=== PATIENT | female | born 1945 | race Caucasian/White ===

== ENCOUNTER 2018-07-10 20:40 | Inpatient (IN) | payer MEDICARE, BC ==
[~2018-07-10] VITALS: Ht 167.6 cm; Wt 90.9 kg
[2018-07-10 20:45] VITALS: BP 156/70
[2018-07-10] MEDS ORDERED: HYDROcodone/APAP 5/325MG 1 TAB TABLET PO PRN (22:00)
[2018-07-10] MEDS ORDERED: NON FORMULARY ITEM (Dextran 70/Hypromellose (Artificial Tears Eye Drops) 1 DROP) EACHEYE PRN (22:00)
[2018-07-10] MEDS ORDERED: FERR325T14 PO (22:27)
[2018-07-10] MEDS ORDERED: ERGO500027 PO (22:27)
[2018-07-10] MEDS ORDERED: MECL25TA3 PO (22:27)
[2018-07-10] MEDS ORDERED: POLY255P11 PO (22:27)
[2018-07-10] MEDS ORDERED: INSU100I13 SQ (22:27)
[2018-07-10] MEDS ORDERED: ACET500T68 PO (22:27)
[2018-07-10] MEDS ORDERED: DEXT15DR5 EACHEYE (22:27)
[2018-07-10] MEDS ORDERED: ATOR40TA59 PO (22:27)
[2018-07-10] MEDS ORDERED: SERT25TA PO (22:27)
[2018-07-10] MEDS ORDERED: SENN-142 PO (22:27)
[2018-07-10] MEDS ORDERED: MAGN400T22 PO (22:27)
[2018-07-10] MEDS ORDERED: ASPI-630 PO (22:27)
[2018-07-10] MEDS ORDERED: GABA-586 PO (22:27)
[2018-07-10] MEDS ORDERED: DORZ10DR21 LEFTEYE (22:27)
[2018-07-10] MEDS ORDERED: CARB15DR3 EACHEYE (22:27)
[2018-07-10] MEDS ORDERED: DORZ10DR27 LEFTEYE (22:27)
[2018-07-10] MEDS ORDERED: LOSA25TA11 PO ×2 (22:27)
[2018-07-10] MEDS ORDERED: HYDR-2155 PO ×2 (22:27)
[2018-07-10] MEDS ORDERED: LIDO700A39 TP (22:27)
[2018-07-10] MEDS ORDERED: CLOP75TA PO (22:27)
[2018-07-10] MEDS ORDERED: DEXTROSE 50% 25 GM / 50ML DISP.SYRIN. IV PRN (22:45)
--- NOTE | 2018-07-10 22:46 | PDOC ---
Exam Note: Abhilash Note: Please also refer to the separate dictated note~for this date of service dictated separately. Discussed the patient with Nursing staff reviewed the chart.~Reviewed interim history and current functioning. Reviewed vital signs,~ Labs/ Radiology~and current medications noted below. Continue current treatment with the changes noted in the dictated addendum note Current Medications: Meds: Current Medications Clopidogrel Bisulfate (Plavix) 75 mg DAILY PO ; Start 07/11/18 at 09:00 Ferrous Sulfate (Feosol) 325 mg DAILY PO ; Start 07/11/18 at 09:00 Gabapentin (Neurontin) 300 mg HS PO ; Start 07/11/18 at 21:00 Acetaminophen/ Hydrocodone Bitart (Lortab 5/325) 1 tab PRN QHS PRN PO PAIN; Start 07/10/18 at 22:00 Acetaminophen/ Hydrocodone Bitart (Lortab 5/325) 1 tab PRN Q6HRS PRN PO PAIN; Start 07/10/18 at 22:00 Insulin Glargine (Lantus) 30 units QHS SQ ; Start 07/11/18 at 21:00 Losartan Potassium (Cozaar) 12.5 mg HS PO ; Start 07/11/18 at 21:00 Losartan Potassium (Cozaar) 25 mg DAILY PO ; Start 07/11/18 at 09:00 Senna/Docusate Sodium (Senna Plus) 1 tab BID94 PO ; Start 07/11/18 at 09:00 Acetaminophen (Tylenol) 1,000 mg PRN Q6HRS PRN PO PAIN / TEMP; Start 07/10/18 at 22:45 Aspirin (Children'S Aspirin) 81 mg DAILYWBKFT PO ; Start 07/11/18 at 08:00 Atorvastatin Calcium (Lipitor) 40 mg QHS PO ; Start 07/11/18 at 21:00 Artificial Tears (Artificial Tears) 1 drop PRN Q15MIN PRN OU DRY EYE; Start at 22:45 Non-Formulary Medication (Dextran 70/ Hypromellose (Artificial Tears Eye Drops) ) 1 drop PRN Q4HRS PRN EACHEYE DRY EYE; Start 07/10/18 at 22:00; Status UNV Dorzolamide/ Timolol (Cosopt) 1 drop QHS OS ; Start 07/11/18 at 21:00 Non-Formulary Medication (Dorzolamide Hcl/ Timolol Maleat (Dorzolamide-Timolol Eye Drops)) 1 drop HS LEFTEYE ; Start 07/11/18 at 21:00; Status UNV Vitamin D (Vitamin D3) 50,000 unit WEEKLY PO ; Start 07/17/18 at 09:00 Lidocaine (Lidoderm) 1 patch DAILY TD ; Start 07/11/18 at 09:00 Magnesium Oxide (Magnesium Oxide) 400 mg BID94 PO ; Start 07/11/18 at 09:00 Meclizine HCl (Antivert) 25 mg DAILY PO ; Start 07/11/18 at 09:00 Polyethylene Glycol (miraLAX) 17 gm PRN DAILY PRN PO CONSTIPATION; Start at 09:00 Sertraline HCl (Zoloft) 25 mg DAILY PO ; Start 07/11/18 at 09:00 Insulin Human Lispro (HumaLOG) 0-16 UNITS TIDWMEALS SQ ; Start 07/11/18 at 08:00 ; Status UNV Dextrose 12.5 gm PRN Q15MIN PRN IV SEE COMMENTS; Start 07/10/18 at 22:45; Status UNV Miscellaneous (Lidoderm Patch Removal) 1 ea QHS MC ; Start 07/11/18 at 21:00 Active Scripts Active Reported Vitamin D2 (Ergocalciferol (Vitamin D2)) 50,000 Unit Capsule 50,000 Unit PO WEEKLY Zoloft (Sertraline Hcl) 25 Mg Tablet 25 Mg PO DAILY Senna-S Laxative Tablet (Sennosides/Docusate Sodium) 1 Each Tablet 1 Each PO BID94 Refresh Optive Eye Drops (Carboxymethylcellulos/Glycerin) 15 Ml Drops 1 Drop EACHEYE PRN Q4HRS PRN Polyethylene Glycol 3350 255 Gm Powder 17 Gm PO PRN DAILY PRN Meclizine Hcl 25 Mg Tablet 25 Mg PO DAILY Mag-Oxide (Magnesium Oxide) 400 Mg Tablet 400 Mg PO BID94 Losartan Potassium (Losartan Potassium) 25 Mg Tablet 12.5 Mg PO HS Losartan Potassium (Losartan Potassium) 25 Mg Tablet 25 Mg PO DAILY Lidocaine 1 Each Adh..patch 1 Each TP DAILY Lantus Solostar (Insulin Glargine,Hum.rec.anlog) 100 Unit/1 Ml Insuln.pen 30 Unit SQ QHS Hydrocodone-Apap 5-325 (Hydrocodone Bit/Acetaminophen) 1 Each Tablet 1 Tab PO PRN Q6HRS PRN Hydrocodone-Apap 5-325 (Hydrocodone Bit/Acetaminophen) 1 Each Tablet 1 Tab PO HS PRN Gabapentin (Gabapentin) 300 Mg Capsule 300 Mg PO HS Ferrous Sulfate 325 Mg Tablet 325 Mg PO DAILY Dorzolamide-Timolol Eye Drops (Dorzolamide Hcl/Timolol Maleat) 10 Ml Drops 1 Drop LEFTEYE HS Cosopt Eye Drops (Dorzolamide Hcl/Timolol Maleat) 10 Ml Drops 1 Drop LEFTEYE HS Clopidogrel (Clopidogrel Bisulfate) 75 Mg Tablet 75 Mg PO DAILY Atorvastatin Calcium 40 Mg Tablet 40 Mg PO QHS Aspirin 81 Mg Tab.chew 81 Mg PO DAILY Artificial Tears Eye Drops (Dextran 70/Hypromellose) 15 Ml Drops 1 Drop EACHEYE PRN Q4HRS PRN Acetaminophen 500 Mg Tablet 1,000 Mg PO PRN Q6HRS PRN I have reviewed the current psychotropics carefully including drug interactions. Risk benefit ratio favors no change other than as noted in my dictated progress note. JENNIFER CHEUNG MD Jul 10, 2018 22:46
[2018-07-10] MEDS: INSULIN GLARGINE 300 UNITS/3 ML INSULN.PEN. SQ SCH (23:00)
[2018-07-10] MEDS: HYDROcodone/APAP 5/325MG 1 TAB TABLET PO SCH (23:00)
[2018-07-10] MEDS ORDERED: MAGNESIUM HYDROXIDE 2,400 MG/30 ML ORAL.SUSP. PO PRN (23:15)
[2018-07-10] MEDS ORDERED: MAG HYDROX/AL HYDROX/SIMETH 30 ML ORAL.SUSP PO PRN (23:15)
[2018-07-10] MEDS ORDERED: METHYL SALICYLATE/MENTHOL TOPICAL OINTMENT 29GM TUBE. TP PRN (23:15)
[2018-07-11] MEDS: LOSARTAN 25 MG TABLET. PO SCH ×3 (02:25→20:55)
[2018-07-11] MEDS: ATORVASTATIN CALCIUM 20 MG TABLET PO SCH ×2 (02:26→20:55)
[2018-07-11] MEDS: SENNOSIDES/DOCUSATE 8.6/50MG TABLET. PO SCH ×3 (02:29→16:25)
[2018-07-11] MEDS: GABAPENTIN 300 MG CAPSULE. PO SCH ×2 (02:30→20:55)
--- NOTE | 2018-07-11 05:11 | NUR ---
Admission Note with Justification for Admission to [facility] Patient admitted to [facility] for protective oversight for emergency stabilization of acute psychiatric crisis. Pt admitted from: [place] Mode of arrival: EMS Accompanied By: EMS Precipitating behaviors that initiated intake and admission:Was threatening SI, hoarding narcotics and plan was to OD. Description of failure of out patient attempts at stabilization in previous setting list behavior and medication trials: Pt was caught hoarding narcotics and was making SI statements Behaviors and assessment findings upon admission: Pt arrives in denial, tearful, angry but compliant with meds, attempted to kamran meds in front of staff. Plan: Admit for protective oversight for adjustment and stabilization of medications, behaviors and mood. Intense treatment regimen including groups, medication adjustments, therapy, consistent regimen for ADL's, self care, and sleep hygiene. Daily monitoring by Inpatient staff, Psychiatry, and Medical Physician.
[2018-07-11 06:06] VITALS: BP 114/64
[2018-07-11 08:31] LABS: BASO # 0.1 x10^3/uL (0.0-0.2); BASO % 2 % (0-3); EOS # 0.2 x10^3/uL (0.0-0.7); EOS % 4 % (0-3); HEMOGLOBIN 12.8 g/dL (12.0-15.5); LYMPH # 1.7 x10^3/uL (1.0-4.8); LYMPH % 28 % (24-48); MEAN CORPUSCULAR HEMOGLOBIN 28 pg (25-35); MEAN CORPUSCULAR HGB CONC 33 g/dL (31-37); MEAN CORPUSCULAR VOLUME 85 fL (79-100); MONO # 0.4 x10^3/uL (0.0-1.1); MONO % 6 % (0-9); NEUT # 3.7 x10^3uL (1.8-7.7); NEUT % 61 % (31-73); PLATELET COUNT 275 x10^3/uL (140-400); RED BLOOD COUNT 4.61 x10^6/uL (3.50-5.40); RED CELL DISTRIBUTION WIDTH 15.5 % (11.5-14.5); WHITE BLOOD COUNT 6.2 x10^3/uL (4.0-11.0)
[2018-07-11 08:41] LABS: ALBUMIN 2.8 g/dL (3.4-5.0); ALBUMIN/GLOBULIN RATIO 0.7 (1.0-1.7); CALCIUM 9.1 mg/dL (8.5-10.1); CREATININE 1.2 mg/dL (0.6-1.0); GFR 44.3; MAGNESIUM 1.9 mg/dL (1.8-2.4); POTASSIUM 4.4 mmol/L (3.5-5.1); TOTAL BILIRUBIN 0.3 mg/dL (0.2-1.0); TOTAL PROTEIN 6.9 g/dL (6.4-8.2)
[2018-07-11] MEDS ORDERED: POLYETHYLENE GLYCOL 3350 17 GM PACKET. PO PRN (09:00)
[2018-07-11] MEDS ORDERED: SENNOSIDES/DOCUSATE 8.6/50MG TABLET. PO SCH (09:00)
[2018-07-11] MEDS: LIDOCAINE (700MG/PATCH) PATCH. TD SCH ×2 (09:00→09:22)
[2018-07-11] MEDS: INSULIN LISPRO 300 UNITS/3 ML INSULN.PEN. SQ SCH ×3 (09:15→17:00)
[2018-07-11] MEDS: POLYVINYL ALCOHOL 1.4% OPHTH SOLUTION 15ML BOTTLE. OU PRN (09:22)
[2018-07-11] MEDS: SERTRALINE 25 MG TABLET. PO SCH (09:23)
[2018-07-11] MEDS: FERROUS SULFATE 325 MG TABLET. PO SCH (09:23)
[2018-07-11] MEDS: MAGNESIUM OXIDE 400 MG TABLET PO SCH ×2 (09:23→16:25)
[2018-07-11] MEDS: MECLIZINE 12.5 MG TABLET. PO SCH (09:23)
[2018-07-11] MEDS: ASPIRIN 81 MG TAB.CHEW PO SCH (09:23)
[2018-07-11] MEDS: CLOPIDOGREL BISULFATE 75 MG TABLET PO SCH (09:23)
[2018-07-11 12:07] LABS: THYROXINE 5.3 ug/dL (4.5-12.0)
--- NOTE | 2018-07-11 13:52 | NUR ---
Pt has been med-compliant; however very suspicious. Pt asked to go to the bathroom and pt refused to get off of toilet. CNAs went in to check on her again when it was time to go to lunch and informed the patient that she had been on the toilet for 25 minutes, and pt stated "I should've chased you out the moment we sat down." Pt was agitated and was left alone. Pt calmed down and went to the dining room for lunch.
--- NOTE | 2018-07-11 13:59 | NUR ---
Per shift report, pt will separate lortab from the rest of her pills and try to hide it in her hand. Pt will fall in floor, expecting help, and then will be mean to help. On arrival, patient had a large razor in her possession, and pt claimed that she was told she would only be here for two hours and wanted to go home.
[2018-07-11 14:14] LABS: THYROID STIM HORMONE (TSH) 6.846 uIU/mL (0.358-3.740)
[2018-07-11 17:25] VITALS: BP 122/75
[2018-07-11] MEDS: HYDROcodone/APAP 5/325MG 1 TAB TABLET PO SCH (20:55)
[2018-07-11] MEDS: PATCH REMOVAL. MC SCH (20:56)
[2018-07-11] MEDS: DORZOLAMIDE/TIMOLOL 2%/0.5% OPHTH SOLUTION 10ML BOTTLE. OS SCH (20:57)
[2018-07-11] MEDS: INSULIN GLARGINE 300 UNITS/3 ML INSULN.PEN. SQ SCH (20:57)
[2018-07-11] MEDS ORDERED: NON FORMULARY ITEM (Dorzolamide Hcl/Timolol Maleat (Dorzolamide-Timolol Eye Drops) 1 DROP) LEFTEYE SCH (21:00)
[2018-07-11] MEDS ORDERED: ATORVASTATIN CALCIUM 20 MG TABLET PO SCH (21:00)
[2018-07-11] MEDS ORDERED: GABAPENTIN 300 MG CAPSULE. PO SCH (21:00)
[2018-07-11] MEDS ORDERED: INSULIN GLARGINE 300 UNITS/3 ML INSULN.PEN. SQ SCH (21:00)
[2018-07-11] MEDS ORDERED: LOSARTAN 25 MG TABLET. PO SCH (21:00)
--- NOTE | 2018-07-11 21:51 | HP ---
ADMIT DATE: 07/11/2018 PSYCHIATRIC ADMISSION HISTORY AND EVALUATION This note covers elements not covered in my initial note of 07/11/2018. IDENTIFYING DATA: The patient is a 73-year-old female referred to us from [facility] by Dr. Nahomy Estrada, her primary care physician on account of worsening symptoms of depression with suicidal ideation with a plan to keep her [place] and overdose on it. Reportedly, she had been pocketing her [place] in her mouth and saving it. She was resistive to cares and showers, agitated, refusing medications frequently at other times. She has been depressed, had a recent CVA. Behaviors were deemed dangerous due to suicidal ideation. Had failed outpatient psychiatric interventions resulting in this referral for inpatient psychiatric stabilization. I met with the patient evening of 07/11/2018 for this evaluation. CHIEF COMPLAINT: "Yes, I have been depressed. I was not suicidal. That is ____." The patient later corrected it and said that is just "wrong." HISTORY OF PRESENT ILLNESS: The patient admits to being depressed consequent to a general medical condition and the recent CVA. She admits to feeling helpless, hopeless, worthless at times. Denies active suicidal ideation. She remains reasonably oriented, but does have some short-term memory deficits. No symptoms of bipolar disorder. No clear psychotic symptoms. PAST PSYCHIATRIC HISTORY: As above. MEDICAL HISTORY: Positive for hypertension, status post CVA, diabetes mellitus, hyperlipidemia, osteoarthritis. She reportedly has a pulmonary nodule, history of spinal stenosis, coronary artery disease, degenerative joint disease, glaucoma in the left eye, status post CVA with right-sided hemiparesis. Accu-Cheks a.c. and at bedtime. DRUG ALLERGIES: Negative. CODE STATUS: DNR. DIET: ADA. MEDICATIONS: Takes her meds whole. Ambulates in wheelchair. CURRENT PSYCHOTROPICS: Zoloft 25 mg a day and Zyprexa was added p.r.n. earlier today when the nursing staff called me as an emergency on account of the patient's anxiety, agitation, will be added 2.5 mg q. 2 hours p.r.n. psychosis and agitation, max 10 mg in 24 hours. FAMILY HISTORY: Noncontributory. SOCIAL HISTORY: No alcohol; drug abuse; physical, sexual, or elder abuse history is noted. She is not known to be a perpetrator. 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 REACTION TO HOSPITALIZATION: The patient accepting of it. ASSETS: Reasonably cognitively intact, stable living at the above facility. MENTAL STATUS EXAMINATION: The patient was seen individually on the evening of 07/11/2018. She is oriented to herself, situation, knew she came here last night, knew it was 07/11/2018, knew the president was president Digna. She is in a wheelchair. Speech has some latency, coherent. Abstraction fair, computation somewhat impaired, language function intact, attention span short. Mood and affect withdrawn. She is depressed, anxious. Denies active suicidal ideation. LABORATORY DATA: Reviewed. IMPRESSION: Major depressive disorder, recurrent, severe; anxiety disorder, unspecified; mild cognitive impairment. Rest diagnoses as above. PLAN: Admit to geropsychiatry unit at [facility]. I will see the patient daily individually from a psychiatric standpoint, medical followup with Dr. Herrmann. Continue the patient on her current psychotropics including Zoloft and may adjust this gradually. Estimated length of stay 10-12 days. DISPOSITION: Plans back to [facility] in [place]. JENNIFER CHEUNG MD DR: SHERIF/kelly JOB#: [id number] / [id number]
--- NOTE | 2018-07-11 22:33 | PDOC ---
Exam Note: Abhilash Note: Please also refer to the separate dictated note~for this date of service dictated separately.~Patient seen individually. Discussed the patient with Nursing staff reviewed the chart.~Reviewed interim history and current functioning. Reviewed vital signs,~Labs/ Radiology~and current medications noted below. Continue current treatment with the changes noted in the dictated addendum note Assessment: Vital Signs: Vital Signs Date Time Temp Pulse Resp B/P (MAP) Pulse Ox O2 Delivery O2 Flow Rate FiO2 07/11/18 20:55 82 122/75 07/11/18 20:55 98 07/11/18 17:25 98.6 16 07/10/18 23:00 Room Air I&O Intake and Output 07/11/18 07:00 Intake Total 240 ml Balance 240 ml Intake Oral 240 ml # Voids 1 Labs: Laboratory Tests Test 07/10/18 22:51 07/11/18 07:33 07/11/18 08:10 07/11/18 11:41 Glucose (Fingerstick) 233 mg/dL (70-99) H 158 mg/dL (70-99) H 196 mg/dL (70-99) H White Blood Count 6.2 x10^3/uL (4.0-11.0) Red Blood Count 4.61 x10^6/uL (3.50-5.40) Hemoglobin 12.8 g/dL (12.0-15.5) Hematocrit 39.0 % (36.0-47.0) Mean Corpuscular Volume 85 fL (79-100) Mean Corpuscular Hemoglobin 28 pg (25-35) Mean Corpuscular Hemoglobin Concent 33 g/dL (31-37) Red Cell Distribution Width 15.5 % (11.5-14.5) H Platelet Count 275 x10^3/uL (140-400) Neutrophils (%) (Auto) 61 % (31-73) Lymphocytes (%) (Auto) 28 % (24-48) Monocytes (%) (Auto) 6 % (0-9) Eosinophils (%) (Auto) 4 % (0-3) H Basophils (%) (Auto) 2 % (0-3) Neutrophils # (Auto) 3.7 x10^3uL (1.8-7.7) Lymphocytes # (Auto) 1.7 x10^3/uL (1.0-4.8) Monocytes # (Auto) 0.4 x10^3/uL (0.0-1.1) Eosinophils # (Auto) 0.2 x10^3/uL (0.0-0.7) Basophils # (Auto) 0.1 x10^3/uL (0.0-0.2) Sodium Level 139 mmol/L (136-145) Potassium Level 4.4 mmol/L (3.5-5.1) Chloride Level 105 mmol/L (98-107) Carbon Dioxide Level 27 mmol/L (21-32) Anion Gap 7 (6-14) Blood Urea Nitrogen 34 mg/dL (7-20) H Creatinine 1.2 mg/dL (0.6-1.0) H Estimated GFR (Cockcroft-Gault) 44.3 BUN/Creatinine Ratio 28 (6-20) H Glucose Level 149 mg/dL (70-99) H Calcium Level 9.1 mg/dL (8.5-10.1) Magnesium Level 1.9 mg/dL (1.8-2.4) Iron Level 57 ug/dL (50-170) Total Iron Binding Capacity 255 ug/dL (250-450) Iron Saturation 22 % (15-34) Total Bilirubin 0.3 mg/dL (0.2-1.0) Aspartate Amino Transferase (AST) 12 U/L (15-37) L Alanine Aminotransferase (ALT) 14 U/L (14-59) Alkaline Phosphatase 82 U/L (46-116) Total Protein 6.9 g/dL (6.4-8.2) Albumin 2.8 g/dL (3.4-5.0) L Albumin/Globulin Ratio 0.7 (1.0-1.7) L Triglycerides Level 85 mg/dL (0-150) Cholesterol Level 153 mg/dL (0-200) LDL Cholesterol, Calculated 85 mg/dL (0-100) VLDL Cholesterol, Calculated 17 mg/dL (0-40) Non-HDL Cholesterol Calculated 102 mg/dL (0-129) HDL Cholesterol 51 mg/dL (40-60) Cholesterol/HDL Ratio 3.0 Thyroid Stimulating Hormone (TSH) 6.846 uIU/mL (0.358-3.740) Thyroxine (T4) 5.3 ug/dL (4.5-12.0) Total Triiodothyronine (TT3) 101 ng/dL (71-180) Test 07/11/18 16:51 Glucose (Fingerstick) 132 mg/dL (70-99) H Current Medications: Meds: Current Medications Clopidogrel Bisulfate (Plavix) 75 mg DAILY PO Last administered on 07/11/18at 09 :23; Start 07/11/18 at 09:00 Ferrous Sulfate (Feosol) 325 mg DAILY PO Last administered on 07/11/18at 09:23; Start 07/11/18 at 09:00 Gabapentin (Neurontin) 300 mg HS PO ; Start 07/11/18 at 21:00; Stop 07/11/18 at 21:00; Status DC Acetaminophen/ Hydrocodone Bitart (Lortab 5/325) 1 tab PRN QHS PRN PO PAIN; Start 07/10/18 at 22:00; Stop 07/10/18 at 22:51; Status DC Acetaminophen/ Hydrocodone Bitart (Lortab 5/325) 1 tab PRN Q6HRS PRN PO PAIN; Start 07/10/18 at 22:00 Insulin Glargine (Lantus) 30 units QHS SQ ; Start 07/11/18 at 21:00; Stop at 21:00; Status DC Losartan Potassium (Cozaar) 12.5 mg HS PO ; Start 07/11/18 at 21:00; Stop at 21:00; Status DC Losartan Potassium (Cozaar) 25 mg DAILY PO Last administered on 07/11/18at 09:24 ; Start 07/11/18 at 09:00 Senna/Docusate Sodium (Senna Plus) 1 tab BID94 PO ; Start 07/11/18 at 09:00; Stop 07/11/18 at 09:00; Status DC Acetaminophen (Tylenol) 1,000 mg PRN Q6HRS PRN PO PAIN / TEMP; Start 07/10/18 at 22:45 Aspirin (Children'S Aspirin) 81 mg DAILYWBKFT PO Last administered on at 09:23; Start 07/11/18 at 08:00 Atorvastatin Calcium (Lipitor) 40 mg QHS PO ; Start 07/11/18 at 21:00; Stop at 21:00; Status DC Artificial Tears (Artificial Tears) 1 drop PRN Q15MIN PRN OU DRY EYE; Start at 22:45 Non-Formulary Medication (Dextran 70/ Hypromellose (Artificial Tears Eye Drops) ) 1 drop PRN Q4HRS PRN EACHEYE DRY EYE; Start 07/10/18 at 22:00; Status UNV Dorzolamide/ Timolol (Cosopt) 1 drop QHS OS Last administered on 07/11/18 20: 57; Start 07/11/18 at 21:00 Non-Formulary Medication (Dorzolamide Hcl/ Timolol Maleat (Dorzolamide-Timolol Eye Drops)) 1 drop HS LEFTEYE ; Start 07/11/18 at 21:00; Status UNV Vitamin D (Vitamin D3) 50,000 unit WEEKLY PO ; Start 07/17/18 at 09:00 Lidocaine (Lidoderm) 1 patch DAILY TD ; Start 07/11/18 at 09:00 Magnesium Oxide (Magnesium Oxide) 400 mg BID94 PO Last administered on 16:25; Start 07/11/18 at 09:00 Meclizine HCl (Antivert) 25 mg DAILY PO Last administered on 07/11/18 09:23; Start 07/11/18 at 09:00 Polyethylene Glycol (miraLAX) 17 gm PRN DAILY PRN PO CONSTIPATION; Start at 09:00 Sertraline HCl (Zoloft) 25 mg DAILY PO Last administered on 07/11/18 09:23; Start 07/11/18 at 09:00 Insulin Human Lispro (HumaLOG) 0-16 UNITS TIDWMEALS SQ Last administered on 12:59; Start 07/11/18 at 08:00 Dextrose 12.5 gm PRN Q15MIN PRN IV SEE COMMENTS; Start 07/10/18 at 22:45 Miscellaneous (Lidoderm Patch Removal) 1 ea QHS MC Last administered on 20:56; Start 07/11/18 at 21:00 Atorvastatin Calcium (Lipitor) 40 mg QHS PO Last administered on 07/11/18 20: 55; Start 07/10/18 at 23:00 Gabapentin (Neurontin) 300 mg HS PO Last administered on 07/11/18 20:55; Start 07/10/18 at 23:00 Acetaminophen/ Hydrocodone Bitart (Lortab 5/325) 1 tab HS PO Last administered on 07/11/18 20:55; Start 07/10/18 at 23:00 Insulin Glargine (Lantus) 30 units QHS SQ Last administered on 07/11/18 20:57 ; Start 07/10/18 at 23:00 Losartan Potassium (Cozaar) 12.5 mg HS PO Last administered on 07/11/18 20:55 ; Start 07/10/18 at 23:00 Senna/Docusate Sodium (Senna Plus) 1 tab BID94 PO Last administered on 16:25; Start 07/10/18 at 23:00 Multi-Ingredient Ointment (Analgesic [place]) 1 ivan PRN QID PRN TP MUSCLE PAIN; Start 07/10/18 at 23:15 Al Hydroxide/Mg Hydroxide (Mylanta Plus Xs) 15 ml PRN AFTMEALHC PRN PO DYSPEPSIA; Start 07/10/18 at 23:15 Magnesium Hydroxide (Milk Of Magnesia) 2,400 mg PRN QHS PRN PO CONSTIPATION; Start 07/10/18 at 23:15 Active Scripts Active Reported Vitamin D2 (Ergocalciferol (Vitamin D2)) 50,000 Unit Capsule 50,000 Unit PO WEEKLY Zoloft (Sertraline Hcl) 25 Mg Tablet 25 Mg PO DAILY Senna-S Laxative Tablet (Sennosides/Docusate Sodium) 1 Each Tablet 1 Each PO BID94 Refresh Optive Eye Drops (Carboxymethylcellulos/Glycerin) 15 Ml Drops 1 Drop EACHEYE PRN Q4HRS PRN Polyethylene Glycol 3350 255 Gm Powder 17 Gm PO PRN DAILY PRN Meclizine Hcl 25 Mg Tablet 25 Mg PO DAILY Mag-Oxide (Magnesium Oxide) 400 Mg Tablet 400 Mg PO BID94 Losartan Potassium (Losartan Potassium) 25 Mg Tablet 12.5 Mg PO HS Losartan Potassium (Losartan Potassium) 25 Mg Tablet 25 Mg PO DAILY Lidocaine 1 Each Adh..patch 1 Each TP DAILY Lantus Solostar (Insulin Glargine,Hum.rec.anlog) 100 Unit/1 Ml Insuln.pen 30 Unit SQ QHS Hydrocodone-Apap 5-325 (Hydrocodone Bit/Acetaminophen) 1 Each Tablet 1 Tab PO PRN Q6HRS PRN Hydrocodone-Apap 5-325 (Hydrocodone Bit/Acetaminophen) 1 Each Tablet 1 Tab PO HS PRN Gabapentin (Gabapentin) 300 Mg Capsule 300 Mg PO HS Ferrous Sulfate 325 Mg Tablet 325 Mg PO DAILY Dorzolamide-Timolol Eye Drops (Dorzolamide Hcl/Timolol Maleat) 10 Ml Drops 1 Drop LEFTEYE HS Cosopt Eye Drops (Dorzolamide Hcl/Timolol Maleat) 10 Ml Drops 1 Drop LEFTEYE HS Clopidogrel (Clopidogrel Bisulfate) 75 Mg Tablet 75 Mg PO DAILY Atorvastatin Calcium 40 Mg Tablet 40 Mg PO QHS Aspirin 81 Mg Tab.chew 81 Mg PO DAILY Artificial Tears Eye Drops (Dextran 70/Hypromellose) 15 Ml Drops 1 Drop EACHEYE PRN Q4HRS PRN Acetaminophen 500 Mg Tablet 1,000 Mg PO PRN Q6HRS PRN I have reviewed the current psychotropics carefully including drug interactions. Risk benefit ratio favors no change other than as noted in my dictated progress note. Diagnosis: Problems: (1) Anxiety disorder (2) Major depressive disorder, recurrent episode (3) Impulse control disorder (4) Mild cognitive disorder JENNIFER CHEUNG MD Jul 11, 2018 22:33
[2018-07-11 23:14] LABS: BACTERIA,URINE FEW /HPF (0-FEW); BILIRUBIN,URINE NEG (NEG); CLARITY,URINE HAZY; COLOR,URINE YELLOW; GLUCOSE,URINE NEG (NEG); NITRITE,URINE NEG (NEG); SQUAMOUS EPITHELIAL CELL,UR MOD /LPF; UROBILINOGEN,URINE 0.2 mg/dL (0.2 mg/dL)
--- NOTE | 2018-07-12 00:05 | CONS ---
DATE OF CONSULTATION: 07/11/2018 REASON FOR CONSULTATION: Medical management. HISTORY OF PRESENT ILLNESS: The patient is a 73-year-old female patient, a resident at [facility] [place], who apparently was admitted on account of suicidal ideation, pocketing Lortab and saving them for later to kill herself, yelling at the staff, all this in the background of depression. Medically, the patient has numerous medical problems including hypertension, hyperlipidemia, type 2 diabetes mellitus, osteoarthritis, spinal stenosis, coronary artery disease, glaucoma, cerebrovascular accident with right-sided hemiparesis. PAST SURGICAL HISTORY: Unremarkable. ALLERGIES: She has no known drug allergies. MEDICATIONS: She is currently on following medications: She is on ferrous sulfate 325 mg once a day, Plavix 75 mg once a day, atorvastatin calcium 40 mg at bedtime, losartan potassium 25 mg once a day and losartan potassium 12.5 mg at bedtime, aspirin 81 mg once a day, hydrocodone/APAP 5/325 one tablet at bedtime and one tablet every 6 hours as needed, Tylenol 1000 mg every 6 hours, gabapentin 300 mg at bedtime, sertraline 25 mg daily, Cosopt eyedrops 1 drop to left eye at bedtime and dorzolamide/timolol eye drops one drop to the left eye at bedtime, carboxymethylcellulose, Refresh Optive eyedrops 1 drop to both eyes every 4 hours as needed, artificial tears 1 drop to each eye every 4 hours. She is on magnesium oxide 400 mg twice a day, polyethylene glycol 17 grams daily, senna-S 1 tablet twice a day. She is on meclizine 25 mg daily, Lantus SoloSTAR insulin 30 units at bedtime, Lidoderm patch topically daily, vitamin D 50,000 units once a week. On questioning here, the patient said that she wants to go home that all idea of her being suicidal was not through and she was misunderstood. She denied any other complaint. PHYSICAL EXAMINATION: GENERAL: When I examined her, she looks somewhat pale, but no jaundice, cyanosis, or thyromegaly. No jugular venous distension. No lower limb edema. VITAL SIGNS: Her heart rate was 82, blood pressure was 122/75, temperature was 98.6, respiratory rate was 16, and oxygen saturation was 98%. HEAD, EYES, EARS, NOSE AND THROAT: Showed normocephalic, atraumatic. NECK: Supple. HEART: Showed normal first and second heart sounds. No gallop, rub or murmur. CHEST: Clear to auscultation. No crepitation or rhonchi. ABDOMEN: Distended, soft, nontender. NEUROLOGIC: She is awake, alert, responding appropriately. All her cranial nerves are intact. EXTREMITIES: She moves extremities without difficulty. LABORATORY DATA: Her lab work showed a white cell count of 6200, hemoglobin 12.8, hematocrit 39, MCV 85 and platelet count 275,000. Her chemistry showed a serum sodium 139, potassium 4.4, chloride 105, bicarbonate 27, anion gap of 7, BUN of 34, creatinine 1.2, estimated GFR was 44 mL per minute. Her glucose 149, calcium was 9.1, magnesium was 1.9. Her total bilirubin, AST, ALT, alkaline phosphatase were normal. Total protein was 6.9, albumin 2.8. Her serum triglycerides were 85, total cholesterol 153, LDL cholesterol was 85, VLDL was 17, HDL 51, ratio was 3. Her TSH was slightly elevated at 6.846; however, total T4 and total T3 were normal. IMPRESSION: In summary, this is a 73-year-old female patient, a resident at [facility] [place], who was admitted on account of suicidal ideation, pocketing Lortab and saving it for later to kill herself, yelling at staff, all this in a background of depression. Medically, she has a multitude of medical problems including hypertension, type 2 diabetes, hyperlipidemia, osteoarthritis, spinal stenosis, coronary artery disease, glaucoma, right-sided hemiplegia. All in all, the patient seems to be stable medically. I will follow all the lab work that are still pending and make any necessary recommendations. Thank you, Dr. Miles for allowing me to participate in the care of this patient. KHAI SPENCE MD DR: LITTLE/kelly JOB#: [id number] / [id number]
--- NOTE | 2018-07-12 00:06 | NUR ---
Pt located in the dayroom, sitting calmly. A/O to name, , and hospital. When approached with HS medications, pt asked which each pill was and questioned this nurse multiple times if they were the correct medications. Pt eventually compliant with whole medications. Once placed in bed, pt became extremely angry that staff took pt's hat to wash. Pt yelling that staff was tricking her and that her hat didn't need to be washed. Pt eventually stopped arguing and went to sleep.
[2018-07-12 02:06] LABS: HEMOGLOBIN A1C 7.1 % (4.8-5.6)
[2018-07-12 06:34] VITALS: BP 111/72
[2018-07-12] MEDS: MECLIZINE 12.5 MG TABLET. PO SCH (07:34)
[2018-07-12] MEDS: MAGNESIUM OXIDE 400 MG TABLET PO SCH ×2 (07:34→17:32)
[2018-07-12] MEDS: FERROUS SULFATE 325 MG TABLET. PO SCH (07:34)
[2018-07-12] MEDS: LIDOCAINE (700MG/PATCH) PATCH. TD SCH (07:34)
[2018-07-12] MEDS: SENNOSIDES/DOCUSATE 8.6/50MG TABLET. PO SCH ×2 (07:34→17:32)
[2018-07-12] MEDS: ASPIRIN 81 MG TAB.CHEW PO SCH (07:34)
[2018-07-12] MEDS: CLOPIDOGREL BISULFATE 75 MG TABLET PO SCH (07:34)
[2018-07-12] MEDS: SERTRALINE 25 MG TABLET. PO SCH (07:34)
[2018-07-12] MEDS: LOSARTAN 25 MG TABLET. PO SCH ×2 (07:35→20:08)
[2018-07-12] MEDS: HYDROcodone/APAP 5/325MG 1 TAB TABLET PO PRN (07:37)
[2018-07-12] MEDS: INSULIN LISPRO 300 UNITS/3 ML INSULN.PEN. SQ SCH ×3 (08:00→17:46)
--- NOTE | 2018-07-12 10:49 | NUR ---
Behavior Intervention Response and Plan: BIRP Note: Behavior: Assumed Care of patient, patient located in Dining Room at shift change. Patient exhibited the following behavior Withdrawn, Calm, Irritable. Brief assessment on rounds of vital signs, medication needs, lab studies, and pain. Treatment plan problems . Intervention: Patient assessed and the following interventions initiated safety checks 15 Minute Checks Head to toe Assessment , Cognitive Assessment , Medications. Response: After interactions and interventions patient responded in the following manner, Able to Focus on Task , Resistive ,Compliant. Continue to assess behaviors and condition will continue to monitor throughout the shift as needed. Patient educated on ADL's, and hand hygiene. 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 Continue to assess patient for changes in above assessment. Monitor for medication needs, pain, and safety concerns. Hourly rounding performed to ensure safe environment.
[2018-07-12 15:48] VITALS: BP 110/73
[2018-07-12 20:06] VITALS: BP 128/96
[2018-07-12] MEDS: HYDROcodone/APAP 5/325MG 1 TAB TABLET PO SCH (20:07)
[2018-07-12] MEDS: ATORVASTATIN CALCIUM 20 MG TABLET PO SCH (20:07)
[2018-07-12] MEDS: GABAPENTIN 300 MG CAPSULE. PO SCH (20:08)
[2018-07-12] MEDS: PATCH REMOVAL. MC SCH (20:08)
[2018-07-12] MEDS: DORZOLAMIDE/TIMOLOL 2%/0.5% OPHTH SOLUTION 10ML BOTTLE. OS SCH (20:08)
[2018-07-12] MEDS: INSULIN GLARGINE 300 UNITS/3 ML INSULN.PEN. SQ SCH (20:09)
--- NOTE | 2018-07-12 22:42 | PDOC ---
Exam Note: Abhilash Note: Please also refer to the separate dictated note~for this date of service dictated separately.~Patient seen individually. Discussed the patient with Nursing staff reviewed the chart.~Reviewed interim history and current functioning. Reviewed vital signs,~Labs/ Radiology~and current medications noted below. Continue current treatment with the changes noted in the dictated addendum note Assessment: Vital Signs: Vital Signs Date Time Temp Pulse Resp B/P (MAP) Pulse Ox O2 Delivery O2 Flow Rate FiO2 07/12/18 22:11 96 07/12/18 20:08 84 128/96 07/12/18 15:48 97.5 15 07/10/18 23:00 Room Air I&O Intake and Output 07/12/18 07:00 Intake Total 720 ml Balance 720 ml Intake Oral 720 ml Labs: Laboratory Tests Test 07/11/18 22:50 07/12/18 07:45 07/12/18 12:06 07/12/18 17:37 Urine Collection Type Unknown Urine Color Yellow Urine Clarity Hazy Urine pH 5.0 Urine Specific Lucinda 1.025 Urine Protein 100 mg/dl (NEG-TRACE) Urine Glucose (UA) Neg mg/dL (NEG) Urine Ketones (Stick) Neg mg/dL (NEG) Urine Blood Trace (NEG) Urine Nitrite Neg (NEG) Urine Bilirubin Neg (NEG) Urine Urobilinogen Dipstick 0.2 mg/dL (0.2 mg/dL) Urine Leukocyte Esterase Small (NEG) Urine RBC 1-2 /HPF (0-2) Urine WBC 11-20 /HPF (0-4) Urine Squamous Epithelial Cells Mod /LPF Urine Bacteria Few /HPF (0-FEW) Urine Mucus Mod /LPF Glucose (Fingerstick) 92 mg/dL (70-99) 172 mg/dL (70-99) H 168 mg/dL (70-99) H Test 07/12/18 19:47 Glucose (Fingerstick) 164 mg/dL (70-99) H Current Medications: Meds: Current Medications Clopidogrel Bisulfate (Plavix) 75 mg DAILY PO Last administered on 07/12/18at 07 :34; Start 07/11/18 at 09:00 Ferrous Sulfate (Feosol) 325 mg DAILY PO Last administered on 07/12/18at 07:34; Start 07/11/18 at 09:00 Gabapentin (Neurontin) 300 mg HS PO ; Start 07/11/18 at 21:00; Stop 07/11/18 at 21:00; Status DC Acetaminophen/ Hydrocodone Bitart (Lortab 5/325) 1 tab PRN QHS PRN PO PAIN; Start 07/10/18 at 22:00; Stop 07/10/18 at 22:51; Status DC Acetaminophen/ Hydrocodone Bitart (Lortab 5/325) 1 tab PRN Q6HRS PRN PO PAIN Last administered on 07/12/18at 07:37; Start 07/10/18 at 22:00 Insulin Glargine (Lantus) 30 units QHS SQ ; Start 07/11/18 at 21:00; Stop at 21:00; Status DC Losartan Potassium (Cozaar) 12.5 mg HS PO ; Start 07/11/18 at 21:00; Stop at 21:00; Status DC Losartan Potassium (Cozaar) 25 mg DAILY PO Last administered on 07/12/18at 07:35 ; Start 07/11/18 at 09:00 Senna/Docusate Sodium (Senna Plus) 1 tab BID94 PO ; Start 07/11/18 at 09:00; Stop 07/11/18 at 09:00; Status DC Acetaminophen (Tylenol) 1,000 mg PRN Q6HRS PRN PO PAIN / TEMP; Start 07/10/18 at 22:45 Aspirin (Children'S Aspirin) 81 mg DAILYWBKFT PO Last administered on at 07:34; Start 07/11/18 at 08:00 Atorvastatin Calcium (Lipitor) 40 mg QHS PO ; Start 07/11/18 at 21:00; Stop at 21:00; Status DC Artificial Tears (Artificial Tears) 1 drop PRN Q15MIN PRN OU DRY EYE; Start at 22:45 Non-Formulary Medication (Dextran 70/ Hypromellose (Artificial Tears Eye Drops) ) 1 drop PRN Q4HRS PRN EACHEYE DRY EYE; Start 07/10/18 at 22:00; Status UNV Dorzolamide/ Timolol (Cosopt) 1 drop QHS OS Last administered on 07/12/18at 20: 08; Start 07/11/18 at 21:00 Non-Formulary Medication (Dorzolamide Hcl/ Timolol Maleat (Dorzolamide-Timolol Eye Drops)) 1 drop HS LEFTEYE ; Start 07/11/18 at 21:00; Status UNV Vitamin D (Vitamin D3) 50,000 unit WEEKLY PO ; Start 07/17/18 at 09:00 Lidocaine (Lidoderm) 1 patch DAILY TD Last administered on 07/12/18 07:34; Start 07/11/18 at 09:00 Magnesium Oxide (Magnesium Oxide) 400 mg BID94 PO Last administered on 17:32; Start 07/11/18 at 09:00 Meclizine HCl (Antivert) 25 mg DAILY PO Last administered on 07/12/18 07:34; Start 07/11/18 at 09:00 Polyethylene Glycol (miraLAX) 17 gm PRN DAILY PRN PO CONSTIPATION Last administered on 07/12/18 07:37; Start 07/11/18 at 09:00 Sertraline HCl (Zoloft) 25 mg DAILY PO Last administered on 07/12/18 07:34; Start 07/11/18 at 09:00 Insulin Human Lispro (HumaLOG) 0-16 UNITS TIDWMEALS SQ Last administered on 17:46; Start 07/11/18 at 08:00 Dextrose 12.5 gm PRN Q15MIN PRN IV SEE COMMENTS; Start 07/10/18 at 22:45 Miscellaneous (Lidoderm Patch Removal) 1 ea QHS MC Last administered on 20:08; Start 07/11/18 at 21:00 Atorvastatin Calcium (Lipitor) 40 mg QHS PO Last administered on 07/12/18 20: 07; Start 07/10/18 at 23:00 Gabapentin (Neurontin) 300 mg HS PO Last administered on 07/12/18 20:08; Start 07/10/18 at 23:00 Acetaminophen/ Hydrocodone Bitart (Lortab 5/325) 1 tab HS PO Last administered on 07/12/18 20:07; Start 07/10/18 at 23:00 Insulin Glargine (Lantus) 30 units QHS SQ Last administered on 07/12/18 20:09 ; Start 07/10/18 at 23:00 Losartan Potassium (Cozaar) 12.5 mg HS PO Last administered on 07/12/18at 20:08 ; Start 07/10/18 at 23:00 Senna/Docusate Sodium (Senna Plus) 1 tab BID94 PO Last administered on at 17:32; Start 07/10/18 at 23:00 Multi-Ingredient Ointment (Analgesic [place]) 1 ivan PRN QID PRN TP MUSCLE PAIN; Start 07/10/18 at 23:15 Al Hydroxide/Mg Hydroxide (Mylanta Plus Xs) 15 ml PRN AFTMEALHC PRN PO DYSPEPSIA; Start 07/10/18 at 23:15 Magnesium Hydroxide (Milk Of Magnesia) 2,400 mg PRN QHS PRN PO CONSTIPATION; Start 07/10/18 at 23:15 Active Scripts Active Reported Vitamin D2 (Ergocalciferol (Vitamin D2)) 50,000 Unit Capsule 50,000 Unit PO WEEKLY Zoloft (Sertraline Hcl) 25 Mg Tablet 25 Mg PO DAILY Senna-S Laxative Tablet (Sennosides/Docusate Sodium) 1 Each Tablet 1 Each PO BID94 Refresh Optive Eye Drops (Carboxymethylcellulos/Glycerin) 15 Ml Drops 1 Drop EACHEYE PRN Q4HRS PRN Polyethylene Glycol 3350 255 Gm Powder 17 Gm PO PRN DAILY PRN Meclizine Hcl 25 Mg Tablet 25 Mg PO DAILY Mag-Oxide (Magnesium Oxide) 400 Mg Tablet 400 Mg PO BID94 Losartan Potassium (Losartan Potassium) 25 Mg Tablet 12.5 Mg PO HS Losartan Potassium (Losartan Potassium) 25 Mg Tablet 25 Mg PO DAILY Lidocaine 1 Each Adh..patch 1 Each TP DAILY Lantus Solostar (Insulin Glargine,Hum.rec.anlog) 100 Unit/1 Ml Insuln.pen 30 Unit SQ QHS Hydrocodone-Apap 5-325 (Hydrocodone Bit/Acetaminophen) 1 Each Tablet 1 Tab PO PRN Q6HRS PRN Hydrocodone-Apap 5-325 (Hydrocodone Bit/Acetaminophen) 1 Each Tablet 1 Tab PO HS PRN Gabapentin (Gabapentin) 300 Mg Capsule 300 Mg PO HS Ferrous Sulfate 325 Mg Tablet 325 Mg PO DAILY Dorzolamide-Timolol Eye Drops (Dorzolamide Hcl/Timolol Maleat) 10 Ml Drops 1 Drop LEFTEYE HS Cosopt Eye Drops (Dorzolamide Hcl/Timolol Maleat) 10 Ml Drops 1 Drop LEFTEYE HS Clopidogrel (Clopidogrel Bisulfate) 75 Mg Tablet 75 Mg PO DAILY Atorvastatin Calcium 40 Mg Tablet 40 Mg PO QHS Aspirin 81 Mg Tab.chew 81 Mg PO DAILY Artificial Tears Eye Drops (Dextran 70/Hypromellose) 15 Ml Drops 1 Drop EACHEYE PRN Q4HRS PRN Acetaminophen 500 Mg Tablet 1,000 Mg PO PRN Q6HRS PRN I have reviewed the current psychotropics carefully including drug interactions. Risk benefit ratio favors no change other than as noted in my dictated progress note. Diagnosis: Problems: (1) Anxiety disorder (2) Major depressive disorder, recurrent episode (3) Impulse control disorder (4) Mild cognitive disorder JENNIFER CHEUNG MD Jul 12, 2018 22:42
--- NOTE | 2018-07-13 01:17 | NUR ---
Pt in bed at shift change, very resistive to getting up and taking a shower. Once in the shower, pt was compliant. Pt became tearful in the shower, stating that her and son had . Pt compliant with whole medications, but irritable.
[2018-07-13 06:43] VITALS: BP 105/61
[2018-07-13] MEDS: ASPIRIN 81 MG TAB.CHEW PO SCH (07:53)
[2018-07-13] MEDS: LIDOCAINE (700MG/PATCH) PATCH. TD SCH ×2 (07:53→09:00)
[2018-07-13] MEDS: CLOPIDOGREL BISULFATE 75 MG TABLET PO SCH (07:53)
[2018-07-13] MEDS: MECLIZINE 12.5 MG TABLET. PO SCH (07:53)
[2018-07-13] MEDS: FERROUS SULFATE 325 MG TABLET. PO SCH (07:53)
[2018-07-13] MEDS: LOSARTAN 25 MG TABLET. PO SCH ×2 (07:54→19:44)
[2018-07-13] MEDS: INSULIN LISPRO 300 UNITS/3 ML INSULN.PEN. SQ SCH ×3 (07:54→17:00)
[2018-07-13] MEDS: MAGNESIUM OXIDE 400 MG TABLET PO SCH ×2 (07:57→16:35)
[2018-07-13] MEDS: SENNOSIDES/DOCUSATE 8.6/50MG TABLET. PO SCH ×2 (07:57→16:35)
[2018-07-13] MEDS: SERTRALINE 25 MG TABLET. PO SCH (07:57)
--- NOTE | 2018-07-13 12:38 | NUR ---
Pt became agitated at breakfast when asked to open her mouth to check that pt swallowed meds. Pt stared at nurse and stated, "really?" Pt eventually obliged begrudgingly. After breakfast, pt was calm and cooperative in the day room for assessment.
--- NOTE | 2018-07-13 14:00 | NUR ---
PSYCHOSOCIAL ASSESSMENT ADMISSION DATE: 07/10/18 CONTACT INFORMATION: DPOA/Guardian Contact Name: Andrea Meza Contact Address: [place], [place] Contact Phone #: [phone] ETHNIC ORIGIN: REASONS FOR ADMISSION: Anxiety/Panic Depressed Suicidal ideation Suspicious/paranoid ADDITIONAL ADMISSION COMMENTS: thoughts of wanting to pocket [place] and overdose REASON FOR ADMISSION IN PATIENT/FAMILY'S OWN WORDS: Increase in depression since having a stroke PATIENT/FAMILY EXPECTATIONS FOR ADMISSION: Medication management and mood stabilization LIVING SITUATION: Patient lives with: Assisted Living Other living arrangements: Contact Name: Campos Contact [address]: [address] [place], [place] [address] [address] Contact Phone #: Contact Fax #: FAMILY RELATIONS: Marital Status: # of Marriages: 1 # of Children: 0 [facility] Family Support: Uninvolved Additional Comments r/t Family: Pt reports that she was to her ex- Jaron for some time. However, Jaron had a gambling problem and stole a lot of stuff from the house to sell and settle a debt. So pt him. SIGNIFICANT PSYCHIATRIC/MEDICAL HISTORY: Psychiatric/Treatment History: Pt has never been inpatient psych. Pt does admit to having Depression from complications with her CVA. Pertinent Family History: Pt believes that Anxiety runs in her family, but unsure as to if anyone was officially dx. HISTORICAL DATA: Childhood Environment: [facility] Supportive Comment: Pt is one of 5 children, who are all still living: Maxwell, Tatyana, Joseph and Rohini. Pt parents over 10 years ago and pt reports that they provided a fantastic childhood for them. 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 Art degree Past/Present Interests/Hobbies: anything with painting, drawing, working with jewels and making things Financial support/resources: SS Disability Monthly income: Person handling finances: Pt brother Joseph Do you have a history of legal problems: N Cultural considerations: None SOCIAL RELATIONSHIPS-CURRENT/PAST: Psychiat[place]: [place] Counselor/Therapist: [facility]: Support Group: [employer] Collection Clerk/Budget Report Clerk: Other relationships: STRENGTHS & WEAKNESSES: Patient's strengths: Good verbal skills Education level Other patient strengths: Patient's weaknesses: Lack of housing Lack of resources Health problems Other patient weaknesses: poor judgement PRELIMINARY PLAN OF TREATMENT: Preliminary plan: Dec. Anxiety/Panic Dec. Symp. Depression Decrease Isolation Promote Coping Skill Medication Stabilization Other preliminary treatment comments: DISCHARGE PLANNING: Discharge planning/disposition: Other Additional discharge needs identified: Pt gave her facility a 30 day notice and her last paid day there is August 11. ADDITIONAL INFORMATION: Other Pertinent Data: Pt has a very flat affect and was tearful during the assessment. Pt is irritable with staff and can be rude at times. Pt has been noted multiple times to refuse her antidepressant. Pt will be teamed on to discuss medications and discharge goals.
[2018-07-13 16:17] VITALS: BP 136/81
--- NOTE | 2018-07-13 19:04 | NUR ---
At approximately 1835, patient put herself on the floor in her room. Pt initially said she did not want him when offered. After about 20 minutes, pt started yelling saying "I want help now." Pt was encouraged to get herself back in to her wheelchair on her own.
[2018-07-13] MEDS: ATORVASTATIN CALCIUM 20 MG TABLET PO SCH (19:43)
[2018-07-13] MEDS: HYDROcodone/APAP 5/325MG 1 TAB TABLET PO SCH (19:44)
[2018-07-13] MEDS: GABAPENTIN 300 MG CAPSULE. PO SCH (19:44)
[2018-07-13] MEDS: PATCH REMOVAL. MC SCH (19:44)
[2018-07-13] MEDS: DORZOLAMIDE/TIMOLOL 2%/0.5% OPHTH SOLUTION 10ML BOTTLE. OS SCH (19:46)
[2018-07-13] MEDS: INSULIN GLARGINE 300 UNITS/3 ML INSULN.PEN. SQ SCH (20:15)
--- NOTE | 2018-07-13 21:41 | PN ---
DATE: 07/12/2018 PSYCHIATRIC PROGRESS NOTE This late entry 07/12/2018 covers elements not covered in my initial note. SUBJECTIVE: I met with the patient in the evening. The patient slept 5-3/4 hours previous night. Per nursing report, the patient remains somewhat withdrawn, obsessive about her medications. She was lying in bed around suppertime when I met with her in her room. She denies active suicidal ideation. REVIEW OF SYSTEMS: Positive for impaired ambulation, in wheelchair. No CV, , pulmonary, eye system symptoms on review. MENTAL STATUS EXAM: The patient is reasonably oriented. Speech is coherent, has some latency. Abstraction fair, computation impaired, language function intact. Mood and affect somewhat withdrawn. LABORATORY DATA: Reviewed. IMPRESSION: Unchanged from initial note. PLAN: No change from initial note, but we will gradually increase the Zoloft as an antidepressant. Rest unchanged. MAN Jimmy CHEUNG MD DR: SHERIF/kelly JOB#: [id number] / [id number]
--- NOTE | 2018-07-13 22:52 | PDOC ---
Exam Note: Abhilash Note: Please also refer to the separate dictated note~for this date of service dictated separately.~Patient seen individually. Discussed the patient with Nursing staff reviewed the chart.~Reviewed interim history and current functioning. Reviewed vital signs,~Labs/ Radiology~and current medications noted below. Continue current treatment with the changes noted in the dictated addendum note Assessment: Vital Signs: Vital Signs Date Time Temp Pulse Resp B/P (MAP) Pulse Ox O2 Delivery O2 Flow Rate FiO2 07/13/18 21:04 97 07/13/18 19:44 89 136/81 07/13/18 16:17 98.0 19 07/10/18 23:00 Room Air I&O Intake and Output 07/13/18 06:59 Intake Total 480 ml Balance 480 ml Intake Oral 480 ml Labs: Laboratory Tests Test 07/13/18 07:31 07/13/18 12:11 07/13/18 16:48 07/13/18 19:44 Glucose (Fingerstick) 87 mg/dL (70-99) 107 mg/dL (70-99) H 151 mg/dL (70-99) H 176 mg/dL (70-99) H Current Medications: Meds: Current Medications Clopidogrel Bisulfate (Plavix) 75 mg DAILY PO Last administered on 07/13/18at 07: 53; Start 07/11/18 at 09:00 Ferrous Sulfate (Feosol) 325 mg DAILY PO Last administered on 07/13/18at 07:53; Start 07/11/18 at 09:00 Gabapentin (Neurontin) 300 mg HS PO ; Start 07/11/18 at 21:00; Stop 07/11/18 at 21:00; Status DC Acetaminophen/ Hydrocodone Bitart (Lortab 5/325) 1 tab PRN QHS PRN PO PAIN; Start 07/10/18 at 22:00; Stop 07/10/18 at 22:51; Status DC Acetaminophen/ Hydrocodone Bitart (Lortab 5/325) 1 tab PRN Q6HRS PRN PO PAIN Last administered on 07/12/18at 07:37; Start 07/10/18 at 22:00 Insulin Glargine (Lantus) 30 units QHS SQ ; Start 07/11/18 at 21:00; Stop at 21:00; Status DC Losartan Potassium (Cozaar) 12.5 mg HS PO ; Start 07/11/18 at 21:00; Stop at 21:00; Status DC Losartan Potassium (Cozaar) 25 mg DAILY PO Last administered on 07/13/18at 07:54 ; Start 07/11/18 at 09:00 Senna/Docusate Sodium (Senna Plus) 1 tab BID94 PO ; Start 07/11/18 at 09:00; Stop 07/11/18 at 09:00; Status DC Acetaminophen (Tylenol) 1,000 mg PRN Q6HRS PRN PO PAIN / TEMP; Start 07/10/18 at 22:45 Aspirin (Children'S Aspirin) 81 mg DAILYWBKFT PO Last administered on 07/13/18at 07:53; Start 07/11/18 at 08:00 Atorvastatin Calcium (Lipitor) 40 mg QHS PO ; Start 07/11/18 at 21:00; Stop at 21:00; Status DC Artificial Tears (Artificial Tears) 1 drop PRN Q15MIN PRN OU DRY EYE; Start at 22:45 Non-Formulary Medication (Dextran 70/ Hypromellose (Artificial Tears Eye Drops) ) 1 drop PRN Q4HRS PRN EACHEYE DRY EYE; Start 07/10/18 at 22:00; Status UNV Dorzolamide/ Timolol (Cosopt) 1 drop QHS OS Last administered on 07/13/18at 19:46 ; Start 07/11/18 at 21:00 Non-Formulary Medication (Dorzolamide Hcl/ Timolol Maleat (Dorzolamide-Timolol Eye Drops)) 1 drop HS LEFTEYE ; Start 07/11/18 at 21:00; Status UNV Vitamin D (Vitamin D3) 50,000 unit WEEKLY PO ; Start 07/17/18 at 09:00 Lidocaine (Lidoderm) 1 patch DAILY TD Last administered on 07/12/18at 07:34; Start 07/11/18 at 09:00 Magnesium Oxide (Magnesium Oxide) 400 mg BID94 PO Last administered on at 16:35; Start 07/11/18 at 09:00 Meclizine HCl (Antivert) 25 mg DAILY PO Last administered on 07/13/18 07:53; Start 07/11/18 at 09:00 Polyethylene Glycol (miraLAX) 17 gm PRN DAILY PRN PO CONSTIPATION Last administered on 07/12/18 07:37; Start 07/11/18 at 09:00 Sertraline HCl (Zoloft) 25 mg DAILY PO Last administered on 07/13/18 07:57; Start 07/11/18 at 09:00; Stop 07/13/18 at 17:38; Status DC Insulin Human Lispro (HumaLOG) 0-16 UNITS TIDWMEALS SQ Last administered on 17:46; Start 07/11/18 at 08:00 Dextrose 12.5 gm PRN Q15MIN PRN IV SEE COMMENTS; Start 07/10/18 at 22:45 Miscellaneous (Lidoderm Patch Removal) 1 ea QHS MC Last administered on 19:44; Start 07/11/18 at 21:00 Atorvastatin Calcium (Lipitor) 40 mg QHS PO Last administered on 07/13/18 19:43 ; Start 07/10/18 at 23:00 Gabapentin (Neurontin) 300 mg HS PO Last administered on 07/13/18 19:44; Start 07/10/18 at 23:00 Acetaminophen/ Hydrocodone Bitart (Lortab 5/325) 1 tab HS PO Last administered on 07/13/18 19:44; Start 07/10/18 at 23:00 Insulin Glargine (Lantus) 30 units QHS SQ Last administered on 07/13/18 20:15; Start 07/10/18 at 23:00 Losartan Potassium (Cozaar) 12.5 mg HS PO Last administered on 07/13/18 19:44; Start 07/10/18 at 23:00 Senna/Docusate Sodium (Senna Plus) 1 tab BID94 PO Last administered on 16:35; Start 07/10/18 at 23:00 Multi-Ingredient Ointment (Analgesic [place]) 1 ivan PRN QID PRN TP MUSCLE PAIN; Start 07/10/18 at 23:15 Al Hydroxide/Mg Hydroxide (Mylanta Plus Xs) 15 ml PRN AFTMEALHC PRN PO DYSPEPSIA; Start 07/10/18 at 23:15 Magnesium Hydroxide (Milk Of Magnesia) 2,400 mg PRN QHS PRN PO CONSTIPATION; Start 07/10/18 at 23:15 Sertraline HCl (Zoloft) 50 mg DAILY PO ; Start 07/14/18 at 09:00 Active Scripts Active Reported Vitamin D2 (Ergocalciferol (Vitamin D2)) 50,000 Unit Capsule 50,000 Unit PO WEEKLY Zoloft (Sertraline Hcl) 25 Mg Tablet 25 Mg PO DAILY Senna-S Laxative Tablet (Sennosides/Docusate Sodium) 1 Each Tablet 1 Each PO BID94 Refresh Optive Eye Drops (Carboxymethylcellulos/Glycerin) 15 Ml Drops 1 Drop EACHEYE PRN Q4HRS PRN Polyethylene Glycol 3350 255 Gm Powder 17 Gm PO PRN DAILY PRN Meclizine Hcl 25 Mg Tablet 25 Mg PO DAILY Mag-Oxide (Magnesium Oxide) 400 Mg Tablet 400 Mg PO BID94 Losartan Potassium (Losartan Potassium) 25 Mg Tablet 12.5 Mg PO HS Losartan Potassium (Losartan Potassium) 25 Mg Tablet 25 Mg PO DAILY Lidocaine 1 Each Adh..patch 1 Each TP DAILY Lantus Solostar (Insulin Glargine,Hum.rec.anlog) 100 Unit/1 Ml Insuln.pen 30 Unit SQ QHS Hydrocodone-Apap 5-325 (Hydrocodone Bit/Acetaminophen) 1 Each Tablet 1 Tab PO PRN Q6HRS PRN Hydrocodone-Apap 5-325 (Hydrocodone Bit/Acetaminophen) 1 Each Tablet 1 Tab PO HS PRN Gabapentin (Gabapentin) 300 Mg Capsule 300 Mg PO HS Ferrous Sulfate 325 Mg Tablet 325 Mg PO DAILY Dorzolamide-Timolol Eye Drops (Dorzolamide Hcl/Timolol Maleat) 10 Ml Drops 1 Drop LEFTEYE HS Cosopt Eye Drops (Dorzolamide Hcl/Timolol Maleat) 10 Ml Drops 1 Drop LEFTEYE HS Clopidogrel (Clopidogrel Bisulfate) 75 Mg Tablet 75 Mg PO DAILY Atorvastatin Calcium 40 Mg Tablet 40 Mg PO QHS Aspirin 81 Mg Tab.chew 81 Mg PO DAILY Artificial Tears Eye Drops (Dextran 70/Hypromellose) 15 Ml Drops 1 Drop EACHEYE PRN Q4HRS PRN Acetaminophen 500 Mg Tablet 1,000 Mg PO PRN Q6HRS PRN I have reviewed the current psychotropics carefully including drug interactions. Risk benefit ratio favors no change other than as noted in my dictated progress note. Diagnosis: Problems: (1) Anxiety disorder (2) Major depressive disorder, recurrent episode (3) Impulse control disorder (4) Mild cognitive disorder JENNIFER CHEUNG MD Jul 13, 2018 22:52
--- NOTE | 2018-07-13 23:47 | NUR ---
Pt located in her bed at shift change. Pt angry and upset, stating that she did not want to be in bed so early. Pt stated that she was on the floor earlier in the evening because she was trying to put herself on the commode and slipped off. Pt reminded that she needed assistance to use the commode. Pt compliant with medications with coaxing.
[2018-07-14 06:04] VITALS: BP 111/54
[2018-07-14] MEDS: INSULIN LISPRO 300 UNITS/3 ML INSULN.PEN. SQ SCH ×3 (08:00→17:00)
[2018-07-14] MEDS: MECLIZINE 12.5 MG TABLET. PO SCH (08:05)
[2018-07-14] MEDS: CLOPIDOGREL BISULFATE 75 MG TABLET PO SCH (08:05)
[2018-07-14] MEDS: SENNOSIDES/DOCUSATE 8.6/50MG TABLET. PO SCH ×2 (08:05→17:26)
[2018-07-14] MEDS: MAGNESIUM OXIDE 400 MG TABLET PO SCH ×2 (08:06→17:26)
[2018-07-14] MEDS: LOSARTAN 25 MG TABLET. PO SCH ×2 (08:06→20:31)
[2018-07-14] MEDS: ASPIRIN 81 MG TAB.CHEW PO SCH (08:06)
[2018-07-14] MEDS: FERROUS SULFATE 325 MG TABLET. PO SCH (08:06)
[2018-07-14] MEDS: LIDOCAINE (700MG/PATCH) PATCH. TD SCH (08:08)
[2018-07-14] MEDS: SERTRALINE 50 MG TABLET. PO SCH ×2 (08:09→09:00)
--- NOTE | 2018-07-14 09:30 | NUR ---
Behavior Intervention Response and Plan: BIRP Note: Behavior: Assumed Care of patient, patient located in Patient Room at shift change. Patient exhibited the following behavior Calm, Disorganized, Non Compliant with Meds. Brief assessment on rounds of vital signs, medication needs, lab studies, and pain. Treatment plan problems 1 & 2. Intervention: Patient assessed and the following interventions initiated safety checks 15 Minute Checks Cognitive Assessment , Head to toe Assessment , Medications. Response: After interactions and interventions patient responded in the following manner, Disorganized , Compulsive ,Resistive. Continue to assess behaviors and condition will continue to monitor throughout the shift as needed. Patient educated on ADL's, and hand hygiene. 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 Continue to assess patient for changes in above assessment. Monitor for medication needs, pain, and safety concerns. Hourly rounding performed to ensure safe environment.
--- NOTE | 2018-07-14 09:30 | NUR ---
Patient is refusing her zoloft and part of her meclizine, stating that she never met the MD that prescribed the Zoloft and that the meclizine was too much. Will report to MD during report and continue to monitor.
--- NOTE | 2018-07-14 11:50 | NUR ---
ACTIVITY THERAPY ASSESSMENT Completed based on observation and interview. Pt. is often frustrated and irritated. At first, she was resistive and showed no interest in talking with [employer] PUMP OPERATOR. Pt. did not remember meeting [employer] PUMP OPERATOR the day before. When asked her about hobbies/interests, she said she doesn't have any hobbies because she is blind. 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 Ever since she had her stroke, resulting in paralysis on her right side, she can't do much, only listen to movies, mostly comedies (Robi Montana). When asked what brought her here, she was very upset stating it was a big miscommunication and it was all "bullshit." She said she was lied to, people told her she'd only be here for two hours. She explained two ladies approached her at her facility, talked about her having to sell her house and car in order to stay. Pt. told [employer] PUMP OPERATOR she didn't like that idea and made the comment "if that's the case, I might as well commit suicide". Pt. repeatedly denied ever wanting to actually kill herself. Pt. is really irritated being here, hating to take showers with complete strangers, hating that her hat had to be washed and showed how it was all stretched out now, hating being given medication she didn't know why she needed it, naming Zoloft as the main concern. Pt. explained she grew up in a very strict Bengali household. Once [employer] PUMP OPERATOR shared she was also part Bengali, Pt. smiled and shared she wasn't allowed to wear make up, had to wear skirts. She said it was so strict she wanted to get out and shared she once took a "bunch of Aspirin" and tried to leave, eventually leaving and her grandmother who was her nanny, Susan, took her in, helped her get a job which made her happier. She shared how when she was working, she met her , Jaron. Pt. agreed being here brings back memories, saying "this place brings me back to a bad time of my life." Pt. wanted [employer] PUMP OPERATOR to clear up something. She went on to explain the other night, when she was in her room, she asked her roommate to help hold her wheelchair while she stood and pivoted into her bed. Her roommate said no, which ended up allowing her wheelchair to roll away and her fall to the floor. She believes people here are saying she put herself on the floor intentionally; however, wanted [employer] PUMP OPERATOR to clarify and explain she fell trying to get into bed after asking for help from her roommate. Pt. is often around the day room, will engage in activities at times. Initial goal aimed to increase engagement: Pt. will participate in at least five Activity Therapy groups before discharge. Addendum: 07/31/18 at 0959 by MONO OLIVERA ACT Changed goal 07/30/2018:Pt. will participate in at least three Activity Therapy groups per week
[2018-07-14 15:44] VITALS: BP 111/74
[2018-07-14 15:48] LABS: BILIRUBIN,URINE NEG (NEG); CLARITY,URINE HAZY; COLOR,URINE AMBER; GLUCOSE,URINE NEG (NEG); NITRITE,URINE NEG (NEG); UROBILINOGEN,URINE 0.2 mg/dL (0.2 mg/dL)
[2018-07-14 15:49] LABS: BACTERIA,URINE FEW /HPF (0-FEW); SQUAMOUS EPITHELIAL CELL,UR FEW /LPF
--- NOTE | 2018-07-14 20:00 | NUR ---
Behavior Intervention Response and Plan: BIRP Note: Behavior: Assumed Care of patient, patient located in Day Room at shift change. Patient exhibited the following behavior Disorganized, Anxious, Somatic. Brief assessment on rounds of vital signs, medication needs, lab studies, and pain. Treatment plan problems . Intervention: Patient assessed and the following interventions initiated safety checks 15 Minute Checks Cognitive Assessment , Head to toe Assessment , Medications. Response: After interactions and interventions patient responded in the following manner, Drowsy , Sleeping ,Calm. Continue to assess behaviors and condition will continue to monitor throughout the shift as needed. Patient educated on ADL's, and hand hygiene. Plan: Continue to monitor Master Treatment Plan for patient's progress toward short term goals of Medication Compliance, Decreased Anxiety, senior living goals to return to previous living setting vs placement. Continue to assess patient for changes in above assessment. Monitor for medication needs, pain, and safety concerns. Hourly rounding performed to ensure safe environment.
[2018-07-14] MEDS: GABAPENTIN 300 MG CAPSULE. PO SCH (20:29)
[2018-07-14] MEDS: HYDROcodone/APAP 5/325MG 1 TAB TABLET PO SCH ×2 (20:29→21:54)
[2018-07-14] MEDS: DORZOLAMIDE/TIMOLOL 2%/0.5% OPHTH SOLUTION 10ML BOTTLE. OS SCH (20:29)
[2018-07-14] MEDS: ATORVASTATIN CALCIUM 20 MG TABLET PO SCH (20:31)
[2018-07-14] MEDS: INSULIN GLARGINE 300 UNITS/3 ML INSULN.PEN. SQ SCH (20:36)
[2018-07-14] MEDS: PATCH REMOVAL. MC SCH (21:00)
--- NOTE | 2018-07-14 22:36 | PDOC ---
Exam Note: Abhilash Note: Please also refer to the separate dictated note~for this date of service dictated separately.~Patient seen individually. Discussed the patient with Nursing staff reviewed the chart.~Reviewed interim history and current functioning. Reviewed vital signs,~Labs/ Radiology~and current medications noted below. Continue current treatment with the changes noted in the dictated addendum note Assessment: Vital Signs: Vital Signs Date Time Temp Pulse Resp B/P (MAP) Pulse Ox O2 Delivery O2 Flow Rate FiO2 07/14/18 21:54 Room Air 07/14/18 20:31 85 111/74 07/14/18 15:44 97.7 18 94 I&O Intake and Output 07/14/18 07:00 Intake Total 840 ml Balance 840 ml Intake Oral 840 ml # Bowel Movements 1 Labs: Laboratory Tests Test 07/14/18 07:35 07/14/18 09:19 07/14/18 11:48 07/14/18 15:25 Glucose (Fingerstick) 61 mg/dL (70-99) L 109 mg/dL (70-99) H 135 mg/dL (70-99) H Urine Collection Type Unknown Urine Color [place] Urine Clarity Hazy Urine pH 5.5 Urine Specific [place] 1.020 Urine Protein 30 mg/dl (NEG-TRACE) Urine Glucose (UA) Neg mg/dL (NEG) Urine Ketones (Stick) Neg mg/dL (NEG) Urine Blood Neg (NEG) Urine Nitrite Neg (NEG) Urine Bilirubin Neg (NEG) Urine Urobilinogen Dipstick 0.2 mg/dL (0.2 mg/dL) Urine Leukocyte Esterase Trace (NEG) Urine RBC 1-2 /HPF (0-2) Urine WBC 1-4 /HPF (0-4) Urine Squamous Epithelial Cells Few /LPF Urine Bacteria Few /HPF (0-FEW) Urine Mucus Slight /LPF Test 07/14/18 16:53 07/14/18 19:26 Glucose (Fingerstick) 124 mg/dL (70-99) H 204 mg/dL (70-99) H Current Medications: Meds: Current Medications Clopidogrel Bisulfate (Plavix) 75 mg DAILY PO Last administered on 07/14/18at 08: 05; Start 07/11/18 at 09:00 Ferrous Sulfate (Feosol) 325 mg DAILY PO Last administered on 07/14/18at 08:06; Start 07/11/18 at 09:00 Gabapentin (Neurontin) 300 mg HS PO ; Start 07/11/18 at 21:00; Stop 07/11/18 at 21:00; Status DC Acetaminophen/ Hydrocodone Bitart (Lortab 5/325) 1 tab PRN QHS PRN PO PAIN; Start 07/10/18 at 22:00; Stop 07/10/18 at 22:51; Status DC Acetaminophen/ Hydrocodone Bitart (Lortab 5/325) 1 tab PRN Q6HRS PRN PO PAIN Last administered on 07/12/18at 07:37; Start 07/10/18 at 22:00 Insulin Glargine (Lantus) 30 units QHS SQ ; Start 07/11/18 at 21:00; Stop at 21:00; Status DC Losartan Potassium (Cozaar) 12.5 mg HS PO ; Start 07/11/18 at 21:00; Stop at 21:00; Status DC Losartan Potassium (Cozaar) 25 mg DAILY PO Last administered on 07/14/18at 08:06 ; Start 07/11/18 at 09:00 Senna/Docusate Sodium (Senna Plus) 1 tab BID94 PO ; Start 07/11/18 at 09:00; Stop 07/11/18 at 09:00; Status DC Acetaminophen (Tylenol) 1,000 mg PRN Q6HRS PRN PO PAIN / TEMP; Start 07/10/18 at 22:45 Aspirin (Children'S Aspirin) 81 mg DAILYWBKFT PO Last administered on 07/14/18at 08:06; Start 07/11/18 at 08:00 Atorvastatin Calcium (Lipitor) 40 mg QHS PO ; Start 07/11/18 at 21:00; Stop at 21:00; Status DC Artificial Tears (Artificial Tears) 1 drop PRN Q15MIN PRN OU DRY EYE; Start at 22:45 Non-Formulary Medication (Dextran 70/ Hypromellose (Artificial Tears Eye Drops) ) 1 drop PRN Q4HRS PRN EACHEYE DRY EYE; Start 07/10/18 at 22:00; Status UNV Dorzolamide/ Timolol (Cosopt) 1 drop QHS OS Last administered on 07/14/18 20:29 ; Start 07/11/18 at 21:00 Non-Formulary Medication (Dorzolamide Hcl/ Timolol Maleat (Dorzolamide-Timolol Eye Drops)) 1 drop HS LEFTEYE ; Start 07/11/18 at 21:00; Status UNV Vitamin D (Vitamin D3) 50,000 unit WEEKLY PO ; Start 07/17/18 at 09:00 Lidocaine (Lidoderm) 1 patch DAILY TD Last administered on 07/14/18 08:08; Start 07/11/18 at 09:00 Magnesium Oxide (Magnesium Oxide) 400 mg BID94 PO Last administered on 17:26; Start 07/11/18 at 09:00 Meclizine HCl (Antivert) 25 mg DAILY PO Last administered on 07/14/18 08:05; Start 07/11/18 at 09:00 Polyethylene Glycol (miraLAX) 17 gm PRN DAILY PRN PO CONSTIPATION Last administered on 07/12/18 07:37; Start 07/11/18 at 09:00 Sertraline HCl (Zoloft) 25 mg DAILY PO Last administered on 07/13/18 07:57; Start 07/11/18 at 09:00; Stop 07/13/18 at 17:38; Status DC Insulin Human Lispro (HumaLOG) 0-16 UNITS TIDWMEALS SQ Last administered on 17:46; Start 07/11/18 at 08:00 Dextrose 12.5 gm PRN Q15MIN PRN IV SEE COMMENTS; Start 07/10/18 at 22:45 Miscellaneous (Lidoderm Patch Removal) 1 ea QHS MC Last administered on 21:00; Start 07/11/18 at 21:00 Atorvastatin Calcium (Lipitor) 40 mg QHS PO Last administered on 07/14/18 20:31 ; Start 07/10/18 at 23:00 Gabapentin (Neurontin) 300 mg HS PO Last administered on 07/14/18 20:29; Start 07/10/18 at 23:00 Acetaminophen/ Hydrocodone Bitart (Lortab 5/325) 1 tab HS PO Last administered on 07/14/18 21:54; Start 07/10/18 at 23:00 Insulin Glargine (Lantus) 30 units QHS SQ Last administered on 07/14/18at 20:36; Start 07/10/18 at 23:00 Losartan Potassium (Cozaar) 12.5 mg HS PO Last administered on 07/14/18at 20:31; Start 07/10/18 at 23:00 Senna/Docusate Sodium (Senna Plus) 1 tab BID94 PO Last administered on at 17:26; Start 07/10/18 at 23:00 Multi-Ingredient Ointment (Analgesic [place]) 1 ivan PRN QID PRN TP MUSCLE PAIN; Start 07/10/18 at 23:15 Al Hydroxide/Mg Hydroxide (Mylanta Plus Xs) 15 ml PRN AFTMEALHC PRN PO DYSPEPSIA; Start 07/10/18 at 23:15 Magnesium Hydroxide (Milk Of Magnesia) 2,400 mg PRN QHS PRN PO CONSTIPATION; Start 07/10/18 at 23:15 Sertraline HCl (Zoloft) 50 mg DAILY PO ; Start 07/14/18 at 09:00 Active Scripts Active Reported Vitamin D2 (Ergocalciferol (Vitamin D2)) 50,000 Unit Capsule 50,000 Unit PO WEEKLY Zoloft (Sertraline Hcl) 25 Mg Tablet 25 Mg PO DAILY Senna-S Laxative Tablet (Sennosides/Docusate Sodium) 1 Each Tablet 1 Each PO BID94 Refresh Optive Eye Drops (Carboxymethylcellulos/Glycerin) 15 Ml Drops 1 Drop EACHEYE PRN Q4HRS PRN Polyethylene Glycol 3350 255 Gm Powder 17 Gm PO PRN DAILY PRN Meclizine Hcl 25 Mg Tablet 25 Mg PO DAILY Mag-Oxide (Magnesium Oxide) 400 Mg Tablet 400 Mg PO BID94 Losartan Potassium (Losartan Potassium) 25 Mg Tablet 12.5 Mg PO HS Losartan Potassium (Losartan Potassium) 25 Mg Tablet 25 Mg PO DAILY Lidocaine 1 Each Adh..patch 1 Each TP DAILY Lantus Solostar (Insulin Glargine,Hum.rec.anlog) 100 Unit/1 Ml Insuln.pen 30 Unit SQ QHS Hydrocodone-Apap 5-325 (Hydrocodone Bit/Acetaminophen) 1 Each Tablet 1 Tab PO PRN Q6HRS PRN Hydrocodone-Apap 5-325 (Hydrocodone Bit/Acetaminophen) 1 Each Tablet 1 Tab PO HS PRN Gabapentin (Gabapentin) 300 Mg Capsule 300 Mg PO HS Ferrous Sulfate 325 Mg Tablet 325 Mg PO DAILY Dorzolamide-Timolol Eye Drops (Dorzolamide Hcl/Timolol Maleat) 10 Ml Drops 1 Drop LEFTEYE HS Cosopt Eye Drops (Dorzolamide Hcl/Timolol Maleat) 10 Ml Drops 1 Drop LEFTEYE HS Clopidogrel (Clopidogrel Bisulfate) 75 Mg Tablet 75 Mg PO DAILY Atorvastatin Calcium 40 Mg Tablet 40 Mg PO QHS Aspirin 81 Mg Tab.chew 81 Mg PO DAILY Artificial Tears Eye Drops (Dextran 70/Hypromellose) 15 Ml Drops 1 Drop EACHEYE PRN Q4HRS PRN Acetaminophen 500 Mg Tablet 1,000 Mg PO PRN Q6HRS PRN I have reviewed the current psychotropics carefully including drug interactions. Risk benefit ratio favors no change other than as noted in my dictated progress note. Diagnosis: Problems: (1) Anxiety disorder (2) Major depressive disorder, recurrent episode (3) Impulse control disorder (4) Mild cognitive disorder JENNIFER CHEUNG MD Jul 14, 2018 22:36
--- NOTE | 2018-07-15 00:03 | PN ---
DATE: 07/13/2018 PSYCHIATRIC PROGRESS NOTE This is a late entry of 07/13/2018, covers elements not covered in my initial note. SUBJECTIVE: I met with the patient in the evening. The patient slept 8 hours previous night. Previous night, during shift change, she was taken to the shower, was extremely tearful, upset, talking about that her and son . She seemed labile. Half an hour later, she was quite back to normal per nursing report. The evening of 07/13/2018, she put herself on the floor per nursing report, though the patient denies doing this. She remains anxious. REVIEW OF SYSTEMS: Ambulation impaired, in wheelchair. No CV, , pulmonary, eye system symptoms on review. MENTAL STATUS EXAM: Oriented reasonably. Speech is coherent, rapid at times. She was yelling at nursing staff to assist her getting up from the floor. Abstraction fair, computation impaired, language function intact, attention span short. Mood and affect, somewhat depressed, anxious. LABORATORY DATA: Reviewed. IMPRESSION: Unchanged from initial note. PLAN: We will increase the Zoloft to 50 mg a day after she has been on 25 for 3 days. Rest unchanged per initial note. JENNIFER CHEUNG MD DR: SHERIF/kelly JOB#: [id number] / [id number]
[2018-07-15 05:44] VITALS: BP 112/75
[2018-07-15] MEDS: INSULIN LISPRO 300 UNITS/3 ML INSULN.PEN. SQ SCH ×3 (08:00→17:27)
[2018-07-15] MEDS: MAGNESIUM OXIDE 400 MG TABLET PO SCH ×2 (08:09→17:18)
[2018-07-15] MEDS: CLOPIDOGREL BISULFATE 75 MG TABLET PO SCH (08:09)
[2018-07-15] MEDS: ASPIRIN 81 MG TAB.CHEW PO SCH (08:09)
[2018-07-15] MEDS: FERROUS SULFATE 325 MG TABLET. PO SCH (08:10)
[2018-07-15] MEDS: SERTRALINE 50 MG TABLET. PO SCH (08:10)
[2018-07-15] MEDS: SENNOSIDES/DOCUSATE 8.6/50MG TABLET. PO SCH ×2 (08:10→17:18)
[2018-07-15] MEDS: MECLIZINE 12.5 MG TABLET. PO SCH (08:10)
[2018-07-15] MEDS: LOSARTAN 25 MG TABLET. PO SCH ×2 (08:10→19:55)
[2018-07-15] MEDS: LIDOCAINE (700MG/PATCH) PATCH. TD SCH (08:11)
[2018-07-15] MEDS: busPIRone 5 MG TABLET. PO SCH ×3 (08:13→21:55)
--- NOTE | 2018-07-15 09:20 | NUR ---
Behavior Intervention Response and Plan: BIRP Note: Behavior: Assumed Care of patient, patient located in Patient Room at shift change. Patient exhibited the following behavior Calm, Disorganized, Non Compliant with Meds. Brief assessment on rounds of vital signs, medication needs, lab studies, and pain. Treatment plan problems 1 & 2. Intervention: Patient assessed and the following interventions initiated safety checks 15 Minute Checks Cognitive Assessment , Head to toe Assessment , Medications. Response: After interactions and interventions patient responded in the following manner, Disorganized , Calm ,Resistive. Continue to assess behaviors and condition will continue to monitor throughout the shift as needed. Patient educated on ADL's, and hand hygiene. 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 Continue to assess patient for changes in above assessment. Monitor for medication needs, pain, and safety concerns. Hourly rounding performed to ensure safe environment.
--- NOTE | 2018-07-15 09:30 | NUR ---
Patient refused her Zoloft and meclizine this morning, stating that she's never taken the meclizine and that the doctor told her she didn't have to take the zoloft. Medications held, will report to MD during rounds.
--- NOTE | 2018-07-15 15:30 | NUR ---
Patient has spent the last ~30 minutes stating that the staff abuse and lie to her, that she has problems having a BM, and that staff do not allow her to talk to her brother. She stated that she slipped out of her wheelchair while trying to transfer herself to the commode and landed on the floor, and that her roommate went to get help but she didn't see anyone for over an hour, and that when staff did come, they left her on the floor for another three hours for putting herself there. She also states that she is being dragged into the shower and forced to sit on the shower chair in front of several people instead of being helped to the commode. Patient states that the aides do not leave her alone when she is on the commode and that she cannot void if there are people in the room. She states that she has had a large BM and that she has hemorrhoids that are preventing her from having a proper BM. Throughout this time, patient has been very labile, switching back and forth between being tearful, flat, and demanding. I have witnessed aides toileting patient, and she has been toileted as per her requests and left alone in her room until she is completed. Patient has not received any phone calls in the last two days from anyone, and per she is estranged from all family and does not have contact with them. Will discuss issues with MD and ask for a scheduled laxative and astringent to help with BMs and hemorrhoids. Will continue to monitor patient's condition.
[2018-07-15 16:41] VITALS: BP 134/73
[2018-07-15] MEDS: ATORVASTATIN CALCIUM 20 MG TABLET PO SCH (19:54)
[2018-07-15] MEDS: HYDROcodone/APAP 5/325MG 1 TAB TABLET PO SCH ×2 (19:58→21:17)
[2018-07-15] MEDS: DORZOLAMIDE/TIMOLOL 2%/0.5% OPHTH SOLUTION 10ML BOTTLE. OS SCH (19:58)
[2018-07-15] MEDS: GABAPENTIN 300 MG CAPSULE. PO SCH (19:59)
[2018-07-15] MEDS: INSULIN GLARGINE 300 UNITS/3 ML INSULN.PEN. SQ SCH (20:00)
[2018-07-15] MEDS: PATCH REMOVAL. MC SCH (20:02)
[2018-07-15] MEDS: HYDROCORTISONE 2.5% RECTAL CREAM 30GM TUBE. RC SCH (21:00)
--- NOTE | 2018-07-15 21:04 | PN ---
DATE: 07/14/2018 PSYCHIATRIC PROGRESS NOTE This late entry 07/14/2018 covers elements not covered in my initial note. SUBJECTIVE: I met with the patient in the evening. The patient slept 6-1/4 hours previous night. She has been holding things, but minimizes this as I addressed it with her. Denies suicidal ideation, appears depressed, calm, resistive with a.m. meds, refused Zoloft. She has failed treatment on this in the past according to her, but is open to changing it to Prozac and then was ambivalent about this as well. REVIEW OF SYSTEMS: Ambulation impaired, in wheelchair. No CV, , pulmonary, eye system symptoms on review. MENTAL STATUS EXAM: Oriented to herself and situation. Speech is coherent, abstraction fair, computation impaired, language function intact, attention span short. Mood and affect somewhat withdrawn. LABORATORY DATA: Reviewed. IMPRESSION: Major depressive disorder, recurrent, cognitive disorder, unspecified; anxiety disorder, unspecified. PLAN: Start BuSpar 5 mg twice a day. Change Zoloft to Prozac 5 mg a day. Rest unchanged. MAN Jimmy CHEUNG MD DR: SHERIF/kelly JOB#: [id number] / [id number]
--- NOTE | 2018-07-15 22:30 | PDOC ---
Exam Note: Abhilash Note: Please also refer to the separate dictated note~for this date of service dictated separately.~Patient seen individually. Discussed the patient with Nursing staff reviewed the chart.~Reviewed interim history and current functioning. Reviewed vital signs,~Labs/ Radiology~and current medications noted below. Continue current treatment with the changes noted in the dictated addendum note Assessment: Vital Signs: Vital Signs Date Time Temp Pulse Resp B/P (MAP) Pulse Ox O2 Delivery O2 Flow Rate FiO2 07/15/18 19:58 Room Air 07/15/18 19:55 94 134/73 07/15/18 16:41 97.9 16 97 I&O Intake and Output 07/15/18 07:00 Intake Total 960 ml Balance 960 ml Intake Oral 960 ml Labs: Laboratory Tests Test 07/15/18 07:23 07/15/18 11:57 07/15/18 16:50 07/15/18 19:13 Glucose (Fingerstick) 108 mg/dL (70-99) H 121 mg/dL (70-99) H 169 mg/dL (70-99) H 167 mg/dL (70-99) H Current Medications: Meds: Current Medications Clopidogrel Bisulfate (Plavix) 75 mg DAILY PO Last administered on 07/15/18at 08: 09; Start 07/11/18 at 09:00 Ferrous Sulfate (Feosol) 325 mg DAILY PO Last administered on 07/15/18at 08:10; Start 07/11/18 at 09:00 Gabapentin (Neurontin) 300 mg HS PO ; Start 07/11/18 at 21:00; Stop 07/11/18 at 21:00; Status DC Acetaminophen/ Hydrocodone Bitart (Lortab 5/325) 1 tab PRN QHS PRN PO PAIN; Start 07/10/18 at 22:00; Stop 07/10/18 at 22:51; Status DC Acetaminophen/ Hydrocodone Bitart (Lortab 5/325) 1 tab PRN Q6HRS PRN PO PAIN Last administered on 07/12/18at 07:37; Start 07/10/18 at 22:00 Insulin Glargine (Lantus) 30 units QHS SQ ; Start 07/11/18 at 21:00; Stop at 21:00; Status DC Losartan Potassium (Cozaar) 12.5 mg HS PO ; Start 07/11/18 at 21:00; Stop at 21:00; Status DC Losartan Potassium (Cozaar) 25 mg DAILY PO Last administered on 07/15/18 08:10 ; Start 07/11/18 at 09:00 Senna/Docusate Sodium (Senna Plus) 1 tab BID94 PO ; Start 07/11/18 at 09:00; Stop 07/11/18 at 09:00; Status DC Acetaminophen (Tylenol) 1,000 mg PRN Q6HRS PRN PO PAIN / TEMP; Start 07/10/18 at 22:45 Aspirin (Children'S Aspirin) 81 mg DAILYWBKFT PO Last administered on 07/15/18 08:09; Start 07/11/18 at 08:00 Atorvastatin Calcium (Lipitor) 40 mg QHS PO ; Start 07/11/18 at 21:00; Stop at 21:00; Status DC Artificial Tears (Artificial Tears) 1 drop PRN Q15MIN PRN OU DRY EYE; Start at 22:45 Non-Formulary Medication (Dextran 70/ Hypromellose (Artificial Tears Eye Drops) ) 1 drop PRN Q4HRS PRN EACHEYE DRY EYE; Start 07/10/18 at 22:00; Status UNV Dorzolamide/ Timolol (Cosopt) 1 drop QHS OS Last administered on 07/15/18 19:58 ; Start 07/11/18 at 21:00 Non-Formulary Medication (Dorzolamide Hcl/ Timolol Maleat (Dorzolamide-Timolol Eye Drops)) 1 drop HS LEFTEYE ; Start 07/11/18 at 21:00; Status UNV Vitamin D (Vitamin D3) 50,000 unit WEEKLY PO ; Start 07/17/18 at 09:00 Lidocaine (Lidoderm) 1 patch DAILY TD Last administered on 07/15/18 08:11; Start 07/11/18 at 09:00 Magnesium Oxide (Magnesium Oxide) 400 mg BID94 PO Last administered on 17:18; Start 07/11/18 at 09:00 Meclizine HCl (Antivert) 25 mg DAILY PO Last administered on 07/15/18 08:10; Start 07/11/18 at 09:00 Polyethylene Glycol (miraLAX) 17 gm PRN DAILY PRN PO CONSTIPATION Last administered on 07/12/18 07:37; Start 07/11/18 at 09:00; Stop 07/15/18 at 18:54 ; Status DC Sertraline HCl (Zoloft) 25 mg DAILY PO Last administered on 07/13/18 07:57; Start 07/11/18 at 09:00; Stop 07/13/18 at 17:38; Status DC Insulin Human Lispro (HumaLOG) 0-16 UNITS TIDWMEALS SQ Last administered on 07/15 17:27; Start 07/11/18 at 08:00 Dextrose 12.5 gm PRN Q15MIN PRN IV SEE COMMENTS; Start 07/10/18 at 22:45 Miscellaneous (Lidoderm Patch Removal) 1 ea QHS MC Last administered on 20:02; Start 07/11/18 at 21:00 Atorvastatin Calcium (Lipitor) 40 mg QHS PO Last administered on 07/15/18 19:54 ; Start 07/10/18 at 23:00 Gabapentin (Neurontin) 300 mg HS PO Last administered on 07/15/18 19:59; Start 07/10/18 at 23:00 Acetaminophen/ Hydrocodone Bitart (Lortab 5/325) 1 tab HS PO Last administered on 07/15/18 19:58; Start 07/10/18 at 23:00 Insulin Glargine (Lantus) 30 units QHS SQ Last administered on 07/15/18 20:00; Start 07/10/18 at 23:00 Losartan Potassium (Cozaar) 12.5 mg HS PO Last administered on 07/15/18 19:55; Start 07/10/18 at 23:00 Senna/Docusate Sodium (Senna Plus) 1 tab BID94 PO Last administered on 17:18; Start 07/10/18 at 23:00 Multi-Ingredient Ointment (Analgesic [place]) 1 ivan PRN QID PRN TP MUSCLE PAIN; Start 07/10/18 at 23:15 Al Hydroxide/Mg Hydroxide (Mylanta Plus Xs) 15 ml PRN AFTMEALHC PRN PO DYSPEPSIA; Start 07/10/18 at 23:15 Magnesium Hydroxide (Milk Of Magnesia) 2,400 mg PRN QHS PRN PO CONSTIPATION; Start 07/10/18 at 23:15 Sertraline HCl (Zoloft) 50 mg DAILY PO Last administered on 07/15/18at 08:10; Start 07/14/18 at 09:00; Stop 07/15/18 at 18:43; Status DC Buspirone HCl (Buspar) 5 mg 0900,1700 PO Last administered on 07/15/18at 08:13; Start 07/15/18 at 09:00 Fluoxetine HCl (PROzac ORAL SOLN) 5 mg DAILY PO ; Start 07/16/18 at 09:00 Polyethylene Glycol (miraLAX) 17 gm DAILY PO ; Start 07/16/18 at 09:00 Hydrocortisone (Proctosol-Hc) 1 ivan TID RC ; Start 07/15/18 at 21:00 Active Scripts Active Reported Vitamin D2 (Ergocalciferol (Vitamin D2)) 50,000 Unit Capsule 50,000 Unit PO WEEKLY Zoloft (Sertraline Hcl) 25 Mg Tablet 25 Mg PO DAILY Senna-S Laxative Tablet (Sennosides/Docusate Sodium) 1 Each Tablet 1 Each PO BID94 Refresh Optive Eye Drops (Carboxymethylcellulos/Glycerin) 15 Ml Drops 1 Drop EACHEYE PRN Q4HRS PRN Polyethylene Glycol 3350 255 Gm Powder 17 Gm PO PRN DAILY PRN Meclizine Hcl 25 Mg Tablet 25 Mg PO DAILY Mag-Oxide (Magnesium Oxide) 400 Mg Tablet 400 Mg PO BID94 Losartan Potassium (Losartan Potassium) 25 Mg Tablet 12.5 Mg PO HS Losartan Potassium (Losartan Potassium) 25 Mg Tablet 25 Mg PO DAILY Lidocaine 1 Each Adh..patch 1 Each TP DAILY Lantus Solostar (Insulin Glargine,Hum.rec.anlog) 100 Unit/1 Ml Insuln.pen 30 Unit SQ QHS Hydrocodone-Apap 5-325 (Hydrocodone Bit/Acetaminophen) 1 Each Tablet 1 Tab PO PRN Q6HRS PRN Hydrocodone-Apap 5-325 (Hydrocodone Bit/Acetaminophen) 1 Each Tablet 1 Tab PO HS PRN Gabapentin (Gabapentin) 300 Mg Capsule 300 Mg PO HS Ferrous Sulfate 325 Mg Tablet 325 Mg PO DAILY Dorzolamide-Timolol Eye Drops (Dorzolamide Hcl/Timolol Maleat) 10 Ml Drops 1 Drop LEFTEYE HS Cosopt Eye Drops (Dorzolamide Hcl/Timolol Maleat) 10 Ml Drops 1 Drop LEFTEYE HS Clopidogrel (Clopidogrel Bisulfate) 75 Mg Tablet 75 Mg PO DAILY Atorvastatin Calcium 40 Mg Tablet 40 Mg PO QHS Aspirin 81 Mg Tab.chew 81 Mg PO DAILY Artificial Tears Eye Drops (Dextran 70/Hypromellose) 15 Ml Drops 1 Drop EACHEYE PRN Q4HRS PRN Acetaminophen 500 Mg Tablet 1,000 Mg PO PRN Q6HRS PRN I have reviewed the current psychotropics carefully including drug interactions. Risk benefit ratio favors no change other than as noted in my dictated progress note. Diagnosis: Problems: (1) Anxiety disorder (2) Major depressive disorder, recurrent episode (3) Impulse control disorder (4) Mild cognitive disorder JENNIFER CHEUNG MD Jul 15, 2018 22:30
[2018-07-16 05:58] VITALS: BP 101/67
[2018-07-16] MEDS: INSULIN LISPRO 300 UNITS/3 ML INSULN.PEN. SQ SCH ×3 (08:00→17:00)
[2018-07-16] MEDS: HYDROCORTISONE 2.5% RECTAL CREAM 30GM TUBE. RC SCH ×3 (09:00→21:00)
--- NOTE | 2018-07-16 09:56 | NUR ---
WEEKLY ACTIVITY THERAPY NOTE Date of Admission: 07/11/2018 Date of AT Assessment: 07/14/2018 Goal aimed: to increase engagement Initial goal: Pt. will participate in at least five Activity Therapy groups before discharge. Weekly progress towards goal: on track 06/16 Group participation level: minimal Weekly highlights: Beneficial adaptations: establish trust by finding commonalities, responded well to being heard Behaviors observed: argumentative when TV was turned off on Friday, frustrated with structure, depressed, tearful, declines group due to poor eye sight Plan: no change to goal
[2018-07-16] MEDS: FERROUS SULFATE 325 MG TABLET. PO SCH (09:57)
[2018-07-16] MEDS: CLOPIDOGREL BISULFATE 75 MG TABLET PO SCH (09:57)
[2018-07-16] MEDS: busPIRone 5 MG TABLET. PO SCH ×2 (09:57→17:42)
[2018-07-16] MEDS: ASPIRIN 81 MG TAB.CHEW PO SCH (09:57)
[2018-07-16] MEDS: MAGNESIUM OXIDE 400 MG TABLET PO SCH ×3 (09:58→17:42)
[2018-07-16] MEDS: MECLIZINE 12.5 MG TABLET. PO SCH ×2 (09:58→10:30)
[2018-07-16] MEDS: SENNOSIDES/DOCUSATE 8.6/50MG TABLET. PO SCH ×3 (09:58→17:42)
[2018-07-16] MEDS: LOSARTAN 25 MG TABLET. PO SCH ×2 (09:58→19:22)
[2018-07-16] MEDS: LIDOCAINE (700MG/PATCH) PATCH. TD SCH ×2 (09:59→10:30)
[2018-07-16] MEDS: POLYETHYLENE GLYCOL 3350 17 GM PACKET. PO SCH (10:00)
--- NOTE | 2018-07-16 10:29 | NUR ---
WEEKLY NOTE; Pt is resistive to medications and is staff splitting. Pt is obsessive with her bowels and at times wants up to 30 minutes in the bathroom. Pt at times, randomly places herself on the floor. Pt moods displayed are very labile and agitated. Pt facility reports that pt gave her own 30 day notice and states her last day at [facility] is scheduled for August 11. Pt may need placement options at discharge; however, [facility] is willing to take pt back if not other placement can be found. Pt does have a hx of pocketing medications. ELOS 10-14 days.
--- NOTE | 2018-07-16 10:30 | NUR ---
Patient is refusing to take her medications, will attempt to provide again in a short while.
--- NOTE | 2018-07-16 11:45 | NUR ---
Patient has accepted most of her medications, has only taken about half of the miralax and prozac. Will continue to monitor and attempt to provide at a later time.
--- NOTE | 2018-07-16 12:00 | NUR ---
Behavior Intervention Response and Plan: BIRP Note: Behavior: Assumed Care of patient, patient located in Patient Room at shift change. Patient exhibited the following behavior Defensive, Disorganized, Non Compliant with Meds. Brief assessment on rounds of vital signs, medication needs, lab studies, and pain. Treatment plan problems 1 & 2. Intervention: Patient assessed and the following interventions initiated safety checks 15 Minute Checks Cognitive Assessment , Head to toe Assessment , Medications. Response: After interactions and interventions patient responded in the following manner, Disorganized, Calm, Refusing medications. Continue to assess behaviors and condition will continue to monitor throughout the shift as needed. Patient educated on ADL's, and hand hygiene. Plan: Continue to monitor Master Treatment Plan for patient's progress toward short term goals of Medication Compliance, No harm To self/ others, [facility] goals to return to previous living setting vs placement. Continue to assess patient for changes in above assessment. Monitor for medication needs, pain, and safety concerns. Hourly rounding performed to ensure safe environment.
[2018-07-16 16:09] VITALS: BP 123/82
--- NOTE | 2018-07-16 18:45 | NUR ---
Patient has refused multiple attempts to provide scheduled medications. Buspar provided sublingually, will provide report to oncoming shift.
[2018-07-16] MEDS: PATCH REMOVAL. MC SCH (19:21)
[2018-07-16] MEDS: DORZOLAMIDE/TIMOLOL 2%/0.5% OPHTH SOLUTION 10ML BOTTLE. OS SCH (19:21)
[2018-07-16] MEDS: ATORVASTATIN CALCIUM 20 MG TABLET PO SCH (19:22)
[2018-07-16] MEDS: HYDROcodone/APAP 5/325MG 1 TAB TABLET PO SCH (19:25)
[2018-07-16] MEDS: GABAPENTIN 300 MG CAPSULE. PO SCH (19:25)
[2018-07-16] MEDS: INSULIN GLARGINE 300 UNITS/3 ML INSULN.PEN. SQ SCH (20:39)
--- NOTE | 2018-07-16 21:05 | NUR ---
Nursing note: Assumed care of pt in the day room. Pt was sitting quietly. She questioned her meds but was compliant and cooperative. She asked to call her brother, we attempted and she left a message for him to call her.
--- NOTE | 2018-07-16 22:38 | PDOC ---
Exam Note: Abhilash Note: Please also refer to the separate dictated note~for this date of service dictated separately.~Patient seen individually. Discussed the patient with Nursing staff reviewed the chart.~Reviewed interim history and current functioning. Reviewed vital signs,~Labs/ Radiology~and current medications noted below. Continue current treatment with the changes noted in the dictated addendum note Assessment: Vital Signs: Vital Signs Date Time Temp Pulse Resp B/P (MAP) Pulse Ox O2 Delivery O2 Flow Rate FiO2 07/16/18 20:25 98 Room Air 07/16/18 19:22 89 123/82 07/16/18 16:09 98.4 20 I&O Intake and Output 07/16/18 07:00 Intake Total 920 ml Balance 920 ml Intake Oral 920 ml # Bowel Movements 1 Labs: Laboratory Tests Test 07/16/18 07:39 07/16/18 11:42 07/16/18 17:10 07/16/18 19:27 Glucose (Fingerstick) 69 mg/dL (70-99) L 125 mg/dL (70-99) H 119 mg/dL (70-99) H 180 mg/dL (70-99) H Current Medications: Meds: Current Medications Clopidogrel Bisulfate (Plavix) 75 mg DAILY PO Last administered on 07/16/18at 09: 57; Start 07/11/18 at 09:00 Ferrous Sulfate (Feosol) 325 mg DAILY PO Last administered on 07/16/18at 09:57; Start 07/11/18 at 09:00 Gabapentin (Neurontin) 300 mg HS PO ; Start 07/11/18 at 21:00; Stop 07/11/18 at 21:00; Status DC Acetaminophen/ Hydrocodone Bitart (Lortab 5/325) 1 tab PRN QHS PRN PO PAIN; Start 07/10/18 at 22:00; Stop 07/10/18 at 22:51; Status DC Acetaminophen/ Hydrocodone Bitart (Lortab 5/325) 1 tab PRN Q6HRS PRN PO PAIN Last administered on 07/12/18at 07:37; Start 07/10/18 at 22:00 Insulin Glargine (Lantus) 30 units QHS SQ ; Start 07/11/18 at 21:00; Stop at 21:00; Status DC Losartan Potassium (Cozaar) 12.5 mg HS PO ; Start 07/11/18 at 21:00; Stop at 21:00; Status DC Losartan Potassium (Cozaar) 25 mg DAILY PO Last administered on 07/16/18 09:58 ; Start 07/11/18 at 09:00 Senna/Docusate Sodium (Senna Plus) 1 tab BID94 PO ; Start 07/11/18 at 09:00; Stop 07/11/18 at 09:00; Status DC Acetaminophen (Tylenol) 1,000 mg PRN Q6HRS PRN PO PAIN / TEMP; Start 07/10/18 at 22:45 Aspirin (Children'S Aspirin) 81 mg DAILYWBKFT PO Last administered on 07/16/18 09:57; Start 07/11/18 at 08:00 Atorvastatin Calcium (Lipitor) 40 mg QHS PO ; Start 07/11/18 at 21:00; Stop at 21:00; Status DC Artificial Tears (Artificial Tears) 1 drop PRN Q15MIN PRN OU DRY EYE; Start at 22:45 Non-Formulary Medication (Dextran 70/ Hypromellose (Artificial Tears Eye Drops) ) 1 drop PRN Q4HRS PRN EACHEYE DRY EYE; Start 07/10/18 at 22:00; Status UNV Dorzolamide/ Timolol (Cosopt) 1 drop QHS OS Last administered on 07/16/18 19:21 ; Start 07/11/18 at 21:00 Non-Formulary Medication (Dorzolamide Hcl/ Timolol Maleat (Dorzolamide-Timolol Eye Drops)) 1 drop HS LEFTEYE ; Start 07/11/18 at 21:00; Status UNV Vitamin D (Vitamin D3) 50,000 unit WEEKLY PO ; Start 07/17/18 at 09:00 Lidocaine (Lidoderm) 1 patch DAILY TD Last administered on 07/15/18 08:11; Start 07/11/18 at 09:00 Magnesium Oxide (Magnesium Oxide) 400 mg BID94 PO Last administered on 09:58; Start 07/11/18 at 09:00 Meclizine HCl (Antivert) 25 mg DAILY PO Last administered on 07/15/18 08:10; Start 07/11/18 at 09:00 Polyethylene Glycol (miraLAX) 17 gm PRN DAILY PRN PO CONSTIPATION Last administered on 07/12/18 07:37; Start 07/11/18 at 09:00; Stop 07/15/18 at 18:54 ; Status DC Sertraline HCl (Zoloft) 25 mg DAILY PO Last administered on 07/13/18 07:57; Start 07/11/18 at 09:00; Stop 07/13/18 at 17:38; Status DC Insulin Human Lispro (HumaLOG) 0-16 UNITS TIDWMEALS SQ Last administered on 07/15 17:27; Start 07/11/18 at 08:00 Dextrose 12.5 gm PRN Q15MIN PRN IV SEE COMMENTS; Start 07/10/18 at 22:45 Miscellaneous (Lidoderm Patch Removal) 1 ea QHS MC Last administered on 19:21; Start 07/11/18 at 21:00 Atorvastatin Calcium (Lipitor) 40 mg QHS PO Last administered on 07/16/18 19:22 ; Start 07/10/18 at 23:00 Gabapentin (Neurontin) 300 mg HS PO Last administered on 07/16/18 19:25; Start 07/10/18 at 23:00 Acetaminophen/ Hydrocodone Bitart (Lortab 5/325) 1 tab HS PO Last administered on 07/16/18 19:25; Start 07/10/18 at 23:00 Insulin Glargine (Lantus) 30 units QHS SQ Last administered on 07/16/18 20:39; Start 07/10/18 at 23:00 Losartan Potassium (Cozaar) 12.5 mg HS PO Last administered on 07/16/18 19:22; Start 07/10/18 at 23:00 Senna/Docusate Sodium (Senna Plus) 1 tab BID94 PO Last administered on 09:58; Start 07/10/18 at 23:00 Multi-Ingredient Ointment (Analgesic [place]) 1 ivan PRN QID PRN TP MUSCLE PAIN; Start 07/10/18 at 23:15 Al Hydroxide/Mg Hydroxide (Mylanta Plus Xs) 15 ml PRN AFTMEALHC PRN PO DYSPEPSIA; Start 07/10/18 at 23:15 Magnesium Hydroxide (Milk Of Magnesia) 2,400 mg PRN QHS PRN PO CONSTIPATION; Start 07/10/18 at 23:15 Sertraline HCl (Zoloft) 50 mg DAILY PO Last administered on 07/15/18at 08:10; Start 07/14/18 at 09:00; Stop 07/15/18 at 18:43; Status DC Buspirone HCl (Buspar) 5 mg 0900,1700 PO Last administered on 07/16/18at 17:42; Start 07/15/18 at 09:00 Fluoxetine HCl (PROzac ORAL SOLN) 5 mg DAILY PO Last administered on 07/16/18at 10:05; Start 07/16/18 at 09:00; Stop 07/16/18 at 17:42; Status DC Polyethylene Glycol (miraLAX) 17 gm DAILY PO Last administered on 07/16/18at 10: 00; Start 07/16/18 at 09:00 Hydrocortisone (Proctosol-Hc) 1 ivan TID RC Last administered on 07/16/18at 09:00 ; Start 07/15/18 at 21:00 Levothyroxine Sodium (Synthroid) 25 mcg DAILY06 PO ; Start 07/17/18 at 06:00 Active Scripts Active Reported Vitamin D2 (Ergocalciferol (Vitamin D2)) 50,000 Unit Capsule 50,000 Unit PO WEEKLY Zoloft (Sertraline Hcl) 25 Mg Tablet 25 Mg PO DAILY Senna-S Laxative Tablet (Sennosides/Docusate Sodium) 1 Each Tablet 1 Each PO BID94 Refresh Optive Eye Drops (Carboxymethylcellulos/Glycerin) 15 Ml Drops 1 Drop EACHEYE PRN Q4HRS PRN Polyethylene Glycol 3350 255 Gm Powder 17 Gm PO PRN DAILY PRN Meclizine Hcl 25 Mg Tablet 25 Mg PO DAILY Mag-Oxide (Magnesium Oxide) 400 Mg Tablet 400 Mg PO BID94 Losartan Potassium (Losartan Potassium) 25 Mg Tablet 12.5 Mg PO HS Losartan Potassium (Losartan Potassium) 25 Mg Tablet 25 Mg PO DAILY Lidocaine 1 Each Adh..patch 1 Each TP DAILY Lantus Solostar (Insulin Glargine,Hum.rec.anlog) 100 Unit/1 Ml Insuln.pen 30 Unit SQ QHS Hydrocodone-Apap 5-325 (Hydrocodone Bit/Acetaminophen) 1 Each Tablet 1 Tab PO PRN Q6HRS PRN Hydrocodone-Apap 5-325 (Hydrocodone Bit/Acetaminophen) 1 Each Tablet 1 Tab PO HS PRN Gabapentin (Gabapentin) 300 Mg Capsule 300 Mg PO HS Ferrous Sulfate 325 Mg Tablet 325 Mg PO DAILY Dorzolamide-Timolol Eye Drops (Dorzolamide Hcl/Timolol Maleat) 10 Ml Drops 1 Drop LEFTEYE HS Cosopt Eye Drops (Dorzolamide Hcl/Timolol Maleat) 10 Ml Drops 1 Drop LEFTEYE HS Clopidogrel (Clopidogrel Bisulfate) 75 Mg Tablet 75 Mg PO DAILY Atorvastatin Calcium 40 Mg Tablet 40 Mg PO QHS Aspirin 81 Mg Tab.chew 81 Mg PO DAILY Artificial Tears Eye Drops (Dextran 70/Hypromellose) 15 Ml Drops 1 Drop EACHEYE PRN Q4HRS PRN Acetaminophen 500 Mg Tablet 1,000 Mg PO PRN Q6HRS PRN I have reviewed the current psychotropics carefully including drug interactions. Risk benefit ratio favors no change other than as noted in my dictated progress note. Diagnosis: Problems: (1) Anxiety disorder (2) Major depressive disorder, recurrent episode (3) Impulse control disorder (4) Mild cognitive disorder JENNIFER CHEUNG MD Jul 16, 2018 22:38
[2018-07-17 05:32] VITALS: BP 101/63
[2018-07-17] MEDS: LEVOTHYROXINE 25 MCG TABLET. PO SCH (05:55)
[2018-07-17] MEDS: INSULIN LISPRO 300 UNITS/3 ML INSULN.PEN. SQ SCH ×3 (08:00→17:53)
[2018-07-17] MEDS: LIDOCAINE (700MG/PATCH) PATCH. TD SCH ×2 (08:17→09:00)
[2018-07-17] MEDS: POLYETHYLENE GLYCOL 3350 17 GM PACKET. PO SCH ×2 (08:17→09:00)
[2018-07-17] MEDS: LOSARTAN 25 MG TABLET. PO SCH ×2 (08:18→19:39)
[2018-07-17] MEDS: busPIRone 5 MG TABLET. PO SCH ×2 (08:18→17:51)
[2018-07-17] MEDS: CLOPIDOGREL BISULFATE 75 MG TABLET PO SCH (08:19)
[2018-07-17] MEDS: MAGNESIUM OXIDE 400 MG TABLET PO SCH ×2 (08:19→17:51)
[2018-07-17] MEDS: ASPIRIN 81 MG TAB.CHEW PO SCH (08:19)
[2018-07-17] MEDS: FERROUS SULFATE 325 MG TABLET. PO SCH (08:19)
[2018-07-17] MEDS: MECLIZINE 12.5 MG TABLET. PO SCH ×2 (08:19→09:00)
[2018-07-17] MEDS: SENNOSIDES/DOCUSATE 8.6/50MG TABLET. PO SCH ×2 (08:19→17:51)
[2018-07-17] MEDS: CHOLECALCIFEROL (VITAMIN D3) 50,000 UNIT CAPSULE PO SCH (08:21)
[2018-07-17] MEDS: HYDROCORTISONE 2.5% RECTAL CREAM 30GM TUBE. RC SCH ×4 (08:22→19:40)
--- NOTE | 2018-07-17 09:30 | NUR ---
Patient is still in bed asleep at this time. Will hold am meds and continue to monitor.
--- NOTE | 2018-07-17 11:15 | NUR ---
Patient is up, but refusing to take her meds from me, speak to me, or acknowledge me when I speak to her. PAtient's meds were given to another nurse, patient was resistive but took her medications. Will report to MD and continue to monitor.
--- NOTE | 2018-07-17 14:09 | NUR ---
ROSALIE contacted Waleska at [facility] and gave her the requested information on pt admitting dx, an estimated D/C date and her room number. HH sent over transfer papers as they are not able to keep pt case open with her being in the hospital. If pt returns to [facility], they will potentially be able to have pt return to their services.
[2018-07-17 16:21] VITALS: BP 92/60
--- NOTE | 2018-07-17 17:56 | PN ---
DATE: 07/15/2018 PSYCHIATRIC PROGRESS NOTE This late entry 07/15/2018 covers elements not covered in my initial note. SUBJECTIVE: I met with the patient in the evening. The patient slept 6-1/2 hours previous night. Per nursing report, she has been manipulative, somewhat controlling, refused Zoloft, but took the BuSpar blaming her brother for not calling even though she is somewhat estranged from him. REVIEW OF SYSTEMS: Ambulation impaired, in wheelchair. No CV, , pulmonary, eye system symptoms on review. She is anxious, restless, repetitive in her request to stop the Zoloft. MENTAL STATUS EXAM: Oriented to herself and situation. Speech is coherent, rapid at times, tearful at times. Abstraction fair, computation impaired, language function intact, attention span short. Mood and affect somewhat labile, anxious. I discussed at length with her about compliance with her psychotropics. She is willing for a trial on Prozac instead of the Zoloft and we will do this. IMPRESSION: Unchanged from initial note. PLAN: As noted above, change Zoloft to Prozac 5 mg a day. Maintain BuSsteff, Zyprexa p.r.n. JENNIFER CHEUNG MD DR: SHERIF/kelly JOB#: [id number] / [id number]
--- NOTE | 2018-07-17 19:12 | PN ---
DATE: 07/16/2018 PSYCHIATRIC PROGRESS NOTE This late entry 07/16/2018 covers elements not covered in my initial note. SUBJECTIVE: I met with the patient in the evening, staffed at a treatment team meeting with the entire team in the morning. The patient slept 6-1/2 hours. Appetite 85%, resistive to medications, splitting staff per nursing report, better in activity therapy. She is refusing her Zoloft and now the Prozac and tearful, anxious as I met with her in the evening, but adamant she is not depressed or anxious. She does not want any psychotropics. REVIEW OF SYSTEMS: Ambulation impaired, in wheelchair. No CV, , pulmonary, eye system symptoms on review. MENTAL STATUS EXAM: Oriented reasonably. Speech is coherent, abstraction fair, computation impaired, language function intact, attention span short. Mood and affect, anxious, labile. LABORATORY DATA: Reviewed. IMPRESSION: Unchanged from initial note. PLAN: Continued to improve compliance with her treatment and educator, which I did at length. TSH is slightly elevated. We will defer to Dr. Herrmann. JENNIFER CHEUNG MD DR: SHERIF/kelly JOB#: [id number] / [id number]
[2018-07-17] MEDS: PATCH REMOVAL. MC SCH (19:38)
[2018-07-17] MEDS: DORZOLAMIDE/TIMOLOL 2%/0.5% OPHTH SOLUTION 10ML BOTTLE. OS SCH (19:38)
[2018-07-17] MEDS: HYDROcodone/APAP 5/325MG 1 TAB TABLET PO SCH (19:40)
[2018-07-17] MEDS: GABAPENTIN 300 MG CAPSULE. PO SCH (19:40)
[2018-07-17] MEDS: ATORVASTATIN CALCIUM 20 MG TABLET PO SCH (19:40)
[2018-07-17] MEDS: INSULIN GLARGINE 300 UNITS/3 ML INSULN.PEN. SQ SCH (19:44)
--- NOTE | 2018-07-17 21:03 | NUR ---
Nursing note: Pt pleasant and compliant. She stated that earlier in the day she was assisted to the commode but when she asked for help to clean herself up, the female refused, stating it's ok you don't need to. Pt was close to tears. I apologized and agreed she would get help if she needed it tonight.
--- NOTE | 2018-07-17 22:33 | PDOC ---
Exam Note: Abhilash Note: Please also refer to the separate dictated note~for this date of service dictated separately.~Patient seen individually. Discussed the patient with Nursing staff reviewed the chart.~Reviewed interim history and current functioning. Reviewed vital signs,~Labs/ Radiology~and current medications noted below. Continue current treatment with the changes noted in the dictated addendum note Assessment: Vital Signs: Vital Signs Date Time Temp Pulse Resp B/P (MAP) Pulse Ox O2 Delivery O2 Flow Rate FiO2 07/17/18 20:40 100 Room Air 07/17/18 19:39 76 92/60 07/17/18 16:21 98.0 16 I&O Intake and Output 07/17/18 07:00 Intake Total 600 ml Balance 600 ml Intake Oral 600 ml Labs: Laboratory Tests Test 07/17/18 07:40 07/17/18 11:35 07/17/18 16:55 07/17/18 19:21 Glucose (Fingerstick) 86 mg/dL (70-99) 58 mg/dL (70-99) L 204 mg/dL (70-99) H 184 mg/dL (70-99) H Current Medications: Meds: Current Medications Clopidogrel Bisulfate (Plavix) 75 mg DAILY PO Last administered on 07/17/18at 08: 19; Start 07/11/18 at 09:00 Ferrous Sulfate (Feosol) 325 mg DAILY PO Last administered on 07/17/18at 08:19; Start 07/11/18 at 09:00 Gabapentin (Neurontin) 300 mg HS PO ; Start 07/11/18 at 21:00; Stop 07/11/18 at 21:00; Status DC Acetaminophen/ Hydrocodone Bitart (Lortab 5/325) 1 tab PRN QHS PRN PO PAIN; Start 07/10/18 at 22:00; Stop 07/10/18 at 22:51; Status DC Acetaminophen/ Hydrocodone Bitart (Lortab 5/325) 1 tab PRN Q6HRS PRN PO PAIN Last administered on 07/12/18at 07:37; Start 07/10/18 at 22:00 Insulin Glargine (Lantus) 30 units QHS SQ ; Start 07/11/18 at 21:00; Stop at 21:00; Status DC Losartan Potassium (Cozaar) 12.5 mg HS PO ; Start 07/11/18 at 21:00; Stop at 21:00; Status DC Losartan Potassium (Cozaar) 25 mg DAILY PO Last administered on 07/17/18 08:18 ; Start 07/11/18 at 09:00 Senna/Docusate Sodium (Senna Plus) 1 tab BID94 PO ; Start 07/11/18 at 09:00; Stop 07/11/18 at 09:00; Status DC Acetaminophen (Tylenol) 1,000 mg PRN Q6HRS PRN PO PAIN / TEMP; Start 07/10/18 at 22:45 Aspirin (Children'S Aspirin) 81 mg DAILYWBKFT PO Last administered on 07/17/18 08:19; Start 07/11/18 at 08:00 Atorvastatin Calcium (Lipitor) 40 mg QHS PO ; Start 07/11/18 at 21:00; Stop at 21:00; Status DC Artificial Tears (Artificial Tears) 1 drop PRN Q15MIN PRN OU DRY EYE; Start at 22:45 Non-Formulary Medication (Dextran 70/ Hypromellose (Artificial Tears Eye Drops) ) 1 drop PRN Q4HRS PRN EACHEYE DRY EYE; Start 07/10/18 at 22:00; Status UNV Dorzolamide/ Timolol (Cosopt) 1 drop QHS OS Last administered on 07/17/18 19:38 ; Start 07/11/18 at 21:00 Non-Formulary Medication (Dorzolamide Hcl/ Timolol Maleat (Dorzolamide-Timolol Eye Drops)) 1 drop HS LEFTEYE ; Start 07/11/18 at 21:00; Status UNV Vitamin D (Vitamin D3) 50,000 unit WEEKLY PO Last administered on 07/17/18 08: 21; Start 07/17/18 at 09:00 Lidocaine (Lidoderm) 1 patch DAILY TD Last administered on 07/15/18 08:11; Start 07/11/18 at 09:00 Magnesium Oxide (Magnesium Oxide) 400 mg BID94 PO Last administered on 17:51; Start 07/11/18 at 09:00 Meclizine HCl (Antivert) 25 mg DAILY PO Last administered on 07/15/18 08:10; Start 07/11/18 at 09:00 Polyethylene Glycol (miraLAX) 17 gm PRN DAILY PRN PO CONSTIPATION Last administered on 07/12/18 07:37; Start 07/11/18 at 09:00; Stop 07/15/18 at 18:54 ; Status DC Sertraline HCl (Zoloft) 25 mg DAILY PO Last administered on 07/13/18 07:57; Start 07/11/18 at 09:00; Stop 07/13/18 at 17:38; Status DC Insulin Human Lispro (HumaLOG) 0-16 UNITS TIDWMEALS SQ Last administered on 07/17 17:53; Start 07/11/18 at 08:00 Dextrose 12.5 gm PRN Q15MIN PRN IV SEE COMMENTS; Start 07/10/18 at 22:45 Miscellaneous (Lidoderm Patch Removal) 1 ea QHS MC Last administered on 19:38; Start 07/11/18 at 21:00 Atorvastatin Calcium (Lipitor) 40 mg QHS PO Last administered on 07/17/18 19:40 ; Start 07/10/18 at 23:00 Gabapentin (Neurontin) 300 mg HS PO Last administered on 07/17/18 19:40; Start 07/10/18 at 23:00 Acetaminophen/ Hydrocodone Bitart (Lortab 5/325) 1 tab HS PO Last administered on 07/17/18 19:40; Start 07/10/18 at 23:00 Insulin Glargine (Lantus) 30 units QHS SQ Last administered on 07/17/18 19:44; Start 07/10/18 at 23:00 Losartan Potassium (Cozaar) 12.5 mg HS PO Last administered on 07/16/18 19:22; Start 07/10/18 at 23:00 Senna/Docusate Sodium (Senna Plus) 1 tab BID94 PO Last administered on 17:51; Start 07/10/18 at 23:00 Multi-Ingredient Ointment (Analgesic [place]) 1 ivan PRN QID PRN TP MUSCLE PAIN; Start 07/10/18 at 23:15 Al Hydroxide/Mg Hydroxide (Mylanta Plus Xs) 15 ml PRN AFTMEALHC PRN PO DYSPEPSIA; Start 07/10/18 at 23:15 Magnesium Hydroxide (Milk Of Magnesia) 2,400 mg PRN QHS PRN PO CONSTIPATION; Start 07/10/18 at 23:15 Sertraline HCl (Zoloft) 50 mg DAILY PO Last administered on 07/15/18at 08:10; Start 07/14/18 at 09:00; Stop 07/15/18 at 18:43; Status DC Buspirone HCl (Buspar) 5 mg 0900,1700 PO Last administered on 07/17/18at 17:51; Start 07/15/18 at 09:00 Fluoxetine HCl (PROzac ORAL SOLN) 5 mg DAILY PO Last administered on 07/16/18at 10:05; Start 07/16/18 at 09:00; Stop 07/16/18 at 17:42; Status DC Polyethylene Glycol (miraLAX) 17 gm DAILY PO Last administered on 07/16/18at 10: 00; Start 07/16/18 at 09:00 Hydrocortisone (Proctosol-Hc) 1 ivan TID RC Last administered on 07/17/18at 19:40 ; Start 07/15/18 at 21:00 Levothyroxine Sodium (Synthroid) 25 mcg DAILY06 PO Last administered on at 05:55; Start 07/17/18 at 06:00 Active Scripts Active Reported Vitamin D2 (Ergocalciferol (Vitamin D2)) 50,000 Unit Capsule 50,000 Unit PO WEEKLY Zoloft (Sertraline Hcl) 25 Mg Tablet 25 Mg PO DAILY Senna-S Laxative Tablet (Sennosides/Docusate Sodium) 1 Each Tablet 1 Each PO BID94 Refresh Optive Eye Drops (Carboxymethylcellulos/Glycerin) 15 Ml Drops 1 Drop EACHEYE PRN Q4HRS PRN Polyethylene Glycol 3350 255 Gm Powder 17 Gm PO PRN DAILY PRN Meclizine Hcl 25 Mg Tablet 25 Mg PO DAILY Mag-Oxide (Magnesium Oxide) 400 Mg Tablet 400 Mg PO BID94 Losartan Potassium (Losartan Potassium) 25 Mg Tablet 12.5 Mg PO HS Losartan Potassium (Losartan Potassium) 25 Mg Tablet 25 Mg PO DAILY Lidocaine 1 Each Adh..patch 1 Each TP DAILY Lantus Solostar (Insulin Glargine,Hum.rec.anlog) 100 Unit/1 Ml Insuln.pen 30 Unit SQ QHS Hydrocodone-Apap 5-325 (Hydrocodone Bit/Acetaminophen) 1 Each Tablet 1 Tab PO PRN Q6HRS PRN Hydrocodone-Apap 5-325 (Hydrocodone Bit/Acetaminophen) 1 Each Tablet 1 Tab PO HS PRN Gabapentin (Gabapentin) 300 Mg Capsule 300 Mg PO HS Ferrous Sulfate 325 Mg Tablet 325 Mg PO DAILY Dorzolamide-Timolol Eye Drops (Dorzolamide Hcl/Timolol Maleat) 10 Ml Drops 1 Drop LEFTEYE HS Cosopt Eye Drops (Dorzolamide Hcl/Timolol Maleat) 10 Ml Drops 1 Drop LEFTEYE HS Clopidogrel (Clopidogrel Bisulfate) 75 Mg Tablet 75 Mg PO DAILY Atorvastatin Calcium 40 Mg Tablet 40 Mg PO QHS Aspirin 81 Mg Tab.chew 81 Mg PO DAILY Artificial Tears Eye Drops (Dextran 70/Hypromellose) 15 Ml Drops 1 Drop EACHEYE PRN Q4HRS PRN Acetaminophen 500 Mg Tablet 1,000 Mg PO PRN Q6HRS PRN I have reviewed the current psychotropics carefully including drug interactions. Risk benefit ratio favors no change other than as noted in my dictated progress note. Diagnosis: Problems: (1) Anxiety disorder (2) Major depressive disorder, recurrent episode (3) Impulse control disorder (4) Mild cognitive disorder JENNIFER CHEUNG MD Jul 17, 2018 22:33
[2018-07-18] MEDS: LEVOTHYROXINE 25 MCG TABLET. PO SCH (05:31)
[2018-07-18 06:02] VITALS: BP 125/71
[2018-07-18] MEDS: INSULIN LISPRO 300 UNITS/3 ML INSULN.PEN. SQ SCH ×3 (08:00→18:10)
[2018-07-18] MEDS: MAGNESIUM OXIDE 400 MG TABLET PO SCH ×2 (08:17→16:33)
[2018-07-18] MEDS: CLOPIDOGREL BISULFATE 75 MG TABLET PO SCH (08:17)
[2018-07-18] MEDS: ASPIRIN 81 MG TAB.CHEW PO SCH (08:17)
[2018-07-18] MEDS: LIDOCAINE (700MG/PATCH) PATCH. TD SCH (08:18)
[2018-07-18] MEDS: LOSARTAN 25 MG TABLET. PO SCH ×2 (08:18→19:03)
[2018-07-18] MEDS: SENNOSIDES/DOCUSATE 8.6/50MG TABLET. PO SCH ×2 (08:18→16:32)
[2018-07-18] MEDS: MECLIZINE 12.5 MG TABLET. PO SCH (08:18)
[2018-07-18] MEDS: HYDROCORTISONE 2.5% RECTAL CREAM 30GM TUBE. RC SCH ×3 (08:18→19:04)
[2018-07-18] MEDS: FERROUS SULFATE 325 MG TABLET. PO SCH (08:18)
[2018-07-18] MEDS: POLYETHYLENE GLYCOL 3350 17 GM PACKET. PO SCH (08:19)
--- NOTE | 2018-07-18 08:30 | NUR ---
Behavior Intervention Response and Plan: BIRP Note: Behavior: Assumed Care of patient, patient located in Day Room at shift change. Patient exhibited the following behavior Compliant, Cooperative, Withdrawn. Brief assessment on rounds of vital signs, medication needs, lab studies, and pain. Treatment plan problems . Intervention: Patient assessed and the following interventions initiated safety checks 15 Minute Checks Head to toe Assessment , Cognitive Assessment , Medications. Response: After interactions and interventions patient responded in the following manner, Demanding , Able to Focus on Task ,Calm. Continue to assess behaviors and condition will continue to monitor throughout the shift as needed. Patient educated on ADL's, and hand hygiene. 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 Continue to assess patient for changes in above assessment. Monitor for medication needs, pain, and safety concerns. Hourly rounding performed to ensure safe environment.
[2018-07-18 16:49] VITALS: BP 107/67
[2018-07-18] MEDS: DORZOLAMIDE/TIMOLOL 2%/0.5% OPHTH SOLUTION 10ML BOTTLE. OS SCH (19:02)
[2018-07-18] MEDS: PATCH REMOVAL. MC SCH (19:02)
[2018-07-18] MEDS: GABAPENTIN 300 MG CAPSULE. PO SCH (19:03)
[2018-07-18] MEDS: ATORVASTATIN CALCIUM 20 MG TABLET PO SCH (19:03)
[2018-07-18] MEDS: HYDROcodone/APAP 5/325MG 1 TAB TABLET PO SCH (19:03)
--- NOTE | 2018-07-18 20:18 | NUR ---
Nursing note: Assumed care of pt in the day room. She was visiting w/peers and watching a movie. She was compliant and pleasant. No c/o pain. Alert to self only.
[2018-07-18] MEDS: INSULIN GLARGINE 300 UNITS/3 ML INSULN.PEN. SQ SCH (20:24)
[2018-07-19] MEDS: LEVOTHYROXINE 25 MCG TABLET. PO SCH (05:38)
[2018-07-19 05:40] VITALS: BP 105/66
[2018-07-19] MEDS: LIDOCAINE (700MG/PATCH) PATCH. TD SCH (07:44)
[2018-07-19] MEDS: POLYETHYLENE GLYCOL 3350 17 GM PACKET. PO SCH (07:44)
[2018-07-19] MEDS: MECLIZINE 12.5 MG TABLET. PO SCH (07:44)
[2018-07-19] MEDS: MAGNESIUM OXIDE 400 MG TABLET PO SCH ×2 (07:44→17:58)
[2018-07-19] MEDS: LOSARTAN 25 MG TABLET. PO SCH ×2 (07:45→19:25)
[2018-07-19] MEDS: CLOPIDOGREL BISULFATE 75 MG TABLET PO SCH (07:45)
[2018-07-19] MEDS: FERROUS SULFATE 325 MG TABLET. PO SCH (07:45)
[2018-07-19] MEDS: ASPIRIN 81 MG TAB.CHEW PO SCH (07:45)
[2018-07-19] MEDS: SENNOSIDES/DOCUSATE 8.6/50MG TABLET. PO SCH ×2 (07:45→17:58)
[2018-07-19] MEDS: INSULIN LISPRO 300 UNITS/3 ML INSULN.PEN. SQ SCH ×3 (08:00→17:00)
[2018-07-19] MEDS: HYDROCORTISONE 2.5% RECTAL CREAM 30GM TUBE. RC SCH ×3 (09:00→19:29)
--- NOTE | 2018-07-19 09:43 | PDOC ---
Exam Note: Abhilash Note: Late entry for DOS 07/18/2018. Please also refer to the separate dictated note~ for this date of service dictated separately.~Patient seen individually. Discussed the patient with Nursing staff reviewed the chart.~Reviewed interim history and current functioning. Reviewed vital signs,~Labs/ Radiology~and current medications noted below. Continue current treatment with the changes noted in the dictated addendum note Assessment: Vital Signs: VS - Last 72 Hours, by Label Date Time Temp Pulse Resp B/P (MAP) Pulse Ox O2 Delivery O2 Flow Rate FiO2 07/19/18 07:45 73 105/66 07/19/18 05:40 97.6 73 20 105/66 (79) 97 07/18/18 20:04 97 Room Air 07/18/18 19:03 97 107/67 07/18/18 19:03 97 Room Air 07/18/18 16:49 97.9 97 20 107/67 (80) 97 Room Air 07/18/18 08:18 75 125/71 07/18/18 06:02 98.4 75 16 125/71 (89) 95 07/17/18 19:40 100 Room Air 07/17/18 19:39 76 92/60 07/17/18 16:21 98.0 76 16 92/60 (71) 100 07/17/18 08:18 79 101/63 07/17/18 05:32 97.1 79 16 101/63 (76) 96 Room Air 07/16/18 19:25 99 Room Air 07/16/18 19:22 89 123/82 07/16/18 16:09 98.4 89 20 123/82 (96) 99 Room Air 07/16/18 09:58 82 101/67 Vital Signs Date Time Temp Pulse Resp B/P (MAP) Pulse Ox O2 Delivery O2 Flow Rate FiO2 07/19/18 07:45 73 105/66 07/19/18 05:40 97.6 20 97 07/18/18 20:04 Room Air I&O Intake and Output 07/19/18 06:59 Intake Total 1200 ml Balance 1200 ml Intake Oral 1200 ml # Bowel Movements 1 Labs: Laboratory Tests Test 07/18/18 11:40 07/18/18 16:50 07/18/18 20:04 07/19/18 07:14 Glucose (Fingerstick) 204 mg/dL (70-99) H 220 mg/dL (70-99) H 105 mg/dL (70-99) H 94 mg/dL (70-99) Current Medications: Meds: Current Medications Clopidogrel Bisulfate (Plavix) 75 mg DAILY PO Last administered on 07/19/18at 07: 45; Start 07/11/18 at 09:00 Ferrous Sulfate (Feosol) 325 mg DAILY PO Last administered on 07/19/18at 07:45; Start 07/11/18 at 09:00 Gabapentin (Neurontin) 300 mg HS PO ; Start 07/11/18 at 21:00; Stop 07/11/18 at 21:00; Status DC Acetaminophen/ Hydrocodone Bitart (Lortab 5/325) 1 tab PRN QHS PRN PO PAIN; Start 07/10/18 at 22:00; Stop 07/10/18 at 22:51; Status DC Acetaminophen/ Hydrocodone Bitart (Lortab 5/325) 1 tab PRN Q6HRS PRN PO PAIN Last administered on 07/12/18at 07:37; Start 07/10/18 at 22:00 Insulin Glargine (Lantus) 30 units QHS SQ ; Start 07/11/18 at 21:00; Stop at 21:00; Status DC Losartan Potassium (Cozaar) 12.5 mg HS PO ; Start 07/11/18 at 21:00; Stop at 21:00; Status DC Losartan Potassium (Cozaar) 25 mg DAILY PO Last administered on 07/19/18at 07:45 ; Start 07/11/18 at 09:00 Senna/Docusate Sodium (Senna Plus) 1 tab BID94 PO ; Start 07/11/18 at 09:00; Stop 07/11/18 at 09:00; Status DC Acetaminophen (Tylenol) 1,000 mg PRN Q6HRS PRN PO PAIN / TEMP; Start 07/10/18 at 22:45 Aspirin (Children'S Aspirin) 81 mg DAILYWBKFT PO Last administered on 07/19/18at 07:45; Start 07/11/18 at 08:00 Atorvastatin Calcium (Lipitor) 40 mg QHS PO ; Start 07/11/18 at 21:00; Stop at 21:00; Status DC Artificial Tears (Artificial Tears) 1 drop PRN Q15MIN PRN OU DRY EYE; Start at 22:45 Non-Formulary Medication (Dextran 70/ Hypromellose (Artificial Tears Eye Drops) ) 1 drop PRN Q4HRS PRN EACHEYE DRY EYE; Start 07/10/18 at 22:00; Status UNV Dorzolamide/ Timolol (Cosopt) 1 drop QHS OS Last administered on 07/18/18 19:02 ; Start 07/11/18 at 21:00 Non-Formulary Medication (Dorzolamide Hcl/ Timolol Maleat (Dorzolamide-Timolol Eye Drops)) 1 drop HS LEFTEYE ; Start 07/11/18 at 21:00; Status UNV Vitamin D (Vitamin D3) 50,000 unit WEEKLY PO Last administered on 07/17/18 08: 21; Start 07/17/18 at 09:00 Lidocaine (Lidoderm) 1 patch DAILY TD Last administered on 07/19/18 07:44; Start 07/11/18 at 09:00 Magnesium Oxide (Magnesium Oxide) 400 mg BID94 PO Last administered on 07:44; Start 07/11/18 at 09:00 Meclizine HCl (Antivert) 25 mg DAILY PO Last administered on 07/18/18 08:18; Start 07/11/18 at 09:00 Polyethylene Glycol (miraLAX) 17 gm PRN DAILY PRN PO CONSTIPATION Last administered on 07/12/18 07:37; Start 07/11/18 at 09:00; Stop 07/15/18 at 18:54 ; Status DC Sertraline HCl (Zoloft) 25 mg DAILY PO Last administered on 07/13/18 07:57; Start 07/11/18 at 09:00; Stop 07/13/18 at 17:38; Status DC Insulin Human Lispro (HumaLOG) 0-16 UNITS TIDWMEALS SQ Last administered on 07/18 18:10; Start 07/11/18 at 08:00 Dextrose 12.5 gm PRN Q15MIN PRN IV SEE COMMENTS; Start 07/10/18 at 22:45 Miscellaneous (Lidoderm Patch Removal) 1 ea QHS MC Last administered on 19:02; Start 07/11/18 at 21:00 Atorvastatin Calcium (Lipitor) 40 mg QHS PO Last administered on 07/18/18 19:03 ; Start 07/10/18 at 23:00 Gabapentin (Neurontin) 300 mg HS PO Last administered on 07/18/18 19:03; Start 07/10/18 at 23:00 Acetaminophen/ Hydrocodone Bitart (Lortab 5/325) 1 tab HS PO Last administered on 07/18/18 19:03; Start 07/10/18 at 23:00 Insulin Glargine (Lantus) 30 units QHS SQ Last administered on 07/17/18 19:44; Start 07/10/18 at 23:00 Losartan Potassium (Cozaar) 12.5 mg HS PO Last administered on 07/18/18 19:03; Start 07/10/18 at 23:00 Senna/Docusate Sodium (Senna Plus) 1 tab BID94 PO Last administered on 07:45; Start 07/10/18 at 23:00 Multi-Ingredient Ointment (Analgesic Waldo) 1 ivan PRN QID PRN TP MUSCLE PAIN; Start 07/10/18 at 23:15 Al Hydroxide/Mg Hydroxide (Mylanta Plus Xs) 15 ml PRN AFTMEALHC PRN PO DYSPEPSIA; Start 07/10/18 at 23:15 Magnesium Hydroxide (Milk Of Magnesia) 2,400 mg PRN QHS PRN PO CONSTIPATION; Start 07/10/18 at 23:15 Sertraline HCl (Zoloft) 50 mg DAILY PO Last administered on 07/15/18 08:10; Start 07/14/18 at 09:00; Stop 07/15/18 at 18:43; Status DC Buspirone HCl (Buspar) 5 mg 0900,1700 PO Last administered on 07/17/18 17:51; Start 07/15/18 at 09:00; Stop 07/18/18 at 01:49; Status DC Fluoxetine HCl (PROzac ORAL SOLN) 5 mg DAILY PO Last administered on 07/16/18 10:05; Start 07/16/18 at 09:00; Stop 07/16/18 at 17:42; Status DC Polyethylene Glycol (miraLAX) 17 gm DAILY PO Last administered on 07/19/18at 07: 44; Start 07/16/18 at 09:00 Hydrocortisone (Proctosol-Hc) 1 ivan TID RC Last administered on 07/18/18at 19:04 ; Start 07/15/18 at 21:00 Levothyroxine Sodium (Synthroid) 25 mcg DAILY06 PO Last administered on at 05:38; Start 07/17/18 at 06:00 Active Scripts Active Reported Vitamin D2 (Ergocalciferol (Vitamin D2)) 50,000 Unit Capsule 50,000 Unit PO WEEKLY Zoloft (Sertraline Hcl) 25 Mg Tablet 25 Mg PO DAILY Senna-S Laxative Tablet (Sennosides/Docusate Sodium) 1 Each Tablet 1 Each PO BID94 Refresh Optive Eye Drops (Carboxymethylcellulos/Glycerin) 15 Ml Drops 1 Drop EACHEYE PRN Q4HRS PRN Polyethylene Glycol 3350 255 Gm Powder 17 Gm PO PRN DAILY PRN Meclizine Hcl 25 Mg Tablet 25 Mg PO DAILY Mag-Oxide (Magnesium Oxide) 400 Mg Tablet 400 Mg PO BID94 Losartan Potassium (Losartan Potassium) 25 Mg Tablet 12.5 Mg PO HS Losartan Potassium (Losartan Potassium) 25 Mg Tablet 25 Mg PO DAILY Lidocaine 1 Each Adh..patch 1 Each TP DAILY Lantus Solostar (Insulin Glargine,Hum.rec.anlog) 100 Unit/1 Ml Insuln.pen 30 Unit SQ QHS Hydrocodone-Apap 5-325 (Hydrocodone Bit/Acetaminophen) 1 Each Tablet 1 Tab PO PRN Q6HRS PRN Hydrocodone-Apap 5-325 (Hydrocodone Bit/Acetaminophen) 1 Each Tablet 1 Tab PO HS PRN Gabapentin (Gabapentin) 300 Mg Capsule 300 Mg PO HS Ferrous Sulfate 325 Mg Tablet 325 Mg PO DAILY Dorzolamide-Timolol Eye Drops (Dorzolamide Hcl/Timolol Maleat) 10 Ml Drops 1 Drop LEFTEYE HS Cosopt Eye Drops (Dorzolamide Hcl/Timolol Maleat) 10 Ml Drops 1 Drop LEFTEYE HS Clopidogrel (Clopidogrel Bisulfate) 75 Mg Tablet 75 Mg PO DAILY Atorvastatin Calcium 40 Mg Tablet 40 Mg PO QHS Aspirin 81 Mg Tab.chew 81 Mg PO DAILY Artificial Tears Eye Drops (Dextran 70/Hypromellose) 15 Ml Drops 1 Drop EACHEYE PRN Q4HRS PRN Acetaminophen 500 Mg Tablet 1,000 Mg PO PRN Q6HRS PRN I have reviewed the current psychotropics carefully including drug interactions. Risk benefit ratio favors no change other than as noted in my dictated progress note. Diagnosis: Problems: (1) Anxiety disorder (2) Major depressive disorder, recurrent episode (3) Impulse control disorder (4) Mild cognitive disorder JENNIFER CHEUNG MD Jul 19, 2018 09:43
--- NOTE | 2018-07-19 09:45 | PN ---
DATE: 07/17/2018 PSYCHIATRIC PROGRESS NOTE This late entry 07/17/2018 covers elements not covered in my initial note. SUBJECTIVE: I met with the patient in the evening. The patient slept 7 hours previous night. She refused meclizine, refused bedtime meds, took them later, slept late in the morning, refused to talk to the nursing staff, refused her BuSpar. REVIEW OF SYSTEMS: Ambulation impaired, in wheelchair. No CV, , pulmonary, eye system symptoms on review. MENTAL STATUS EXAM: Oriented to herself and situation. Speech has some latency, coherent. Abstraction fair, computation impaired, language function intact, attention span short. Mood and affect somewhat anxious, labile. We had a lengthy discussion about her request to stop all her psychotropics. We will continue to encourage compliance and then reassess, but after a lengthy discussion with her, she is adamant on not taking the BuSpar and she has refused the Prozac as well. We will go ahead and discontinue it since there was nothing I could do after a lengthy conversation that we changed her mind. We certainly can force her to take them and we will just have to work with encouraging compliance and to the best we can to help her. JENNIFER CHEUNG MD DR: SHERIF/kelly JOB#: [id number] / [id number]
--- NOTE | 2018-07-19 11:12 | NUR ---
Behavior Intervention Response and Plan: BIRP Note: Behavior: Assumed Care of patient, patient located in Day Room at shift change. Patient exhibited the following behavior Compliant, Cooperative, Withdrawn. Brief assessment on rounds of vital signs, medication needs, lab studies, and pain. Treatment plan problems . Intervention: Patient assessed and the following interventions initiated safety checks 15 Minute Checks Head to toe Assessment , Cognitive Assessment , Medications. Response: After interactions and interventions patient responded in the following manner, Demanding , Able to Focus on Task ,Calm. Continue to assess behaviors and condition will continue to monitor throughout the shift as needed. Patient educated on ADL's, and hand hygiene. 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 Continue to assess patient for changes in above assessment. Monitor for medication needs, pain, and safety concerns. Hourly rounding performed to ensure safe environment.
[2018-07-19 16:35] VITALS: BP 124/72
[2018-07-19] MEDS: ATORVASTATIN CALCIUM 20 MG TABLET PO SCH (19:26)
[2018-07-19] MEDS: GABAPENTIN 300 MG CAPSULE. PO SCH (19:26)
[2018-07-19] MEDS: HYDROcodone/APAP 5/325MG 1 TAB TABLET PO SCH (19:26)
[2018-07-19] MEDS: INSULIN GLARGINE 300 UNITS/3 ML INSULN.PEN. SQ SCH (19:29)
[2018-07-19] MEDS: DORZOLAMIDE/TIMOLOL 2%/0.5% OPHTH SOLUTION 10ML BOTTLE. OS SCH (19:29)
[2018-07-19] MEDS: PATCH REMOVAL. MC SCH (21:00)
--- NOTE | 2018-07-19 22:51 | PDOC ---
Exam Note: Abhilash Note: Please also refer to the separate dictated note~for this date of service dictated separately.~Patient seen individually. Discussed the patient with Nursing staff reviewed the chart.~Reviewed interim history and current functioning. Reviewed vital signs,~Labs/ Radiology~and current medications noted below. Continue current treatment with the changes noted in the dictated addendum note Assessment: Vital Signs: Vital Signs Date Time Temp Pulse Resp B/P (MAP) Pulse Ox O2 Delivery O2 Flow Rate FiO2 07/19/18 19:26 97 07/19/18 19:25 87 124/72 07/19/18 16:35 97.0 20 Room Air I&O Intake and Output 07/19/18 07:00 Intake Total 1200 ml Balance 1200 ml Intake Oral 1200 ml # Bowel Movements 1 Labs: Laboratory Tests Test 07/19/18 07:14 07/19/18 11:44 07/19/18 16:59 07/19/18 19:13 Glucose (Fingerstick) 94 mg/dL (70-99) 203 mg/dL (70-99) H 145 mg/dL (70-99) H 268 mg/dL (70-99) H Current Medications: Meds: Current Medications Clopidogrel Bisulfate (Plavix) 75 mg DAILY PO Last administered on 07/19/18at 07: 45; Start 07/11/18 at 09:00 Ferrous Sulfate (Feosol) 325 mg DAILY PO Last administered on 07/19/18at 07:45; Start 07/11/18 at 09:00 Gabapentin (Neurontin) 300 mg HS PO ; Start 07/11/18 at 21:00; Stop 07/11/18 at 21:00; Status DC Acetaminophen/ Hydrocodone Bitart (Lortab 5/325) 1 tab PRN QHS PRN PO PAIN; Start 07/10/18 at 22:00; Stop 07/10/18 at 22:51; Status DC Acetaminophen/ Hydrocodone Bitart (Lortab 5/325) 1 tab PRN Q6HRS PRN PO PAIN Last administered on 07/12/18at 07:37; Start 07/10/18 at 22:00 Insulin Glargine (Lantus) 30 units QHS SQ ; Start 07/11/18 at 21:00; Stop at 21:00; Status DC Losartan Potassium (Cozaar) 12.5 mg HS PO ; Start 07/11/18 at 21:00; Stop at 21:00; Status DC Losartan Potassium (Cozaar) 25 mg DAILY PO Last administered on 07/19/18 07:45 ; Start 07/11/18 at 09:00 Senna/Docusate Sodium (Senna Plus) 1 tab BID94 PO ; Start 07/11/18 at 09:00; Stop 07/11/18 at 09:00; Status DC Acetaminophen (Tylenol) 1,000 mg PRN Q6HRS PRN PO PAIN / TEMP; Start 07/10/18 at 22:45 Aspirin (Children'S Aspirin) 81 mg DAILYWBKFT PO Last administered on 07/19/18 07:45; Start 07/11/18 at 08:00 Atorvastatin Calcium (Lipitor) 40 mg QHS PO ; Start 07/11/18 at 21:00; Stop at 21:00; Status DC Artificial Tears (Artificial Tears) 1 drop PRN Q15MIN PRN OU DRY EYE; Start at 22:45 Non-Formulary Medication (Dextran 70/ Hypromellose (Artificial Tears Eye Drops) ) 1 drop PRN Q4HRS PRN EACHEYE DRY EYE; Start 07/10/18 at 22:00; Status UNV Dorzolamide/ Timolol (Cosopt) 1 drop QHS OS Last administered on 07/19/18 19:29 ; Start 07/11/18 at 21:00 Non-Formulary Medication (Dorzolamide Hcl/ Timolol Maleat (Dorzolamide-Timolol Eye Drops)) 1 drop HS LEFTEYE ; Start 07/11/18 at 21:00; Status UNV Vitamin D (Vitamin D3) 50,000 unit WEEKLY PO Last administered on 07/17/18 08: 21; Start 07/17/18 at 09:00 Lidocaine (Lidoderm) 1 patch DAILY TD Last administered on 07/19/18 07:44; Start 07/11/18 at 09:00 Magnesium Oxide (Magnesium Oxide) 400 mg BID94 PO Last administered on 17:58; Start 07/11/18 at 09:00 Meclizine HCl (Antivert) 25 mg DAILY PO Last administered on 07/18/18 08:18; Start 07/11/18 at 09:00 Polyethylene Glycol (miraLAX) 17 gm PRN DAILY PRN PO CONSTIPATION Last administered on 07/12/18 07:37; Start 07/11/18 at 09:00; Stop 07/15/18 at 18:54 ; Status DC Sertraline HCl (Zoloft) 25 mg DAILY PO Last administered on 07/13/18 07:57; Start 07/11/18 at 09:00; Stop 07/13/18 at 17:38; Status DC Insulin Human Lispro (HumaLOG) 0-16 UNITS TIDWMEALS SQ Last administered on 07/19 13:40; Start 07/11/18 at 08:00 Dextrose 12.5 gm PRN Q15MIN PRN IV SEE COMMENTS; Start 07/10/18 at 22:45 Miscellaneous (Lidoderm Patch Removal) 1 ea QHS MC Last administered on 19:02; Start 07/11/18 at 21:00 Atorvastatin Calcium (Lipitor) 40 mg QHS PO Last administered on 07/19/18 19:26 ; Start 07/10/18 at 23:00 Gabapentin (Neurontin) 300 mg HS PO Last administered on 07/19/18 19:26; Start 07/10/18 at 23:00 Acetaminophen/ Hydrocodone Bitart (Lortab 5/325) 1 tab HS PO Last administered on 07/19/18 19:26; Start 07/10/18 at 23:00 Insulin Glargine (Lantus) 30 units QHS SQ Last administered on 07/19/18 19:29; Start 07/10/18 at 23:00 Losartan Potassium (Cozaar) 12.5 mg HS PO Last administered on 07/19/18 19:25; Start 07/10/18 at 23:00 Senna/Docusate Sodium (Senna Plus) 1 tab BID94 PO Last administered on 17:58; Start 07/10/18 at 23:00 Multi-Ingredient Ointment (Analgesic Freer) 1 ivan PRN QID PRN TP MUSCLE PAIN; Start 07/10/18 at 23:15 Al Hydroxide/Mg Hydroxide (Mylanta Plus Xs) 15 ml PRN AFTMEALHC PRN PO DYSPEPSIA; Start 07/10/18 at 23:15 Magnesium Hydroxide (Milk Of Magnesia) 2,400 mg PRN QHS PRN PO CONSTIPATION; Start 07/10/18 at 23:15 Sertraline HCl (Zoloft) 50 mg DAILY PO Last administered on 07/15/18at 08:10; Start 07/14/18 at 09:00; Stop 07/15/18 at 18:43; Status DC Buspirone HCl (Buspar) 5 mg 0900,1700 PO Last administered on 07/17/18at 17:51; Start 07/15/18 at 09:00; Stop 07/18/18 at 01:49; Status DC Fluoxetine HCl (PROzac ORAL SOLN) 5 mg DAILY PO Last administered on 07/16/18at 10:05; Start 07/16/18 at 09:00; Stop 07/16/18 at 17:42; Status DC Polyethylene Glycol (miraLAX) 17 gm DAILY PO Last administered on 07/19/18at 07: 44; Start 07/16/18 at 09:00 Hydrocortisone (Proctosol-Hc) 1 ivan TID RC Last administered on 07/19/18 19:29 ; Start 07/15/18 at 21:00 Levothyroxine Sodium (Synthroid) 25 mcg DAILY06 PO Last administered on at 05:38; Start 07/17/18 at 06:00 Active Scripts Active Reported Vitamin D2 (Ergocalciferol (Vitamin D2)) 50,000 Unit Capsule 50,000 Unit PO WEEKLY Zoloft (Sertraline Hcl) 25 Mg Tablet 25 Mg PO DAILY Senna-S Laxative Tablet (Sennosides/Docusate Sodium) 1 Each Tablet 1 Each PO BID94 Refresh Optive Eye Drops (Carboxymethylcellulos/Glycerin) 15 Ml Drops 1 Drop EACHEYE PRN Q4HRS PRN Polyethylene Glycol 3350 255 Gm Powder 17 Gm PO PRN DAILY PRN Meclizine Hcl 25 Mg Tablet 25 Mg PO DAILY Mag-Oxide (Magnesium Oxide) 400 Mg Tablet 400 Mg PO BID94 Losartan Potassium (Losartan Potassium) 25 Mg Tablet 12.5 Mg PO HS Losartan Potassium (Losartan Potassium) 25 Mg Tablet 25 Mg PO DAILY Lidocaine 1 Each Adh..patch 1 Each TP DAILY Lantus Solostar (Insulin Glargine,Hum.rec.anlog) 100 Unit/1 Ml Insuln.pen 30 Unit SQ QHS Hydrocodone-Apap 5-325 (Hydrocodone Bit/Acetaminophen) 1 Each Tablet 1 Tab PO PRN Q6HRS PRN Hydrocodone-Apap 5-325 (Hydrocodone Bit/Acetaminophen) 1 Each Tablet 1 Tab PO HS PRN Gabapentin (Gabapentin) 300 Mg Capsule 300 Mg PO HS Ferrous Sulfate 325 Mg Tablet 325 Mg PO DAILY Dorzolamide-Timolol Eye Drops (Dorzolamide Hcl/Timolol Maleat) 10 Ml Drops 1 Drop LEFTEYE HS Cosopt Eye Drops (Dorzolamide Hcl/Timolol Maleat) 10 Ml Drops 1 Drop LEFTEYE HS Clopidogrel (Clopidogrel Bisulfate) 75 Mg Tablet 75 Mg PO DAILY Atorvastatin Calcium 40 Mg Tablet 40 Mg PO QHS Aspirin 81 Mg Tab.chew 81 Mg PO DAILY Artificial Tears Eye Drops (Dextran 70/Hypromellose) 15 Ml Drops 1 Drop EACHEYE PRN Q4HRS PRN Acetaminophen 500 Mg Tablet 1,000 Mg PO PRN Q6HRS PRN I have reviewed the current psychotropics carefully including drug interactions. Risk benefit ratio favors no change other than as noted in my dictated progress note. Diagnosis: Problems: (1) Anxiety disorder (2) Major depressive disorder, recurrent episode (3) Impulse control disorder (4) Mild cognitive disorder JENNIFER CHEUNG MD Jul 19, 2018 22:51
--- NOTE | 2018-07-19 23:58 | NUR ---
Nursing note Pt up in hallway talking to a peer at length about many topics. Both have flight of ideas, and are hyperverbal. Both seem to enjoy commiserating with each other about the events of the day. Gets abnormally over joyed when she sees that I am her nurse today. Seems to have an odd presentation.
[2018-07-20] MEDS: LEVOTHYROXINE 25 MCG TABLET. PO SCH ×3 (05:27→06:00)
[2018-07-20 05:33] VITALS: BP 101/56
[2018-07-20] MEDS: ASPIRIN 81 MG TAB.CHEW PO SCH (07:51)
[2018-07-20] MEDS: MAGNESIUM OXIDE 400 MG TABLET PO SCH ×2 (07:51→15:48)
[2018-07-20] MEDS: SENNOSIDES/DOCUSATE 8.6/50MG TABLET. PO SCH ×2 (07:51→15:48)
[2018-07-20] MEDS: LIDOCAINE (700MG/PATCH) PATCH. TD SCH (07:52)
[2018-07-20] MEDS: CLOPIDOGREL BISULFATE 75 MG TABLET PO SCH (07:52)
[2018-07-20] MEDS: POLYETHYLENE GLYCOL 3350 17 GM PACKET. PO SCH ×2 (07:52→08:09)
[2018-07-20] MEDS: FERROUS SULFATE 325 MG TABLET. PO SCH (07:52)
[2018-07-20] MEDS: MECLIZINE 12.5 MG TABLET. PO SCH (07:52)
[2018-07-20] MEDS: INSULIN LISPRO 300 UNITS/3 ML INSULN.PEN. SQ SCH ×4 (07:56→17:29)
[2018-07-20] MEDS: HYDROCORTISONE 2.5% RECTAL CREAM 30GM TUBE. RC SCH ×4 (08:09→19:58)
[2018-07-20 08:21] LABS: BASO # 0.1 x10^3/uL (0.0-0.2); BASO % 2 % (0-3); EOS # 0.3 x10^3/uL (0.0-0.7); EOS % 5 % (0-3); HEMATOCRIT 36.8 % (36.0-47.0); HEMOGLOBIN 12.2 g/dL (12.0-15.5); LYMPH # 1.3 x10^3/uL (1.0-4.8); LYMPH % 24 % (24-48); MEAN CORPUSCULAR HEMOGLOBIN 28 pg (25-35); MEAN CORPUSCULAR HGB CONC 33 g/dL (31-37); MEAN CORPUSCULAR VOLUME 85 fL (79-100); MONO # 0.5 x10^3/uL (0.0-1.1); MONO % 9 % (0-9); NEUT # 3.3 x10^3uL (1.8-7.7); NEUT % 60 % (31-73); PLATELET COUNT 294 x10^3/uL (140-400); RED BLOOD COUNT 4.35 x10^6/uL (3.50-5.40); RED CELL DISTRIBUTION WIDTH 15.5 % (11.5-14.5); WHITE BLOOD COUNT 5.6 x10^3/uL (4.0-11.0)
[2018-07-20 08:44] LABS: ALBUMIN 2.8 g/dL (3.4-5.0); ALBUMIN/GLOBULIN RATIO 0.7 (1.0-1.7); CREATININE 1.2 mg/dL (0.6-1.0); GFR 44.3; POTASSIUM 4.8 mmol/L (3.5-5.1); TOTAL BILIRUBIN 0.2 mg/dL (0.2-1.0); TOTAL PROTEIN 6.8 g/dL (6.4-8.2)
[2018-07-20] MEDS: LOSARTAN 25 MG TABLET. PO SCH ×2 (09:00→19:55)
[2018-07-20] MEDS: ACETAMINOPHEN 500 MG TABLET PO PRN (09:31)
--- NOTE | 2018-07-20 12:46 | NUR ---
Behavior Intervention Response and Plan: BIRP Note: Behavior: Assumed Care of patient, patient located in day room at shift change. Patient exhibited the following behavior Interactive, Compulsive with her medications but Compliant. Brief assessment on rounds of vital signs, medication needs, lab studies, and pain. Intervention: Patient assessed and the following interventions initiated safety checks 15 Minute Checks Cognitive Assessment , Head to toe Assessment , Medications. Response: After interactions and interventions patient responded in the following manner, Calm , Appropriate ,Compliant. Continue to assess behaviors and condition will continue to monitor throughout the shift as needed. Patient educated on ADL's, and hand hygiene. 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 Continue to assess patient for changes in above assessment. Monitor for medication needs, pain, and safety concerns. Hourly rounding performed to ensure safe environment.
[2018-07-20 16:16] VITALS: BP 139/77
--- NOTE | 2018-07-20 16:30 | NUR ---
SW met with pt to discuss discharge plans. She reports that she will have to return to [facility] until she can find a different place to live as she is running out of money. To her knowledge, she only has roughly 2K left. Pt wants to discharge home; however, she reports that her brother Joseph is "cleaning out my house and I don't want him to touch anything". Pt reports that she knows that she let her house go and lost a lot of important friends, as she has not been herself since her parents passed (last parent in 2009). SW discussed with pt the fact that she may continuing to be grieving as she was tearful in talking about her parents and made the statement "I'm next". Pt has been giving grief about being on "unnecessary medications". SW explained that pt exhibits quite a few signs of depression and if SW had to guess, she has been depressed for some time. SW shared a few person stories and encouraged pt to take the antidepressant that is being prescribed for her. SW explained that it is a tool that will help; meanwhile, pt needs to work through her emotions and continue to look towards speaking with a counselor about all of her unresolved issues that she has been holding onto. Pt reports some of this has to do with her CVA and not regaining any strength back. SW discussed pt WANT to get better and how she has to put forth the effort in all aspects. Pt reports that she does WANT to get better and admits that depression may be hurting her. SW questioned sending pt to a more appropriate rehab facility as pt has only been getting HH therapy, which is not enough to help pt in gaining her strength. Pt will consider the antidepressant and SW will contact pt brother Joseph, who she has appointed as her new DPOA, to help in making placement/discharge plans.
[2018-07-20] MEDS: PATCH REMOVAL. MC SCH (19:55)
[2018-07-20] MEDS: ATORVASTATIN CALCIUM 20 MG TABLET PO SCH (19:55)
[2018-07-20] MEDS: GABAPENTIN 300 MG CAPSULE. PO SCH (19:58)
[2018-07-20] MEDS: HYDROcodone/APAP 5/325MG 1 TAB TABLET PO SCH (19:58)
[2018-07-20] MEDS: DORZOLAMIDE/TIMOLOL 2%/0.5% OPHTH SOLUTION 10ML BOTTLE. OS SCH (19:59)
[2018-07-20] MEDS: INSULIN GLARGINE 300 UNITS/3 ML INSULN.PEN. SQ SCH (20:01)
[2018-07-20 22:34] LABS: COLOR,URINE YELLOW
[2018-07-20 22:35] LABS: BILIRUBIN,URINE NEG (NEG); CLARITY,URINE CLEAR; GLUCOSE,URINE 100 mg/dL (NEG); NITRITE,URINE NEG (NEG); UROBILINOGEN,URINE 0.2 mg/dL (0.2 mg/dL)
--- NOTE | 2018-07-20 22:39 | PDOC ---
Exam Note: Abhilash Note: Please also refer to the separate dictated note~for this date of service dictated separately.~Patient seen individually. Discussed the patient with Nursing staff reviewed the chart.~Reviewed interim history and current functioning. Reviewed vital signs,~Labs/ Radiology~and current medications noted below. Continue current treatment with the changes noted in the dictated addendum note Assessment: Vital Signs: Vital Signs Date Time Temp Pulse Resp B/P (MAP) Pulse Ox O2 Delivery O2 Flow Rate FiO2 07/20/18 20:58 18 100 07/20/18 19:55 88 139/77 07/20/18 16:16 97.8 07/19/18 16:35 Room Air I&O Intake and Output 07/20/18 06:59 Intake Total 1080 ml Balance 1080 ml Intake Oral 1080 ml Labs: Laboratory Tests Test 07/20/18 07:17 07/20/18 07:37 07/20/18 11:17 07/20/18 16:42 Glucose (Fingerstick) 161 mg/dL (70-99) H 177 mg/dL (70-99) H 207 mg/dL (70-99) H White Blood Count 5.6 x10^3/uL (4.0-11.0) Red Blood Count 4.35 x10^6/uL (3.50-5.40) Hemoglobin 12.2 g/dL (12.0-15.5) Hematocrit 36.8 % (36.0-47.0) Mean Corpuscular Volume 85 fL (79-100) Mean Corpuscular Hemoglobin 28 pg (25-35) Mean Corpuscular Hemoglobin Concent 33 g/dL (31-37) Red Cell Distribution Width 15.5 % (11.5-14.5) H Platelet Count 294 x10^3/uL (140-400) Neutrophils (%) (Auto) 60 % (31-73) Lymphocytes (%) (Auto) 24 % (24-48) Monocytes (%) (Auto) 9 % (0-9) Eosinophils (%) (Auto) 5 % (0-3) H Basophils (%) (Auto) 2 % (0-3) Neutrophils # (Auto) 3.3 x10^3uL (1.8-7.7) Lymphocytes # (Auto) 1.3 x10^3/uL (1.0-4.8) Monocytes # (Auto) 0.5 x10^3/uL (0.0-1.1) Eosinophils # (Auto) 0.3 x10^3/uL (0.0-0.7) Basophils # (Auto) 0.1 x10^3/uL (0.0-0.2) Sodium Level 136 mmol/L (136-145) Potassium Level 4.8 mmol/L (3.5-5.1) Chloride Level 103 mmol/L (98-107) Carbon Dioxide Level 25 mmol/L (21-32) Anion Gap 8 (6-14) Blood Urea Nitrogen 35 mg/dL (7-20) H Creatinine 1.2 mg/dL (0.6-1.0) H Estimated GFR (Cockcroft-Gault) 44.3 BUN/Creatinine Ratio 29 (6-20) H Glucose Level 172 mg/dL (70-99) H Calcium Level 9.0 mg/dL (8.5-10.1) Total Bilirubin 0.2 mg/dL (0.2-1.0) Aspartate Amino Transferase (AST) 16 U/L (15-37) Alanine Aminotransferase (ALT) 15 U/L (14-59) Alkaline Phosphatase 92 U/L (46-116) Total Protein 6.8 g/dL (6.4-8.2) Albumin 2.8 g/dL (3.4-5.0) L Albumin/Globulin Ratio 0.7 (1.0-1.7) L Test 07/20/18 19:12 Glucose (Fingerstick) 221 mg/dL (70-99) H Current Medications: Meds: Current Medications Clopidogrel Bisulfate (Plavix) 75 mg DAILY PO Last administered on 07/20/18at 07: 52; Start 07/11/18 at 09:00 Ferrous Sulfate (Feosol) 325 mg DAILY PO Last administered on 07/20/18at 07:52; Start 07/11/18 at 09:00 Gabapentin (Neurontin) 300 mg HS PO ; Start 07/11/18 at 21:00; Stop 07/11/18 at 21:00; Status DC Acetaminophen/ Hydrocodone Bitart (Lortab 5/325) 1 tab PRN QHS PRN PO PAIN; Start 07/10/18 at 22:00; Stop 07/10/18 at 22:51; Status DC Acetaminophen/ Hydrocodone Bitart (Lortab 5/325) 1 tab PRN Q6HRS PRN PO PAIN Last administered on 07/12/18at 07:37; Start 07/10/18 at 22:00 Insulin Glargine (Lantus) 30 units QHS SQ ; Start 07/11/18 at 21:00; Stop at 21:00; Status DC Losartan Potassium (Cozaar) 12.5 mg HS PO ; Start 07/11/18 at 21:00; Stop at 21:00; Status DC Losartan Potassium (Cozaar) 25 mg DAILY PO Last administered on 07/19/18at 07:45 ; Start 07/11/18 at 09:00 Senna/Docusate Sodium (Senna Plus) 1 tab BID94 PO ; Start 07/11/18 at 09:00; Stop 07/11/18 at 09:00; Status DC Acetaminophen (Tylenol) 1,000 mg PRN Q6HRS PRN PO PAIN / TEMP Last administered on 07/20/18at 09:31; Start 07/10/18 at 22:45 Aspirin (Children'S Aspirin) 81 mg DAILYWBKFT PO Last administered on 07/20/18at 07:51; Start 07/11/18 at 08:00 Atorvastatin Calcium (Lipitor) 40 mg QHS PO ; Start 07/11/18 at 21:00; Stop at 21:00; Status DC Artificial Tears (Artificial Tears) 1 drop PRN Q15MIN PRN OU DRY EYE; Start at 22:45 Non-Formulary Medication (Dextran 70/ Hypromellose (Artificial Tears Eye Drops) ) 1 drop PRN Q4HRS PRN EACHEYE DRY EYE; Start 07/10/18 at 22:00; Status UNV Dorzolamide/ Timolol (Cosopt) 1 drop QHS OS Last administered on 07/20/18at 19:59 ; Start 07/11/18 at 21:00 Non-Formulary Medication (Dorzolamide Hcl/ Timolol Maleat (Dorzolamide-Timolol Eye Drops)) 1 drop HS LEFTEYE ; Start 07/11/18 at 21:00; Status UNV Vitamin D (Vitamin D3) 50,000 unit WEEKLY PO Last administered on 07/17/18 08: 21; Start 07/17/18 at 09:00 Lidocaine (Lidoderm) 1 patch DAILY TD Last administered on 07/20/18 07:52; Start 07/11/18 at 09:00 Magnesium Oxide (Magnesium Oxide) 400 mg BID94 PO Last administered on 15:48; Start 07/11/18 at 09:00 Meclizine HCl (Antivert) 25 mg DAILY PO Last administered on 07/20/18 07:52; Start 07/11/18 at 09:00 Polyethylene Glycol (miraLAX) 17 gm PRN DAILY PRN PO CONSTIPATION Last administered on 07/12/18 07:37; Start 07/11/18 at 09:00; Stop 07/15/18 at 18:54 ; Status DC Sertraline HCl (Zoloft) 25 mg DAILY PO Last administered on 07/13/18 07:57; Start 07/11/18 at 09:00; Stop 07/13/18 at 17:38; Status DC Insulin Human Lispro (HumaLOG) 0-16 UNITS TIDWMEALS SQ Last administered on 07/20 17:29; Start 07/11/18 at 08:00 Dextrose 12.5 gm PRN Q15MIN PRN IV SEE COMMENTS; Start 07/10/18 at 22:45 Miscellaneous (Lidoderm Patch Removal) 1 ea QHS MC Last administered on 19:55; Start 07/11/18 at 21:00 Atorvastatin Calcium (Lipitor) 40 mg QHS PO Last administered on 07/20/18 19:55 ; Start 07/10/18 at 23:00 Gabapentin (Neurontin) 300 mg HS PO Last administered on 07/20/18 19:58; Start 07/10/18 at 23:00 Acetaminophen/ Hydrocodone Bitart (Lortab 5/325) 1 tab HS PO Last administered on 07/20/18 19:58; Start 07/10/18 at 23:00 Insulin Glargine (Lantus) 30 units QHS SQ Last administered on 07/20/18 20:01; Start 07/10/18 at 23:00 Losartan Potassium (Cozaar) 12.5 mg HS PO Last administered on 07/20/18 19:55; Start 07/10/18 at 23:00 Senna/Docusate Sodium (Senna Plus) 1 tab BID94 PO Last administered on 15:48; Start 07/10/18 at 23:00 Multi-Ingredient Ointment (Analgesic [place]) 1 ivan PRN QID PRN TP MUSCLE PAIN; Start 07/10/18 at 23:15 Al Hydroxide/Mg Hydroxide (Mylanta Plus Xs) 15 ml PRN AFTMEALHC PRN PO DYSPEPSIA; Start 07/10/18 at 23:15 Magnesium Hydroxide (Milk Of Magnesia) 2,400 mg PRN QHS PRN PO CONSTIPATION; Start 07/10/18 at 23:15 Sertraline HCl (Zoloft) 50 mg DAILY PO Last administered on 07/15/18 08:10; Start 07/14/18 at 09:00; Stop 07/15/18 at 18:43; Status DC Buspirone HCl (Buspar) 5 mg 0900,1700 PO Last administered on 07/17/18 17:51; Start 07/15/18 at 09:00; Stop 07/18/18 at 01:49; Status DC Fluoxetine HCl (PROzac ORAL SOLN) 5 mg DAILY PO Last administered on 07/16/18 10:05; Start 07/16/18 at 09:00; Stop 07/16/18 at 17:42; Status DC Polyethylene Glycol (miraLAX) 17 gm DAILY PO Last administered on 07/19/18 07: 44; Start 07/16/18 at 09:00 Hydrocortisone (Proctosol-Hc) 1 ivan TID RC Last administered on 07/20/18 19:58 ; Start 07/15/18 at 21:00 Levothyroxine Sodium (Synthroid) 25 mcg DAILY06 PO Last administered on 06:00; Start 07/17/18 at 06:00 Active Scripts Active Reported Vitamin D2 (Ergocalciferol (Vitamin D2)) 50,000 Unit Capsule 50,000 Unit PO WEEKLY Zoloft (Sertraline Hcl) 25 Mg Tablet 25 Mg PO DAILY Senna-S Laxative Tablet (Sennosides/Docusate Sodium) 1 Each Tablet 1 Each PO BID94 Refresh Optive Eye Drops (Carboxymethylcellulos/Glycerin) 15 Ml Drops 1 Drop EACHEYE PRN Q4HRS PRN Polyethylene Glycol 3350 255 Gm Powder 17 Gm PO PRN DAILY PRN Meclizine Hcl 25 Mg Tablet 25 Mg PO DAILY Mag-Oxide (Magnesium Oxide) 400 Mg Tablet 400 Mg PO BID94 Losartan Potassium (Losartan Potassium) 25 Mg Tablet 12.5 Mg PO HS Losartan Potassium (Losartan Potassium) 25 Mg Tablet 25 Mg PO DAILY Lidocaine 1 Each Adh..patch 1 Each TP DAILY Lantus Solostar (Insulin Glargine,Hum.rec.anlog) 100 Unit/1 Ml Insuln.pen 30 Unit SQ QHS Hydrocodone-Apap 5-325 (Hydrocodone Bit/Acetaminophen) 1 Each Tablet 1 Tab PO PRN Q6HRS PRN Hydrocodone-Apap 5-325 (Hydrocodone Bit/Acetaminophen) 1 Each Tablet 1 Tab PO HS PRN Gabapentin (Gabapentin) 300 Mg Capsule 300 Mg PO HS Ferrous Sulfate 325 Mg Tablet 325 Mg PO DAILY Dorzolamide-Timolol Eye Drops (Dorzolamide Hcl/Timolol Maleat) 10 Ml Drops 1 Drop LEFTEYE HS Cosopt Eye Drops (Dorzolamide Hcl/Timolol Maleat) 10 Ml Drops 1 Drop LEFTEYE HS Clopidogrel (Clopidogrel Bisulfate) 75 Mg Tablet 75 Mg PO DAILY Atorvastatin Calcium 40 Mg Tablet 40 Mg PO QHS Aspirin 81 Mg Tab.chew 81 Mg PO DAILY Artificial Tears Eye Drops (Dextran 70/Hypromellose) 15 Ml Drops 1 Drop EACHEYE PRN Q4HRS PRN Acetaminophen 500 Mg Tablet 1,000 Mg PO PRN Q6HRS PRN I have reviewed the current psychotropics carefully including drug interactions. Risk benefit ratio favors no change other than as noted in my dictated progress note. Diagnosis: Problems: (1) Anxiety disorder (2) Major depressive disorder, recurrent episode (3) Impulse control disorder (4) Mild cognitive disorder JENNIFER CHEUNG MD Jul 20, 2018 22:39
[2018-07-20 22:41] LABS: BACTERIA,URINE FEW /HPF (0-FEW)
[2018-07-20 22:42] LABS: SQUAMOUS EPITHELIAL CELL,UR FEW /LPF
--- NOTE | 2018-07-21 02:19 | NUR ---
Behavior Intervention Response and Plan: BIRP Note: Behavior: Assumed Care of patient, patient located in Day Room at shift change. Patient exhibited the following behavior Calm, Compliant, Cooperative. Brief assessment on rounds of vital signs, medication needs, lab studies, and pain. Treatment plan problems . Intervention: Patient assessed and the following interventions initiated safety checks 15 Minute Checks Head to toe Assessment , Head to toe Assessment , Medications. Response: After interactions and interventions patient responded in the following manner, Somatic , Able to Focus on Task ,Social. Continue to assess behaviors and condition will continue to monitor throughout the shift as needed. Patient educated on ADL's, and hand hygiene. Plan: Continue to monitor Master Treatment Plan for patient's progress toward short term goals of Improved Mood, Medication Compliance, pharmacologist goals to return to previous living setting vs placement. Continue to assess patient for changes in above assessment. Monitor for medication needs, pain, and safety concerns. Hourly rounding performed to ensure safe environment.
--- NOTE | 2018-07-21 04:02 | PN ---
DATE: 07/18/2018 This is a late entry for 07/18/2018 covers elements not covered in my initial note. SUBJECTIVE: I met with the patient in the evening. Overall, the patient remains somewhat anxious, at times tearful. 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 No CV, , pulmonary, eye system symptoms on review. MENTAL STATUS EXAM: The patient is reasonably oriented to herself and situation. Speech has some latency, coherent. Abstraction fair, computation impaired, language function intact, attention span short. Mood still appears somewhat dysphoric and anxious, though she minimizes this. No suicidal ideation. LABORATORY DATA: Reviewed. IMPRESSION: Unchanged from initial note. PLAN: No change from initial note. MAN Jimmy CHEUNG MD DR: SHERIF/kelly JOB#: [id number] / [id number]
[2018-07-21 06:01] VITALS: BP 102/64
[2018-07-21] MEDS: LEVOTHYROXINE 25 MCG TABLET. PO SCH (06:24)
[2018-07-21] MEDS: INSULIN LISPRO 300 UNITS/3 ML INSULN.PEN. SQ SCH ×3 (08:00→17:00)
--- NOTE | 2018-07-21 08:54 | PN ---
DATE: 07/19/2018 PSYCHIATRIC PROGRESS NOTE This late entry 07/19/2018, covers elements not covered in my initial note. SUBJECTIVE: I met with the patient in the evening. The patient slept 5-3/4 hours previous night. She is somewhat obsessing about her eyeglasses that she feels and the clothes that she is trying to get to them. UA is positive, is being repeated and I will defer to Dr. Herrmann. REVIEW OF SYSTEMS: Positive for right-sided hemiparesis. Ambulation impaired, in wheelchair. No CV, , pulmonary, eye system symptoms on review. MENTAL STATUS EXAM: Oriented to herself and situation. Speech has some latency, coherent. Abstraction fair, computation impaired, language function intact, attention span short. Mood and affect somewhat dysphoric, anxious, but she minimizes this. LABORATORY DATA: Reviewed. IMPRESSION: Unchanged from initial note. PLAN: No change from initial note plus check UA repeat. JENNIFER CHEUNG MD DR: SHERIF/kelly JOB#: [id number] / [id number]
[2018-07-21] MEDS: MECLIZINE 12.5 MG TABLET. PO SCH (09:00)
[2018-07-21] MEDS: LOSARTAN 25 MG TABLET. PO SCH ×2 (09:00→20:50)
[2018-07-21] MEDS: ASPIRIN 81 MG TAB.CHEW PO SCH (09:14)
[2018-07-21] MEDS: POLYETHYLENE GLYCOL 3350 17 GM PACKET. PO SCH (09:14)
[2018-07-21] MEDS: MAGNESIUM OXIDE 400 MG TABLET PO SCH ×2 (09:14→16:12)
[2018-07-21] MEDS: SENNOSIDES/DOCUSATE 8.6/50MG TABLET. PO SCH ×2 (09:14→16:12)
[2018-07-21] MEDS: FERROUS SULFATE 325 MG TABLET. PO SCH (09:14)
[2018-07-21] MEDS: CLOPIDOGREL BISULFATE 75 MG TABLET PO SCH (09:14)
[2018-07-21] MEDS: LIDOCAINE (700MG/PATCH) PATCH. TD SCH (09:14)
[2018-07-21] MEDS: HYDROCORTISONE 2.5% RECTAL CREAM 30GM TUBE. RC SCH ×3 (09:15→20:52)
--- NOTE | 2018-07-21 10:30 | NUR ---
SW received a call from pt DPOA, Andrea, who wanted to discuss discharge plans. SW will have to follow up with pt psychiatrist as pt continues to refuse medications as she feels that they are "unnecessary". SW discussed the conversation had yesterday and how firm SW had to be with pt about needing the medication. 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 Pt DPOA reports that pt always feels persecuted, like people make decisions against her and aren't listening to her. SW will follow up with the psychiatrist on pt discharge plan. The family is looking into putting pt into weaving inspector care and applying for Medicaid. Pt still has a house that needs to be sold, as well as a car. With those as assets, pt may not be able to qualify for Medicaid. ROSALIE urged Andrea, and pt family to speak with an elder law prosecuting attorney as they may be more in tune with those options to aid in qualifying for Medicaid.
--- NOTE | 2018-07-21 11:23 | NUR ---
Pt is tearful at times and flooded with emotion when she talks about her family. No agitation or aggression. She is compliant with some medication. She is compliant with her assessment. No hallucinations or delusions noted.
[2018-07-21 16:10] VITALS: BP 140/81
--- NOTE | 2018-07-21 20:30 | PN ---
DATE: 07/20/2018 PSYCHIATRIC PROGRESS NOTE This late entry 07/20/2018 covers elements not covered in my initial note. SUBJECTIVE: I met with the patient in the evening. The patient slept 6 hours previous night. She remains somewhat anxious, complains of problems with hemorrhoids, will defer to Dr. Herrmann and see if we can consult Dr. Cortés, Surgery for this. REVIEW OF SYSTEMS: Ambulation impaired, in wheelchair, complains of hemorrhoids. No CV, , pulmonary, eye system symptoms on review. MENTAL STATUS EXAM: Oriented to herself and situation. Speech has some latency, coherent. Abstraction fair, computation impaired, language function intact, attention span short. Mood and affect, somewhat anxious, at times labile, but improved. LABORATORY DATA: Reviewed. IMPRESSION: Unchanged from initial note. PLAN: No change from initial note. She denies current suicidal ideation. MAN Jimmy CHEUNG MD DR: SHERIF/kelly JOB#: [id number] / [id number]
[2018-07-21] MEDS: ATORVASTATIN CALCIUM 20 MG TABLET PO SCH (20:50)
[2018-07-21] MEDS: GABAPENTIN 300 MG CAPSULE. PO SCH (20:50)
[2018-07-21] MEDS: PATCH REMOVAL. MC SCH (20:51)
[2018-07-21] MEDS: HYDROcodone/APAP 5/325MG 1 TAB TABLET PO SCH (20:52)
[2018-07-21] MEDS: DORZOLAMIDE/TIMOLOL 2%/0.5% OPHTH SOLUTION 10ML BOTTLE. OS SCH (20:52)
[2018-07-21] MEDS: INSULIN GLARGINE 300 UNITS/3 ML INSULN.PEN. SQ SCH (20:53)
--- NOTE | 2018-07-21 22:28 | PDOC ---
Exam Note: Abhilash Note: Please also refer to the separate dictated note~for this date of service dictated separately.~Patient seen individually. Discussed the patient with Nursing staff reviewed the chart.~Reviewed interim history and current functioning. Reviewed vital signs,~Labs/ Radiology~and current medications noted below. Continue current treatment with the changes noted in the dictated addendum note Assessment: Vital Signs: Vital Signs Date Time Temp Pulse Resp B/P (MAP) Pulse Ox O2 Delivery O2 Flow Rate FiO2 07/21/18 21:52 18 97 07/21/18 20:50 82 140/81 07/21/18 16:10 98.3 07/19/18 16:35 Room Air I&O Intake and Output 07/21/18 06:59 Intake Total 1080 ml Balance 1080 ml Intake Oral 1080 ml # Bowel Movements 1 Labs: Laboratory Tests Test 07/21/18 07:31 07/21/18 11:47 07/21/18 16:54 07/21/18 19:18 Glucose (Fingerstick) 123 mg/dL (70-99) H 200 mg/dL (70-99) H 150 mg/dL (70-99) H 254 mg/dL (70-99) H Current Medications: Meds: Current Medications Clopidogrel Bisulfate (Plavix) 75 mg DAILY PO Last administered on 07/21/18at 09: 14; Start 07/11/18 at 09:00 Ferrous Sulfate (Feosol) 325 mg DAILY PO Last administered on 07/21/18at 09:14; Start 07/11/18 at 09:00 Gabapentin (Neurontin) 300 mg HS PO ; Start 07/11/18 at 21:00; Stop 07/11/18 at 21:00; Status DC Acetaminophen/ Hydrocodone Bitart (Lortab 5/325) 1 tab PRN QHS PRN PO PAIN; Start 07/10/18 at 22:00; Stop 07/10/18 at 22:51; Status DC Acetaminophen/ Hydrocodone Bitart (Lortab 5/325) 1 tab PRN Q6HRS PRN PO PAIN Last administered on 07/12/18at 07:37; Start 07/10/18 at 22:00 Insulin Glargine (Lantus) 30 units QHS SQ ; Start 07/11/18 at 21:00; Stop at 21:00; Status DC Losartan Potassium (Cozaar) 12.5 mg HS PO ; Start 07/11/18 at 21:00; Stop at 21:00; Status DC Losartan Potassium (Cozaar) 25 mg DAILY PO Last administered on 07/19/18at 07:45 ; Start 07/11/18 at 09:00 Senna/Docusate Sodium (Senna Plus) 1 tab BID94 PO ; Start 07/11/18 at 09:00; Stop 07/11/18 at 09:00; Status DC Acetaminophen (Tylenol) 1,000 mg PRN Q6HRS PRN PO PAIN / TEMP Last administered on 07/20/18 09:31; Start 07/10/18 at 22:45 Aspirin (Children'S Aspirin) 81 mg DAILYWBKFT PO Last administered on 07/21/18 09:14; Start 07/11/18 at 08:00 Atorvastatin Calcium (Lipitor) 40 mg QHS PO ; Start 07/11/18 at 21:00; Stop at 21:00; Status DC Artificial Tears (Artificial Tears) 1 drop PRN Q15MIN PRN OU DRY EYE; Start at 22:45 Non-Formulary Medication (Dextran 70/ Hypromellose (Artificial Tears Eye Drops) ) 1 drop PRN Q4HRS PRN EACHEYE DRY EYE; Start 07/10/18 at 22:00; Status UNV Dorzolamide/ Timolol (Cosopt) 1 drop QHS OS Last administered on 07/21/18 20:52 ; Start 07/11/18 at 21:00 Non-Formulary Medication (Dorzolamide Hcl/ Timolol Maleat (Dorzolamide-Timolol Eye Drops)) 1 drop HS LEFTEYE ; Start 07/11/18 at 21:00; Status UNV Vitamin D (Vitamin D3) 50,000 unit WEEKLY PO Last administered on 07/17/18 08: 21; Start 07/17/18 at 09:00 Lidocaine (Lidoderm) 1 patch DAILY TD Last administered on 07/21/18 09:14; Start 07/11/18 at 09:00 Magnesium Oxide (Magnesium Oxide) 400 mg BID94 PO Last administered on 16:12; Start 07/11/18 at 09:00 Meclizine HCl (Antivert) 25 mg DAILY PO Last administered on 07/20/18 07:52; Start 07/11/18 at 09:00 Polyethylene Glycol (miraLAX) 17 gm PRN DAILY PRN PO CONSTIPATION Last administered on 07/12/18 07:37; Start 07/11/18 at 09:00; Stop 07/15/18 at 18:54 ; Status DC Sertraline HCl (Zoloft) 25 mg DAILY PO Last administered on 07/13/18 07:57; Start 07/11/18 at 09:00; Stop 07/13/18 at 17:38; Status DC Insulin Human Lispro (HumaLOG) 0-16 UNITS TIDWMEALS SQ Last administered on 07/21 12:46; Start 07/11/18 at 08:00 Dextrose 12.5 gm PRN Q15MIN PRN IV SEE COMMENTS; Start 07/10/18 at 22:45 Miscellaneous (Lidoderm Patch Removal) 1 ea QHS MC Last administered on 20:51; Start 07/11/18 at 21:00 Atorvastatin Calcium (Lipitor) 40 mg QHS PO Last administered on 07/21/18 20:50 ; Start 07/10/18 at 23:00 Gabapentin (Neurontin) 300 mg HS PO Last administered on 07/21/18 20:50; Start 07/10/18 at 23:00 Acetaminophen/ Hydrocodone Bitart (Lortab 5/325) 1 tab HS PO Last administered on 07/21/18 20:52; Start 07/10/18 at 23:00 Insulin Glargine (Lantus) 30 units QHS SQ Last administered on 07/21/18 20:53; Start 07/10/18 at 23:00 Losartan Potassium (Cozaar) 12.5 mg HS PO Last administered on 07/21/18 20:50; Start 07/10/18 at 23:00 Senna/Docusate Sodium (Senna Plus) 1 tab BID94 PO Last administered on 16:12; Start 07/10/18 at 23:00 Multi-Ingredient Ointment (Analgesic [place]) 1 ivan PRN QID PRN TP MUSCLE PAIN; Start 07/10/18 at 23:15 Al Hydroxide/Mg Hydroxide (Mylanta Plus Xs) 15 ml PRN AFTMEALHC PRN PO DYSPEPSIA; Start 07/10/18 at 23:15 Magnesium Hydroxide (Milk Of Magnesia) 2,400 mg PRN QHS PRN PO CONSTIPATION; Start 07/10/18 at 23:15 Sertraline HCl (Zoloft) 50 mg DAILY PO Last administered on 07/15/18at 08:10; Start 07/14/18 at 09:00; Stop 07/15/18 at 18:43; Status DC Buspirone HCl (Buspar) 5 mg 0900,1700 PO Last administered on 07/17/18at 17:51; Start 07/15/18 at 09:00; Stop 07/18/18 at 01:49; Status DC Fluoxetine HCl (PROzac ORAL SOLN) 5 mg DAILY PO Last administered on 07/16/18at 10:05; Start 07/16/18 at 09:00; Stop 07/16/18 at 17:42; Status DC Polyethylene Glycol (miraLAX) 17 gm DAILY PO Last administered on 07/21/18at 09: 14; Start 07/16/18 at 09:00 Hydrocortisone (Proctosol-Hc) 1 ivan TID RC Last administered on 07/21/18at 20:52 ; Start 07/15/18 at 21:00 Levothyroxine Sodium (Synthroid) 25 mcg DAILY06 PO Last administered on at 06:24; Start 07/17/18 at 06:00 Active Scripts Active Reported Vitamin D2 (Ergocalciferol (Vitamin D2)) 50,000 Unit Capsule 50,000 Unit PO WEEKLY Zoloft (Sertraline Hcl) 25 Mg Tablet 25 Mg PO DAILY Senna-S Laxative Tablet (Sennosides/Docusate Sodium) 1 Each Tablet 1 Each PO BID94 Refresh Optive Eye Drops (Carboxymethylcellulos/Glycerin) 15 Ml Drops 1 Drop EACHEYE PRN Q4HRS PRN Polyethylene Glycol 3350 255 Gm Powder 17 Gm PO PRN DAILY PRN Meclizine Hcl 25 Mg Tablet 25 Mg PO DAILY Mag-Oxide (Magnesium Oxide) 400 Mg Tablet 400 Mg PO BID94 Losartan Potassium (Losartan Potassium) 25 Mg Tablet 12.5 Mg PO HS Losartan Potassium (Losartan Potassium) 25 Mg Tablet 25 Mg PO DAILY Lidocaine 1 Each Adh..patch 1 Each TP DAILY Lantus Solostar (Insulin Glargine,Hum.rec.anlog) 100 Unit/1 Ml Insuln.pen 30 Unit SQ QHS Hydrocodone-Apap 5-325 (Hydrocodone Bit/Acetaminophen) 1 Each Tablet 1 Tab PO PRN Q6HRS PRN Hydrocodone-Apap 5-325 (Hydrocodone Bit/Acetaminophen) 1 Each Tablet 1 Tab PO HS PRN Gabapentin (Gabapentin) 300 Mg Capsule 300 Mg PO HS Ferrous Sulfate 325 Mg Tablet 325 Mg PO DAILY Dorzolamide-Timolol Eye Drops (Dorzolamide Hcl/Timolol Maleat) 10 Ml Drops 1 Drop LEFTEYE HS Cosopt Eye Drops (Dorzolamide Hcl/Timolol Maleat) 10 Ml Drops 1 Drop LEFTEYE HS Clopidogrel (Clopidogrel Bisulfate) 75 Mg Tablet 75 Mg PO DAILY Atorvastatin Calcium 40 Mg Tablet 40 Mg PO QHS Aspirin 81 Mg Tab.chew 81 Mg PO DAILY Artificial Tears Eye Drops (Dextran 70/Hypromellose) 15 Ml Drops 1 Drop EACHEYE PRN Q4HRS PRN Acetaminophen 500 Mg Tablet 1,000 Mg PO PRN Q6HRS PRN I have reviewed the current psychotropics carefully including drug interactions. Risk benefit ratio favors no change other than as noted in my dictated progress note. Diagnosis: Problems: (1) Anxiety disorder (2) Major depressive disorder, recurrent episode (3) Impulse control disorder (4) Mild cognitive disorder JENNIFER CHEUNG MD Jul 21, 2018 22:28
--- NOTE | 2018-07-22 00:40 | NUR ---
Behavior Intervention Response and Plan: BIRP Note: Behavior: Assumed Care of patient, patient located in Day Room at shift change. Patient exhibited the following behavior Calm, Compliant, Cooperative. Brief assessment on rounds of vital signs, medication needs, lab studies, and pain. Treatment plan problems . Intervention: Patient assessed and the following interventions initiated safety checks 15 Minute Checks Head to toe Assessment , Cognitive Assessment , Medications. Response: After interactions and interventions patient responded in the following manner, Appropriate , Interactive ,Somatic. Continue to assess behaviors and condition will continue to monitor throughout the shift as needed. Patient educated on ADL's, and hand hygiene. Plan: Continue to monitor Master Treatment Plan for patient's progress toward short term goals of Improved Mood, Decreased Agitation, grinder gear goals to return to previous living setting vs placement. Continue to assess patient for changes in above assessment. Monitor for medication needs, pain, and safety concerns. Hourly rounding performed to ensure safe environment.
[2018-07-22 05:52] VITALS: BP 95/59
[2018-07-22] MEDS: LEVOTHYROXINE 25 MCG TABLET. PO SCH (06:10)
[2018-07-22] MEDS: POLYETHYLENE GLYCOL 3350 17 GM PACKET. PO SCH (07:28)
[2018-07-22] MEDS: ASPIRIN 81 MG TAB.CHEW PO SCH (07:28)
[2018-07-22] MEDS: LIDOCAINE (700MG/PATCH) PATCH. TD SCH (07:28)
[2018-07-22] MEDS: CLOPIDOGREL BISULFATE 75 MG TABLET PO SCH (07:29)
[2018-07-22] MEDS: FERROUS SULFATE 325 MG TABLET. PO SCH (07:29)
[2018-07-22] MEDS: LOSARTAN 25 MG TABLET. PO SCH ×2 (07:29→19:30)
[2018-07-22] MEDS: MAGNESIUM OXIDE 400 MG TABLET PO SCH ×2 (07:29→16:02)
[2018-07-22] MEDS: SENNOSIDES/DOCUSATE 8.6/50MG TABLET. PO SCH ×2 (07:29→16:02)
[2018-07-22] MEDS: MECLIZINE 12.5 MG TABLET. PO SCH (07:32)
[2018-07-22] MEDS: INSULIN LISPRO 300 UNITS/3 ML INSULN.PEN. SQ SCH ×3 (08:00→16:52)
[2018-07-22] MEDS: HYDROCORTISONE 2.5% RECTAL CREAM 30GM TUBE. RC SCH ×3 (09:00→19:34)
[2018-07-22] MEDS: POLYVINYL ALCOHOL 1.4% OPHTH SOLUTION 15ML BOTTLE. OU PRN (11:31)
[2018-07-22 16:34] VITALS: BP 136/75
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
[2018-07-22] MEDS: PATCH REMOVAL. MC SCH (19:29)
[2018-07-22] MEDS: DORZOLAMIDE/TIMOLOL 2%/0.5% OPHTH SOLUTION 10ML BOTTLE. OS SCH (19:30)
[2018-07-22] MEDS: ATORVASTATIN CALCIUM 20 MG TABLET PO SCH (19:31)
[2018-07-22] MEDS: INSULIN GLARGINE 300 UNITS/3 ML INSULN.PEN. SQ SCH (19:32)
[2018-07-22] MEDS: NYSTATIN TOPICAL POWDER 15GM BOTTLE. TP SCH (19:34)
[2018-07-22] MEDS: HYDROcodone/APAP 5/325MG 1 TAB TABLET PO SCH (19:34)
[2018-07-22] MEDS: GABAPENTIN 300 MG CAPSULE. PO SCH (19:34)
--- NOTE | 2018-07-22 20:51 | NUR ---
Nursing note: Assumed care of pt in her room. She was very upset and crying. She had been given a shower and, because she was so defiant, a man had to come in and assist. She was compliant w/meds.
--- NOTE | 2018-07-22 22:33 | PDOC ---
Exam Note: Abhilash Note: Please also refer to the separate dictated note~for this date of service dictated separately.~Patient seen individually. Discussed the patient with Nursing staff reviewed the chart.~Reviewed interim history and current functioning. Reviewed vital signs,~Labs/ Radiology~and current medications noted below. Continue current treatment with the changes noted in the dictated addendum note Assessment: Vital Signs: Vital Signs Date Time Temp Pulse Resp B/P (MAP) Pulse Ox O2 Delivery O2 Flow Rate FiO2 07/22/18 20:34 Room Air 07/22/18 19:34 98 07/22/18 19:30 85 136/75 07/22/18 16:34 98.5 18 I&O Intake and Output 07/22/18 07:00 Intake Total 840 ml Balance 840 ml Intake Oral 840 ml # Bowel Movements 2 Labs: Laboratory Tests Test 07/22/18 07:13 07/22/18 11:13 07/22/18 16:10 07/22/18 19:05 Glucose (Fingerstick) 128 mg/dL (70-99) H 214 mg/dL (70-99) H 145 mg/dL (70-99) H 242 mg/dL (70-99) H Current Medications: Meds: Current Medications Clopidogrel Bisulfate (Plavix) 75 mg DAILY PO Last administered on 07/22/18at 07 :29; Start 07/11/18 at 09:00 Ferrous Sulfate (Feosol) 325 mg DAILY PO Last administered on 07/22/18at 07:29; Start 07/11/18 at 09:00 Gabapentin (Neurontin) 300 mg HS PO ; Start 07/11/18 at 21:00; Stop 07/11/18 at 21:00; Status DC Acetaminophen/ Hydrocodone Bitart (Lortab 5/325) 1 tab PRN QHS PRN PO PAIN; Start 07/10/18 at 22:00; Stop 07/10/18 at 22:51; Status DC Acetaminophen/ Hydrocodone Bitart (Lortab 5/325) 1 tab PRN Q6HRS PRN PO PAIN Last administered on 07/12/18at 07:37; Start 07/10/18 at 22:00 Insulin Glargine (Lantus) 30 units QHS SQ ; Start 07/11/18 at 21:00; Stop at 21:00; Status DC Losartan Potassium (Cozaar) 12.5 mg HS PO ; Start 07/11/18 at 21:00; Stop at 21:00; Status DC Losartan Potassium (Cozaar) 25 mg DAILY PO Last administered on 07/19/18at 07:45 ; Start 07/11/18 at 09:00 Senna/Docusate Sodium (Senna Plus) 1 tab BID94 PO ; Start 07/11/18 at 09:00; Stop 07/11/18 at 09:00; Status DC Acetaminophen (Tylenol) 1,000 mg PRN Q6HRS PRN PO PAIN / TEMP Last administered on 07/20/18 09:31; Start 07/10/18 at 22:45 Aspirin (Children'S Aspirin) 81 mg DAILYWBKFT PO Last administered on 07:28; Start 07/11/18 at 08:00 Atorvastatin Calcium (Lipitor) 40 mg QHS PO ; Start 07/11/18 at 21:00; Stop at 21:00; Status DC Artificial Tears (Artificial Tears) 1 drop PRN Q15MIN PRN OU DRY EYE Last administered on 07/22/18 11:31; Start 07/10/18 at 22:45 Non-Formulary Medication (Dextran 70/ Hypromellose (Artificial Tears Eye Drops) ) 1 drop PRN Q4HRS PRN EACHEYE DRY EYE; Start 07/10/18 at 22:00; Status UNV Dorzolamide/ Timolol (Cosopt) 1 drop QHS OS Last administered on 07/22/18 19: 30; Start 07/11/18 at 21:00 Non-Formulary Medication (Dorzolamide Hcl/ Timolol Maleat (Dorzolamide-Timolol Eye Drops)) 1 drop HS LEFTEYE ; Start 07/11/18 at 21:00; Status UNV Vitamin D (Vitamin D3) 50,000 unit WEEKLY PO Last administered on 07/17/18 08: 21; Start 07/17/18 at 09:00 Lidocaine (Lidoderm) 1 patch DAILY TD Last administered on 07/22/18 07:28; Start 07/11/18 at 09:00 Magnesium Oxide (Magnesium Oxide) 400 mg BID94 PO Last administered on 16:02; Start 07/11/18 at 09:00 Meclizine HCl (Antivert) 25 mg DAILY PO Last administered on 07/20/18 07:52; Start 07/11/18 at 09:00 Polyethylene Glycol (miraLAX) 17 gm PRN DAILY PRN PO CONSTIPATION Last administered on 07/12/18 07:37; Start 07/11/18 at 09:00; Stop 07/15/18 at 18:54 ; Status DC Sertraline HCl (Zoloft) 25 mg DAILY PO Last administered on 07/13/18 07:57; Start 07/11/18 at 09:00; Stop 07/13/18 at 17:38; Status DC Insulin Human Lispro (HumaLOG) 0-16 UNITS TIDWMEALS SQ Last administered on 12:07; Start 07/11/18 at 08:00 Dextrose 12.5 gm PRN Q15MIN PRN IV SEE COMMENTS; Start 07/10/18 at 22:45 Miscellaneous (Lidoderm Patch Removal) 1 ea QHS MC Last administered on 19:29; Start 07/11/18 at 21:00 Atorvastatin Calcium (Lipitor) 40 mg QHS PO Last administered on 07/22/18 19: 31; Start 07/10/18 at 23:00 Gabapentin (Neurontin) 300 mg HS PO Last administered on 07/22/18 19:34; Start 07/10/18 at 23:00 Acetaminophen/ Hydrocodone Bitart (Lortab 5/325) 1 tab HS PO Last administered on 07/22/18 19:34; Start 07/10/18 at 23:00 Insulin Glargine (Lantus) 30 units QHS SQ Last administered on 07/22/18 19:32 ; Start 07/10/18 at 23:00 Losartan Potassium (Cozaar) 12.5 mg HS PO Last administered on 07/22/18 19:30 ; Start 07/10/18 at 23:00 Senna/Docusate Sodium (Senna Plus) 1 tab BID94 PO Last administered on 16:02; Start 07/10/18 at 23:00 Multi-Ingredient Ointment (Analgesic [place]) 1 ivan PRN QID PRN TP MUSCLE PAIN; Start 07/10/18 at 23:15 Al Hydroxide/Mg Hydroxide (Mylanta Plus Xs) 15 ml PRN AFTMEALHC PRN PO DYSPEPSIA; Start 07/10/18 at 23:15 Magnesium Hydroxide (Milk Of Magnesia) 2,400 mg PRN QHS PRN PO CONSTIPATION; Start 07/10/18 at 23:15 Sertraline HCl (Zoloft) 50 mg DAILY PO Last administered on 07/15/18 08:10; Start 07/14/18 at 09:00; Stop 07/15/18 at 18:43; Status DC Buspirone HCl (Buspar) 5 mg 0900,1700 PO Last administered on 07/17/18 17:51; Start 07/15/18 at 09:00; Stop 07/18/18 at 01:49; Status DC Fluoxetine HCl (PROzac ORAL SOLN) 5 mg DAILY PO Last administered on 07/16/18 10:05; Start 07/16/18 at 09:00; Stop 07/16/18 at 17:42; Status DC Polyethylene Glycol (miraLAX) 17 gm DAILY PO Last administered on 07/22/18 07: 28; Start 07/16/18 at 09:00 Hydrocortisone (Proctosol-Hc) 1 ivan TID RC Last administered on 07/22/18 19:34 ; Start 07/15/18 at 21:00 Levothyroxine Sodium (Synthroid) 25 mcg DAILY06 PO Last administered on 06:10; Start 07/17/18 at 06:00 Nystatin (Nystop) 1 ivan BID TP Last administered on 07/22/18 19:34; Start 01/30 at 21:00 Active Scripts Active Reported Vitamin D2 (Ergocalciferol (Vitamin D2)) 50,000 Unit Capsule 50,000 Unit PO WEEKLY Zoloft (Sertraline Hcl) 25 Mg Tablet 25 Mg PO DAILY Senna-S Laxative Tablet (Sennosides/Docusate Sodium) 1 Each Tablet 1 Each PO BID94 Refresh Optive Eye Drops (Carboxymethylcellulos/Glycerin) 15 Ml Drops 1 Drop EACHEYE PRN Q4HRS PRN Polyethylene Glycol 3350 255 Gm Powder 17 Gm PO PRN DAILY PRN Meclizine Hcl 25 Mg Tablet 25 Mg PO DAILY Mag-Oxide (Magnesium Oxide) 400 Mg Tablet 400 Mg PO BID94 Losartan Potassium (Losartan Potassium) 25 Mg Tablet 12.5 Mg PO HS Losartan Potassium (Losartan Potassium) 25 Mg Tablet 25 Mg PO DAILY Lidocaine 1 Each Adh..patch 1 Each TP DAILY Lantus Solostar (Insulin Glargine,Hum.rec.anlog) 100 Unit/1 Ml Insuln.pen 30 Unit SQ QHS Hydrocodone-Apap 5-325 (Hydrocodone Bit/Acetaminophen) 1 Each Tablet 1 Tab PO PRN Q6HRS PRN Hydrocodone-Apap 5-325 (Hydrocodone Bit/Acetaminophen) 1 Each Tablet 1 Tab PO HS PRN Gabapentin (Gabapentin) 300 Mg Capsule 300 Mg PO HS Ferrous Sulfate 325 Mg Tablet 325 Mg PO DAILY Dorzolamide-Timolol Eye Drops (Dorzolamide Hcl/Timolol Maleat) 10 Ml Drops 1 Drop LEFTEYE HS Cosopt Eye Drops (Dorzolamide Hcl/Timolol Maleat) 10 Ml Drops 1 Drop LEFTEYE HS Clopidogrel (Clopidogrel Bisulfate) 75 Mg Tablet 75 Mg PO DAILY Atorvastatin Calcium 40 Mg Tablet 40 Mg PO QHS Aspirin 81 Mg Tab.chew 81 Mg PO DAILY Artificial Tears Eye Drops (Dextran 70/Hypromellose) 15 Ml Drops 1 Drop EACHEYE PRN Q4HRS PRN Acetaminophen 500 Mg Tablet 1,000 Mg PO PRN Q6HRS PRN I have reviewed the current psychotropics carefully including drug interactions. Risk benefit ratio favors no change other than as noted in my dictated progress note. Diagnosis: Problems: (1) Anxiety disorder (2) Major depressive disorder, recurrent episode (3) Impulse control disorder (4) Mild cognitive disorder JENNIFER CHEUNG MD Jul 22, 2018 22:33
--- NOTE | 2018-07-22 22:57 | PN ---
DATE: 07/21/2018 This late entry for 07/21/2018 covers elements not covered in my initial note. SUBJECTIVE: The patient slept 6-1/2 hours previous night. Nursing staff had a lengthy discussion with the patient about starting an SSRI perhaps Luvox. When I met with her in the evening, she was anxious, restless, convinced that nursing staff are discriminating against her since other patients had been discharged in far fewer days and she has been here. She continues to refuse all psychotropics, does not feel she needs anything for mood, anxiety because she is not depressed or anxious. She is quite anxious, tearful as I met with her. REVIEW OF SYSTEMS: Ambulation impaired, in wheelchair. No CV, , pulmonary, eye system symptoms on review. Does have weakness consequent to CVA. MENTAL STATUS EXAM: Oriented to herself and situation. Speech is coherent, rapid at times. Abstraction fair, computation impaired, language function intact. Attention span short. Short-term memory is impaired. No active suicidal or homicidal ideation. LABORATORY DATA: Reviewed. IMPRESSION: Major depressive disorder, recurrent; anxiety disorder, unspecified; mild cognitive impairment. Rest unchanged. PLAN: I had a lengthy discussion with the patient about starting Luvox, but she is not agreeable to doing it so far. We will continue to persevere and see if she consents. JENNIFER CHEUNG MD DR: SHERIF/kelly JOB#: [id number] / [id number]
[2018-07-23 05:51] VITALS: BP 104/59
[2018-07-23] MEDS: LEVOTHYROXINE 25 MCG TABLET. PO SCH (05:51)
[2018-07-23] MEDS: INSULIN LISPRO 300 UNITS/3 ML INSULN.PEN. SQ SCH ×3 (08:00→17:59)
[2018-07-23] MEDS: HYDROCORTISONE 2.5% RECTAL CREAM 30GM TUBE. RC SCH ×3 (09:00→19:56)
--- NOTE | 2018-07-23 09:30 | NUR ---
Pt calm, pleasant, compliant w/ meds taken whole, cooperative w/ assessment.
[2018-07-23] MEDS: CLOPIDOGREL BISULFATE 75 MG TABLET PO SCH (09:46)
[2018-07-23] MEDS: MAGNESIUM OXIDE 400 MG TABLET PO SCH ×2 (09:46→17:57)
[2018-07-23] MEDS: MECLIZINE 12.5 MG TABLET. PO SCH (09:46)
--- NOTE | 2018-07-23 09:46 | NUR ---
WEEKLY ACTIVITY THERAPY NOTE Date of Admission: 07/11/2018 Date of AT Assessment: 07/14/2018 Goal aimed: to increase engagement Initial goal: Pt. will participate in at least five Activity Therapy groups before discharge. Weekly progress towards goal: achieved Group participation level: minimal to moderate Weekly highlights: another peer had her laughing on Friday PM and answered trivia questions without prompting Beneficial adaptations: establish trust by finding commonalities, responds well to being heard Behaviors observed: tends to focus on the negatives and needs assistance gearing thoughts, more interactive and social as week has gone on Plan: no change to goal
[2018-07-23] MEDS: FERROUS SULFATE 325 MG TABLET. PO SCH (09:47)
[2018-07-23] MEDS: SENNOSIDES/DOCUSATE 8.6/50MG TABLET. PO SCH ×2 (09:47→17:57)
[2018-07-23] MEDS: LOSARTAN 25 MG TABLET. PO SCH ×2 (09:47→19:55)
[2018-07-23] MEDS: ASPIRIN 81 MG TAB.CHEW PO SCH (09:47)
[2018-07-23] MEDS: POLYETHYLENE GLYCOL 3350 17 GM PACKET. PO SCH (09:47)
[2018-07-23] MEDS: LIDOCAINE (700MG/PATCH) PATCH. TD SCH (09:48)
[2018-07-23] MEDS: NYSTATIN TOPICAL POWDER 15GM BOTTLE. TP SCH ×2 (09:48→19:59)
[2018-07-23] MEDS: ACETAMINOPHEN 500 MG TABLET PO PRN (10:10)
--- NOTE | 2018-07-23 10:10 | NUR ---
Nursing Note Pt c/o shoulder pain 11/21; PRN Tylenol given. Will continue to monitor.
--- NOTE | 2018-07-23 10:31 | NUR ---
WEEKLY NOTE: Pt is eating 90% of meals and sleeping 6 hours on average. Pt is still refusing her psych medications and makes a lot of complaints re: how staff is treating her. Pt focuses on the negative and needs redirection. Pt can be rude and demanding with nursing and needs redirection. Pt will return to [facility] until she can find new placement. Pt was pocketing medications on the first few days and needs to be watched. 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 Pt will need education on Luvox and will see if she will consider that. ELOS will be the beginning of the week.
[2018-07-23 16:37] VITALS: BP 131/73
[2018-07-23] MEDS: PATCH REMOVAL. MC SCH (19:54)
[2018-07-23] MEDS: DORZOLAMIDE/TIMOLOL 2%/0.5% OPHTH SOLUTION 10ML BOTTLE. OS SCH (19:54)
[2018-07-23] MEDS: ATORVASTATIN CALCIUM 20 MG TABLET PO SCH (19:55)
[2018-07-23] MEDS: INSULIN GLARGINE 300 UNITS/3 ML INSULN.PEN. SQ SCH (19:57)
[2018-07-23] MEDS: GABAPENTIN 300 MG CAPSULE. PO SCH (20:00)
[2018-07-23] MEDS: HYDROcodone/APAP 5/325MG 1 TAB TABLET PO SCH (20:00)
--- NOTE | 2018-07-23 21:54 | NUR ---
Nursing note: Assumed care of pt in the day room. She was upset because her hat had been put in the wash along with her clothes. I promised she would get it back as soon as it was dried. She was otherwise cooperative and pleasant with me.
--- NOTE | 2018-07-23 22:40 | PDOC ---
Exam Note: Abhilash Note: Please also refer to the separate dictated note~for this date of service dictated separately.~Patient seen individually. Discussed the patient with Nursing staff reviewed the chart.~Reviewed interim history and current functioning. Reviewed vital signs,~Labs/ Radiology~and current medications noted below. Continue current treatment with the changes noted in the dictated addendum note Assessment: Vital Signs: Vital Signs Date Time Temp Pulse Resp B/P (MAP) Pulse Ox O2 Delivery O2 Flow Rate FiO2 07/23/18 21:00 18 97 Room Air 07/23/18 19:55 89 131/73 07/23/18 16:37 98.4 I&O Intake and Output 07/23/18 06:59 Intake Total 840 ml Balance 840 ml Intake Oral 840 ml Labs: Laboratory Tests Test 07/23/18 07:13 07/23/18 11:04 07/23/18 17:13 07/23/18 19:27 Glucose (Fingerstick) 92 mg/dL (70-99) 184 mg/dL (70-99) H 187 mg/dL (70-99) H 206 mg/dL (70-99) H Current Medications: Meds: Current Medications Clopidogrel Bisulfate (Plavix) 75 mg DAILY PO Last administered on 07/23/18at 09 :46; Start 07/11/18 at 09:00 Ferrous Sulfate (Feosol) 325 mg DAILY PO Last administered on 07/23/18at 09:47; Start 07/11/18 at 09:00 Gabapentin (Neurontin) 300 mg HS PO ; Start 07/11/18 at 21:00; Stop 07/11/18 at 21:00; Status DC Acetaminophen/ Hydrocodone Bitart (Lortab 5/325) 1 tab PRN QHS PRN PO PAIN; Start 07/10/18 at 22:00; Stop 07/10/18 at 22:51; Status DC Acetaminophen/ Hydrocodone Bitart (Lortab 5/325) 1 tab PRN Q6HRS PRN PO PAIN Last administered on 07/12/18at 07:37; Start 07/10/18 at 22:00 Insulin Glargine (Lantus) 30 units QHS SQ ; Start 07/11/18 at 21:00; Stop at 21:00; Status DC Losartan Potassium (Cozaar) 12.5 mg HS PO ; Start 07/11/18 at 21:00; Stop at 21:00; Status DC Losartan Potassium (Cozaar) 25 mg DAILY PO Last administered on 07/23/18 09:47 ; Start 07/11/18 at 09:00 Senna/Docusate Sodium (Senna Plus) 1 tab BID94 PO ; Start 07/11/18 at 09:00; Stop 07/11/18 at 09:00; Status DC Acetaminophen (Tylenol) 1,000 mg PRN Q6HRS PRN PO PAIN / TEMP Last administered on 07/23/18 10:10; Start 07/10/18 at 22:45 Aspirin (Children'S Aspirin) 81 mg DAILYWBKFT PO Last administered on 09:47; Start 07/11/18 at 08:00 Atorvastatin Calcium (Lipitor) 40 mg QHS PO ; Start 07/11/18 at 21:00; Stop at 21:00; Status DC Artificial Tears (Artificial Tears) 1 drop PRN Q15MIN PRN OU DRY EYE Last administered on 07/22/18 11:31; Start 07/10/18 at 22:45 Non-Formulary Medication (Dextran 70/ Hypromellose (Artificial Tears Eye Drops) ) 1 drop PRN Q4HRS PRN EACHEYE DRY EYE; Start 07/10/18 at 22:00; Status UNV Dorzolamide/ Timolol (Cosopt) 1 drop QHS OS Last administered on 07/23/18 19: 54; Start 07/11/18 at 21:00 Non-Formulary Medication (Dorzolamide Hcl/ Timolol Maleat (Dorzolamide-Timolol Eye Drops)) 1 drop HS LEFTEYE ; Start 07/11/18 at 21:00; Status UNV Vitamin D (Vitamin D3) 50,000 unit WEEKLY PO Last administered on 07/17/18 08: 21; Start 07/17/18 at 09:00 Lidocaine (Lidoderm) 1 patch DAILY TD Last administered on 07/23/18 09:48; Start 07/11/18 at 09:00 Magnesium Oxide (Magnesium Oxide) 400 mg BID94 PO Last administered on 17:57; Start 07/11/18 at 09:00 Meclizine HCl (Antivert) 25 mg DAILY PO Last administered on 07/23/18 09:46; Start 07/11/18 at 09:00 Polyethylene Glycol (miraLAX) 17 gm PRN DAILY PRN PO CONSTIPATION Last administered on 07/12/18 07:37; Start 07/11/18 at 09:00; Stop 07/15/18 at 18:54 ; Status DC Sertraline HCl (Zoloft) 25 mg DAILY PO Last administered on 07/13/18 07:57; Start 07/11/18 at 09:00; Stop 07/13/18 at 17:38; Status DC Insulin Human Lispro (HumaLOG) 0-16 UNITS TIDWMEALS SQ Last administered on 17:59; Start 07/11/18 at 08:00 Dextrose 12.5 gm PRN Q15MIN PRN IV SEE COMMENTS; Start 07/10/18 at 22:45 Miscellaneous (Lidoderm Patch Removal) 1 ea QHS MC Last administered on 19:54; Start 07/11/18 at 21:00 Atorvastatin Calcium (Lipitor) 40 mg QHS PO Last administered on 07/23/18 19: 55; Start 07/10/18 at 23:00 Gabapentin (Neurontin) 300 mg HS PO Last administered on 07/23/18 20:00; Start 07/10/18 at 23:00 Acetaminophen/ Hydrocodone Bitart (Lortab 5/325) 1 tab HS PO Last administered on 07/23/18 20:00; Start 07/10/18 at 23:00 Insulin Glargine (Lantus) 30 units QHS SQ Last administered on 07/23/18 19:57 ; Start 07/10/18 at 23:00 Losartan Potassium (Cozaar) 12.5 mg HS PO Last administered on 07/23/18 19:55 ; Start 07/10/18 at 23:00 Senna/Docusate Sodium (Senna Plus) 1 tab BID94 PO Last administered on 17:57; Start 07/10/18 at 23:00 Multi-Ingredient Ointment (Analgesic [place]) 1 ivan PRN QID PRN TP MUSCLE PAIN; Start 07/10/18 at 23:15 Al Hydroxide/Mg Hydroxide (Mylanta Plus Xs) 15 ml PRN AFTMEALHC PRN PO DYSPEPSIA; Start 07/10/18 at 23:15 Magnesium Hydroxide (Milk Of Magnesia) 2,400 mg PRN QHS PRN PO CONSTIPATION; Start 07/10/18 at 23:15 Sertraline HCl (Zoloft) 50 mg DAILY PO Last administered on 07/15/18 08:10; Start 07/14/18 at 09:00; Stop 07/15/18 at 18:43; Status DC Buspirone HCl (Buspar) 5 mg 0900,1700 PO Last administered on 07/17/18at 17:51; Start 07/15/18 at 09:00; Stop 07/18/18 at 01:49; Status DC Fluoxetine HCl (PROzac ORAL SOLN) 5 mg DAILY PO Last administered on 07/16/18at 10:05; Start 07/16/18 at 09:00; Stop 07/16/18 at 17:42; Status DC Polyethylene Glycol (miraLAX) 17 gm DAILY PO Last administered on 07/23/18at 09: 47; Start 07/16/18 at 09:00 Hydrocortisone (Proctosol-Hc) 1 ivan TID RC Last administered on 07/23/18 19:56 ; Start 07/15/18 at 21:00 Levothyroxine Sodium (Synthroid) 25 mcg DAILY06 PO Last administered on 05:51; Start 07/17/18 at 06:00 Nystatin (Nystop) 1 ivan BID TP Last administered on 07/23/18at 19:59; Start 01/30 at 21:00 Active Scripts Active Reported Vitamin D2 (Ergocalciferol (Vitamin D2)) 50,000 Unit Capsule 50,000 Unit PO WEEKLY Zoloft (Sertraline Hcl) 25 Mg Tablet 25 Mg PO DAILY Senna-S Laxative Tablet (Sennosides/Docusate Sodium) 1 Each Tablet 1 Each PO BID94 Refresh Optive Eye Drops (Carboxymethylcellulos/Glycerin) 15 Ml Drops 1 Drop EACHEYE PRN Q4HRS PRN Polyethylene Glycol 3350 255 Gm Powder 17 Gm PO PRN DAILY PRN Meclizine Hcl 25 Mg Tablet 25 Mg PO DAILY Mag-Oxide (Magnesium Oxide) 400 Mg Tablet 400 Mg PO BID94 Losartan Potassium (Losartan Potassium) 25 Mg Tablet 12.5 Mg PO HS Losartan Potassium (Losartan Potassium) 25 Mg Tablet 25 Mg PO DAILY Lidocaine 1 Each Adh..patch 1 Each TP DAILY Lantus Solostar (Insulin Glargine,Hum.rec.anlog) 100 Unit/1 Ml Insuln.pen 30 Unit SQ QHS Hydrocodone-Apap 5-325 (Hydrocodone Bit/Acetaminophen) 1 Each Tablet 1 Tab PO PRN Q6HRS PRN Hydrocodone-Apap 5-325 (Hydrocodone Bit/Acetaminophen) 1 Each Tablet 1 Tab PO HS PRN Gabapentin (Gabapentin) 300 Mg Capsule 300 Mg PO HS Ferrous Sulfate 325 Mg Tablet 325 Mg PO DAILY Dorzolamide-Timolol Eye Drops (Dorzolamide Hcl/Timolol Maleat) 10 Ml Drops 1 Drop LEFTEYE HS Cosopt Eye Drops (Dorzolamide Hcl/Timolol Maleat) 10 Ml Drops 1 Drop LEFTEYE HS Clopidogrel (Clopidogrel Bisulfate) 75 Mg Tablet 75 Mg PO DAILY Atorvastatin Calcium 40 Mg Tablet 40 Mg PO QHS Aspirin 81 Mg Tab.chew 81 Mg PO DAILY Artificial Tears Eye Drops (Dextran 70/Hypromellose) 15 Ml Drops 1 Drop EACHEYE PRN Q4HRS PRN Acetaminophen 500 Mg Tablet 1,000 Mg PO PRN Q6HRS PRN I have reviewed the current psychotropics carefully including drug interactions. Risk benefit ratio favors no change other than as noted in my dictated progress note. Diagnosis: Problems: (1) Anxiety disorder (2) Major depressive disorder, recurrent episode (3) Impulse control disorder (4) Mild cognitive disorder JENNIFER CHEUNG MD Jul 23, 2018 22:40
[2018-07-24 05:53] VITALS: BP 101/68
[2018-07-24] MEDS: LEVOTHYROXINE 25 MCG TABLET. PO SCH (06:00)
[2018-07-24] MEDS: INSULIN LISPRO 300 UNITS/3 ML INSULN.PEN. SQ SCH ×3 (08:00→17:43)
[2018-07-24] MEDS: FERROUS SULFATE 325 MG TABLET. PO SCH (08:39)
[2018-07-24] MEDS: CLOPIDOGREL BISULFATE 75 MG TABLET PO SCH (08:39)
[2018-07-24] MEDS: CHOLECALCIFEROL (VITAMIN D3) 50,000 UNIT CAPSULE PO SCH (08:39)
[2018-07-24] MEDS: MECLIZINE 12.5 MG TABLET. PO SCH (08:39)
[2018-07-24] MEDS: SENNOSIDES/DOCUSATE 8.6/50MG TABLET. PO SCH ×2 (08:40→16:00)
[2018-07-24] MEDS: ASPIRIN 81 MG TAB.CHEW PO SCH (08:40)
[2018-07-24] MEDS: POLYETHYLENE GLYCOL 3350 17 GM PACKET. PO SCH (08:40)
[2018-07-24] MEDS: MAGNESIUM OXIDE 400 MG TABLET PO SCH ×2 (08:40→16:18)
[2018-07-24] MEDS: LIDOCAINE (700MG/PATCH) PATCH. TD SCH ×2 (08:41→12:25)
[2018-07-24] MEDS: NYSTATIN TOPICAL POWDER 15GM BOTTLE. TP SCH ×2 (08:42→19:55)
[2018-07-24] MEDS: LOSARTAN 25 MG TABLET. PO SCH ×2 (09:00→19:35)
[2018-07-24] MEDS: HYDROCORTISONE 2.5% RECTAL CREAM 30GM TUBE. RC SCH ×3 (09:00→19:55)
--- NOTE | 2018-07-24 09:38 | NUR ---
Assumed care of pt @ approx 0700. Pt alert, oriented x 3. Compliant w/meds and assessment. Denies pain. Denies SI/HI. No signs of hallucinations, delusions, or paranoia noted so far this shift. No inappropriate behaviors noted. Per other staff, pt was overheard stating that she "likes it here because they do everything for me." No needs voiced @ this time. Will continue to monitor and assist pt in working towards treatment and D/G\\ Addendum: 07/24/18 at 0940 by OSKAR EASTON RN RN and D/C goals.
--- NOTE | 2018-07-24 10:00 | NUR ---
ROSALIE returned call to izabella Mendez, and ended up leaving a message for her to contact ROSALIE when possible.
--- NOTE | 2018-07-24 13:10 | NUR ---
ROSALIE returned call to pt brother, Joseph, and left a message asking him to return my call prior to 1700 or he could email me on my work email of [email or web address].
--- NOTE | 2018-07-24 13:13 | NUR ---
SW received a call from Emily at [facility], to discuss pt family coming in yesterday to machine pecan picker pt furniture. They did not talk to anyone and completed this while administration was out of the building. Emily recommended that ROSALIE contact Herlinda with [facility] as they may be able to put her on service for the CVA and then get her placed somewhere else. ROSALIE will follow up with Herlinda to see if this is an option.
--- NOTE | 2018-07-24 15:19 | NUR ---
ROSALIE received a call from Andrea, pt current DPOA, to discuss the fact that her family will plan to follow up with ROSALIE as they are in the process of switching the paperwork. ROSALIE and Andrea discussed the fact that pt would not be able to discharge home as it is full to the brim. Pt is a hoarder and reports that she is sure as she is trying to clean out the house that she found the mouse that in one of the rooms, after laying down poison almost a month ago. Andrea is concerned that pt family will need to be pushed and reports that they are working towards having pt moved over towards the [place] side as they all are there. ROSALIE will continue to work out resources and options for pt.
[2018-07-24 16:00] VITALS: BP 118/72
[2018-07-24] MEDS: ATORVASTATIN CALCIUM 20 MG TABLET PO SCH (19:34)
[2018-07-24] MEDS: DORZOLAMIDE/TIMOLOL 2%/0.5% OPHTH SOLUTION 10ML BOTTLE. OS SCH (19:55)
[2018-07-24] MEDS: INSULIN GLARGINE 300 UNITS/3 ML INSULN.PEN. SQ SCH (19:57)
[2018-07-24] MEDS: PATCH REMOVAL. MC SCH (19:58)
[2018-07-24] MEDS: GABAPENTIN 300 MG CAPSULE. PO SCH (19:58)
[2018-07-24] MEDS: HYDROcodone/APAP 5/325MG 1 TAB TABLET PO SCH (19:58)
--- NOTE | 2018-07-24 22:40 | PDOC ---
Exam Note: Abhilash Note: Please also refer to the separate dictated note~for this date of service dictated separately.~Patient seen individually. Discussed the patient with Nursing staff reviewed the chart.~Reviewed interim history and current functioning. Reviewed vital signs,~Labs/ Radiology~and current medications noted below. Continue current treatment with the changes noted in the dictated addendum note Assessment: Vital Signs: Vital Signs Date Time Temp Pulse Resp B/P (MAP) Pulse Ox O2 Delivery O2 Flow Rate FiO2 07/24/18 22:32 95 07/24/18 19:35 81 118/72 07/24/18 16:00 97.8 16 07/23/18 21:00 Room Air I&O Intake and Output 07/24/18 07:00 Intake Total 960 ml Balance 960 ml Intake Oral 960 ml # Voids 1 # Bowel Movements 1 Labs: Laboratory Tests Test 07/24/18 07:23 07/24/18 11:55 07/24/18 17:06 07/24/18 19:12 Glucose (Fingerstick) 79 mg/dL (70-99) 156 mg/dL (70-99) H 164 mg/dL (70-99) H 204 mg/dL (70-99) H Current Medications: Meds: Current Medications Clopidogrel Bisulfate (Plavix) 75 mg DAILY PO Last administered on 07/24/18at 08 :39; Start 07/11/18 at 09:00 Ferrous Sulfate (Feosol) 325 mg DAILY PO Last administered on 07/24/18at 08:39; Start 07/11/18 at 09:00 Gabapentin (Neurontin) 300 mg HS PO ; Start 07/11/18 at 21:00; Stop 07/11/18 at 21:00; Status DC Acetaminophen/ Hydrocodone Bitart (Lortab 5/325) 1 tab PRN QHS PRN PO PAIN; Start 07/10/18 at 22:00; Stop 07/10/18 at 22:51; Status DC Acetaminophen/ Hydrocodone Bitart (Lortab 5/325) 1 tab PRN Q6HRS PRN PO PAIN Last administered on 07/12/18at 07:37; Start 07/10/18 at 22:00 Insulin Glargine (Lantus) 30 units QHS SQ ; Start 07/11/18 at 21:00; Stop at 21:00; Status DC Losartan Potassium (Cozaar) 12.5 mg HS PO ; Start 07/11/18 at 21:00; Stop at 21:00; Status DC Losartan Potassium (Cozaar) 25 mg DAILY PO Last administered on 07/23/18at 09:47 ; Start 07/11/18 at 09:00 Senna/Docusate Sodium (Senna Plus) 1 tab BID94 PO ; Start 07/11/18 at 09:00; Stop 07/11/18 at 09:00; Status DC Acetaminophen (Tylenol) 1,000 mg PRN Q6HRS PRN PO PAIN / TEMP Last administered on 07/23/18at 10:10; Start 07/10/18 at 22:45 Aspirin (Children'S Aspirin) 81 mg DAILYWBKFT PO Last administered on at 08:40; Start 07/11/18 at 08:00 Atorvastatin Calcium (Lipitor) 40 mg QHS PO ; Start 07/11/18 at 21:00; Stop at 21:00; Status DC Artificial Tears (Artificial Tears) 1 drop PRN Q15MIN PRN OU DRY EYE Last administered on 07/22/18at 11:31; Start 07/10/18 at 22:45 Non-Formulary Medication (Dextran 70/ Hypromellose (Artificial Tears Eye Drops) ) 1 drop PRN Q4HRS PRN EACHEYE DRY EYE; Start 07/10/18 at 22:00; Status UNV Dorzolamide/ Timolol (Cosopt) 1 drop QHS OS Last administered on 07/24/18at 19: 55; Start 07/11/18 at 21:00 Non-Formulary Medication (Dorzolamide Hcl/ Timolol Maleat (Dorzolamide-Timolol Eye Drops)) 1 drop HS LEFTEYE ; Start 07/11/18 at 21:00; Status UNV Vitamin D (Vitamin D3) 50,000 unit WEEKLY PO Last administered on 07/24/18at 08: 39; Start 07/17/18 at 09:00 Lidocaine (Lidoderm) 1 patch DAILY TD Last administered on 07/24/18at 12:25; Start 07/11/18 at 09:00 Magnesium Oxide (Magnesium Oxide) 400 mg BID94 PO Last administered on 16:18; Start 07/11/18 at 09:00 Meclizine HCl (Antivert) 25 mg DAILY PO Last administered on 07/24/18 08:39; Start 07/11/18 at 09:00 Polyethylene Glycol (miraLAX) 17 gm PRN DAILY PRN PO CONSTIPATION Last administered on 07/12/18 07:37; Start 07/11/18 at 09:00; Stop 07/15/18 at 18:54 ; Status DC Sertraline HCl (Zoloft) 25 mg DAILY PO Last administered on 07/13/18 07:57; Start 07/11/18 at 09:00; Stop 07/13/18 at 17:38; Status DC Insulin Human Lispro (HumaLOG) 0-16 UNITS TIDWMEALS SQ Last administered on 17:43; Start 07/11/18 at 08:00 Dextrose 12.5 gm PRN Q15MIN PRN IV SEE COMMENTS; Start 07/10/18 at 22:45 Miscellaneous (Lidoderm Patch Removal) 1 ea QHS MC Last administered on 19:58; Start 07/11/18 at 21:00 Atorvastatin Calcium (Lipitor) 40 mg QHS PO Last administered on 07/24/18 19: 34; Start 07/10/18 at 23:00 Gabapentin (Neurontin) 300 mg HS PO Last administered on 07/24/18 19:58; Start 07/10/18 at 23:00 Acetaminophen/ Hydrocodone Bitart (Lortab 5/325) 1 tab HS PO Last administered on 07/24/18 19:58; Start 07/10/18 at 23:00 Insulin Glargine (Lantus) 30 units QHS SQ Last administered on 07/24/18 19:57 ; Start 07/10/18 at 23:00 Losartan Potassium (Cozaar) 12.5 mg HS PO Last administered on 07/24/18 19:35 ; Start 07/10/18 at 23:00 Senna/Docusate Sodium (Senna Plus) 1 tab BID94 PO Last administered on 16:00; Start 07/10/18 at 23:00 Multi-Ingredient Ointment (Analgesic [place]) 1 ivan PRN QID PRN TP MUSCLE PAIN; Start 07/10/18 at 23:15 Al Hydroxide/Mg Hydroxide (Mylanta Plus Xs) 15 ml PRN AFTMEALHC PRN PO DYSPEPSIA; Start 07/10/18 at 23:15 Magnesium Hydroxide (Milk Of Magnesia) 2,400 mg PRN QHS PRN PO CONSTIPATION; Start 07/10/18 at 23:15 Sertraline HCl (Zoloft) 50 mg DAILY PO Last administered on 07/15/18at 08:10; Start 07/14/18 at 09:00; Stop 07/15/18 at 18:43; Status DC Buspirone HCl (Buspar) 5 mg 0900,1700 PO Last administered on 07/17/18at 17:51; Start 07/15/18 at 09:00; Stop 07/18/18 at 01:49; Status DC Fluoxetine HCl (PROzac ORAL SOLN) 5 mg DAILY PO Last administered on 07/16/18at 10:05; Start 07/16/18 at 09:00; Stop 07/16/18 at 17:42; Status DC Polyethylene Glycol (miraLAX) 17 gm DAILY PO Last administered on 07/24/18at 08: 40; Start 07/16/18 at 09:00 Hydrocortisone (Proctosol-Hc) 1 ivan TID RC Last administered on 07/24/18 19:55 ; Start 07/15/18 at 21:00 Levothyroxine Sodium (Synthroid) 25 mcg DAILY06 PO Last administered on at 06:00; Start 07/17/18 at 06:00 Nystatin (Nystop) 1 ivan BID TP Last administered on 07/24/18at 19:55; Start 01/30 at 21:00 Active Scripts Active Reported Vitamin D2 (Ergocalciferol (Vitamin D2)) 50,000 Unit Capsule 50,000 Unit PO WEEKLY Zoloft (Sertraline Hcl) 25 Mg Tablet 25 Mg PO DAILY Senna-S Laxative Tablet (Sennosides/Docusate Sodium) 1 Each Tablet 1 Each PO BID94 Refresh Optive Eye Drops (Carboxymethylcellulos/Glycerin) 15 Ml Drops 1 Drop EACHEYE PRN Q4HRS PRN Polyethylene Glycol 3350 255 Gm Powder 17 Gm PO PRN DAILY PRN Meclizine Hcl 25 Mg Tablet 25 Mg PO DAILY Mag-Oxide (Magnesium Oxide) 400 Mg Tablet 400 Mg PO BID94 Losartan Potassium (Losartan Potassium) 25 Mg Tablet 12.5 Mg PO HS Losartan Potassium (Losartan Potassium) 25 Mg Tablet 25 Mg PO DAILY Lidocaine 1 Each Adh..patch 1 Each TP DAILY Lantus Solostar (Insulin Glargine,Hum.rec.anlog) 100 Unit/1 Ml Insuln.pen 30 Unit SQ QHS Hydrocodone-Apap 5-325 (Hydrocodone Bit/Acetaminophen) 1 Each Tablet 1 Tab PO PRN Q6HRS PRN Hydrocodone-Apap 5-325 (Hydrocodone Bit/Acetaminophen) 1 Each Tablet 1 Tab PO HS PRN Gabapentin (Gabapentin) 300 Mg Capsule 300 Mg PO HS Ferrous Sulfate 325 Mg Tablet 325 Mg PO DAILY Dorzolamide-Timolol Eye Drops (Dorzolamide Hcl/Timolol Maleat) 10 Ml Drops 1 Drop LEFTEYE HS Cosopt Eye Drops (Dorzolamide Hcl/Timolol Maleat) 10 Ml Drops 1 Drop LEFTEYE HS Clopidogrel (Clopidogrel Bisulfate) 75 Mg Tablet 75 Mg PO DAILY Atorvastatin Calcium 40 Mg Tablet 40 Mg PO QHS Aspirin 81 Mg Tab.chew 81 Mg PO DAILY Artificial Tears Eye Drops (Dextran 70/Hypromellose) 15 Ml Drops 1 Drop EACHEYE PRN Q4HRS PRN Acetaminophen 500 Mg Tablet 1,000 Mg PO PRN Q6HRS PRN I have reviewed the current psychotropics carefully including drug interactions. Risk benefit ratio favors no change other than as noted in my dictated progress note. Diagnosis: Problems: (1) Anxiety disorder (2) Major depressive disorder, recurrent episode (3) Impulse control disorder (4) Mild cognitive disorder JENNIFER CHEUNG MD Jul 24, 2018 22:39
--- NOTE | 2018-07-25 00:30 | NUR ---
Nursing Note Pt asks multiple questions about her meds, wants to know name and milligram of each tablet. Wants an explanation of the mechanism of action and body part it influences. I gave her the name and the function of each tab. Was med compliant with max encouragement.
[2018-07-25] MEDS: LEVOTHYROXINE 25 MCG TABLET. PO SCH (06:15)
[2018-07-25 06:17] VITALS: BP 100/40
[2018-07-25] MEDS: ASPIRIN 81 MG TAB.CHEW PO SCH (08:10)
[2018-07-25] MEDS: INSULIN LISPRO 300 UNITS/3 ML INSULN.PEN. SQ SCH ×3 (08:10→17:12)
[2018-07-25] MEDS: CLOPIDOGREL BISULFATE 75 MG TABLET PO SCH (08:11)
[2018-07-25] MEDS: MAGNESIUM OXIDE 400 MG TABLET PO SCH ×2 (08:11→13:42)
[2018-07-25] MEDS: FERROUS SULFATE 325 MG TABLET. PO SCH (08:11)
[2018-07-25] MEDS: SENNOSIDES/DOCUSATE 8.6/50MG TABLET. PO SCH ×2 (08:11→13:42)
[2018-07-25] MEDS: POLYETHYLENE GLYCOL 3350 17 GM PACKET. PO SCH (08:11)
[2018-07-25] MEDS: HYDROCORTISONE 2.5% RECTAL CREAM 30GM TUBE. RC SCH ×3 (08:13→20:20)
[2018-07-25] MEDS: LOSARTAN 25 MG TABLET. PO SCH ×2 (09:00→19:40)
[2018-07-25] MEDS: MECLIZINE 12.5 MG TABLET. PO SCH (09:00)
[2018-07-25] MEDS: NYSTATIN TOPICAL POWDER 15GM BOTTLE. TP SCH ×2 (09:50→20:23)
--- NOTE | 2018-07-25 09:58 | NUR ---
Pt is calm, cooperative, compliant and appropriate. No agitation or aggression. No hallucinations or delusions. Pt is compliant with assessment. She declines her antivert.
--- NOTE | 2018-07-25 15:23 | PN ---
DATE: 07/22/2018 This late entry for 07/22/2018 covers elements not covered in my initial note. SUBJECTIVE: I met with the patient in the evening. The patient slept 6-1/4 hours previous night. She remains quite anxious, withdrawn at times, labile in her mood, tearful, but minimizes most depressive symptoms. REVIEW OF SYSTEMS: Positive for her weakness consequent to CVA, hemiparesis Ambulation impaired, in wheelchair. No CV, , pulmonary, eye, ENT system symptoms on review. Reliability fair. MENTAL STATUS EXAM: Oriented to herself and situation. Speech, low in rate and rhythm, low in volume, coherent, abstraction fair, computation impaired, language function intact, attention span short. Mood and affect withdrawn, depressed. LABORATORY DATA: Reviewed. IMPRESSION: Unchanged from initial note. PLAN: No change from initial note. MAN Jimmy CHEUNG MD DR: SHERIF/kelly JOB#: [id number] / [id number]
[2018-07-25 15:54] VITALS: BP 157/81
--- NOTE | 2018-07-25 17:03 | PN ---
DATE: 07/23/2018 PSYCHIATRIC PROGRESS NOTE This late entry 07/23/2018 covers elements not covered in my initial note. SUBJECTIVE: I met with the patient in the evening and staffed at a treatment team meeting with the entire team earlier in the day. We reviewed her history. The patient's DPOA is a Trisah, who is a friend of hers, wanting to change DPOA. She remains quite obsessive, anxious, depressed, tearful at times, refusing all psychotropics, slept 6 hours previous night. We discussed starting Luvox and I addressed it with her individually at length in the evening, she refuses it. REVIEW OF SYSTEMS: Ambulation impaired, in wheelchair. No CV, , pulmonary, eye system symptoms on review. Does have weakness due to hemiparesis, status post cerebrovascular accident. MENTAL STATUS EXAM: Oriented to herself and situation. Speech has some latency, coherent. Abstraction fair, computation impaired, language function intact. Mood and affect somewhat withdrawn. LABORATORY DATA: Reviewed. IMPRESSION: Unchanged from initial note. PLAN: Continue to encourage compliance with medications. Educate her on it and hopefully she will agree to start the Luvox, though I am not sure of it. We can do the best we can in the way we go. JENNIFER CHEUNG MD DR: SHERIF/kelly JOB#: [id number] / [id number]
[2018-07-25] MEDS: GABAPENTIN 300 MG CAPSULE. PO SCH (19:39)
[2018-07-25] MEDS: HYDROcodone/APAP 5/325MG 1 TAB TABLET PO SCH (19:40)
[2018-07-25] MEDS: ATORVASTATIN CALCIUM 20 MG TABLET PO SCH (19:41)
[2018-07-25] MEDS: DORZOLAMIDE/TIMOLOL 2%/0.5% OPHTH SOLUTION 10ML BOTTLE. OS SCH (20:20)
[2018-07-25] MEDS: INSULIN GLARGINE 300 UNITS/3 ML INSULN.PEN. SQ SCH (20:21)
[2018-07-25] MEDS: PATCH REMOVAL. MC SCH (20:23)
--- NOTE | 2018-07-25 21:50 | PN ---
DATE: 07/24/2018 PSYCHIATRIC PROGRESS NOTE This late entry 07/24/2018 covers elements not covered in my initial note. SUBJECTIVE: I met with the patient in the morning. The patient slept 5-1/2 hours previous night. She was asleep. Head bent forward in her room as I met with her and she woke up. She states she has light sensitivity, had all her drapes drawn, even though there was bright sunlight outside. She states she liked what everyone does for her here at times, but other times she feels they do for others and not for her. REVIEW OF SYSTEMS: Ambulation impaired, in wheelchair and weakness consequent to her hemiparesis, status post cerebrovascular accident. No CV, , pulmonary, eye system symptoms on review. MENTAL STATUS EXAM: Oriented to herself and situation. Speech coherent, has some latency, often responses monosyllabic. Abstraction fair, computation impaired, language function intact. Mood and affect somewhat withdrawn. LABORATORY DATA: Reviewed. IMPRESSION: Unchanged from initial note. PLAN: We had a lengthy discussion about starting Luvox for her anxiety, depression obsessiveness, but she is still opposed to it. Continue rest, unchanged for now. We will continue to attempt to improve compliance. JENNIFER CHEUNG MD DR: SHERIF/kelly JOB#: [id number] / [id number]
--- NOTE | 2018-07-25 23:52 | NUR ---
Pt very irritable, argumentative and rude to staff this evening. Pt upset and yelling because she is not able to sleep in her clothes. She does not want them washed. Pt suspicious with meds, questioning what each med is before she would take them. Pt complained of nausea later in the evening but declined medication. When staff went into her room to assist her, pt yelled to 2 female POLE SHAVER's "you're the one that made me sick!" Pt very particular, wanting things done her way and if they're not, pt is demanding and rude to staff.
--- NOTE | 2018-07-26 00:49 | PN ---
DATE: 07/25/2018 SUBJECTIVE: The patient was seen today. I met with the staff, chart reviewed and also covering for Dr. Miles. The patient is still refusing any medications. The patient also depressed. Apparently, her mother in 2015. The patient denies of problem that brought her here including having suicidal thoughts. The patient also refusing to take any medications. The patient does not think she has any problem and she needs to go back home. The patient was staying at [facility]. OBSERVATION: VITAL SIGNS: Temperature 98.9, blood pressure 100/40, pulse 79, respirations 16, O2 sat 96%. Slept about 5 hours last night. CURRENT MEDICATIONS: The patient's medications reviewed. She is currently on gabapentin 300 mg at night and currently not on any psychotropic drugs. The patient was advised to consider taking an antidepressant, maybe a mood stabilizer. ASSESSMENT: Major depressive disorder, recurrent, severe; anxiety disorder, unspecified cognitive disorder, mild. PLAN: To continue with the treatment. We will encourage her to consider taking an antidepressant along with a mood stabilizer. BARRETT KOHLI MD DR: AYLIN/kelly JOB#: [id number] / [id number]
[2018-07-26 05:40] VITALS: BP 102/62
[2018-07-26] MEDS: LEVOTHYROXINE 25 MCG TABLET. PO SCH (06:05)
[2018-07-26] MEDS: INSULIN LISPRO 300 UNITS/3 ML INSULN.PEN. SQ SCH ×3 (08:00→16:50)
[2018-07-26] MEDS: ASPIRIN 81 MG TAB.CHEW PO SCH (08:43)
[2018-07-26] MEDS: MECLIZINE 12.5 MG TABLET. PO SCH (08:43)
[2018-07-26] MEDS: LOSARTAN 25 MG TABLET. PO SCH ×2 (08:43→20:55)
[2018-07-26] MEDS: LIDOCAINE (700MG/PATCH) PATCH. TD SCH (08:44)
[2018-07-26] MEDS: SENNOSIDES/DOCUSATE 8.6/50MG TABLET. PO SCH ×2 (08:44→16:17)
[2018-07-26] MEDS: CLOPIDOGREL BISULFATE 75 MG TABLET PO SCH (08:44)
[2018-07-26] MEDS: POLYETHYLENE GLYCOL 3350 17 GM PACKET. PO SCH (08:44)
[2018-07-26] MEDS: MAGNESIUM OXIDE 400 MG TABLET PO SCH ×2 (08:44→16:17)
[2018-07-26] MEDS: FERROUS SULFATE 325 MG TABLET. PO SCH (08:44)
[2018-07-26] MEDS: HYDROCORTISONE 2.5% RECTAL CREAM 30GM TUBE. RC SCH ×3 (08:45→20:56)
[2018-07-26] MEDS: NYSTATIN TOPICAL POWDER 15GM BOTTLE. TP SCH ×2 (09:50→20:56)
--- NOTE | 2018-07-26 10:43 | NUR ---
Pt is calm, cooperative, compliant and appropriate. No agitation or aggression. No hallucinations or delusions. Pt is compliant with assessment.
[2018-07-26 16:10] VITALS: BP 158/82
--- NOTE | 2018-07-26 19:47 | PN ---
DATE: 07/26/2018 SUBJECTIVE: The patient was seen today, met with the staff, chart reviewed. The patient continues to have problems, which is due to care, stays in bed most of the time, appears depressed, and also refusing to take her medications. OBSERVATION: VITAL SIGNS: Temperature 98.0, blood pressure 104/62, pulse 76, respiration 18, O2 sat 95%. Slept about 6 hours last night. The patient's appetite decreased. MEDICATIONS: The patient's current medications include gabapentin 300 mg at night. The patient is still against taking any medications. ASSESSMENT: Major depressive disorder, recurrent, severe; anxiety disorder, unspecified; cognitive disorder, mild. PLAN: Continue with the treatment. The patient is encouraged to consider taking an antidepressant. We will seriously consider initiating treatment if he continues to get more and more depressed. LENGTH OF STAY: 7-10 days. BARRETT KOHLI MD DR: AYLIN/kelly JOB#: [id number] / [id number]
[2018-07-26] MEDS: HYDROcodone/APAP 5/325MG 1 TAB TABLET PO SCH (20:55)
[2018-07-26] MEDS: ATORVASTATIN CALCIUM 20 MG TABLET PO SCH (20:56)
[2018-07-26] MEDS: DORZOLAMIDE/TIMOLOL 2%/0.5% OPHTH SOLUTION 10ML BOTTLE. OS SCH (20:56)
[2018-07-26] MEDS: GABAPENTIN 300 MG CAPSULE. PO SCH (20:56)
[2018-07-26] MEDS: PATCH REMOVAL. MC SCH (21:00)
[2018-07-26] MEDS: INSULIN GLARGINE 300 UNITS/3 ML INSULN.PEN. SQ SCH (21:02)
--- NOTE | 2018-07-27 00:13 | NUR ---
Pt located in dayroom visiting with another female pt. Compliant with whole medications after being explained what the medication was.
[2018-07-27 06:00] VITALS: BP 96/58
[2018-07-27] MEDS: LEVOTHYROXINE 25 MCG TABLET. PO SCH (06:08)
[2018-07-27] MEDS: INSULIN LISPRO 300 UNITS/3 ML INSULN.PEN. SQ SCH ×3 (08:00→17:18)
[2018-07-27] MEDS: ASPIRIN 81 MG TAB.CHEW PO SCH (08:12)
[2018-07-27] MEDS: FERROUS SULFATE 325 MG TABLET. PO SCH (08:13)
[2018-07-27] MEDS: MAGNESIUM OXIDE 400 MG TABLET PO SCH ×2 (08:13→17:20)
[2018-07-27] MEDS: LIDOCAINE (700MG/PATCH) PATCH. TD SCH (08:14)
[2018-07-27] MEDS: SENNOSIDES/DOCUSATE 8.6/50MG TABLET. PO SCH ×2 (08:14→17:20)
[2018-07-27] MEDS: CLOPIDOGREL BISULFATE 75 MG TABLET PO SCH (08:14)
[2018-07-27] MEDS: LOSARTAN 25 MG TABLET. PO SCH ×2 (09:00→19:34)
[2018-07-27] MEDS: NYSTATIN TOPICAL POWDER 15GM BOTTLE. TP SCH ×2 (09:00→19:37)
[2018-07-27] MEDS: HYDROCORTISONE 2.5% RECTAL CREAM 30GM TUBE. RC SCH ×3 (09:00→19:35)
[2018-07-27] MEDS: POLYETHYLENE GLYCOL 3350 17 GM PACKET. PO SCH (09:00)
[2018-07-27] MEDS: MECLIZINE 12.5 MG TABLET. PO SCH (09:00)
[2018-07-27 09:32] LABS: BASO # 0.1 x10^3/uL (0.0-0.2); BASO % 2 % (0-3); EOS # 0.2 x10^3/uL (0.0-0.7); EOS % 4 % (0-3); HEMATOCRIT 37.8 % (36.0-47.0); HEMOGLOBIN 12.3 g/dL (12.0-15.5); LYMPH # 1.4 x10^3/uL (1.0-4.8); LYMPH % 24 % (24-48); MEAN CORPUSCULAR HEMOGLOBIN 28 pg (25-35); MEAN CORPUSCULAR HGB CONC 33 g/dL (31-37); MEAN CORPUSCULAR VOLUME 85 fL (79-100); MONO # 0.5 x10^3/uL (0.0-1.1); MONO % 8 % (0-9); NEUT # 3.6 x10^3uL (1.8-7.7); NEUT % 62 % (31-73); PLATELET COUNT 301 x10^3/uL (140-400); RED BLOOD COUNT 4.45 x10^6/uL (3.50-5.40); RED CELL DISTRIBUTION WIDTH 15.9 % (11.5-14.5); WHITE BLOOD COUNT 5.8 x10^3/uL (4.0-11.0)
[2018-07-27 09:46] LABS: ALBUMIN 2.7 g/dL (3.4-5.0); ALBUMIN/GLOBULIN RATIO 0.7 (1.0-1.7); CALCIUM 9.1 mg/dL (8.5-10.1); CREATININE 1.1 mg/dL (0.6-1.0); POTASSIUM 4.6 mmol/L (3.5-5.1); TOTAL BILIRUBIN 0.3 mg/dL (0.2-1.0); TOTAL PROTEIN 6.7 g/dL (6.4-8.2)
--- NOTE | 2018-07-27 13:44 | NUR ---
No agitation or aggression. Pt does seem to be obsessive about trying to talk to her friend "Tatyana." Pt is calm, cooperative, compliant and appropriate. No hallucinations or delusions. Pt is compliant with assessment.
--- NOTE | 2018-07-27 14:37 | NUR ---
Dr. Jhaveri here for rounds. New order for zyprexa 5mg daily IM or PO so as long as she gets 5mg daily.
[2018-07-27] MEDS: OLANZapine IM 10 MG VIAL. IM SCH (15:30)
[2018-07-27] MEDS ORDERED: OLANZapine 5 MG TABLET PO ONE (16:00)
[2018-07-27 16:28] VITALS: BP 155/80
[2018-07-27] MEDS: DORZOLAMIDE/TIMOLOL 2%/0.5% OPHTH SOLUTION 10ML BOTTLE. OS SCH (19:34)
[2018-07-27] MEDS: ATORVASTATIN CALCIUM 20 MG TABLET PO SCH (19:34)
[2018-07-27] MEDS: PATCH REMOVAL. MC SCH (19:34)
[2018-07-27] MEDS: HYDROcodone/APAP 5/325MG 1 TAB TABLET PO SCH (19:36)
[2018-07-27] MEDS: GABAPENTIN 300 MG CAPSULE. PO SCH (19:36)
[2018-07-27] MEDS: INSULIN GLARGINE 300 UNITS/3 ML INSULN.PEN. SQ SCH (19:37)
--- NOTE | 2018-07-27 20:43 | PN ---
DATE: 07/27/2018 SUBJECTIVE: The patient was seen today, met with the staff, chart reviewed. The patient is currently on wheelchair. The patient also has some obsessive compulsive behaviors. The patient has not had any falls. OBSERVATION: VITAL SIGNS: Temperature 97.7, blood pressure 96/58, pulse 64, respirations 20, O2 sat 96%. Slept about 6 hours last night. The patient's appetite has improved. Staff reports patient made some changes for better. She was able to shower without assistance. MEDICATIONS: The patient's current medications include olanzapine 5 mg daily, gabapentin 300 mg at night. The patient is still refusing to take her medications. The patient's lab reviewed. ASSESSMENT: 1. Major depressive disorder, recurrent, severe; anxiety disorder, unspecified. 2. Cognitive disorder, mild. PLAN: To continue with the treatment. The patient is encouraged to consider taking antidepressant. The patient is still refusing any medications for her depression or anxiety. LENGTH OF STAY: 7-10 days. BARRETT KOHLI MD DR: AYLIN/kelly JOB#: [id number] / [id number]
--- NOTE | 2018-07-28 01:24 | NUR ---
Nursing note: Assumed care of pt in the day room. She was visiting w/peers and complaint w/meds. No agitation noted tonight.
[2018-07-28 05:38] VITALS: BP 105/68
[2018-07-28] MEDS: LEVOTHYROXINE 25 MCG TABLET. PO SCH (05:39)
[2018-07-28] MEDS: INSULIN LISPRO 300 UNITS/3 ML INSULN.PEN. SQ SCH ×3 (07:56→17:00)
[2018-07-28] MEDS: POLYETHYLENE GLYCOL 3350 17 GM PACKET. PO SCH (07:57)
[2018-07-28] MEDS: LIDOCAINE (700MG/PATCH) PATCH. TD SCH (07:58)
[2018-07-28] MEDS: MAGNESIUM OXIDE 400 MG TABLET PO SCH ×2 (07:58→17:11)
[2018-07-28] MEDS: MECLIZINE 12.5 MG TABLET. PO SCH (07:59)
[2018-07-28] MEDS: FERROUS SULFATE 325 MG TABLET. PO SCH (07:59)
[2018-07-28] MEDS: ASPIRIN 81 MG TAB.CHEW PO SCH (07:59)
[2018-07-28] MEDS: SENNOSIDES/DOCUSATE 8.6/50MG TABLET. PO SCH ×2 (08:03→17:11)
[2018-07-28] MEDS: CLOPIDOGREL BISULFATE 75 MG TABLET PO SCH (08:03)
[2018-07-28] MEDS: LOSARTAN 25 MG TABLET. PO SCH ×2 (08:03→19:21)
[2018-07-28] MEDS: NYSTATIN TOPICAL POWDER 15GM BOTTLE. TP SCH ×2 (08:04→19:23)
[2018-07-28] MEDS: HYDROCORTISONE 2.5% RECTAL CREAM 30GM TUBE. RC SCH ×4 (08:04→19:22)
[2018-07-28] MEDS: OLANZapine 5 MG TABLET PO SCH (09:00)
[2018-07-28] MEDS: OLANZapine IM 10 MG VIAL. IM SCH (09:00)
[2018-07-28] MEDS ORDERED: OLANZapine IM 10 MG VIAL. IM SCH (09:00)
--- NOTE | 2018-07-28 09:10 | NUR ---
Behavior Intervention Response and Plan: BIRP Note: Behavior: Assumed Care of patient, patient located in Patient Room at shift change. Patient exhibited the following behavior Calm, Disorganized, Non Compliant with Meds. Brief assessment on rounds of vital signs, medication needs, lab studies, and pain. Treatment plan problems 1 & 2. Intervention: Patient assessed and the following interventions initiated safety checks 15 Minute Checks Cognitive Assessment , Head to toe Assessment , Medications. Response: After interactions and interventions patient responded in the following manner, Disorganized , Calm ,Resistive. Continue to assess behaviors and condition will continue to monitor throughout the shift as needed. Patient educated on ADL's, and hand hygiene. Plan: Continue to monitor Master Treatment Plan for patient's progress toward short term goals of Medication Compliance, No harm To self/ others, joint terminal attack controller goals to return to previous living setting vs placement. Continue to assess patient for changes in above assessment. Monitor for medication needs, pain, and safety concerns. Hourly rounding performed to ensure safe environment.
[2018-07-28 15:51] VITALS: BP 159/90
[2018-07-28] MEDS: DORZOLAMIDE/TIMOLOL 2%/0.5% OPHTH SOLUTION 10ML BOTTLE. OS SCH (19:21)
[2018-07-28] MEDS: ATORVASTATIN CALCIUM 20 MG TABLET PO SCH (19:21)
[2018-07-28] MEDS: PATCH REMOVAL. MC SCH (19:21)
[2018-07-28] MEDS: HYDROcodone/APAP 5/325MG 1 TAB TABLET PO SCH (19:22)
[2018-07-28] MEDS: GABAPENTIN 300 MG CAPSULE. PO SCH (19:22)
[2018-07-28] MEDS: INSULIN GLARGINE 300 UNITS/3 ML INSULN.PEN. SQ SCH (20:20)
--- NOTE | 2018-07-28 21:24 | NUR ---
Nursing note: Assumed care of pt in the day room. She was visiting w/peer and watching a movie. She was pleasant and compliant. Pt stated she was appreciative of me telling her what each of her meds were. No c/o pain at this time.
--- NOTE | 2018-07-29 03:41 | PN ---
DATE: 07/28/2018 SUBJECTIVE: The patient was seen today, met with the staff, chart reviewed. The patient continues to be angry, refusing her medications. She is also resistive to care and the patient was not participating in any activities. She tends to withdrawn, isolates herself. The patient has a guardian, apparently, it is a friend, some concern about how she is managing her care and the finances and are looking into changing the guardianship. OBSERVATION: VITAL SIGNS: Temperature 97.3, blood pressure 105/68, pulse 75, respiration 16, O2 sat 97%. Slept about 6 hours last night. The patient's appetite decreased. The patient's behavior fluctuates day-to-day. MEDICATIONS: Currently, she is on olanzapine 5 mg daily, gabapentin 300 mg at night. The patient has been refusing her medications very frequently. LABORATORY DATA: The patient's lab reviewed. ASSESSMENT: 1. Major depressive disorder, recurrent, severe. 2. Anxiety disorder, unspecified. 3. Cognitive disorder, mild. PLAN: To continue with the treatment. LENGTH OF STAY: 7-10 days. BARRETT KOHLI MD DR: AYLIN/kelly JOB#: [id number] / [id number]
[2018-07-29] MEDS: LEVOTHYROXINE 25 MCG TABLET. PO SCH (05:39)
[2018-07-29 05:55] VITALS: BP 92/56
[2018-07-29] MEDS: ASPIRIN 81 MG TAB.CHEW PO SCH (08:17)
[2018-07-29] MEDS: INSULIN LISPRO 300 UNITS/3 ML INSULN.PEN. SQ SCH ×3 (08:17→17:00)
[2018-07-29] MEDS: FERROUS SULFATE 325 MG TABLET. PO SCH (08:20)
[2018-07-29] MEDS: MAGNESIUM OXIDE 400 MG TABLET PO SCH ×2 (08:20→17:14)
[2018-07-29] MEDS: POLYETHYLENE GLYCOL 3350 17 GM PACKET. PO SCH (08:20)
[2018-07-29] MEDS: CLOPIDOGREL BISULFATE 75 MG TABLET PO SCH (08:20)
[2018-07-29] MEDS: OLANZapine 5 MG TABLET PO SCH (08:21)
[2018-07-29] MEDS: HYDROCORTISONE 2.5% RECTAL CREAM 30GM TUBE. RC SCH ×3 (08:25→19:17)
[2018-07-29] MEDS: NYSTATIN TOPICAL POWDER 15GM BOTTLE. TP SCH ×2 (08:25→19:17)
[2018-07-29] MEDS: LIDOCAINE (700MG/PATCH) PATCH. TD SCH (08:25)
[2018-07-29] MEDS: SENNOSIDES/DOCUSATE 8.6/50MG TABLET. PO SCH ×2 (08:28→17:14)
[2018-07-29] MEDS: LOSARTAN 25 MG TABLET. PO SCH ×2 (09:00→19:17)
[2018-07-29] MEDS: OLANZapine IM 10 MG VIAL. IM SCH (09:00)
[2018-07-29] MEDS: MECLIZINE 12.5 MG TABLET. PO SCH (09:00)
--- NOTE | 2018-07-29 10:44 | NUR ---
No hallucinations or delusions. Pt is compliant with assessment. No agitation or aggression. Pt is calm, cooperative, compliant with all medication except her zyprexa which she tried to hide under her tongue. After pt took her zyprexa nurse again checked her mouth, cheeks and asked pt to lift her tongue to assure she had swallowed her medication. Pt does appear depressed at times as she is withdrawn to her room.
[2018-07-29 16:20] VITALS: BP 151/85
[2018-07-29] MEDS: PATCH REMOVAL. MC SCH (19:16)
[2018-07-29] MEDS: DORZOLAMIDE/TIMOLOL 2%/0.5% OPHTH SOLUTION 10ML BOTTLE. OS SCH (19:16)
[2018-07-29] MEDS: GABAPENTIN 300 MG CAPSULE. PO SCH (19:17)
[2018-07-29] MEDS: ATORVASTATIN CALCIUM 20 MG TABLET PO SCH (19:17)
[2018-07-29] MEDS: HYDROcodone/APAP 5/325MG 1 TAB TABLET PO SCH (19:19)
[2018-07-29] MEDS: INSULIN GLARGINE 300 UNITS/3 ML INSULN.PEN. SQ SCH (19:20)
--- NOTE | 2018-07-29 21:09 | NUR ---
Nursing note: Assumed care of pt in the day room. She was pleasant and compliant. She asked me about the "new" medicine she was prescribed. She said, "I don't think they should be able to force me to take something I don't need." She asked if Jd Ham was still working here. She said she spoke w/SW about when she was going home.
--- NOTE | 2018-07-30 00:01 | PN ---
DATE: 07/29/2018 SUBJECTIVE: The patient was seen today, met with the staff, chart reviewed. The patient continues to present with behavior problems, tend to become argumentative and the patient has been refusing to take the medication and also staff observed that she has been spitting her medications. The patient does not believe that she needs to be on any medications. Otherwise, the patient is somewhat withdrawn, liked to be left alone and also has some psychomotor retardation. OBSERVATION: VITAL SIGNS: Temperature 97.9, blood pressure 92/56, pulse 75, respirations 16, O2 sat 95%. Slept about 6 hours last night. CURRENT MEDICATIONS: The patient's current medications include olanzapine 5 mg daily, gabapentin 300 mg at night. The patient as stated above has been refusing the medications often. LABORATORY DATA: The patient's lab reviewed. ASSESSMENT: 1. Major depressive disorder, recurrent, moderate. 2. Anxiety disorder, unspecified. 3. Cognitive disorder, mild. 4. Mood disorder, unspecified. PLAN: To continue with the treatment. LENGTH OF STAY: 7 days. BARRETT KOHLI MD DR: AYLIN/kelly JOB#: [id number] / [id number]
[2018-07-30] MEDS: LEVOTHYROXINE 25 MCG TABLET. PO SCH (05:37)
[2018-07-30 05:57] VITALS: BP 95/55
[2018-07-30] MEDS: INSULIN LISPRO 300 UNITS/3 ML INSULN.PEN. SQ SCH ×4 (07:27→17:21)
[2018-07-30] MEDS: LIDOCAINE (700MG/PATCH) PATCH. TD SCH (08:49)
[2018-07-30] MEDS: POLYETHYLENE GLYCOL 3350 17 GM PACKET. PO SCH (08:49)
[2018-07-30] MEDS: NYSTATIN TOPICAL POWDER 15GM BOTTLE. TP SCH ×2 (08:49→19:19)
[2018-07-30] MEDS: HYDROCORTISONE 2.5% RECTAL CREAM 30GM TUBE. RC SCH ×3 (08:49→19:20)
[2018-07-30] MEDS: SENNOSIDES/DOCUSATE 8.6/50MG TABLET. PO SCH ×2 (08:50→17:18)
[2018-07-30] MEDS: LOSARTAN 25 MG TABLET. PO SCH ×2 (08:50→19:17)
[2018-07-30] MEDS: CLOPIDOGREL BISULFATE 75 MG TABLET PO SCH (08:50)
[2018-07-30] MEDS: FERROUS SULFATE 325 MG TABLET. PO SCH (08:50)
[2018-07-30] MEDS: OLANZapine 5 MG TABLET PO SCH (08:50)
[2018-07-30] MEDS: ASPIRIN 81 MG TAB.CHEW PO SCH (08:50)
[2018-07-30] MEDS: MECLIZINE 12.5 MG TABLET. PO SCH (08:50)
[2018-07-30] MEDS: MAGNESIUM OXIDE 400 MG TABLET PO SCH ×2 (08:51→17:18)
[2018-07-30] MEDS: OLANZapine IM 10 MG VIAL. IM SCH (09:00)
--- NOTE | 2018-07-30 09:18 | NUR ---
WEEKLY ACTIVITY THERAPY NOTE Date of Admission: 07/11/2018 Date of AT Assessment: 07/14/2018 Goal aimed: to increase engagement Initial goal: Pt. will participate in at least five Activity Therapy groups before discharge. Weekly progress towards goal: achieved last week Group participation level: zero Weekly highlights: expressed concern for male shower help, more cooperative and understanding with structure when female only care was assigned Behaviors observed: declining invitations to group but generally in a better mood, less tearful this week Plan: change goal to: Pt. will participate in at least three Activity Therapy groups per week Beneficial adaptations: establish trust by finding commonalities, respondes well to being heard female care
--- NOTE | 2018-07-30 13:59 | NUR ---
Nursing Note: Interacted with pt in hallway this AM. Pt asked about each of her medications and wanted to know what they did. Pt did take all medications this AM. Pt requested to lay down in bed after breakfast and refused lunch. Continue to monitor.
[2018-07-30 16:02] VITALS: BP 114/61
[2018-07-30] MEDS: ATORVASTATIN CALCIUM 20 MG TABLET PO SCH (19:17)
[2018-07-30] MEDS: GABAPENTIN 300 MG CAPSULE. PO SCH (19:19)
[2018-07-30] MEDS: PATCH REMOVAL. MC SCH (19:20)
[2018-07-30] MEDS: HYDROcodone/APAP 5/325MG 1 TAB TABLET PO SCH (19:20)
[2018-07-30] MEDS: DORZOLAMIDE/TIMOLOL 2%/0.5% OPHTH SOLUTION 10ML BOTTLE. OS SCH (19:20)
[2018-07-30] MEDS: INSULIN GLARGINE 300 UNITS/3 ML INSULN.PEN. SQ SCH (19:22)
--- NOTE | 2018-07-30 22:44 | PN ---
DATE: 07/30/2018 SUBJECTIVE: The patient was seen today, met with the staff, chart reviewed. The patient's behavior remains the same, argumentative, noncompliant with the treatment, refusing to take her medications. The patient is also lacking insight to her problems. The patient also withdrawn and isolative to self. OBSERVATION: VITAL SIGNS: Temperature 97.8, blood pressure 151/85, pulse 88, respirations 18, O2 sat 98%. The patient is sleeping fair. Appetite fair. MEDICATIONS: The patient's current medications include olanzapine 5 mg daily, gabapentin 300 mg at night. The patient is not having any side effects. The patient's lab reviewed. ASSESSMENT: 1. Major depressive disorder, recurrent, moderate. 2. Anxiety disorder, unspecified. 3. Cognitive disorder, mild. 4. Mood disorder, unspecified. PLAN: To continue with the treatment. LENGTH OF STAY: 5-7 days. BARRETT KOHLI MD DR: AYLIN/kelly JOB#: [id number] / [id number]
--- NOTE | 2018-07-31 00:14 | NUR ---
Pt sitting in day room visiting with peer at shift change. Pt with flat, depressed affect. Pt cooperative with assessment and compliant with medications administered whole after being educated as to what each medication was and what it was being given for. Pt resistive, demanding, and attention seeking with lisette arreaga.
[2018-07-31] MEDS: LEVOTHYROXINE 25 MCG TABLET. PO SCH (04:49)
[2018-07-31 05:46] VITALS: BP 121/70
[2018-07-31] MEDS: INSULIN LISPRO 300 UNITS/3 ML INSULN.PEN. SQ SCH ×3 (08:00→17:49)
[2018-07-31] MEDS: LIDOCAINE (700MG/PATCH) PATCH. TD SCH (08:18)
[2018-07-31] MEDS: CLOPIDOGREL BISULFATE 75 MG TABLET PO SCH (08:18)
[2018-07-31] MEDS: POLYETHYLENE GLYCOL 3350 17 GM PACKET. PO SCH (08:18)
[2018-07-31] MEDS: FERROUS SULFATE 325 MG TABLET. PO SCH (08:18)
[2018-07-31] MEDS: MAGNESIUM OXIDE 400 MG TABLET PO SCH ×2 (08:19→17:48)
[2018-07-31] MEDS: LOSARTAN 25 MG TABLET. PO SCH ×2 (08:19→19:31)
[2018-07-31] MEDS: CHOLECALCIFEROL (VITAMIN D3) 50,000 UNIT CAPSULE PO SCH (08:19)
[2018-07-31] MEDS: NYSTATIN TOPICAL POWDER 15GM BOTTLE. TP SCH ×2 (08:20→19:33)
[2018-07-31] MEDS: ASPIRIN 81 MG TAB.CHEW PO SCH (08:20)
[2018-07-31] MEDS: OLANZapine 5 MG TABLET PO SCH (08:20)
[2018-07-31] MEDS: MECLIZINE 12.5 MG TABLET. PO SCH (08:20)
[2018-07-31] MEDS: HYDROCORTISONE 2.5% RECTAL CREAM 30GM TUBE. RC SCH ×4 (08:20→19:36)
[2018-07-31] MEDS: SENNOSIDES/DOCUSATE 8.6/50MG TABLET. PO SCH ×2 (08:24→17:48)
[2018-07-31] MEDS: OLANZapine IM 10 MG VIAL. IM SCH (08:32)
--- NOTE | 2018-07-31 09:45 | NUR ---
ROSALIE returned call to pt sister in law, Vijaya, to discuss pt behaviors and whether or not she is not capable of making the decision to assign her DPOA. ROSALIE explained that she believed that pt could make that decision. SW went over pt dx of MDD and Anxiety D/O and how that does not mean she can't make decisions. She can; furthermore, those decisions do not always mean that she is able to make good ones. Psychological testing was discussed to make that determination and to see if guardianship would be needed. Pt sister in law reports that the family does not want to participate if pt is just going to say no on everything. They want to have total control and be able to sell her house and other means to help her in finding a more appropriate AL or LTC place to live. ROSALIE encouraged pt to check in with an disability attorney to discuss options and also encouraged them to call and speak with her and actually tell her that they cannot help her at home. At this time, the plan is to have the family see an disability attorney to aid in Medicaid and guardianship planning. ROSALIE will send Vijaya and pt brother Joseph an email on potential microfilm duplicating unit supervisor who will be able to help , as well as other resources. ROSALIE goal is to have pt discharged within the upcoming week.
--- NOTE | 2018-07-31 11:28 | NUR ---
Pt irritable this morning. Compliant with whole medications after questioning what meds they were. Withdrawn to room.
--- NOTE | 2018-07-31 13:40 | NUR ---
ROSALIE met with pt per her request. SW informed pt that home is not an option, as SW spoke to pt brother and pt sister in law. There is no family who is willing to stay with her in her home. They agreed that at this time a rehab facility was her better option. Pt sidetracked from conversation, reporting that she has asked multiple people to help her to the bathroom and to take a shower. Pt could not tell SW if it was during the day or at night but "it was one male, who is here all the time and the girl that puts her hair up in a bun most of the day". Pt sentences were incoherent and the whole bathing/toileting situation did not make sense. Pt interchanged bathroom, shower and rehab throughout her whole story and her mood labile. Pt plays the victim by stating that she cannot do things and needs everyone's help. SW explained that if pt went to rehab, she was going to be made to do things so that she can be as independent as possible. Pt does have a side that works and she will need to use that side for as much as possible, versus relying on staff to do anything. Pt stated, "if rehab treats me like this, then I don't want to go". SW then stated "so what I hear you saying is that you don't want to get better. You want to be waited on hand and foot and never be independent ever again". Pt got upset and stated, why would you say that. ROSALIE explained that "rehab is what will get you independent again, so if you don't have the want to do so, then SW can just find a detention for you to go to". Pt is in denial of all the help that she needs. Pt reports that she just needs help getting to the bathroom. Otherwise, she can do everything on her own in which SW pointed out that pt needs help with transfers, using the bathroom, in the shower, pretty much all ADL's whether she wants to admit that or not. Pt wants to live at home, have her friend Tatyana or her brother Bill help her and they can help her get rid of stuff (although pt denies being a hoarder). SW informed pt that her brother will plan to call her tonight and discuss options. This would be her opportunity for pt to discuss her wishes; however, in the event that pt family is not willing, pt will have to discharge to a facility for rehab until it can be figured out.
[2018-07-31 15:36] VITALS: BP 153/87
[2018-07-31] MEDS: PATCH REMOVAL. MC SCH (19:30)
[2018-07-31] MEDS: ATORVASTATIN CALCIUM 20 MG TABLET PO SCH (19:30)
[2018-07-31] MEDS: HYDROcodone/APAP 5/325MG 1 TAB TABLET PO SCH (19:33)
[2018-07-31] MEDS: DORZOLAMIDE/TIMOLOL 2%/0.5% OPHTH SOLUTION 10ML BOTTLE. OS SCH (19:33)
[2018-07-31] MEDS: GABAPENTIN 300 MG CAPSULE. PO SCH (19:33)
[2018-07-31] MEDS: INSULIN GLARGINE 300 UNITS/3 ML INSULN.PEN. SQ SCH (19:35)
--- NOTE | 2018-08-01 00:45 | PN ---
DATE: 07/31/2018 SUBJECTIVE: The patient was seen today, met with the staff, chart reviewed. The patient's behavior remains the same, tends to become more argumentative, noncompliant with the treatment. Also, at times refusing to take her medications. The patient also lacking insight to her problems. She tend to withdraw and also isolative. PHYSICAL EXAMINATION: VITAL SIGNS: Temperature 97.4, blood pressure 121/70, pulse 81, respirations 20, O2 sat 99%. Slept about 5-1/2 hours last night. The patient denies to have any physical problems. DATA: The patient's lab reviewed. ASSESSMENT: 1. Major depressive disorder, recurrent, moderate. 2. Anxiety disorder, unspecified. 3. Cognitive disorder, mild. 4. Mood disorder, unspecified. PLAN: To continue with the treatment. LENGTH OF STAY: 5 days. BARRETT KOHLI MD DR: AYLIN/kelly JOB#: [id number] / [id number]
--- NOTE | 2018-08-01 00:50 | NUR ---
Pt sitting up in w/c in the day room at shift change. Pt calm and cooperative during interaction with this nurse. Pt compliant with assessment and medications administered whole after explaining what each one is and what they are for. Pt was rude and demanding towards NATIONAL SALES TRAINER's during cares and had to be re-directed several times.
[2018-08-01] MEDS: HYDROcodone/APAP 5/325MG 1 TAB TABLET PO PRN (02:47)
[2018-08-01 05:00] VITALS: BP 99/56
[2018-08-01] MEDS: LEVOTHYROXINE 25 MCG TABLET. PO SCH (06:00)
[2018-08-01] MEDS: INSULIN LISPRO 300 UNITS/3 ML INSULN.PEN. SQ SCH ×3 (08:00→17:00)
[2018-08-01] MEDS: MAGNESIUM OXIDE 400 MG TABLET PO SCH ×2 (08:35→15:37)
[2018-08-01] MEDS: ASPIRIN 81 MG TAB.CHEW PO SCH (08:35)
[2018-08-01] MEDS: POLYETHYLENE GLYCOL 3350 17 GM PACKET. PO SCH (08:35)
[2018-08-01] MEDS: FERROUS SULFATE 325 MG TABLET. PO SCH (08:35)
[2018-08-01] MEDS: SENNOSIDES/DOCUSATE 8.6/50MG TABLET. PO SCH ×2 (08:36→15:37)
[2018-08-01] MEDS: CLOPIDOGREL BISULFATE 75 MG TABLET PO SCH (08:36)
[2018-08-01] MEDS: MECLIZINE 12.5 MG TABLET. PO SCH (08:36)
[2018-08-01] MEDS: LOSARTAN 25 MG TABLET. PO SCH ×3 (08:37→19:46)
[2018-08-01] MEDS: OLANZapine 5 MG TABLET PO SCH (09:00)
[2018-08-01] MEDS: OLANZapine IM 10 MG VIAL. IM SCH (09:00)
[2018-08-01] MEDS: NYSTATIN TOPICAL POWDER 15GM BOTTLE. TP SCH ×2 (09:00→19:47)
[2018-08-01] MEDS: LIDOCAINE (700MG/PATCH) PATCH. TD SCH (09:00)
--- NOTE | 2018-08-01 11:26 | NUR ---
Pt was in dining room for breakfast for morning medication and assessment. Pt was questioning every pill and this nurse explained each pill as she pointed to them. After patient took meds, she stated "you didn't tell me what the pills were before I took them." A RETAIL WAREHOUSE ASSOCIATE was sitting next to the pt and this nurse explained that yes, the meds were explained to her before she took them. Then pt continued to ask questions regarding certain pills in the order that I explained them and pt started to get agitated. This nurse told patient that she needed to give meds to other patients and left the conversation.
[2018-08-01] MEDS: HYDROCORTISONE 2.5% RECTAL CREAM 30GM TUBE. RC SCH ×2 (14:00→21:00)
[2018-08-01 15:41] VITALS: BP 137/83
--- NOTE | 2018-08-01 18:33 | NUR ---
Pt asked to call her brother after dinner. During her conversation pt would raise her voice at her brother and state "they stole my hat last night." (pt was wearing her hat.)"and it wasn't even my shower night." "youre not going to get rid of my stuff." "There was no rat in the house." "Fine if you won't be my DPOA then maybe Tatyana Dickinson will!" "why can't you take care of me." "youre getting rid of someones things who has spent a life time of collecting them." Pt became tearful at times. Nurse intervened and removed phone from pt and informed pt and pts brother that the conversation was no longer therapeutic and they may speak at a later time. Pts brother stated he felt "I was really getting through to her." Nurse gently told him that her behaviors were only increasing during the conversation. Her brother asked if he could again speak to her to say good bye, nurse told him no but he may try to speak to her at a later time as the conversation only escalated and she is going to go to group at this time.
--- NOTE | 2018-08-01 18:51 | PN ---
DATE: 08/01/2018 SUBJECTIVE: The patient was seen today, met with the staff, chart reviewed. The patient continues to have a high level of anxiety, argumentative, tend to withdraw and also tend to isolate herself. OBSERVATION: VITAL SIGNS: Temperature 97.9, blood pressure 99/56, pulse 77, respirations 20, O2 sat 96%. Slept only about 2 hours last night. The patient's appetite fair. The patient denies of any medical issues. The patient currently on olanzapine 5 mg daily and 5 mg at night IM because she is refusing her meds. LABORATORY DATA: The patient's lab reviewed, no significant change from the previous readings. ASSESSMENT: 1. Major depressive disorder, recurrent, moderate. 2. Anxiety disorder, unspecified. 3. Cognitive disorder, mild. 4. Mood disorder, unspecified. PLAN: Continue with the treatment. LENGTH OF STAY: Five days. BARRETT KOHLI MD DR: AYLIN/kelly JOB#: [id number] / [id number]
[2018-08-01] MEDS: ATORVASTATIN CALCIUM 20 MG TABLET PO SCH (19:46)
[2018-08-01] MEDS: DORZOLAMIDE/TIMOLOL 2%/0.5% OPHTH SOLUTION 10ML BOTTLE. OS SCH (19:47)
[2018-08-01] MEDS: INSULIN GLARGINE 300 UNITS/3 ML INSULN.PEN. SQ SCH (19:49)
[2018-08-01] MEDS: GABAPENTIN 300 MG CAPSULE. PO SCH (20:59)
[2018-08-01] MEDS: HYDROcodone/APAP 5/325MG 1 TAB TABLET PO SCH (21:00)
[2018-08-01] MEDS: PATCH REMOVAL. MC SCH (21:00)
--- NOTE | 2018-08-01 22:00 | NUR ---
PT COMPLIANT WITH MEDICATIONS AND IS CONTINUING TO TALK ABOUT DPOA AND PROBLEMS WITH HER FAMILY/BROTHER. PT REPORTS SHE IS NOT ABLE TO STAY WITH HER BROTHER AT THIS TIME BECAUSE HE IS REFUSING TO ALLOW HER TO LIVE WITH HIM. THIS NURSE TOLD PT SHE NEEDED TO SPEAK WITH SOCIAL WORK ON FRIDAY TO FIGURE OUT WHERE AND WHO NEEDED TO BE HER NEW DPOA. PT PLEASANT IN CONVERSATION AND WITH NURSING STAFF WILL CTM.
[2018-08-02] MEDS: LEVOTHYROXINE 25 MCG TABLET. PO SCH (05:19)
[2018-08-02 05:48] VITALS: BP 106/55
[2018-08-02] MEDS: LIDOCAINE (700MG/PATCH) PATCH. TD SCH (07:33)
[2018-08-02] MEDS: POLYETHYLENE GLYCOL 3350 17 GM PACKET. PO SCH (07:33)
[2018-08-02] MEDS: CLOPIDOGREL BISULFATE 75 MG TABLET PO SCH (07:33)
[2018-08-02] MEDS: SENNOSIDES/DOCUSATE 8.6/50MG TABLET. PO SCH ×2 (07:34→17:30)
[2018-08-02] MEDS: MAGNESIUM OXIDE 400 MG TABLET PO SCH ×2 (07:34→17:30)
[2018-08-02] MEDS: FERROUS SULFATE 325 MG TABLET. PO SCH (07:34)
[2018-08-02] MEDS: OLANZapine 5 MG TABLET PO SCH ×3 (07:34→07:43)
[2018-08-02] MEDS: MECLIZINE 12.5 MG TABLET. PO SCH (07:34)
[2018-08-02] MEDS: ASPIRIN 81 MG TAB.CHEW PO SCH (07:35)
[2018-08-02] MEDS: NYSTATIN TOPICAL POWDER 15GM BOTTLE. TP SCH ×2 (07:37→19:59)
[2018-08-02] MEDS: HYDROCORTISONE 2.5% RECTAL CREAM 30GM TUBE. RC SCH (07:37)
[2018-08-02] MEDS: LOSARTAN 25 MG TABLET. PO SCH ×2 (07:37→19:58)
[2018-08-02] MEDS: INSULIN LISPRO 300 UNITS/3 ML INSULN.PEN. SQ SCH ×3 (07:38→17:00)
[2018-08-02] MEDS: OLANZapine IM 10 MG VIAL. IM SCH (07:39)
[2018-08-02] MEDS ORDERED: HYDROCORTISONE 2.5% RECTAL CREAM 30GM TUBE. RC PRN (07:45)
--- NOTE | 2018-08-02 09:48 | NUR ---
Behavior Intervention Response and Plan: BIRP Note: Behavior: Assumed Care of patient, patient located in Dining Room at shift change. Patient exhibited the following behavior Irritable, Compliant, Withdrawn. Brief assessment on rounds of vital signs, medication needs, lab studies, and pain. Treatment plan problems . Intervention: Patient assessed and the following interventions initiated safety checks 15 Minute Checks Cognitive Assessment , Head to toe Assessment , Medications. Response: After interactions and interventions patient responded in the following manner, Calm , Compliant ,Withdrawn. Continue to assess behaviors and condition will continue to monitor throughout the shift as needed. Patient educated on ADL's, and hand hygiene. Plan: Continue to monitor Master Treatment Plan for patient's progress toward short term goals of Decreased Agitation, Decreased Aggression, senior living goals to return to previous living setting vs placement. Continue to assess patient for changes in above assessment. Monitor for medication needs, pain, and safety concerns. Hourly rounding performed to ensure safe environment.
[2018-08-02 15:35] VITALS: BP 145/85
--- NOTE | 2018-08-02 16:27 | PN ---
DATE: 08/02/2018 SUBJECTIVE: The patient was seen today, met with the staff, chart reviewed. The patient continues to have problems with high level of anxiety , stays in bed most of the time, marked decrease in psychomotor activity. The patient has to be fed. The patient also been refusing her medications. OBJECTIVE: VITAL SIGNS: Temperature 98.8, blood pressure 106/55, pulse 92, respiration 18, O2 sat 94%. Slept about 5 hours last night. The patient is not having any side effects to medications. The patient's lab reviewed. ASSESSMENT: 1. Major depressive disorder, recurrent, moderate. 2. Anxiety disorder, unspecified. 3. Cognitive disorder, mild. 4. Mood disorder, unspecified. PLAN: Continue with the treatment. LENGTH OF STAY: 5 days. BARRETT KOHLI MD DR: AYLIN/kelly JOB#: [id number] / [id number]
--- NOTE | 2018-08-02 16:38 | NUR ---
pt up for meals in wc. compliant with meds. withdrawn to room. Has slept a lot in .
[2018-08-02] MEDS: ATORVASTATIN CALCIUM 20 MG TABLET PO SCH (19:57)
[2018-08-02] MEDS: GABAPENTIN 300 MG CAPSULE. PO SCH (19:58)
[2018-08-02] MEDS: HYDROcodone/APAP 5/325MG 1 TAB TABLET PO SCH (19:58)
[2018-08-02] MEDS: DORZOLAMIDE/TIMOLOL 2%/0.5% OPHTH SOLUTION 10ML BOTTLE. OS SCH (20:06)
[2018-08-02] MEDS: INSULIN GLARGINE 300 UNITS/3 ML INSULN.PEN. SQ SCH (20:06)
[2018-08-02] MEDS: PATCH REMOVAL. MC SCH (20:06)
--- NOTE | 2018-08-02 21:48 | NUR ---
Nursing Note Pt questioning meds, wants to know what happened to her am pain meds. Was eventually compliant after arguing for a time.
[2018-08-03] MEDS: LEVOTHYROXINE 25 MCG TABLET. PO SCH (05:36)
[2018-08-03 05:45] VITALS: BP 96/61
[2018-08-03] MEDS: INSULIN LISPRO 300 UNITS/3 ML INSULN.PEN. SQ SCH ×3 (08:00→17:19)
[2018-08-03 08:06] LABS: BASO # 0.1 x10^3/uL (0.0-0.2); BASO % 2 % (0-3); EOS # 0.2 x10^3/uL (0.0-0.7); EOS % 4 % (0-3); HEMATOCRIT 32.5 % (36.0-47.0); HEMOGLOBIN 10.8 g/dL (12.0-15.5); LYMPH # 1.6 x10^3/uL (1.0-4.8); LYMPH % 28 % (24-48); MEAN CORPUSCULAR HEMOGLOBIN 28 pg (25-35); MEAN CORPUSCULAR HGB CONC 33 g/dL (31-37); MEAN CORPUSCULAR VOLUME 84 fL (79-100); MONO # 0.6 x10^3/uL (0.0-1.1); MONO % 10 % (0-9); NEUT # 3.2 x10^3uL (1.8-7.7); NEUT % 56 % (31-73); PLATELET COUNT 284 x10^3/uL (140-400); RED BLOOD COUNT 3.88 x10^6/uL (3.50-5.40); RED CELL DISTRIBUTION WIDTH 15.3 % (11.5-14.5); WHITE BLOOD COUNT 5.7 x10^3/uL (4.0-11.0)
[2018-08-03 08:27] LABS: ALBUMIN 2.4 g/dL (3.4-5.0); ALBUMIN/GLOBULIN RATIO 0.7 (1.0-1.7); CALCIUM 8.5 mg/dL (8.5-10.1); CREATININE 1.1 mg/dL (0.6-1.0); POTASSIUM 4.6 mmol/L (3.5-5.1); TOTAL BILIRUBIN 0.2 mg/dL (0.2-1.0); TOTAL PROTEIN 5.9 g/dL (6.4-8.2)
[2018-08-03] MEDS: CLOPIDOGREL BISULFATE 75 MG TABLET PO SCH (08:56)
[2018-08-03] MEDS: MAGNESIUM OXIDE 400 MG TABLET PO SCH ×2 (08:57→17:17)
[2018-08-03] MEDS: SENNOSIDES/DOCUSATE 8.6/50MG TABLET. PO SCH ×2 (08:57→17:14)
[2018-08-03] MEDS: OLANZapine 5 MG TABLET PO SCH (08:57)
[2018-08-03] MEDS: ASPIRIN 81 MG TAB.CHEW PO SCH (08:58)
[2018-08-03] MEDS: FERROUS SULFATE 325 MG TABLET. PO SCH (08:58)
[2018-08-03] MEDS: POLYETHYLENE GLYCOL 3350 17 GM PACKET. PO SCH (08:58)
[2018-08-03] MEDS: MECLIZINE 12.5 MG TABLET. PO SCH (08:58)
[2018-08-03] MEDS: LIDOCAINE (700MG/PATCH) PATCH. TD SCH ×2 (08:59→17:17)
[2018-08-03] MEDS: LOSARTAN 25 MG TABLET. PO SCH ×2 (09:00→19:47)
[2018-08-03] MEDS: OLANZapine IM 10 MG VIAL. IM SCH (09:00)
[2018-08-03] MEDS: NYSTATIN TOPICAL POWDER 15GM BOTTLE. TP SCH ×2 (09:07→19:47)
--- NOTE | 2018-08-03 09:20 | NUR ---
Behavior Intervention Response and Plan: BIRP Note: Behavior: Assumed Care of patient, patient located in Patient Room at shift change. Patient exhibited the following behavior Calm, Disorganized, Non Compliant with Meds. Brief assessment on rounds of vital signs, medication needs, lab studies, and pain. Treatment plan problems 1 & 2. Intervention: Patient assessed and the following interventions initiated safety checks 15 Minute Checks Cognitive Assessment , Head to toe Assessment , Medications. Response: After interactions and interventions patient responded in the following manner, Disorganized , Calm ,Resistive. Continue to assess behaviors and condition will continue to monitor throughout the shift as needed. Patient educated on ADL's, and hand hygiene. 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 Continue to assess patient for changes in above assessment. Monitor for medication needs, pain, and safety concerns. Hourly rounding performed to ensure safe environment.
[2018-08-03 16:07] VITALS: BP 150/84
--- NOTE | 2018-08-03 16:30 | NUR ---
ROSALIE sent out multiple faxes to rehabilitation facilities on the [place] side as they are closest for pt family. This will aid in helping pt regain her strength from her stroke and give the family time to complete all of pt care needs (e.g. DPOA vs. guardianship).
[2018-08-03] MEDS: PATCH REMOVAL. MC SCH ×2 (19:45→21:00)
[2018-08-03] MEDS: HYDROcodone/APAP 5/325MG 1 TAB TABLET PO SCH (19:46)
[2018-08-03] MEDS: GABAPENTIN 300 MG CAPSULE. PO SCH (19:46)
[2018-08-03] MEDS: ATORVASTATIN CALCIUM 20 MG TABLET PO SCH (19:47)
[2018-08-03] MEDS: INSULIN GLARGINE 300 UNITS/3 ML INSULN.PEN. SQ SCH (19:50)
[2018-08-03] MEDS: DORZOLAMIDE/TIMOLOL 2%/0.5% OPHTH SOLUTION 10ML BOTTLE. OS SCH (21:02)
--- NOTE | 2018-08-03 22:36 | PDOC ---
Exam Note: Abhilash Note: Please also refer to the separate dictated note~for this date of service dictated separately.~Patient seen individually. Discussed the patient with Nursing staff reviewed the chart.~Reviewed interim history and current functioning. Reviewed vital signs,~Labs/ Radiology~and current medications noted below. Continue current treatment with the changes noted in the dictated addendum note Assessment: Vital Signs: Vital Signs Date Time Temp Pulse Resp B/P (MAP) Pulse Ox O2 Delivery O2 Flow Rate FiO2 08/03/18 19:47 91 150/84 08/03/18 16:07 98.6 16 99 08/01/18 21:00 Room Air I&O Intake and Output 08/03/18 06:59 Intake Total 840 ml Balance 840 ml Intake Oral 840 ml Labs: Laboratory Tests Test 08/03/18 07:28 08/03/18 07:29 08/03/18 11:35 08/03/18 16:27 White Blood Count 5.7 x10^3/uL (4.0-11.0) Red Blood Count 3.88 x10^6/uL (3.50-5.40) Hemoglobin 10.8 g/dL (12.0-15.5) L Hematocrit 32.5 % (36.0-47.0) L Mean Corpuscular Volume 84 fL (79-100) Mean Corpuscular Hemoglobin 28 pg (25-35) Mean Corpuscular Hemoglobin Concent 33 g/dL (31-37) Red Cell Distribution Width 15.3 % (11.5-14.5) H Platelet Count 284 x10^3/uL (140-400) Neutrophils (%) (Auto) 56 % (31-73) Lymphocytes (%) (Auto) 28 % (24-48) Monocytes (%) (Auto) 10 % (0-9) H Eosinophils (%) (Auto) 4 % (0-3) H Basophils (%) (Auto) 2 % (0-3) Neutrophils # (Auto) 3.2 x10^3uL (1.8-7.7) Lymphocytes # (Auto) 1.6 x10^3/uL (1.0-4.8) Monocytes # (Auto) 0.6 x10^3/uL (0.0-1.1) Eosinophils # (Auto) 0.2 x10^3/uL (0.0-0.7) Basophils # (Auto) 0.1 x10^3/uL (0.0-0.2) Sodium Level 136 mmol/L (136-145) Potassium Level 4.6 mmol/L (3.5-5.1) Chloride Level 104 mmol/L (98-107) Carbon Dioxide Level 26 mmol/L (21-32) Anion Gap 6 (6-14) Blood Urea Nitrogen 35 mg/dL (7-20) H Creatinine 1.1 mg/dL (0.6-1.0) H Estimated GFR (Cockcroft-Gault) 49.0 BUN/Creatinine Ratio 32 (6-20) H Glucose Level 69 mg/dL (70-99) L Calcium Level 8.5 mg/dL (8.5-10.1) Total Bilirubin 0.2 mg/dL (0.2-1.0) Aspartate Amino Transferase (AST) 14 U/L (15-37) L Alanine Aminotransferase (ALT) 12 U/L (14-59) L Alkaline Phosphatase 76 U/L (46-116) Total Protein 5.9 g/dL (6.4-8.2) L Albumin 2.4 g/dL (3.4-5.0) L Albumin/Globulin Ratio 0.7 (1.0-1.7) L Glucose (Fingerstick) 76 mg/dL (70-99) 103 mg/dL (70-99) H 188 mg/dL (70-99) H Test 08/03/18 19:13 Glucose (Fingerstick) 177 mg/dL (70-99) H Current Medications: Meds: Current Medications Clopidogrel Bisulfate (Plavix) 75 mg DAILY PO Last administered on 08/03/18at 08:56; Start 07/11/18 at 09:00 Ferrous Sulfate (Feosol) 325 mg DAILY PO Last administered on 08/03/18at 08:58; Start 07/11/18 at 09:00 Gabapentin (Neurontin) 300 mg HS PO ; Start 07/11/18 at 21:00; Stop 07/11/18 at 21:00; Status DC Acetaminophen/ Hydrocodone Bitart (Lortab 5/325) 1 tab PRN QHS PRN PO PAIN; Start 07/10/18 at 22:00; Stop 07/10/18 at 22:51; Status DC Acetaminophen/ Hydrocodone Bitart (Lortab 5/325) 1 tab PRN Q6HRS PRN PO PAIN Last administered on 08/01/18at 02:47; Start 07/10/18 at 22:00 Insulin Glargine (Lantus) 30 units QHS SQ ; Start 07/11/18 at 21:00; Stop 07/11/18 at 21:00; Status DC Losartan Potassium (Cozaar) 12.5 mg HS PO ; Start 07/11/18 at 21:00; Stop 07/11/18 at 21:00; Status DC Losartan Potassium (Cozaar) 25 mg DAILY PO Last administered on 07/23/18at 09:47; Start 07/11/18 at 09:00; Stop 07/27/18 at 17:24; Status DC Senna/Docusate Sodium (Senna Plus) 1 tab BID94 PO ; Start 07/11/18 at 09:00; Stop 07/11/18 at 09:00; Status DC Acetaminophen (Tylenol) 1,000 mg PRN Q6HRS PRN PO PAIN / TEMP Last administered on 07/23/18at 10:10; Start 07/10/18 at 22:45 Aspirin (Children'S Aspirin) 81 mg DAILYWBKFT PO Last administered on 08/03/18at 08:58; Start 07/11/18 at 08:00 Atorvastatin Calcium (Lipitor) 40 mg QHS PO ; Start 07/11/18 at 21:00; Stop 07/11/18 at 21:00; Status DC Artificial Tears (Artificial Tears) 1 drop PRN Q15MIN PRN OU DRY EYE Last administered on 07/22/18at 11:31; Start 07/10/18 at 22:45 Non-Formulary Medication (Dextran 70/ Hypromellose (Artificial Tears Eye Drops)) 1 drop PRN Q4HRS PRN EACHEYE DRY EYE; Start 07/10/18 at 22:00; Status UNV Dorzolamide/ Timolol (Cosopt) 1 drop QHS OS Last administered on 08/03/18at 21:02; Start 07/11/18 at 21:00 Non-Formulary Medication (Dorzolamide Hcl/ Timolol Maleat (Dorzolamide-Timolol Eye Drops)) 1 drop HS LEFTEYE ; Start 07/11/18 at 21:00; Status UNV Vitamin D (Vitamin D3) 50,000 unit WEEKLY PO Last administered on 07/31/18 08:19; Start 07/17/18 at 09:00 Lidocaine (Lidoderm) 1 patch DAILY TD Last administered on 08/03/18 08:59; Start 07/11/18 at 09:00 Magnesium Oxide (Magnesium Oxide) 400 mg BID94 PO Last administered on 08/03/18 17:17; Start 07/11/18 at 09:00 Meclizine HCl (Antivert) 25 mg DAILY PO Last administered on 08/03/18 08:58; Start 07/11/18 at 09:00 Polyethylene Glycol (miraLAX) 17 gm PRN DAILY PRN PO CONSTIPATION Last administered on 07/12/18 07:37; Start 07/11/18 at 09:00; Stop 07/15/18 at 18:54; Status DC Sertraline HCl (Zoloft) 25 mg DAILY PO Last administered on 07/13/18 07:57; Start 07/11/18 at 09:00; Stop 07/13/18 at 17:38; Status DC Insulin Human Lispro (HumaLOG) 0-16 UNITS TIDWMEALS SQ Last administered on 08/03/18 17:19; Start 07/11/18 at 08:00 Dextrose 12.5 gm PRN Q15MIN PRN IV SEE COMMENTS; Start 07/10/18 at 22:45 Miscellaneous (Lidoderm Patch Removal) 1 ea QHS MC Last administered on 08/03/18 19:45; Start 07/11/18 at 21:00 Atorvastatin Calcium (Lipitor) 40 mg QHS PO Last administered on 08/03/18 19:47; Start 07/10/18 at 23:00 Gabapentin (Neurontin) 300 mg HS PO Last administered on 08/03/18 19:46; Start 07/10/18 at 23:00 Acetaminophen/ Hydrocodone Bitart (Lortab 5/325) 1 tab HS PO Last administered on 08/03/18 19:46; Start 07/10/18 at 23:00 Insulin Glargine (Lantus) 30 units QHS SQ Last administered on 4/22/19at 19:50; Start 07/10/18 at 23:00 Losartan Potassium (Cozaar) 12.5 mg HS PO Last administered on 08/03/18 19:47; Start 07/10/18 at 23:00 Senna/Docusate Sodium (Senna Plus) 1 tab BID94 PO Last administered on 08/03/18 17:14; Start 07/10/18 at 23:00 Multi-Ingredient Ointment (Analgesic [place]) 1 ivan PRN QID PRN TP MUSCLE PAIN; Start 07/10/18 at 23:15 Al Hydroxide/Mg Hydroxide (Mylanta Plus Xs) 15 ml PRN AFTMEALHC PRN PO DYSPEPSIA; Start 07/10/18 at 23:15 Magnesium Hydroxide (Milk Of Magnesia) 2,400 mg PRN QHS PRN PO CONSTIPATION; Start 07/10/18 at 23:15 Sertraline HCl (Zoloft) 50 mg DAILY PO Last administered on 07/15/18 08:10; Start 07/14/18 at 09:00; Stop 07/15/18 at 18:43; Status DC Buspirone HCl (Buspar) 5 mg 0900,1700 PO Last administered on 07/17/18 17:51; Start 07/15/18 at 09:00; Stop 07/18/18 at 01:49; Status DC Fluoxetine HCl (PROzac ORAL SOLN) 5 mg DAILY PO Last administered on 07/16/18 10:05; Start 07/16/18 at 09:00; Stop 07/16/18 at 17:42; Status DC Polyethylene Glycol (miraLAX) 17 gm DAILY PO Last administered on 08/03/18 08:58; Start 07/16/18 at 09:00 Hydrocortisone (Proctosol-Hc) 1 ivan TID RC Last administered on 07/30/18 19:20; Start 07/15/18 at 21:00; Stop 08/02/18 at 07:41; Status DC Levothyroxine Sodium (Synthroid) 25 mcg DAILY06 PO Last administered on 08/03/18 05:36; Start 07/17/18 at 06:00 Nystatin (Nystop) 1 ivan BID TP Last administered on 08/03/18 19:47; Start 07/22/18 at 21:00 Olanzapine (ZyPREXA IM) 5 mg DAILY IM ; Start 07/28/18 at 09:00; Stop 07/28/18 at 09:00; Status DC Olanzapine (ZyPREXA IM) 5 mg DAILY IM ; Start 07/27/18 at 15:30 Olanzapine (ZyPREXA) 5 mg 1X ONCE PO Last administered on 07/27/18at 15:57; Start 07/27/18 at 16:00; Stop 07/27/18 at 16:01; Status DC Losartan Potassium (Cozaar) 12.5 mg DAILY PO Last administered on 08/02/18at 07:37; Start 07/28/18 at 09:00 Olanzapine (ZyPREXA) 5 mg DAILY PO Last administered on 08/03/18at 08:57; Start 07/28/18 at 09:00 Hydrocortisone (Proctosol-Hc) 1 ivan PRN TID PRN RC RECTAL PAIN; Start 08/02/18 at 07:45 Lidocaine (Lidoderm) 1 patch DAILY TD Last administered on 08/03/18at 17:17; Start 08/03/18 at 16:15 Miscellaneous (Lidoderm Patch Removal) 1 ea QHS MC Last administered on 08/03/18at 21:00; Start 08/03/18 at 21:00 Active Scripts Active Reported Vitamin D2 (Ergocalciferol (Vitamin D2)) 50,000 Unit Capsule 50,000 Unit PO WEEKLY Zoloft (Sertraline Hcl) 25 Mg Tablet 25 Mg PO DAILY Senna-S Laxative Tablet (Sennosides/Docusate Sodium) 1 Each Tablet 1 Each PO BID94 Refresh Optive Eye Drops (Carboxymethylcellulos/Glycerin) 15 Ml Drops 1 Drop EACHEYE PRN Q4HRS PRN Polyethylene Glycol 3350 255 Gm Powder 17 Gm PO PRN DAILY PRN Meclizine Hcl 25 Mg Tablet 25 Mg PO DAILY Mag-Oxide (Magnesium Oxide) 400 Mg Tablet 400 Mg PO BID94 Losartan Potassium (Losartan Potassium) 25 Mg Tablet 12.5 Mg PO HS Losartan Potassium (Losartan Potassium) 25 Mg Tablet 25 Mg PO DAILY Lidocaine 1 Each Adh..patch 1 Each TP DAILY Lantus Solostar (Insulin Glargine,Hum.rec.anlog) 100 Unit/1 Ml Insuln.pen 30 Unit SQ QHS Hydrocodone-Apap 5-325 (Hydrocodone Bit/Acetaminophen) 1 Each Tablet 1 Tab PO PRN Q6HRS PRN Hydrocodone-Apap 5-325 (Hydrocodone Bit/Acetaminophen) 1 Each Tablet 1 Tab PO HS PRN Gabapentin (Gabapentin) 300 Mg Capsule 300 Mg PO HS Ferrous Sulfate 325 Mg Tablet 325 Mg PO DAILY Dorzolamide-Timolol Eye Drops (Dorzolamide Hcl/Timolol Maleat) 10 Ml Drops 1 Drop LEFTEYE HS Cosopt Eye Drops (Dorzolamide Hcl/Timolol Maleat) 10 Ml Drops 1 Drop LEFTEYE HS Clopidogrel (Clopidogrel Bisulfate) 75 Mg Tablet 75 Mg PO DAILY Atorvastatin Calcium 40 Mg Tablet 40 Mg PO QHS Aspirin 81 Mg Tab.chew 81 Mg PO DAILY Artificial Tears Eye Drops (Dextran 70/Hypromellose) 15 Ml Drops 1 Drop EACHEYE PRN Q4HRS PRN Acetaminophen 500 Mg Tablet 1,000 Mg PO PRN Q6HRS PRN I have reviewed the current psychotropics carefully including drug interactions. Risk benefit ratio favors no change other than as noted in my dictated progress note. Diagnosis: Problems: (1) Anxiety disorder (2) Major depressive disorder, recurrent episode (3) Impulse control disorder (4) Mild cognitive disorder JENNIFER CHEUNG MD Aug 03, 2018 22:36
--- NOTE | 2018-08-03 23:03 | NUR ---
Nursing Note Pt located in day room. Pt agreeable in going to her room for medications and assessment. Pt continues to question medications. Reviewed medications with pt. Pt did comply with taking all scheduled medications once reviewed. Compliant with assessment.
[2018-08-04] MEDS: LEVOTHYROXINE 25 MCG TABLET. PO SCH (04:00)
[2018-08-04 04:41] VITALS: BP 92/60
[2018-08-04] MEDS: INSULIN LISPRO 300 UNITS/3 ML INSULN.PEN. SQ SCH ×3 (08:00→17:18)
[2018-08-04] MEDS: OLANZapine IM 10 MG VIAL. IM SCH (09:00)
[2018-08-04] MEDS: SENNOSIDES/DOCUSATE 8.6/50MG TABLET. PO SCH ×2 (09:32→17:17)
[2018-08-04] MEDS: ASPIRIN 81 MG TAB.CHEW PO SCH (09:32)
[2018-08-04] MEDS: OLANZapine 5 MG TABLET PO SCH (09:32)
[2018-08-04] MEDS: MECLIZINE 12.5 MG TABLET. PO SCH (09:32)
[2018-08-04] MEDS: MAGNESIUM OXIDE 400 MG TABLET PO SCH ×2 (09:33→17:17)
[2018-08-04] MEDS: CLOPIDOGREL BISULFATE 75 MG TABLET PO SCH (09:33)
[2018-08-04] MEDS: FERROUS SULFATE 325 MG TABLET. PO SCH (09:33)
[2018-08-04] MEDS: LOSARTAN 25 MG TABLET. PO SCH ×2 (09:33→20:00)
[2018-08-04] MEDS: LIDOCAINE (700MG/PATCH) PATCH. TD SCH ×2 (09:34→09:35)
[2018-08-04] MEDS: POLYETHYLENE GLYCOL 3350 17 GM PACKET. PO SCH (09:34)
[2018-08-04] MEDS: NYSTATIN TOPICAL POWDER 15GM BOTTLE. TP SCH ×2 (09:36→20:01)
--- NOTE | 2018-08-04 09:40 | NUR ---
Behavior Intervention Response and Plan: BIRP Note: Behavior: Assumed Care of patient, patient located in Patient Room at shift change. Patient exhibited the following behavior Withdrawn, Disorganized, Non Compliant with Meds. Brief assessment on rounds of vital signs, medication needs, lab studies, and pain. Treatment plan problems 1 & 2. Intervention: Patient assessed and the following interventions initiated safety checks 15 Minute Checks Cognitive Assessment , Head to toe Assessment , Medications. Response: After interactions and interventions patient responded in the following manner, Disorganized , Calm ,Resistive. Continue to assess behaviors and condition will continue to monitor throughout the shift as needed. Patient educated on ADL's, and hand hygiene. 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 Continue to assess patient for changes in above assessment. Monitor for medication needs, pain, and safety concerns. Hourly rounding performed to ensure safe environment.
[2018-08-04 16:14] VITALS: BP_SYST 150
[2018-08-04 16:15] VITALS: BP 150/85
--- NOTE | 2018-08-04 17:10 | NUR ---
SW met with pt in the dining room as she was redirected earlier that she could not sit in front of SW office. Pt was tearful and reported that she was distraught because "these bitches wouldn't let me talk to you before dinner". SW held up her hand and stated "I'm going to stop you there. You CANNOT post up in front of my door, especially whenever I am in my office talking to another pt. Not only is that rude, it is disrespectful and that person needs privacy to talk to me. Just like you have privacy when you talk to me. You are not going to be allowed to call staff bitches because they redirected you from something you did not like". Pt continued to be tearful and asked to speak to her sister Tatyana about coming to stay with her. It appears that although pt brother spoke with her this weekend, pt is determined to discharge home. SW explained that she was to talk to her brother about that and pt began to play the victim card of "he doesn't care about me and doesn't want to help me". SW informed pt that she will need to eat dinner and compose herself, as SW was not going to talk to her in this state. SW will come and find pt tomorrow and can discuss the plans for discharge, which has been to find an appropriate placement for pt to live, and that does NOT include home.
[2018-08-04] MEDS: GABAPENTIN 300 MG CAPSULE. PO SCH (20:00)
[2018-08-04] MEDS: ATORVASTATIN CALCIUM 20 MG TABLET PO SCH (20:00)
[2018-08-04] MEDS: PATCH REMOVAL. MC SCH ×2 (20:00→20:01)
[2018-08-04] MEDS: DORZOLAMIDE/TIMOLOL 2%/0.5% OPHTH SOLUTION 10ML BOTTLE. OS SCH (20:03)
[2018-08-04] MEDS: HYDROcodone/APAP 5/325MG 1 TAB TABLET PO SCH (20:13)
--- NOTE | 2018-08-04 21:05 | PN ---
DATE: 08/03/2018 PSYCHIATRIC PROGRESS NOTE This late entry 08/03/2018 covers elements not covered in my initial note. SUBJECTIVE: I met with the patient in the evening and reviewed information from Dr. Jhaveri. The patient slept 5-3/4 hours previous night. She has been somewhat withdrawn, met with her in her room. She gets upset if she is told to go to groups per nursing report, resistive to medications. REVIEW OF SYSTEMS: Ambulation impaired, in wheelchair. No CV, , pulmonary, eye system symptoms on review. She had many complaints that nursing staff would take her hat every other day to wash it and she feels it is getting looser with repeated wash, unable to understand hygiene and why this is important and I addressed this with her at great length. She gets agitated with staff, feels they are conspiring against her. No CV, , pulmonary, eye system symptoms on review; remains in wheelchair. MENTAL STATUS EXAM: Oriented to herself and situation. Speech is coherent, rapid at times. Abstraction fair, computation impaired, language function intact. Mood and affect remain somewhat anxious, labile. LABORATORY DATA: Reviewed. IMPRESSION: Unchanged from initial note. PLAN: No change from initial note. JENNIFER CHEUNG MD DR: SHERIF/kelly JOB#: [id number] / [id number]
[2018-08-04] MEDS: INSULIN GLARGINE 300 UNITS/3 ML INSULN.PEN. SQ SCH (21:06)
--- NOTE | 2018-08-04 22:38 | PDOC ---
Exam Note: Abhilash Note: Please also refer to the separate dictated note~for this date of service dictated separately.~Patient seen individually. Discussed the patient with Nursing staff reviewed the chart.~Reviewed interim history and current functioning. Reviewed vital signs,~Labs/ Radiology~and current medications noted below. Continue current treatment with the changes noted in the dictated addendum note Assessment: Vital Signs: Vital Signs Date Time Temp Pulse Resp B/P (MAP) Pulse Ox O2 Delivery O2 Flow Rate FiO2 08/04/18 21:25 18 Room Air 08/04/18 20:00 78 150/85 08/04/18 16:15 98.4 100 I&O Intake and Output 08/04/18 07:00 Intake Total 1080 ml Balance 1080 ml Intake Oral 1080 ml Labs: Laboratory Tests Test 08/04/18 07:38 08/04/18 11:51 08/04/18 16:41 08/04/18 19:10 Glucose (Fingerstick) 75 mg/dL (70-99) 149 mg/dL (70-99) H 168 mg/dL (70-99) H 250 mg/dL (70-99) H Current Medications: Meds: Current Medications Clopidogrel Bisulfate (Plavix) 75 mg DAILY PO Last administered on 08/04/18at 09:33; Start 07/11/18 at 09:00 Ferrous Sulfate (Feosol) 325 mg DAILY PO Last administered on 08/04/18at 09:33; Start 07/11/18 at 09:00 Gabapentin (Neurontin) 300 mg HS PO ; Start 07/11/18 at 21:00; Stop 07/11/18 at 21:00; Status DC Acetaminophen/ Hydrocodone Bitart (Lortab 5/325) 1 tab PRN QHS PRN PO PAIN; Start 07/10/18 at 22:00; Stop 07/10/18 at 22:51; Status DC Acetaminophen/ Hydrocodone Bitart (Lortab 5/325) 1 tab PRN Q6HRS PRN PO PAIN Last administered on 08/01/18at 02:47; Start 07/10/18 at 22:00 Insulin Glargine (Lantus) 30 units QHS SQ ; Start 07/11/18 at 21:00; Stop 07/11/18 at 21:00; Status DC Losartan Potassium (Cozaar) 12.5 mg HS PO ; Start 07/11/18 at 21:00; Stop 07/11/18 at 21:00; Status DC Losartan Potassium (Cozaar) 25 mg DAILY PO Last administered on 07/23/18 09:47; Start 07/11/18 at 09:00; Stop 07/27/18 at 17:24; Status DC Senna/Docusate Sodium (Senna Plus) 1 tab BID94 PO ; Start 07/11/18 at 09:00; Stop 07/11/18 at 09:00; Status DC Acetaminophen (Tylenol) 1,000 mg PRN Q6HRS PRN PO PAIN / TEMP Last administered on 07/23/18at 10:10; Start 07/10/18 at 22:45 Aspirin (Children'S Aspirin) 81 mg DAILYWBKFT PO Last administered on 08/04/18 09:32; Start 07/11/18 at 08:00 Atorvastatin Calcium (Lipitor) 40 mg QHS PO ; Start 07/11/18 at 21:00; Stop 07/11/18 at 21:00; Status DC Artificial Tears (Artificial Tears) 1 drop PRN Q15MIN PRN OU DRY EYE Last administered on 07/22/18 11:31; Start 07/10/18 at 22:45 Non-Formulary Medication (Dextran 70/ Hypromellose (Artificial Tears Eye Drops)) 1 drop PRN Q4HRS PRN EACHEYE DRY EYE; Start 07/10/18 at 22:00; Status UNV Dorzolamide/ Timolol (Cosopt) 1 drop QHS OS Last administered on 08/04/18at 20:03; Start 07/11/18 at 21:00 Non-Formulary Medication (Dorzolamide Hcl/ Timolol Maleat (Dorzolamide-Timolol Eye Drops)) 1 drop HS LEFTEYE ; Start 07/11/18 at 21:00; Status UNV Vitamin D (Vitamin D3) 50,000 unit WEEKLY PO Last administered on 07/31/18 08:19; Start 07/17/18 at 09:00 Lidocaine (Lidoderm) 1 patch DAILY TD Last administered on 08/04/18 09:34; Start 07/11/18 at 09:00 Magnesium Oxide (Magnesium Oxide) 400 mg BID94 PO Last administered on 08/04/18 17:17; Start 07/11/18 at 09:00 Meclizine HCl (Antivert) 25 mg DAILY PO Last administered on 08/04/18 09:32; Start 07/11/18 at 09:00 Polyethylene Glycol (miraLAX) 17 gm PRN DAILY PRN PO CONSTIPATION Last administered on 07/12/18 07:37; Start 07/11/18 at 09:00; Stop 07/15/18 at 18:54; Status DC Sertraline HCl (Zoloft) 25 mg DAILY PO Last administered on 07/13/18 07:57; Start 07/11/18 at 09:00; Stop 07/13/18 at 17:38; Status DC Insulin Human Lispro (HumaLOG) 0-16 UNITS TIDWMEALS SQ Last administered on 08/04/18 17:18; Start 07/11/18 at 08:00 Dextrose 12.5 gm PRN Q15MIN PRN IV SEE COMMENTS; Start 07/10/18 at 22:45 Miscellaneous (Lidoderm Patch Removal) 1 ea QHS MC Last administered on 08/04/18 20:00; Start 07/11/18 at 21:00 Atorvastatin Calcium (Lipitor) 40 mg QHS PO Last administered on 08/04/18 20:00; Start 07/10/18 at 23:00 Gabapentin (Neurontin) 300 mg HS PO Last administered on 08/04/18 20:00; Start 07/10/18 at 23:00 Acetaminophen/ Hydrocodone Bitart (Lortab 5/325) 1 tab HS PO Last administered on 08/04/18 20:13; Start 07/10/18 at 23:00 Insulin Glargine (Lantus) 30 units QHS SQ Last administered on 08/04/18 21:06; Start 07/10/18 at 23:00 Losartan Potassium (Cozaar) 12.5 mg HS PO Last administered on 08/04/18 20:00; Start 07/10/18 at 23:00 Senna/Docusate Sodium (Senna Plus) 1 tab BID94 PO Last administered on 08/04/18 17:17; Start 07/10/18 at 23:00 Multi-Ingredient Ointment (Analgesic [place]) 1 ivan PRN QID PRN TP MUSCLE PAIN; Start 07/10/18 at 23:15 Al Hydroxide/Mg Hydroxide (Mylanta Plus Xs) 15 ml PRN AFTMEALHC PRN PO DYSPEPSIA; Start 07/10/18 at 23:15 Magnesium Hydroxide (Milk Of Magnesia) 2,400 mg PRN QHS PRN PO CONSTIPATION; Start 07/10/18 at 23:15 Sertraline HCl (Zoloft) 50 mg DAILY PO Last administered on 07/15/18 08:10; Start 07/14/18 at 09:00; Stop 07/15/18 at 18:43; Status DC Buspirone HCl (Buspar) 5 mg 0900,1700 PO Last administered on 07/17/18 17:51; Start 07/15/18 at 09:00; Stop 07/18/18 at 01:49; Status DC Fluoxetine HCl (PROzac ORAL SOLN) 5 mg DAILY PO Last administered on 07/16/18 10:05; Start 07/16/18 at 09:00; Stop 07/16/18 at 17:42; Status DC Polyethylene Glycol (miraLAX) 17 gm DAILY PO Last administered on 08/04/18at 09:34; Start 07/16/18 at 09:00 Hydrocortisone (Proctosol-Hc) 1 ivan TID RC Last administered on 07/30/18at 19:20; Start 07/15/18 at 21:00; Stop 08/02/18 at 07:41; Status DC Levothyroxine Sodium (Synthroid) 25 mcg DAILY06 PO Last administered on 08/04/18at 04:00; Start 07/17/18 at 06:00 Nystatin (Nystop) 1 ivan BID TP Last administered on 08/04/18at 20:01; Start 07/22/18 at 21:00 Olanzapine (ZyPREXA IM) 5 mg DAILY IM ; Start 07/28/18 at 09:00; Stop 07/28/18 at 09:00; Status DC Olanzapine (ZyPREXA IM) 5 mg DAILY IM ; Start 07/27/18 at 15:30 Olanzapine (ZyPREXA) 5 mg 1X ONCE PO Last administered on 07/27/18at 15:57; Start 07/27/18 at 16:00; Stop 07/27/18 at 16:01; Status DC Losartan Potassium (Cozaar) 12.5 mg DAILY PO Last administered on 08/04/18at 09:33; Start 07/28/18 at 09:00 Olanzapine (ZyPREXA) 5 mg DAILY PO Last administered on 08/04/18at 09:32; Start 07/28/18 at 09:00 Hydrocortisone (Proctosol-Hc) 1 ivan PRN TID PRN RC RECTAL PAIN; Start 08/02/18 at 07:45 Lidocaine (Lidoderm) 1 patch DAILY TD Last administered on 08/04/18at 09:35; Start 08/03/18 at 16:15 Miscellaneous (Lidoderm Patch Removal) 1 ea QHS MC Last administered on 08/04/18at 20:01; Start 08/03/18 at 21:00 Active Scripts Active Reported Vitamin D2 (Ergocalciferol (Vitamin D2)) 50,000 Unit Capsule 50,000 Unit PO WEEKLY Zoloft (Sertraline Hcl) 25 Mg Tablet 25 Mg PO DAILY Senna-S Laxative Tablet (Sennosides/Docusate Sodium) 1 Each Tablet 1 Each PO BID94 Refresh Optive Eye Drops (Carboxymethylcellulos/Glycerin) 15 Ml Drops 1 Drop EACHEYE PRN Q4HRS PRN Polyethylene Glycol 3350 255 Gm Powder 17 Gm PO PRN DAILY PRN Meclizine Hcl 25 Mg Tablet 25 Mg PO DAILY Mag-Oxide (Magnesium Oxide) 400 Mg Tablet 400 Mg PO BID94 Losartan Potassium (Losartan Potassium) 25 Mg Tablet 12.5 Mg PO HS Losartan Potassium (Losartan Potassium) 25 Mg Tablet 25 Mg PO DAILY Lidocaine 1 Each Adh..patch 1 Each TP DAILY Lantus Solostar (Insulin Glargine,Hum.rec.anlog) 100 Unit/1 Ml Insuln.pen 30 Unit SQ QHS Hydrocodone-Apap 5-325 (Hydrocodone Bit/Acetaminophen) 1 Each Tablet 1 Tab PO PRN Q6HRS PRN Hydrocodone-Apap 5-325 (Hydrocodone Bit/Acetaminophen) 1 Each Tablet 1 Tab PO HS PRN Gabapentin (Gabapentin) 300 Mg Capsule 300 Mg PO HS Ferrous Sulfate 325 Mg Tablet 325 Mg PO DAILY Dorzolamide-Timolol Eye Drops (Dorzolamide Hcl/Timolol Maleat) 10 Ml Drops 1 Drop LEFTEYE HS Cosopt Eye Drops (Dorzolamide Hcl/Timolol Maleat) 10 Ml Drops 1 Drop LEFTEYE HS Clopidogrel (Clopidogrel Bisulfate) 75 Mg Tablet 75 Mg PO DAILY Atorvastatin Calcium 40 Mg Tablet 40 Mg PO QHS Aspirin 81 Mg Tab.chew 81 Mg PO DAILY Artificial Tears Eye Drops (Dextran 70/Hypromellose) 15 Ml Drops 1 Drop EACHEYE PRN Q4HRS PRN Acetaminophen 500 Mg Tablet 1,000 Mg PO PRN Q6HRS PRN I have reviewed the current psychotropics carefully including drug interactions. Risk benefit ratio favors no change other than as noted in my dictated progress note. Diagnosis: Problems: (1) Anxiety disorder (2) Major depressive disorder, recurrent episode (3) Impulse control disorder (4) Mild cognitive disorder JENNIFER CHEUNG MD Aug 04, 2018 22:38
--- NOTE | 2018-08-05 00:24 | NUR ---
Nursing Note The patient was located in her room for her medication pass and assessment. The patient was appropriate during interactions and took her medications whole. The patient is currently sleeping in her room.
[2018-08-05] MEDS: LEVOTHYROXINE 25 MCG TABLET. PO SCH (06:04)
[2018-08-05 06:14] VITALS: BP 148/78
[2018-08-05] MEDS: INSULIN LISPRO 300 UNITS/3 ML INSULN.PEN. SQ SCH ×3 (08:00→17:33)
--- NOTE | 2018-08-05 09:05 | NUR ---
Patient is currently in bed, eyes closed, NAD, will hold morning meds for now.
[2018-08-05] MEDS: OLANZapine IM 10 MG VIAL. IM SCH (11:00)
[2018-08-05] MEDS: OLANZapine 5 MG TABLET PO SCH (11:00)
[2018-08-05] MEDS: MAGNESIUM OXIDE 400 MG TABLET PO SCH ×2 (11:01→17:28)
[2018-08-05] MEDS: SENNOSIDES/DOCUSATE 8.6/50MG TABLET. PO SCH ×2 (11:01→17:28)
[2018-08-05] MEDS: CLOPIDOGREL BISULFATE 75 MG TABLET PO SCH (11:01)
[2018-08-05] MEDS: ASPIRIN 81 MG TAB.CHEW PO SCH (11:01)
[2018-08-05] MEDS: MECLIZINE 12.5 MG TABLET. PO SCH (11:01)
[2018-08-05] MEDS: FERROUS SULFATE 325 MG TABLET. PO SCH (11:02)
[2018-08-05] MEDS: LIDOCAINE (700MG/PATCH) PATCH. TD SCH ×2 (11:02)
[2018-08-05] MEDS: LOSARTAN 25 MG TABLET. PO SCH ×2 (11:02→20:27)
[2018-08-05] MEDS: POLYETHYLENE GLYCOL 3350 17 GM PACKET. PO SCH (11:03)
[2018-08-05] MEDS: NYSTATIN TOPICAL POWDER 15GM BOTTLE. TP SCH ×2 (11:03→20:27)
--- NOTE | 2018-08-05 11:21 | NUR ---
patient was resistive with her medications, repeatedly asking what each medication is. After multiple attempts at redirection, patient was compliant with medications. Will continue to monitor.
--- NOTE | 2018-08-05 15:14 | NUR ---
ROSALIE contacted Joseph, who reports that he was in a meeting and wanted to contact ROSALIE back within the next hour. ROSALIE agreed and told pt brother that ROSALIE would be in the office until 1800 tonight.
[2018-08-05 16:22] VITALS: BP 129/64
--- NOTE | 2018-08-05 17:36 | PN ---
DATE: 08/04/2018 PSYCHIATRIC PROGRESS NOTE This late entry 08/04/2018, covers elements not covered in my initial note. SUBJECTIVE: I met with the patient in the evening. The patient slept 5 hours previous night. She gets quite anxious, restless, labile in her mood, was hitting and screaming at staff previous evening and early this morning, especially when she has to be woken up. Staff will try to compensate for this. She was confused, wanting to call someone not sure who she wanted to call or what the telephone number was. I addressed this with her. REVIEW OF SYSTEMS: Ambulation impaired, in wheelchair. No CV, , pulmonary, eye system symptoms on review. MENTAL STATUS EXAM: Oriented to herself and situation. Speech coherent, rapid at times. Abstraction fair, computation impaired, language function intact, attention span short. Mood and affect remain somewhat anxious, labile, depressed, but she minimizes all of this and refuses any antidepressants, which I really feel would help her gradually if she were to permit us to do so. LABORATORY DATA: Reviewed. I did address this with her at some length with no luck. IMPRESSION: Unchanged from initial note. PLAN: No change from initial note. JENNIFER CHEUNG MD DR: SHERIF/kelly JOB#: [id number] / [id number]
--- NOTE | 2018-08-05 17:50 | NUR ---
Pt came into office to ask for assistance with a phone call. It appears that pt is still attempting to find numbers of those who may be able to help her at home; if not ask people to be her DPOA. SW contacted a person named Sariah, who was not at home; however, Harman, who was Sariah's was able to give pt a number for her sister Tatyana. Pt attempted to contact Tatyana but no one answered. Pt then called Harman back to have them contact pt on the pt phone line later [place]son; however, ROSALIE was not able to give them the pass code as required by policy.
[2018-08-05] MEDS: ATORVASTATIN CALCIUM 20 MG TABLET PO SCH (20:26)
[2018-08-05] MEDS: PATCH REMOVAL. MC SCH ×2 (20:27)
[2018-08-05] MEDS: HYDROcodone/APAP 5/325MG 1 TAB TABLET PO SCH (20:31)
[2018-08-05] MEDS: GABAPENTIN 300 MG CAPSULE. PO SCH (20:31)
[2018-08-05] MEDS: DORZOLAMIDE/TIMOLOL 2%/0.5% OPHTH SOLUTION 10ML BOTTLE. OS SCH (20:31)
[2018-08-05] MEDS: INSULIN GLARGINE 300 UNITS/3 ML INSULN.PEN. SQ SCH (20:32)
--- NOTE | 2018-08-05 21:48 | NUR ---
Nursing Note The patient was located in the day room for her medications and assessment. The patient was compliant with her medications and took them whole. The patient was appropriate during interactions with this nurse and peers. the patient is currently sleeping in her room.
--- NOTE | 2018-08-05 22:41 | PDOC ---
Exam Note: Abhilash Note: Please also refer to the separate dictated note~for this date of service dictated separately.~Patient seen individually. Discussed the patient with Nursing staff reviewed the chart.~Reviewed interim history and current functioning. Reviewed vital signs,~Labs/ Radiology~and current medications noted below. Continue current treatment with the changes noted in the dictated addendum note Assessment: Vital Signs: Vital Signs Date Time Temp Pulse Resp B/P (MAP) Pulse Ox O2 Delivery O2 Flow Rate FiO2 08/05/18 21:38 18 Room Air 08/05/18 20:27 95 129/64 08/05/18 16:22 98.2 93 I&O Intake and Output 08/05/18 07:00 Intake Total 960 ml Balance 960 ml Intake Oral 960 ml Labs: Laboratory Tests Test 08/05/18 07:31 08/05/18 11:36 08/05/18 16:59 08/05/18 19:11 Glucose (Fingerstick) 124 mg/dL (70-99) H 108 mg/dL (70-99) H 208 mg/dL (70-99) H 208 mg/dL (70-99) H Current Medications: Meds: Current Medications Clopidogrel Bisulfate (Plavix) 75 mg DAILY PO Last administered on 08/05/18at 11:01; Start 07/11/18 at 09:00 Ferrous Sulfate (Feosol) 325 mg DAILY PO Last administered on 08/05/18at 11:02; Start 07/11/18 at 09:00 Gabapentin (Neurontin) 300 mg HS PO ; Start 07/11/18 at 21:00; Stop 07/11/18 at 21:00; Status DC Acetaminophen/ Hydrocodone Bitart (Lortab 5/325) 1 tab PRN QHS PRN PO PAIN; Start 07/10/18 at 22:00; Stop 07/10/18 at 22:51; Status DC Acetaminophen/ Hydrocodone Bitart (Lortab 5/325) 1 tab PRN Q6HRS PRN PO PAIN Last administered on 08/01/18at 02:47; Start 07/10/18 at 22:00 Insulin Glargine (Lantus) 30 units QHS SQ ; Start 07/11/18 at 21:00; Stop 07/11/18 at 21:00; Status DC Losartan Potassium (Cozaar) 12.5 mg HS PO ; Start 07/11/18 at 21:00; Stop 07/11/18 at 21:00; Status DC Losartan Potassium (Cozaar) 25 mg DAILY PO Last administered on 07/23/18at 09:47; Start 07/11/18 at 09:00; Stop 07/27/18 at 17:24; Status DC Senna/Docusate Sodium (Senna Plus) 1 tab BID94 PO ; Start 07/11/18 at 09:00; Stop 07/11/18 at 09:00; Status DC Acetaminophen (Tylenol) 1,000 mg PRN Q6HRS PRN PO PAIN / TEMP Last administered on 07/23/18at 10:10; Start 07/10/18 at 22:45 Aspirin (Children'S Aspirin) 81 mg DAILYWBKFT PO Last administered on 08/05/18at 11:01; Start 07/11/18 at 08:00 Atorvastatin Calcium (Lipitor) 40 mg QHS PO ; Start 07/11/18 at 21:00; Stop 07/11/18 at 21:00; Status DC Artificial Tears (Artificial Tears) 1 drop PRN Q15MIN PRN OU DRY EYE Last administered on 07/22/18 11:31; Start 07/10/18 at 22:45 Non-Formulary Medication (Dextran 70/ Hypromellose (Artificial Tears Eye Drops)) 1 drop PRN Q4HRS PRN EACHEYE DRY EYE; Start 07/10/18 at 22:00; Status UNV Dorzolamide/ Timolol (Cosopt) 1 drop QHS OS Last administered on 08/05/18at 20:31; Start 07/11/18 at 21:00 Non-Formulary Medication (Dorzolamide Hcl/ Timolol Maleat (Dorzolamide-Timolol Eye Drops)) 1 drop HS LEFTEYE ; Start 07/11/18 at 21:00; Status UNV Vitamin D (Vitamin D3) 50,000 unit WEEKLY PO Last administered on 07/31/18at 08:19; Start 07/17/18 at 09:00 Lidocaine (Lidoderm) 1 patch DAILY TD Last administered on 08/05/18 11:02; Start 07/11/18 at 09:00 Magnesium Oxide (Magnesium Oxide) 400 mg BID94 PO Last administered on 08/05/18 17:28; Start 07/11/18 at 09:00 Meclizine HCl (Antivert) 25 mg DAILY PO Last administered on 08/05/18 11:01; Start 07/11/18 at 09:00 Polyethylene Glycol (miraLAX) 17 gm PRN DAILY PRN PO CONSTIPATION Last administered on 07/12/18 07:37; Start 07/11/18 at 09:00; Stop 07/15/18 at 18:54; Status DC Sertraline HCl (Zoloft) 25 mg DAILY PO Last administered on 07/13/18 07:57; Start 07/11/18 at 09:00; Stop 07/13/18 at 17:38; Status DC Insulin Human Lispro (HumaLOG) 0-16 UNITS TIDWMEALS SQ Last administered on 08/05/18 17:33; Start 07/11/18 at 08:00 Dextrose 12.5 gm PRN Q15MIN PRN IV SEE COMMENTS; Start 07/10/18 at 22:45 Miscellaneous (Lidoderm Patch Removal) 1 ea QHS MC Last administered on 08/05/18 20:27; Start 07/11/18 at 21:00 Atorvastatin Calcium (Lipitor) 40 mg QHS PO Last administered on 08/05/18 20:26; Start 07/10/18 at 23:00 Gabapentin (Neurontin) 300 mg HS PO Last administered on 08/05/18 20:31; Start 07/10/18 at 23:00 Acetaminophen/ Hydrocodone Bitart (Lortab 5/325) 1 tab HS PO Last administered on 08/05/18 20:31; Start 07/10/18 at 23:00 Insulin Glargine (Lantus) 30 units QHS SQ Last administered on 08/05/18 20:32; Start 07/10/18 at 23:00 Losartan Potassium (Cozaar) 12.5 mg HS PO Last administered on 08/05/18 20:27; Start 07/10/18 at 23:00 Senna/Docusate Sodium (Senna Plus) 1 tab BID94 PO Last administered on 08/05/18 17:28; Start 07/10/18 at 23:00 Multi-Ingredient Ointment (Analgesic [place]) 1 ivan PRN QID PRN TP MUSCLE PAIN; Start 07/10/18 at 23:15 Al Hydroxide/Mg Hydroxide (Mylanta Plus Xs) 15 ml PRN AFTMEALHC PRN PO DYSPEPSIA; Start 07/10/18 at 23:15 Magnesium Hydroxide (Milk Of Magnesia) 2,400 mg PRN QHS PRN PO CONSTIPATION; Start 07/10/18 at 23:15 Sertraline HCl (Zoloft) 50 mg DAILY PO Last administered on 07/15/18 08:10; Start 07/14/18 at 09:00; Stop 07/15/18 at 18:43; Status DC Buspirone HCl (Buspar) 5 mg 0900,1700 PO Last administered on 07/17/18 17:51; Start 07/15/18 at 09:00; Stop 07/18/18 at 01:49; Status DC Fluoxetine HCl (PROzac ORAL SOLN) 5 mg DAILY PO Last administered on 07/16/18 10:05; Start 07/16/18 at 09:00; Stop 07/16/18 at 17:42; Status DC Polyethylene Glycol (miraLAX) 17 gm DAILY PO Last administered on 08/05/18 11:03; Start 07/16/18 at 09:00 Hydrocortisone (Proctosol-Hc) 1 ivan TID RC Last administered on 07/30/18 19:20; Start 07/15/18 at 21:00; Stop 08/02/18 at 07:41; Status DC Levothyroxine Sodium (Synthroid) 25 mcg DAILY06 PO Last administered on 08/05/18 06:04; Start 07/17/18 at 06:00 Nystatin (Nystop) 1 ivan BID TP Last administered on 08/05/18 20:27; Start 07/22/18 at 21:00 Olanzapine (ZyPREXA IM) 5 mg DAILY IM ; Start 07/28/18 at 09:00; Stop 07/28/18 at 09:00; Status DC Olanzapine (ZyPREXA IM) 5 mg DAILY IM ; Start 07/27/18 at 15:30 Olanzapine (ZyPREXA) 5 mg 1X ONCE PO Last administered on 07/27/18at 15:57; Start 07/27/18 at 16:00; Stop 07/27/18 at 16:01; Status DC Losartan Potassium (Cozaar) 12.5 mg DAILY PO Last administered on 08/05/18 11:02; Start 07/28/18 at 09:00 Olanzapine (ZyPREXA) 5 mg DAILY PO Last administered on 08/05/18at 11:00; Start 07/28/18 at 09:00 Hydrocortisone (Proctosol-Hc) 1 ivan PRN TID PRN RC RECTAL PAIN; Start 08/02/18 at 07:45 Lidocaine (Lidoderm) 1 patch DAILY TD Last administered on 08/05/18at 11:02; Start 08/03/18 at 16:15 Miscellaneous (Lidoderm Patch Removal) 1 ea QHS MC Last administered on 08/05/18at 20:27; Start 08/03/18 at 21:00 Active Scripts Active Reported Vitamin D2 (Ergocalciferol (Vitamin D2)) 50,000 Unit Capsule 50,000 Unit PO WEEKLY Zoloft (Sertraline Hcl) 25 Mg Tablet 25 Mg PO DAILY Senna-S Laxative Tablet (Sennosides/Docusate Sodium) 1 Each Tablet 1 Each PO BID94 Refresh Optive Eye Drops (Carboxymethylcellulos/Glycerin) 15 Ml Drops 1 Drop EACHEYE PRN Q4HRS PRN Polyethylene Glycol 3350 255 Gm Powder 17 Gm PO PRN DAILY PRN Meclizine Hcl 25 Mg Tablet 25 Mg PO DAILY Mag-Oxide (Magnesium Oxide) 400 Mg Tablet 400 Mg PO BID94 Losartan Potassium (Losartan Potassium) 25 Mg Tablet 12.5 Mg PO HS Losartan Potassium (Losartan Potassium) 25 Mg Tablet 25 Mg PO DAILY Lidocaine 1 Each Adh..patch 1 Each TP DAILY Lantus Solostar (Insulin Glargine,Hum.rec.anlog) 100 Unit/1 Ml Insuln.pen 30 Unit SQ QHS Hydrocodone-Apap 5-325 (Hydrocodone Bit/Acetaminophen) 1 Each Tablet 1 Tab PO PRN Q6HRS PRN Hydrocodone-Apap 5-325 (Hydrocodone Bit/Acetaminophen) 1 Each Tablet 1 Tab PO HS PRN Gabapentin (Gabapentin) 300 Mg Capsule 300 Mg PO HS Ferrous Sulfate 325 Mg Tablet 325 Mg PO DAILY Dorzolamide-Timolol Eye Drops (Dorzolamide Hcl/Timolol Maleat) 10 Ml Drops 1 Drop LEFTEYE HS Cosopt Eye Drops (Dorzolamide Hcl/Timolol Maleat) 10 Ml Drops 1 Drop LEFTEYE HS Clopidogrel (Clopidogrel Bisulfate) 75 Mg Tablet 75 Mg PO DAILY Atorvastatin Calcium 40 Mg Tablet 40 Mg PO QHS Aspirin 81 Mg Tab.chew 81 Mg PO DAILY Artificial Tears Eye Drops (Dextran 70/Hypromellose) 15 Ml Drops 1 Drop EACHEYE PRN Q4HRS PRN Acetaminophen 500 Mg Tablet 1,000 Mg PO PRN Q6HRS PRN I have reviewed the current psychotropics carefully including drug interactions. Risk benefit ratio favors no change other than as noted in my dictated progress note. Diagnosis: Problems: (1) Anxiety disorder (2) Major depressive disorder, recurrent episode (3) Impulse control disorder (4) Mild cognitive disorder JENNIFER CHEUNG MD Aug 05, 2018 22:41
[2018-08-06 05:41] VITALS: BP 102/60
[2018-08-06] MEDS: INSULIN LISPRO 300 UNITS/3 ML INSULN.PEN. SQ SCH ×3 (08:00→17:18)
[2018-08-06] MEDS: CLOPIDOGREL BISULFATE 75 MG TABLET PO SCH (08:04)
[2018-08-06] MEDS: MECLIZINE 12.5 MG TABLET. PO SCH (08:04)
[2018-08-06] MEDS: MAGNESIUM OXIDE 400 MG TABLET PO SCH ×2 (08:04→17:17)
[2018-08-06] MEDS: LEVOTHYROXINE 25 MCG TABLET. PO SCH (08:04)
[2018-08-06] MEDS: ASPIRIN 81 MG TAB.CHEW PO SCH (08:04)
[2018-08-06] MEDS: OLANZapine 5 MG TABLET PO SCH (08:05)
[2018-08-06] MEDS: LOSARTAN 25 MG TABLET. PO SCH ×2 (08:05→19:53)
[2018-08-06] MEDS: FERROUS SULFATE 325 MG TABLET. PO SCH (08:06)
[2018-08-06] MEDS: SENNOSIDES/DOCUSATE 8.6/50MG TABLET. PO SCH ×2 (08:06→17:17)
[2018-08-06] MEDS: POLYETHYLENE GLYCOL 3350 17 GM PACKET. PO SCH (08:06)
[2018-08-06] MEDS: LIDOCAINE (700MG/PATCH) PATCH. TD SCH ×2 (08:07)
[2018-08-06] MEDS: NYSTATIN TOPICAL POWDER 15GM BOTTLE. TP SCH ×2 (08:07→19:54)
--- NOTE | 2018-08-06 08:55 | NUR ---
Patient has been very resistive with her morning medications. She is refusing the Zyprexa. She states she does not have any hoarding tendencies, she is never obsessive, she has no memory problems, and no need for an antipsychotic; she also states that staff at [facility] lied about her behaviors. Will hold for now and attempt to provide at a later time.
[2018-08-06] MEDS: OLANZapine IM 10 MG VIAL. IM SCH (09:00)
--- NOTE | 2018-08-06 09:14 | NUR ---
WEEKLY ACTIVITY THERAPY NOTE Date of Admission: 07/11/2018 Date of AT Assessment: 07/14/2018 Goal aimed: to increase engagement Initial goal: Pt. will participate in at least five Activity Therapy groups before discharge. Changed goal 07/30/2018:Pt. will participate in at least three Activity Therapy groups per week Weekly progress towards goal: did not achieve Group participation level: zero to minimal Weekly highlights: NA Behaviors observed: withdrawn, sleeping often Plan: no change to goal Beneficial adaptations: establish trust by finding commonalities ([place] heritage, [employer] background), responds well to being heard, female care
--- NOTE | 2018-08-06 09:24 | NUR ---
WEEKLY NOTE: Pt is questioning all medications that are given to her and attempts to resist. 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 Pt does not attend groups and continues to have depression. A referral for psychological testing will be discussed. Pt sleeps well and eating okay. Pt can discharge to a placement that not only provides therapy but works on pt depression and mental illness.
--- NOTE | 2018-08-06 13:24 | NUR ---
SW returned call to pt sister to give her an update on placement, in which pt was denied for a few as she has a hx of making SI statements. SW will continue to send out referrals and keep the family up to date. ROSALIE also informed Vijaya that SW did not suggest that pt live with them; in fact, SW told pt that it was not an option as they both work and cannot care for pt needs.
[2018-08-06 16:07] VITALS: BP 159/83
--- NOTE | 2018-08-06 16:55 | NUR ---
Pt came to office asking to make a phone call. Pt left a message for the person, who did not answer the phone and asked for them to contact her at the hospital number. SW and pt discussed the fact that pt has not found a place for rehab as of yet. Pt continues to be focused on discharging home and "cleaning my house out myself. I don't want anyone to throw anything away".
[2018-08-06] MEDS: ATORVASTATIN CALCIUM 20 MG TABLET PO SCH (19:52)
[2018-08-06] MEDS: GABAPENTIN 300 MG CAPSULE. PO SCH (19:54)
[2018-08-06] MEDS: PATCH REMOVAL. MC SCH (19:55)
[2018-08-06] MEDS: INSULIN GLARGINE 300 UNITS/3 ML INSULN.PEN. SQ SCH (19:57)
[2018-08-06] MEDS: DORZOLAMIDE/TIMOLOL 2%/0.5% OPHTH SOLUTION 10ML BOTTLE. OS SCH (20:01)
[2018-08-06] MEDS: HYDROcodone/APAP 5/325MG 1 TAB TABLET PO SCH (20:01)
--- NOTE | 2018-08-06 22:47 | PDOC ---
Exam Note: Abhilash Note: Please also refer to the separate dictated note~for this date of service dictated separately.~Patient seen individually. Discussed the patient with Nursing staff reviewed the chart.~Reviewed interim history and current functioning. Reviewed vital signs,~Labs/ Radiology~and current medications noted below. Continue current treatment with the changes noted in the dictated addendum note Assessment: Vital Signs: Vital Signs Date Time Temp Pulse Resp B/P (MAP) Pulse Ox O2 Delivery O2 Flow Rate FiO2 08/06/18 21:37 18 Room Air 08/06/18 19:53 99 159/83 08/06/18 16:07 97.6 98 I&O Intake and Output 08/06/18 07:00 Intake Total 360 ml Balance 360 ml Intake Oral 360 ml Labs: Laboratory Tests Test 08/06/18 07:28 08/06/18 11:26 08/06/18 16:55 08/06/18 19:05 Glucose (Fingerstick) 79 mg/dL (70-99) 145 mg/dL (70-99) H 217 mg/dL (70-99) H 219 mg/dL (70-99) H Current Medications: Meds: Current Medications Clopidogrel Bisulfate (Plavix) 75 mg DAILY PO Last administered on 08/06/18at 08:04; Start 07/11/18 at 09:00 Ferrous Sulfate (Feosol) 325 mg DAILY PO Last administered on 08/06/18at 08:06; Start 07/11/18 at 09:00 Gabapentin (Neurontin) 300 mg HS PO ; Start 07/11/18 at 21:00; Stop 07/11/18 at 21:00; Status DC Acetaminophen/ Hydrocodone Bitart (Lortab 5/325) 1 tab PRN QHS PRN PO PAIN; Start 07/10/18 at 22:00; Stop 07/10/18 at 22:51; Status DC Acetaminophen/ Hydrocodone Bitart (Lortab 5/325) 1 tab PRN Q6HRS PRN PO PAIN Last administered on 08/01/18at 02:47; Start 07/10/18 at 22:00 Insulin Glargine (Lantus) 30 units QHS SQ ; Start 07/11/18 at 21:00; Stop 07/11/18 at 21:00; Status DC Losartan Potassium (Cozaar) 12.5 mg HS PO ; Start 07/11/18 at 21:00; Stop 07/11/18 at 21:00; Status DC Losartan Potassium (Cozaar) 25 mg DAILY PO Last administered on 07/23/18at 09:47; Start 07/11/18 at 09:00; Stop 07/27/18 at 17:24; Status DC Senna/Docusate Sodium (Senna Plus) 1 tab BID94 PO ; Start 07/11/18 at 09:00; Stop 07/11/18 at 09:00; Status DC Acetaminophen (Tylenol) 1,000 mg PRN Q6HRS PRN PO PAIN / TEMP Last administered on 07/23/18at 10:10; Start 07/10/18 at 22:45 Aspirin (Children'S Aspirin) 81 mg DAILYWBKFT PO Last administered on 08/06/18at 08:04; Start 07/11/18 at 08:00 Atorvastatin Calcium (Lipitor) 40 mg QHS PO ; Start 07/11/18 at 21:00; Stop 07/11/18 at 21:00; Status DC Artificial Tears (Artificial Tears) 1 drop PRN Q15MIN PRN OU DRY EYE Last administered on 07/22/18at 11:31; Start 07/10/18 at 22:45 Non-Formulary Medication (Dextran 70/ Hypromellose (Artificial Tears Eye Drops)) 1 drop PRN Q4HRS PRN EACHEYE DRY EYE; Start 07/10/18 at 22:00; Status UNV Dorzolamide/ Timolol (Cosopt) 1 drop QHS OS Last administered on 08/06/18at 20: 01; Start 07/11/18 at 21:00 Non-Formulary Medication (Dorzolamide Hcl/ Timolol Maleat (Dorzolamide-Timolol Eye Drops)) 1 drop HS LEFTEYE ; Start 07/11/18 at 21:00; Status UNV Vitamin D (Vitamin D3) 50,000 unit WEEKLY PO Last administered on 07/31/18at 08: 19; Start 07/17/18 at 09:00 Lidocaine (Lidoderm) 1 patch DAILY TD Last administered on 08/06/18 08:07; Start 07/11/18 at 09:00; Stop 08/06/18 at 15:21; Status DC Magnesium Oxide (Magnesium Oxide) 400 mg BID94 PO Last administered on 08/06/18 17:17; Start 07/11/18 at 09:00 Meclizine HCl (Antivert) 25 mg DAILY PO Last administered on 08/06/18 08:04; Start 07/11/18 at 09:00 Polyethylene Glycol (miraLAX) 17 gm PRN DAILY PRN PO CONSTIPATION Last administered on 07/12/18 07:37; Start 07/11/18 at 09:00; Stop 07/15/18 at 18:54; Status DC Sertraline HCl (Zoloft) 25 mg DAILY PO Last administered on 07/13/18 07:57; Start 07/11/18 at 09:00; Stop 07/13/18 at 17:38; Status DC Insulin Human Lispro (HumaLOG) 0-16 UNITS TIDWMEALS SQ Last administered on 08/06/18 17:18; Start 07/11/18 at 08:00 Dextrose 12.5 gm PRN Q15MIN PRN IV SEE COMMENTS; Start 07/10/18 at 22:45 Miscellaneous (Lidoderm Patch Removal) 1 ea QHS MC Last administered on 08/05/18 20:27; Start 07/11/18 at 21:00; Stop 08/06/18 at 15:22; Status DC Atorvastatin Calcium (Lipitor) 40 mg QHS PO Last administered on 08/06/18 19:52; Start 07/10/18 at 23:00 Gabapentin (Neurontin) 300 mg HS PO Last administered on 08/06/18 19:54; Start 07/10/18 at 23:00 Acetaminophen/ Hydrocodone Bitart (Lortab 5/325) 1 tab HS PO Last administered on 08/06/18 20:01; Start 07/10/18 at 23:00 Insulin Glargine (Lantus) 30 units QHS SQ Last administered on 08/06/18 19:57; Start 07/10/18 at 23:00 Losartan Potassium (Cozaar) 12.5 mg HS PO Last administered on 08/06/18 19:53; Start 07/10/18 at 23:00 Senna/Docusate Sodium (Senna Plus) 1 tab BID94 PO Last administered on 08/06/18 17:17; Start 07/10/18 at 23:00 Multi-Ingredient Ointment (Analgesic Welsh) 1 ivan PRN QID PRN TP MUSCLE PAIN; Start 07/10/18 at 23:15 Al Hydroxide/Mg Hydroxide (Mylanta Plus Xs) 15 ml PRN AFTMEALHC PRN PO DYSPEPSIA; Start 07/10/18 at 23:15 Magnesium Hydroxide (Milk Of Magnesia) 2,400 mg PRN QHS PRN PO CONSTIPATION; Start 07/10/18 at 23:15 Sertraline HCl (Zoloft) 50 mg DAILY PO Last administered on 07/15/18 08:10; Start 07/14/18 at 09:00; Stop 07/15/18 at 18:43; Status DC Buspirone HCl (Buspar) 5 mg 0900,1700 PO Last administered on 07/17/18 17:51; Start 07/15/18 at 09:00; Stop 07/18/18 at 01:49; Status DC Fluoxetine HCl (PROzac ORAL SOLN) 5 mg DAILY PO Last administered on 07/16/18 10:05; Start 07/16/18 at 09:00; Stop 07/16/18 at 17:42; Status DC Polyethylene Glycol (miraLAX) 17 gm DAILY PO Last administered on 08/06/18 08:06; Start 07/16/18 at 09:00 Hydrocortisone (Proctosol-Hc) 1 ivan TID RC Last administered on 07/30/18 19:20; Start 07/15/18 at 21:00; Stop 08/02/18 at 07:41; Status DC Levothyroxine Sodium (Synthroid) 25 mcg DAILY06 PO Last administered on 08/06/18 08:04; Start 07/17/18 at 06:00 Nystatin (Nystop) 1 ivan BID TP Last administered on 08/06/18 19:54; Start 07/22/18 at 21:00 Olanzapine (ZyPREXA IM) 5 mg DAILY IM ; Start 07/28/18 at 09:00; Stop 07/28/18 at 09:00; Status DC Olanzapine (ZyPREXA IM) 5 mg DAILY IM ; Start 07/27/18 at 15:30 Olanzapine (ZyPREXA) 5 mg 1X ONCE PO Last administered on 07/27/18at 15:57; Start 07/27/18 at 16:00; Stop 07/27/18 at 16:01; Status DC Losartan Potassium (Cozaar) 12.5 mg DAILY PO Last administered on 08/06/18 08:05; Start 07/28/18 at 09:00 Olanzapine (ZyPREXA) 5 mg DAILY PO Last administered on 08/06/18 08:05; Start 07/28/18 at 09:00 Hydrocortisone (Proctosol-Hc) 1 ivan PRN TID PRN RC RECTAL PAIN; Start 08/02/18 at 07:45 Lidocaine (Lidoderm) 1 patch DAILY TD Last administered on 08/06/18at 08:07; Start 08/03/18 at 16:15; Stop 08/06/18 at 15:21; Status DC Miscellaneous (Lidoderm Patch Removal) 1 ea QHS MC Last administered on 08/05/18at 20:27; Start 08/03/18 at 21:00; Stop 08/06/18 at 15:22; Status DC Lidocaine (Lidoderm) 2 patch DAILY TD ; Start 08/07/18 at 09:00 Miscellaneous (Lidoderm Patch Removal) 2 ea QHS MC Last administered on 08/06/18at 19:55; Start 08/06/18 at 15:22 Active Scripts Active Reported Vitamin D2 (Ergocalciferol (Vitamin D2)) 50,000 Unit Capsule 50,000 Unit PO WEEKLY Zoloft (Sertraline Hcl) 25 Mg Tablet 25 Mg PO DAILY Senna-S Laxative Tablet (Sennosides/Docusate Sodium) 1 Each Tablet 1 Each PO BID94 Refresh Optive Eye Drops (Carboxymethylcellulos/Glycerin) 15 Ml Drops 1 Drop EACHEYE PRN Q4HRS PRN Polyethylene Glycol 3350 255 Gm Powder 17 Gm PO PRN DAILY PRN Meclizine Hcl 25 Mg Tablet 25 Mg PO DAILY Mag-Oxide (Magnesium Oxide) 400 Mg Tablet 400 Mg PO BID94 Losartan Potassium (Losartan Potassium) 25 Mg Tablet 12.5 Mg PO HS Losartan Potassium (Losartan Potassium) 25 Mg Tablet 25 Mg PO DAILY Lidocaine 1 Each Adh..patch 1 Each TP DAILY Lantus Solostar (Insulin Glargine,Hum.rec.anlog) 100 Unit/1 Ml Insuln.pen 30 Unit SQ QHS Hydrocodone-Apap 5-325 (Hydrocodone Bit/Acetaminophen) 1 Each Tablet 1 Tab PO PRN Q6HRS PRN Hydrocodone-Apap 5-325 (Hydrocodone Bit/Acetaminophen) 1 Each Tablet 1 Tab PO HS PRN Gabapentin (Gabapentin) 300 Mg Capsule 300 Mg PO HS Ferrous Sulfate 325 Mg Tablet 325 Mg PO DAILY Dorzolamide-Timolol Eye Drops (Dorzolamide Hcl/Timolol Maleat) 10 Ml Drops 1 Drop LEFTEYE HS Cosopt Eye Drops (Dorzolamide Hcl/Timolol Maleat) 10 Ml Drops 1 Drop LEFTEYE HS Clopidogrel (Clopidogrel Bisulfate) 75 Mg Tablet 75 Mg PO DAILY Atorvastatin Calcium 40 Mg Tablet 40 Mg PO QHS Aspirin 81 Mg Tab.chew 81 Mg PO DAILY Artificial Tears Eye Drops (Dextran 70/Hypromellose) 15 Ml Drops 1 Drop EACHEYE PRN Q4HRS PRN Acetaminophen 500 Mg Tablet 1,000 Mg PO PRN Q6HRS PRN I have reviewed the current psychotropics carefully including drug interactions. Risk benefit ratio favors no change other than as noted in my dictated progress note. Diagnosis: Problems: (1) Anxiety disorder (2) Major depressive disorder, recurrent episode (3) Impulse control disorder (4) Mild cognitive disorder JENNIFER CHEUNG MD Aug 06, 2018 22:47
--- NOTE | 2018-08-06 23:12 | NUR ---
Nursing Note The patient was located in the day room for her medication pass and assessment. The patient was compliant with her medications and took them whole. The patient was appropriate during interactions with this nurse and peers. The patient is currently sleeping in her room.
[2018-08-07] MEDS: LEVOTHYROXINE 25 MCG TABLET. PO SCH (05:47)
[2018-08-07 05:57] VITALS: BP 91/57
[2018-08-07] MEDS: INSULIN LISPRO 300 UNITS/3 ML INSULN.PEN. SQ SCH ×3 (07:56→17:00)
[2018-08-07] MEDS: ASPIRIN 81 MG TAB.CHEW PO SCH (08:46)
[2018-08-07] MEDS: CLOPIDOGREL BISULFATE 75 MG TABLET PO SCH (08:46)
[2018-08-07] MEDS: SENNOSIDES/DOCUSATE 8.6/50MG TABLET. PO SCH ×2 (08:46→17:12)
[2018-08-07] MEDS: FERROUS SULFATE 325 MG TABLET. PO SCH (08:46)
[2018-08-07] MEDS: MAGNESIUM OXIDE 400 MG TABLET PO SCH ×2 (08:47→17:12)
[2018-08-07] MEDS: POLYETHYLENE GLYCOL 3350 17 GM PACKET. PO SCH (08:47)
[2018-08-07] MEDS: OLANZapine 5 MG TABLET PO SCH (08:47)
[2018-08-07] MEDS: LIDOCAINE (700MG/PATCH) PATCH. TD SCH (08:50)
[2018-08-07] MEDS: NYSTATIN TOPICAL POWDER 15GM BOTTLE. TP SCH ×2 (08:50→21:12)
[2018-08-07] MEDS: CHOLECALCIFEROL (VITAMIN D3) 50,000 UNIT CAPSULE PO SCH (08:50)
[2018-08-07] MEDS: MECLIZINE 12.5 MG TABLET. PO SCH (08:53)
[2018-08-07] MEDS: OLANZapine IM 10 MG VIAL. IM SCH (09:00)
[2018-08-07] MEDS: LOSARTAN 25 MG TABLET. PO SCH ×2 (09:00→19:45)
[2018-08-07 16:05] VITALS: BP 111/65
[2018-08-07] MEDS: DORZOLAMIDE/TIMOLOL 2%/0.5% OPHTH SOLUTION 10ML BOTTLE. OS SCH (19:43)
[2018-08-07] MEDS: GABAPENTIN 300 MG CAPSULE. PO SCH (19:44)
[2018-08-07] MEDS: HYDROcodone/APAP 5/325MG 1 TAB TABLET PO SCH (19:44)
[2018-08-07] MEDS: ATORVASTATIN CALCIUM 20 MG TABLET PO SCH (19:44)
[2018-08-07] MEDS: PATCH REMOVAL. MC SCH (19:46)
[2018-08-07] MEDS: INSULIN GLARGINE 300 UNITS/3 ML INSULN.PEN. SQ SCH (19:47)
--- NOTE | 2018-08-07 20:16 | PN ---
DATE: 08/05/2018 PSYCHIATRIC PROGRESS NOTE This late entry 08/05/2018 covers elements not covered in my initial note. SUBJECTIVE: I met with the patient in the evening. The patient slept 4-1/4 hours previous night. She slept through breakfast until about 11:00 a.m. She remains somewhat obsessive, anxious, appears depressed. She has been digging in herself rectally, becomes fixated on her medications, refusing them frequently and I had a lengthy discussion with her about her diagnosis, need for treatment to help her. Further historical information from social service staff is reflective of marked OCD, hoarding behaviors at home, and house was in very poor health condition with mice on the floor amongst other things. The patient minimizes all of this. REVIEW OF SYSTEMS: Ambulation impaired, in wheelchair and deficits consequent to her CVA. No CV, , pulmonary, eye system symptoms on review, all of which she minimizes. MENTAL STATUS EXAM: Oriented to herself and situation. Speech has some latency. Abstraction fair, computation impaired, language function intact, attention span short. Mood and affect somewhat withdrawn. LABORATORY DATA: Reviewed. IMPRESSION: Unchanged from initial note. PLAN: No change from initial note. JENNIFER CHEUNG MD DR: SHERIF/kelly JOB#: [id number] / [id number]
--- NOTE | 2018-08-07 20:19 | PN ---
DATE: 08/06/2018 PSYCHIATRIC PROGRESS NOTE This late entry 08/06/2018 covers elements not covered in my initial note. SUBJECTIVE: I met with the patient in the early afternoon and in the morning. The patient was staffed at a treatment team meeting with the entire team. Apparently guardianship is being pursued on the patient and we will request psychological assessment for capacity to make decisions by Dr. Alberto. Again, reviewed her history of being a hoarder at home, extremely unhygienic conditions in the home as previously described. She slept 6-3/4 hours. Appetite fair, very resistant to any psychotropics. Denies any psychiatric problems whatsoever. REVIEW OF SYSTEMS: Ambulation impaired, in wheelchair. No CV, , pulmonary, eye system symptoms on review. MENTAL STATUS EXAM: The patient is oriented to herself and situation. Speech is coherent, abstraction fair, computation impaired, language function intact. Affect appears dysphoric, anxious, depressed, but she minimizes any mood symptoms. She remains quite anxious, distractable. She does have short term memory deficits and some word finding problems. LABORATORY DATA: Reviewed. IMPRESSION: Unchanged from initial note. PLAN: No change from initial note. I discussed with her at some length the need for antidepressants, but she has totally opposed to it. Nothing I could do to help convince her otherwise. JENNIFER CHEUNG MD DR: SHERIF/kelly JOB#: [id number] / [id number]
--- NOTE | 2018-08-07 22:31 | NUR ---
Nursing Note The patient was located in the hallway for her assessment and medication pass. The patient was compliant with her medications and took them whole. The patient was obsessed with calling her safety equipment testing specialist about food vouchers and a credit card. This nurse allowed her to call her DPOA and this calmed the patient. The patient is currently receiving a shower.
--- NOTE | 2018-08-07 22:32 | PDOC ---
Exam Note: Abhilash Note: Please also refer to the separate dictated note~for this date of service dictated separately.~Patient seen individually. Discussed the patient with Nursing staff reviewed the chart.~Reviewed interim history and current functioning. Reviewed vital signs,~Labs/ Radiology~and current medications noted below. Continue current treatment with the changes noted in the dictated addendum note Assessment: Vital Signs: Vital Signs Date Time Temp Pulse Resp B/P (MAP) Pulse Ox O2 Delivery O2 Flow Rate FiO2 08/07/18 20:44 18 Room Air 08/07/18 19:45 91 111/65 08/07/18 16:05 98.5 95 I&O Intake and Output 08/07/18 07:00 Intake Total 1440 ml Balance 1440 ml Intake Oral 1440 ml # Bowel Movements 1 Labs: Laboratory Tests Test 08/07/18 07:17 08/07/18 11:46 08/07/18 16:43 08/07/18 19:10 Glucose (Fingerstick) 88 mg/dL (70-99) 146 mg/dL (70-99) H 145 mg/dL (70-99) H 273 mg/dL (70-99) H Current Medications: Meds: Current Medications Clopidogrel Bisulfate (Plavix) 75 mg DAILY PO Last administered on 08/07/18at 08:46; Start 07/11/18 at 09:00 Ferrous Sulfate (Feosol) 325 mg DAILY PO Last administered on 08/07/18at 08:46; Start 07/11/18 at 09:00 Gabapentin (Neurontin) 300 mg HS PO ; Start 07/11/18 at 21:00; Stop 07/11/18 at 21:00; Status DC Acetaminophen/ Hydrocodone Bitart (Lortab 5/325) 1 tab PRN QHS PRN PO PAIN; Start 07/10/18 at 22:00; Stop 07/10/18 at 22:51; Status DC Acetaminophen/ Hydrocodone Bitart (Lortab 5/325) 1 tab PRN Q6HRS PRN PO PAIN Last administered on 08/01/18at 02:47; Start 07/10/18 at 22:00 Insulin Glargine (Lantus) 30 units QHS SQ ; Start 07/11/18 at 21:00; Stop 07/11/18 at 21:00; Status DC Losartan Potassium (Cozaar) 12.5 mg HS PO ; Start 07/11/18 at 21:00; Stop 07/11/18 at 21:00; Status DC Losartan Potassium (Cozaar) 25 mg DAILY PO Last administered on 07/23/18at 09:47; Start 07/11/18 at 09:00; Stop 07/27/18 at 17:24; Status DC Senna/Docusate Sodium (Senna Plus) 1 tab BID94 PO ; Start 07/11/18 at 09:00; Stop 07/11/18 at 09:00; Status DC Acetaminophen (Tylenol) 1,000 mg PRN Q6HRS PRN PO PAIN / TEMP Last administered on 07/23/18 10:10; Start 07/10/18 at 22:45 Aspirin (Children'S Aspirin) 81 mg DAILYWBKFT PO Last administered on 08/07/18 08:46; Start 07/11/18 at 08:00 Atorvastatin Calcium (Lipitor) 40 mg QHS PO ; Start 07/11/18 at 21:00; Stop 07/11/18 at 21:00; Status DC Artificial Tears (Artificial Tears) 1 drop PRN Q15MIN PRN OU DRY EYE Last administered on 07/22/18at 11:31; Start 07/10/18 at 22:45 Non-Formulary Medication (Dextran 70/ Hypromellose (Artificial Tears Eye Drops)) 1 drop PRN Q4HRS PRN EACHEYE DRY EYE; Start 07/10/18 at 22:00; Status UNV Dorzolamide/ Timolol (Cosopt) 1 drop QHS OS Last administered on 08/07/18at 19:43; Start 07/11/18 at 21:00 Non-Formulary Medication (Dorzolamide Hcl/ Timolol Maleat (Dorzolamide-Timolol Eye Drops)) 1 drop HS LEFTEYE ; Start 07/11/18 at 21:00; Status UNV Vitamin D (Vitamin D3) 50,000 unit WEEKLY PO Last administered on 08/07/18at 08:50; Start 07/17/18 at 09:00 Lidocaine (Lidoderm) 1 patch DAILY TD Last administered on 08/06/18 08:07; Start 07/11/18 at 09:00; Stop 08/06/18 at 15:21; Status DC Magnesium Oxide (Magnesium Oxide) 400 mg BID94 PO Last administered on 08/07/18 17:12; Start 07/11/18 at 09:00 Meclizine HCl (Antivert) 25 mg DAILY PO Last administered on 08/07/18 08:53; Start 07/11/18 at 09:00 Polyethylene Glycol (miraLAX) 17 gm PRN DAILY PRN PO CONSTIPATION Last administered on 07/12/18 07:37; Start 07/11/18 at 09:00; Stop 07/15/18 at 18:54; Status DC Sertraline HCl (Zoloft) 25 mg DAILY PO Last administered on 07/13/18 07:57; Start 07/11/18 at 09:00; Stop 07/13/18 at 17:38; Status DC Insulin Human Lispro (HumaLOG) 0-16 UNITS TIDWMEALS SQ Last administered on 08/06/18 17:18; Start 07/11/18 at 08:00 Dextrose 12.5 gm PRN Q15MIN PRN IV SEE COMMENTS; Start 07/10/18 at 22:45 Miscellaneous (Lidoderm Patch Removal) 1 ea QHS MC Last administered on 08/05/18 20:27; Start 07/11/18 at 21:00; Stop 08/06/18 at 15:22; Status DC Atorvastatin Calcium (Lipitor) 40 mg QHS PO Last administered on 08/07/18 19:44; Start 07/10/18 at 23:00 Gabapentin (Neurontin) 300 mg HS PO Last administered on 08/07/18 19:44; Start 07/10/18 at 23:00 Acetaminophen/ Hydrocodone Bitart (Lortab 5/325) 1 tab HS PO Last administered on 08/07/18 19:44; Start 07/10/18 at 23:00 Insulin Glargine (Lantus) 30 units QHS SQ Last administered on 08/07/18 19:47; Start 07/10/18 at 23:00 Losartan Potassium (Cozaar) 12.5 mg HS PO Last administered on 08/07/18 19:45; Start 07/10/18 at 23:00 Senna/Docusate Sodium (Senna Plus) 1 tab BID94 PO Last administered on 4/26/ 19at 17:12; Start 07/10/18 at 23:00 Multi-Ingredient Ointment (Analgesic Colbert) 1 ivan PRN QID PRN TP MUSCLE PAIN; Start 07/10/18 at 23:15 Al Hydroxide/Mg Hydroxide (Mylanta Plus Xs) 15 ml PRN AFTMEALHC PRN PO DYSPEPSIA; Start 07/10/18 at 23:15 Magnesium Hydroxide (Milk Of Magnesia) 2,400 mg PRN QHS PRN PO CONSTIPATION; Start 07/10/18 at 23:15 Sertraline HCl (Zoloft) 50 mg DAILY PO Last administered on 07/15/18 08:10; Start 07/14/18 at 09:00; Stop 07/15/18 at 18:43; Status DC Buspirone HCl (Buspar) 5 mg 0900,1700 PO Last administered on 07/17/18at 17:51; Start 07/15/18 at 09:00; Stop 07/18/18 at 01:49; Status DC Fluoxetine HCl (PROzac ORAL SOLN) 5 mg DAILY PO Last administered on 07/16/18at 10:05; Start 07/16/18 at 09:00; Stop 07/16/18 at 17:42; Status DC Polyethylene Glycol (miraLAX) 17 gm DAILY PO Last administered on 08/07/18at 08:47; Start 07/16/18 at 09:00 Hydrocortisone (Proctosol-Hc) 1 ivan TID RC Last administered on 07/30/18at 19:20; Start 07/15/18 at 21:00; Stop 08/02/18 at 07:41; Status DC Levothyroxine Sodium (Synthroid) 25 mcg DAILY06 PO Last administered on 08/07/18at 05:47; Start 07/17/18 at 06:00 Nystatin (Nystop) 1 ivan BID TP Last administered on 08/07/18at 21:12; Start 07/22/18 at 21:00 Olanzapine (ZyPREXA IM) 5 mg DAILY IM ; Start 07/28/18 at 09:00; Stop 07/28/18 at 09:00; Status DC Olanzapine (ZyPREXA IM) 5 mg DAILY IM ; Start 07/27/18 at 15:30 Olanzapine (ZyPREXA) 5 mg 1X ONCE PO Last administered on 07/27/18 15:57; Start 07/27/18 at 16:00; Stop 07/27/18 at 16:01; Status DC Losartan Potassium (Cozaar) 12.5 mg DAILY PO Last administered on 08/06/18 08:05; Start 07/28/18 at 09:00 Olanzapine (ZyPREXA) 5 mg DAILY PO Last administered on 08/07/18 08:47; Start 07/28/18 at 09:00 Hydrocortisone (Proctosol-Hc) 1 ivan PRN TID PRN RC RECTAL PAIN; Start 08/02/18 at 07:45 Lidocaine (Lidoderm) 1 patch DAILY TD Last administered on 08/06/18 08:07; Start 08/03/18 at 16:15; Stop 08/06/18 at 15:21; Status DC Miscellaneous (Lidoderm Patch Removal) 1 ea QHS MC Last administered on 08/05/18at 20:27; Start 08/03/18 at 21:00; Stop 08/06/18 at 15:22; Status DC Lidocaine (Lidoderm) 2 patch DAILY TD Last administered on 08/07/18at 08:50; Start 08/07/18 at 09:00 Miscellaneous (Lidoderm Patch Removal) 2 ea QHS MC Last administered on 08/07/18 19:46; Start 08/06/18 at 15:22 Active Scripts Active Reported Vitamin D2 (Ergocalciferol (Vitamin D2)) 50,000 Unit Capsule 50,000 Unit PO WEEKLY Zoloft (Sertraline Hcl) 25 Mg Tablet 25 Mg PO DAILY Senna-S Laxative Tablet (Sennosides/Docusate Sodium) 1 Each Tablet 1 Each PO BID94 Refresh Optive Eye Drops (Carboxymethylcellulos/Glycerin) 15 Ml Drops 1 Drop EACHEYE PRN Q4HRS PRN Polyethylene Glycol 3350 255 Gm Powder 17 Gm PO PRN DAILY PRN Meclizine Hcl 25 Mg Tablet 25 Mg PO DAILY Mag-Oxide (Magnesium Oxide) 400 Mg Tablet 400 Mg PO BID94 Losartan Potassium (Losartan Potassium) 25 Mg Tablet 12.5 Mg PO HS Losartan Potassium (Losartan Potassium) 25 Mg Tablet 25 Mg PO DAILY Lidocaine 1 Each Adh..patch 1 Each TP DAILY Lantus Solostar (Insulin Glargine,Hum.rec.anlog) 100 Unit/1 Ml Insuln.pen 30 Unit SQ QHS Hydrocodone-Apap 5-325 (Hydrocodone Bit/Acetaminophen) 1 Each Tablet 1 Tab PO PRN Q6HRS PRN Hydrocodone-Apap 5-325 (Hydrocodone Bit/Acetaminophen) 1 Each Tablet 1 Tab PO HS PRN Gabapentin (Gabapentin) 300 Mg Capsule 300 Mg PO HS Ferrous Sulfate 325 Mg Tablet 325 Mg PO DAILY Dorzolamide-Timolol Eye Drops (Dorzolamide Hcl/Timolol Maleat) 10 Ml Drops 1 Drop LEFTEYE HS Cosopt Eye Drops (Dorzolamide Hcl/Timolol Maleat) 10 Ml Drops 1 Drop LEFTEYE HS Clopidogrel (Clopidogrel Bisulfate) 75 Mg Tablet 75 Mg PO DAILY Atorvastatin Calcium 40 Mg Tablet 40 Mg PO QHS Aspirin 81 Mg Tab.chew 81 Mg PO DAILY Artificial Tears Eye Drops (Dextran 70/Hypromellose) 15 Ml Drops 1 Drop EACHEYE PRN Q4HRS PRN Acetaminophen 500 Mg Tablet 1,000 Mg PO PRN Q6HRS PRN I have reviewed the current psychotropics carefully including drug interactions. Risk benefit ratio favors no change other than as noted in my dictated progress note. Diagnosis: Problems: (1) Anxiety disorder (2) Major depressive disorder, recurrent episode (3) Impulse control disorder (4) Mild cognitive disorder JENNIFER CHEUNG MD Aug 07, 2018 22:32
[2018-08-08] MEDS: LEVOTHYROXINE 25 MCG TABLET. PO SCH (05:49)
[2018-08-08 06:02] VITALS: BP 101/61
[2018-08-08] MEDS: OLANZapine 5 MG TABLET PO SCH (07:57)
[2018-08-08] MEDS: ASPIRIN 81 MG TAB.CHEW PO SCH (07:57)
[2018-08-08] MEDS: CLOPIDOGREL BISULFATE 75 MG TABLET PO SCH (07:57)
[2018-08-08] MEDS: MECLIZINE 12.5 MG TABLET. PO SCH (07:58)
[2018-08-08] MEDS: FERROUS SULFATE 325 MG TABLET. PO SCH (07:59)
[2018-08-08] MEDS: MAGNESIUM OXIDE 400 MG TABLET PO SCH ×2 (07:59→15:11)
[2018-08-08] MEDS: POLYETHYLENE GLYCOL 3350 17 GM PACKET. PO SCH (07:59)
[2018-08-08] MEDS: SENNOSIDES/DOCUSATE 8.6/50MG TABLET. PO SCH ×2 (07:59→15:10)
[2018-08-08] MEDS: INSULIN LISPRO 300 UNITS/3 ML INSULN.PEN. SQ SCH ×3 (08:00→17:00)
[2018-08-08] MEDS: LIDOCAINE (700MG/PATCH) PATCH. TD SCH (08:00)
[2018-08-08] MEDS: LOSARTAN 25 MG TABLET. PO SCH ×2 (08:01→19:31)
[2018-08-08] MEDS: OLANZapine IM 10 MG VIAL. IM SCH (08:01)
[2018-08-08] MEDS: NYSTATIN TOPICAL POWDER 15GM BOTTLE. TP SCH ×2 (08:02→19:26)
[2018-08-08] MEDS: ACETAMINOPHEN 500 MG TABLET PO PRN (10:11)
--- NOTE | 2018-08-08 11:32 | NUR ---
Nursing Note Pt argumentative, irritable refused meds at first then was compliant after another staff approached her.
[2018-08-08 15:45] VITALS: BP 108/66
[2018-08-08] MEDS: PATCH REMOVAL. MC SCH (19:25)
[2018-08-08] MEDS: GABAPENTIN 300 MG CAPSULE. PO SCH (19:26)
[2018-08-08] MEDS: HYDROcodone/APAP 5/325MG 1 TAB TABLET PO SCH (19:26)
[2018-08-08] MEDS: ATORVASTATIN CALCIUM 20 MG TABLET PO SCH (19:26)
[2018-08-08] MEDS: DORZOLAMIDE/TIMOLOL 2%/0.5% OPHTH SOLUTION 10ML BOTTLE. OS SCH (19:28)
[2018-08-08] MEDS: INSULIN GLARGINE 300 UNITS/3 ML INSULN.PEN. SQ SCH (19:29)
[2018-08-08 19:32] VITALS: BP 133/80
--- NOTE | 2018-08-08 22:41 | PDOC ---
Exam Note: Abhilash Note: Please also refer to the separate dictated note~for this date of service dictated separately.~Patient seen individually. Discussed the patient with Nursing staff reviewed the chart.~Reviewed interim history and current functioning. Reviewed vital signs,~Labs/ Radiology~and current medications noted below. Continue current treatment with the changes noted in the dictated addendum note Assessment: Vital Signs: Vital Signs Date Time Temp Pulse Resp B/P (MAP) Pulse Ox O2 Delivery O2 Flow Rate FiO2 08/08/18 20:26 99 08/08/18 19:32 98.5 84 16 133/80 (97) Room Air I&O Intake and Output 08/08/18 07:00 Intake Total 960 ml Balance 960 ml Intake Oral 960 ml Labs: Laboratory Tests Test 08/08/18 07:03 08/08/18 11:46 08/08/18 17:15 08/08/18 19:01 Glucose (Fingerstick) 84 mg/dL (70-99) 207 mg/dL (70-99) H 141 mg/dL (70-99) H 160 mg/dL (70-99) H Current Medications: Meds: Current Medications Clopidogrel Bisulfate (Plavix) 75 mg DAILY PO Last administered on 08/08/18at 07:57; Start 07/11/18 at 09:00 Ferrous Sulfate (Feosol) 325 mg DAILY PO Last administered on 08/08/18at 07:59; Start 07/11/18 at 09:00 Gabapentin (Neurontin) 300 mg HS PO ; Start 07/11/18 at 21:00; Stop 07/11/18 at 21:00; Status DC Acetaminophen/ Hydrocodone Bitart (Lortab 5/325) 1 tab PRN QHS PRN PO PAIN; Start 07/10/18 at 22:00; Stop 07/10/18 at 22:51; Status DC Acetaminophen/ Hydrocodone Bitart (Lortab 5/325) 1 tab PRN Q6HRS PRN PO PAIN Last administered on 08/01/18at 02:47; Start 07/10/18 at 22:00 Insulin Glargine (Lantus) 30 units QHS SQ ; Start 07/11/18 at 21:00; Stop 07/11/18 at 21:00; Status DC Losartan Potassium (Cozaar) 12.5 mg HS PO ; Start 07/11/18 at 21:00; Stop 07/11/18 at 21:00; Status DC Losartan Potassium (Cozaar) 25 mg DAILY PO Last administered on 07/23/18at 09:47; Start 07/11/18 at 09:00; Stop 07/27/18 at 17:24; Status DC Senna/Docusate Sodium (Senna Plus) 1 tab BID94 PO ; Start 07/11/18 at 09:00; Stop 07/11/18 at 09:00; Status DC Acetaminophen (Tylenol) 1,000 mg PRN Q6HRS PRN PO PAIN / TEMP Last administered on 08/08/18 10:11; Start 07/10/18 at 22:45 Aspirin (Children'S Aspirin) 81 mg DAILYWBKFT PO Last administered on 08/08/18at 07:57; Start 07/11/18 at 08:00 Atorvastatin Calcium (Lipitor) 40 mg QHS PO ; Start 07/11/18 at 21:00; Stop 07/11/18 at 21:00; Status DC Artificial Tears (Artificial Tears) 1 drop PRN Q15MIN PRN OU DRY EYE Last administered on 07/22/18at 11:31; Start 07/10/18 at 22:45 Non-Formulary Medication (Dextran 70/ Hypromellose (Artificial Tears Eye Drops)) 1 drop PRN Q4HRS PRN EACHEYE DRY EYE; Start 07/10/18 at 22:00; Status UNV Dorzolamide/ Timolol (Cosopt) 1 drop QHS OS Last administered on 08/08/18at 19:28; Start 07/11/18 at 21:00 Non-Formulary Medication (Dorzolamide Hcl/ Timolol Maleat (Dorzolamide-Timolol Eye Drops)) 1 drop HS LEFTEYE ; Start 07/11/18 at 21:00; Status UNV Vitamin D (Vitamin D3) 50,000 unit WEEKLY PO Last administered on 08/07/18at 08:50; Start 07/17/18 at 09:00 Lidocaine (Lidoderm) 1 patch DAILY TD Last administered on 08/06/18 08:07; Start 07/11/18 at 09:00; Stop 08/06/18 at 15:21; Status DC Magnesium Oxide (Magnesium Oxide) 400 mg BID94 PO Last administered on 08/08/18 15:11; Start 07/11/18 at 09:00 Meclizine HCl (Antivert) 25 mg DAILY PO Last administered on 08/08/18 07:58; Start 07/11/18 at 09:00 Polyethylene Glycol (miraLAX) 17 gm PRN DAILY PRN PO CONSTIPATION Last administered on 07/12/18 07:37; Start 07/11/18 at 09:00; Stop 07/15/18 at 18:54; Status DC Sertraline HCl (Zoloft) 25 mg DAILY PO Last administered on 07/13/18 07:57; Start 07/11/18 at 09:00; Stop 07/13/18 at 17:38; Status DC Insulin Human Lispro (HumaLOG) 0-16 UNITS TIDWMEALS SQ Last administered on 08/08/18 11:54; Start 07/11/18 at 08:00 Dextrose 12.5 gm PRN Q15MIN PRN IV SEE COMMENTS; Start 07/10/18 at 22:45 Miscellaneous (Lidoderm Patch Removal) 1 ea QHS MC Last administered on 08/05/18 20:27; Start 07/11/18 at 21:00; Stop 08/06/18 at 15:22; Status DC Atorvastatin Calcium (Lipitor) 40 mg QHS PO Last administered on 08/08/18 19:26; Start 07/10/18 at 23:00 Gabapentin (Neurontin) 300 mg HS PO Last administered on 08/08/18 19:26; Start 07/10/18 at 23:00 Acetaminophen/ Hydrocodone Bitart (Lortab 5/325) 1 tab HS PO Last administered on 08/08/18 19:26; Start 07/10/18 at 23:00 Insulin Glargine (Lantus) 30 units QHS SQ Last administered on 08/08/18 19:29; Start 07/10/18 at 23:00 Losartan Potassium (Cozaar) 12.5 mg HS PO Last administered on 08/08/18 19:31; Start 07/10/18 at 23:00 Senna/Docusate Sodium (Senna Plus) 1 tab BID94 PO Last administered on 08/08/18 15:10; Start 07/10/18 at 23:00 Multi-Ingredient Ointment (Analgesic [place]) 1 ivan PRN QID PRN TP MUSCLE PAIN; Start 07/10/18 at 23:15 Al Hydroxide/Mg Hydroxide (Mylanta Plus Xs) 15 ml PRN AFTMEALHC PRN PO DYSPEPSIA; Start 07/10/18 at 23:15 Magnesium Hydroxide (Milk Of Magnesia) 2,400 mg PRN QHS PRN PO CONSTIPATION; Start 07/10/18 at 23:15 Sertraline HCl (Zoloft) 50 mg DAILY PO Last administered on 07/15/18 08:10; Start 07/14/18 at 09:00; Stop 07/15/18 at 18:43; Status DC Buspirone HCl (Buspar) 5 mg 0900,1700 PO Last administered on 07/17/18at 17:51; Start 07/15/18 at 09:00; Stop 07/18/18 at 01:49; Status DC Fluoxetine HCl (PROzac ORAL SOLN) 5 mg DAILY PO Last administered on 07/16/18at 10:05; Start 07/16/18 at 09:00; Stop 07/16/18 at 17:42; Status DC Polyethylene Glycol (miraLAX) 17 gm DAILY PO Last administered on 08/08/18 07:59; Start 07/16/18 at 09:00 Hydrocortisone (Proctosol-Hc) 1 ivan TID RC Last administered on 07/30/18at 19:20; Start 07/15/18 at 21:00; Stop 08/02/18 at 07:41; Status DC Levothyroxine Sodium (Synthroid) 25 mcg DAILY06 PO Last administered on 08/08/18at 05:49; Start 07/17/18 at 06:00 Nystatin (Nystop) 1 ivan BID TP Last administered on 08/08/18 19:26; Start 07/22/18 at 21:00 Olanzapine (ZyPREXA IM) 5 mg DAILY IM ; Start 07/28/18 at 09:00; Stop 07/28/18 at 09:00; Status DC Olanzapine (ZyPREXA IM) 5 mg DAILY IM ; Start 07/27/18 at 15:30 Olanzapine (ZyPREXA) 5 mg 1X ONCE PO Last administered on 07/27/18at 15:57; Start 07/27/18 at 16:00; Stop 07/27/18 at 16:01; Status DC Losartan Potassium (Cozaar) 12.5 mg DAILY PO Last administered on 08/06/18 08:05; Start 07/28/18 at 09:00 Olanzapine (ZyPREXA) 5 mg DAILY PO Last administered on 08/08/18 07:57; Start 07/28/18 at 09:00 Hydrocortisone (Proctosol-Hc) 1 ivan PRN TID PRN RC RECTAL PAIN; Start 08/02/18 at 07:45 Lidocaine (Lidoderm) 1 patch DAILY TD Last administered on 08/06/18 08:07; Start 08/03/18 at 16:15; Stop 08/06/18 at 15:21; Status DC Miscellaneous (Lidoderm Patch Removal) 1 ea QHS MC Last administered on 08/05/18 20:27; Start 08/03/18 at 21:00; Stop 08/06/18 at 15:22; Status DC Lidocaine (Lidoderm) 2 patch DAILY TD Last administered on 08/08/18 08:00; Start 08/07/18 at 09:00 Miscellaneous (Lidoderm Patch Removal) 2 ea QHS MC Last administered on 08/08/18 19:25; Start 08/06/18 at 15:22 Active Scripts Active Reported Vitamin D2 (Ergocalciferol (Vitamin D2)) 50,000 Unit Capsule 50,000 Unit PO WEEKLY Zoloft (Sertraline Hcl) 25 Mg Tablet 25 Mg PO DAILY Senna-S Laxative Tablet (Sennosides/Docusate Sodium) 1 Each Tablet 1 Each PO BID94 Refresh Optive Eye Drops (Carboxymethylcellulos/Glycerin) 15 Ml Drops 1 Drop EACHEYE PRN Q4HRS PRN Polyethylene Glycol 3350 255 Gm Powder 17 Gm PO PRN DAILY PRN Meclizine Hcl 25 Mg Tablet 25 Mg PO DAILY Mag-Oxide (Magnesium Oxide) 400 Mg Tablet 400 Mg PO BID94 Losartan Potassium (Losartan Potassium) 25 Mg Tablet 12.5 Mg PO HS Losartan Potassium (Losartan Potassium) 25 Mg Tablet 25 Mg PO DAILY Lidocaine 1 Each Adh..patch 1 Each TP DAILY Lantus Solostar (Insulin Glargine,Hum.rec.anlog) 100 Unit/1 Ml Insuln.pen 30 Unit SQ QHS Hydrocodone-Apap 5-325 (Hydrocodone Bit/Acetaminophen) 1 Each Tablet 1 Tab PO PRN Q6HRS PRN Hydrocodone-Apap 5-325 (Hydrocodone Bit/Acetaminophen) 1 Each Tablet 1 Tab PO HS PRN Gabapentin (Gabapentin) 300 Mg Capsule 300 Mg PO HS Ferrous Sulfate 325 Mg Tablet 325 Mg PO DAILY Dorzolamide-Timolol Eye Drops (Dorzolamide Hcl/Timolol Maleat) 10 Ml Drops 1 Buddy p LEFTEYE HS Cosopt Eye Drops (Dorzolamide Hcl/Timolol Maleat) 10 Ml Drops 1 Drop LEFTEYE HS Clopidogrel (Clopidogrel Bisulfate) 75 Mg Tablet 75 Mg PO DAILY Atorvastatin Calcium 40 Mg Tablet 40 Mg PO QHS Aspirin 81 Mg Tab.chew 81 Mg PO DAILY Artificial Tears Eye Drops (Dextran 70/Hypromellose) 15 Ml Drops 1 Drop EACHEYE PRN Q4HRS PRN Acetaminophen 500 Mg Tablet 1,000 Mg PO PRN Q6HRS PRN I have reviewed the current psychotropics carefully including drug interactions. Risk benefit ratio favors no change other than as noted in my dictated progress note. Diagnosis: Problems: (1) Anxiety disorder (2) Major depressive disorder, recurrent episode (3) Impulse control disorder (4) Mild cognitive disorder JENNIFER CHEUNG MD Aug 08, 2018 22:41
--- NOTE | 2018-08-08 23:05 | NUR ---
Pt sitting quietly in the day room at shift change. Pt irritable, resistive, helpless. Pt spoke to friend, No, on the phone this evening. Pt tearful at times during the conversation and could be heard asking her friend to be her DPOA. Assumably, pt did not get the answer she was hoping for because she could be heard raising her voice and complaining about her family members. Pt was encouraged to end the phone call, which she complied with after a few attempts. Pt cooperative with assessment and compliant with medications administered whole.
[2018-08-09] MEDS: LEVOTHYROXINE 25 MCG TABLET. PO SCH (04:49)
[2018-08-09 05:35] VITALS: BP 102/60
[2018-08-09] MEDS: MECLIZINE 12.5 MG TABLET. PO SCH (07:50)
[2018-08-09] MEDS: INSULIN LISPRO 300 UNITS/3 ML INSULN.PEN. SQ SCH ×3 (07:50→17:15)
[2018-08-09] MEDS: MAGNESIUM OXIDE 400 MG TABLET PO SCH ×2 (07:50→16:16)
[2018-08-09] MEDS: ASPIRIN 81 MG TAB.CHEW PO SCH (07:51)
[2018-08-09] MEDS: CLOPIDOGREL BISULFATE 75 MG TABLET PO SCH (07:51)
[2018-08-09] MEDS: SENNOSIDES/DOCUSATE 8.6/50MG TABLET. PO SCH ×2 (07:51→16:16)
[2018-08-09] MEDS: FERROUS SULFATE 325 MG TABLET. PO SCH (07:51)
[2018-08-09] MEDS: OLANZapine 5 MG TABLET PO SCH (07:51)
[2018-08-09] MEDS: LOSARTAN 25 MG TABLET. PO SCH ×2 (07:51→19:08)
[2018-08-09] MEDS: POLYETHYLENE GLYCOL 3350 17 GM PACKET. PO SCH (07:52)
[2018-08-09] MEDS: OLANZapine IM 10 MG VIAL. IM SCH (07:52)
[2018-08-09] MEDS: LIDOCAINE (700MG/PATCH) PATCH. TD SCH (07:53)
[2018-08-09] MEDS: NYSTATIN TOPICAL POWDER 15GM BOTTLE. TP SCH ×2 (07:54→19:10)
--- NOTE | 2018-08-09 10:15 | NUR ---
Pt was assessed in the dining room for breakfast this shift. Pt is argumentative about medications and plan of care, pt took medications whole, though. Pt is talkative and appropriate with peers, but with staff is non compliant. Will CTM.
[2018-08-09 16:22] VITALS: BP 153/70
[2018-08-09] MEDS: ATORVASTATIN CALCIUM 20 MG TABLET PO SCH (19:07)
[2018-08-09] MEDS: DORZOLAMIDE/TIMOLOL 2%/0.5% OPHTH SOLUTION 10ML BOTTLE. OS SCH (19:10)
[2018-08-09] MEDS: HYDROcodone/APAP 5/325MG 1 TAB TABLET PO SCH (19:11)
[2018-08-09] MEDS: INSULIN GLARGINE 300 UNITS/3 ML INSULN.PEN. SQ SCH (19:13)
[2018-08-09] MEDS: PATCH REMOVAL. MC SCH (19:14)
--- NOTE | 2018-08-09 20:08 | PN ---
DATE: 08/07/2018 PSYCHIATRIC PROGRESS NOTE This late entry 08/07/2018 covers elements not covered in my initial note. SUBJECTIVE: I met with the patient in the evening. The patient slept 6 hours previous night. The patient remains quite anxious, somewhat depressed though she minimizes all of this labile, intermittently compliant with medications, but frequently questioning, does not want any psychotropics. Combative and getting in and out of bed. REVIEW OF SYSTEMS: Ambulation impaired, in wheelchair. No CV, , pulmonary, eye system symptoms on review. MENTAL STATUS EXAM: Oriented to herself and situation. Speech has some latency, coherent. Abstraction fair, computation impaired, language function intact. Attention span short. Short term memory is impaired and she has some word finding problems. No active suicidal ideation, but remains depressed, anxious, minimizes all of this. LABORATORY DATA: Reviewed. IMPRESSION: Unchanged from initial note. PLAN: Continue to encourage compliance with treatment. JENNIFER CHEUNG MD DR: SHERIF/kelly JOB#: [id number] / [id number]
--- NOTE | 2018-08-09 20:13 | PN ---
DATE: 08/08/2018 PSYCHIATRIC PROGRESS NOTE This late entry 08/08/2018 covers elements not covered in my initial note. SUBJECTIVE: I met with the patient in the evening. The patient slept 6 hours previous night. She remains somewhat irritable, resistive to medications, but did take her medications in the evening. REVIEW OF SYSTEMS: She has vague somatic symptoms, impaired ambulation, in wheelchair, complaining about nursing staff not assisting her, wanting a telephone call, which the nursing staff did facilitate. No CV, , pulmonary, eye system symptoms on review. MENTAL STATUS EXAM: Oriented to herself and situation. Speech coherent, rapid at times. Abstraction fair, computation impaired, language function intact, attention span short. Mood and affect somewhat anxious, labile, withdrawn. LABORATORY DATA: Reviewed. IMPRESSION: Unchanged from initial note. PLAN: No change from initial note. MAN Jimmy CHEUNG MD DR: SHERIF/kelly JOB#: [id number] / [id number]
--- NOTE | 2018-08-09 22:15 | NUR ---
Nursing Note Argues about meds. Takes them eventually, but is difficult.
[2018-08-09] MEDS: HYDROcodone/APAP 5/325MG 1 TAB TABLET PO PRN (22:59)
--- NOTE | 2018-08-09 23:02 | PDOC ---
Exam Note: Abhilash Note: Please also refer to the separate dictated note~for this date of service dictated separately.~Patient seen individually. Discussed the patient with Nursing staff reviewed the chart.~Reviewed interim history and current functioning. Reviewed vital signs,~Labs/ Radiology~and current medications noted below. Continue current treatment with the changes noted in the dictated addendum note Assessment: Vital Signs: Vital Signs Date Time Temp Pulse Resp B/P (MAP) Pulse Ox O2 Delivery O2 Flow Rate FiO2 08/09/18 22:59 100 08/09/18 19:08 101 153/70 08/09/18 16:22 98.6 18 08/08/18 19:32 Room Air I&O Intake and Output 08/09/18 06:59 Intake Total 1680 ml Balance 1680 ml Intake Oral 1680 ml Labs: Laboratory Tests Test 08/09/18 07:18 08/09/18 11:31 08/09/18 16:51 08/09/18 19:06 Glucose (Fingerstick) 102 mg/dL (70-99) H 171 mg/dL (70-99) H 248 mg/dL (70-99) H 279 mg/dL (70-99) H Current Medications: Meds: Current Medications Clopidogrel Bisulfate (Plavix) 75 mg DAILY PO Last administered on 08/09/18at 07:51; Start 07/11/18 at 09:00 Ferrous Sulfate (Feosol) 325 mg DAILY PO Last administered on 08/09/18at 07:51; Start 07/11/18 at 09:00 Gabapentin (Neurontin) 300 mg HS PO ; Start 07/11/18 at 21:00; Stop 07/11/18 at 21:00; Status DC Acetaminophen/ Hydrocodone Bitart (Lortab 5/325) 1 tab PRN QHS PRN PO PAIN; Start 07/10/18 at 22:00; Stop 07/10/18 at 22:51; Status DC Acetaminophen/ Hydrocodone Bitart (Lortab 5/325) 1 tab PRN Q6HRS PRN PO PAIN Last administered on 08/09/18at 22:59; Start 07/10/18 at 22:00 Insulin Glargine (Lantus) 30 units QHS SQ ; Start 07/11/18 at 21:00; Stop 07/11/18 at 21:00; Status DC Losartan Potassium (Cozaar) 12.5 mg HS PO ; Start 07/11/18 at 21:00; Stop 07/11/18 at 21:00; Status DC Losartan Potassium (Cozaar) 25 mg DAILY PO Last administered on 07/23/18at 09:47; Start 07/11/18 at 09:00; Stop 07/27/18 at 17:24; Status DC Senna/Docusate Sodium (Senna Plus) 1 tab BID94 PO ; Start 07/11/18 at 09:00; Stop 07/11/18 at 09:00; Status DC Acetaminophen (Tylenol) 1,000 mg PRN Q6HRS PRN PO PAIN / TEMP Last administered on 08/08/18 10:11; Start 07/10/18 at 22:45 Aspirin (Children'S Aspirin) 81 mg DAILYWBKFT PO Last administered on 08/09/18 07:51; Start 07/11/18 at 08:00 Atorvastatin Calcium (Lipitor) 40 mg QHS PO ; Start 07/11/18 at 21:00; Stop 07/11/18 at 21:00; Status DC Artificial Tears (Artificial Tears) 1 drop PRN Q15MIN PRN OU DRY EYE Last admi nistered on 07/22/18 11:31; Start 07/10/18 at 22:45 Non-Formulary Medication (Dextran 70/ Hypromellose (Artificial Tears Eye Drops)) 1 drop PRN Q4HRS PRN EACHEYE DRY EYE; Start 07/10/18 at 22:00; Status UNV Dorzolamide/ Timolol (Cosopt) 1 drop QHS OS Last administered on 08/09/18at 19:10; Start 07/11/18 at 21:00 Non-Formulary Medication (Dorzolamide Hcl/ Timolol Maleat (Dorzolamide-Timolol Eye Drops)) 1 drop HS LEFTEYE ; Start 07/11/18 at 21:00; Status UNV Vitamin D (Vitamin D3) 50,000 unit WEEKLY PO Last administered on 08/07/18 08:50; Start 07/17/18 at 09:00 Lidocaine (Lidoderm) 1 patch DAILY TD Last administered on 08/06/18 08:07; Start 07/11/18 at 09:00; Stop 08/06/18 at 15:21; Status DC Magnesium Oxide (Magnesium Oxide) 400 mg BID94 PO Last administered on 08/09/18 16:16; Start 07/11/18 at 09:00 Meclizine HCl (Antivert) 25 mg DAILY PO Last administered on 08/09/18 07:50; Start 07/11/18 at 09:00 Polyethylene Glycol (miraLAX) 17 gm PRN DAILY PRN PO CONSTIPATION Last administered on 07/12/18 07:37; Start 07/11/18 at 09:00; Stop 07/15/18 at 18:54; Status DC Sertraline HCl (Zoloft) 25 mg DAILY PO Last administered on 07/13/18 07:57; Start 07/11/18 at 09:00; Stop 07/13/18 at 17:38; Status DC Insulin Human Lispro (HumaLOG) 0-16 UNITS TIDWMEALS SQ Last administered on 08/09/18 17:15; Start 07/11/18 at 08:00 Dextrose 12.5 gm PRN Q15MIN PRN IV SEE COMMENTS; Start 07/10/18 at 22:45 Miscellaneous (Lidoderm Patch Removal) 1 ea QHS MC Last administered on 08/05/18 20:27; Start 07/11/18 at 21:00; Stop 08/06/18 at 15:22; Status DC Atorvastatin Calcium (Lipitor) 40 mg QHS PO Last administered on 08/09/18 19:07; Start 07/10/18 at 23:00 Gabapentin (Neurontin) 300 mg HS PO Last administered on 08/08/18 19:26; Start 07/10/18 at 23:00; Stop 08/09/18 at 17:56; Status DC Acetaminophen/ Hydrocodone Bitart (Lortab 5/325) 1 tab HS PO Last administered on 08/09/18 19:11; Start 07/10/18 at 23:00 Insulin Glargine (Lantus) 30 units QHS SQ Last administered on 08/09/18 19:13; Start 07/10/18 at 23:00 Losartan Potassium (Cozaar) 12.5 mg HS PO Last administered on 08/09/18 19:08; Start 07/10/18 at 23:00 Senna/Docusate Sodium (Senna Plus) 1 tab BID94 PO Last administered on 08/09/18 16:16; Start 07/10/18 at 23:00 Multi-Ingredient Ointment (Analgesic [place]) 1 ivan PRN QID PRN TP MUSCLE PAIN; Start 07/10/18 at 23:15 Al Hydroxide/Mg Hydroxide (Mylanta Plus Xs) 15 ml PRN AFTMEALHC PRN PO DY SPEPSIA; Start 07/10/18 at 23:15 Magnesium Hydroxide (Milk Of Magnesia) 2,400 mg PRN QHS PRN PO CONSTIPATION; Start 07/10/18 at 23:15 Sertraline HCl (Zoloft) 50 mg DAILY PO Last administered on 07/15/18 08:10; Start 07/14/18 at 09:00; Stop 07/15/18 at 18:43; Status DC Buspirone HCl (Buspar) 5 mg 0900,1700 PO Last administered on 07/17/18 17:51; Start 07/15/18 at 09:00; Stop 07/18/18 at 01:49; Status DC Fluoxetine HCl (PROzac ORAL SOLN) 5 mg DAILY PO Last administered on 07/16/18 10:05; Start 07/16/18 at 09:00; Stop 07/16/18 at 17:42; Status DC Polyethylene Glycol (miraLAX) 17 gm DAILY PO Last administered on 08/09/18 07:52; Start 07/16/18 at 09:00 Hydrocortisone (Proctosol-Hc) 1 ivan TID RC Last administered on 07/30/18at 19:20; Start 07/15/18 at 21:00; Stop 08/02/18 at 07:41; Status DC Levothyroxine Sodium (Synthroid) 25 mcg DAILY06 PO Last administered on 08/09/18at 04:49; Start 07/17/18 at 06:00 Nystatin (Nystop) 1 ivan BID TP Last administered on 08/09/18at 19:10; Start 07/22/18 at 21:00 Olanzapine (ZyPREXA IM) 5 mg DAILY IM ; Start 07/28/18 at 09:00; Stop 07/28/18 at 09:00; Status DC Olanzapine (ZyPREXA IM) 5 mg DAILY IM ; Start 07/27/18 at 15:30 Olanzapine (ZyPREXA) 5 mg 1X ONCE PO Last administered on 07/27/18 15:57; Start 07/27/18 at 16:00; Stop 07/27/18 at 16:01; Status DC Losartan Potassium (Cozaar) 12.5 mg DAILY PO Last administered on 08/09/18 07:51; Start 07/28/18 at 09:00 Olanzapine (ZyPREXA) 5 mg DAILY PO Last administered on 08/09/18 07:51; Start 07/28/18 at 09:00 Hydrocortisone (Proctosol-Hc) 1 ivan PRN TID PRN RC RECTAL PAIN; Start 08/02/18 at 07:45 Lidocaine (Lidoderm) 1 patch DAILY TD Last administered on 08/06/18at 08:07; Start 08/03/18 at 16:15; Stop 08/06/18 at 15:21; Status DC Miscellaneous (Lidoderm Patch Removal) 1 ea QHS MC Last administered on 08/05/18at 20:27; Start 08/03/18 at 21:00; Stop 08/06/18 at 15:22; Status DC Lidocaine (Lidoderm) 2 patch DAILY TD Last administered on 08/09/18at 07:53; Start 08/07/18 at 09:00 Miscellaneous (Lidoderm Patch Removal) 2 ea QHS MC Last administered on 08/09/18at 19:14; Start 08/06/18 at 15:22 Gabapentin (Neurontin) 300 mg DAILY PO ; Start 08/10/18 at 09:00 Active Scripts Active Reported Vitamin D2 (Ergocalciferol (Vitamin D2)) 50,000 Unit Capsule 50,000 Unit PO WEEKLY Zoloft (Sertraline Hcl) 25 Mg Tablet 25 Mg PO DAILY Senna-S Laxative Tablet (Sennosides/Docusate Sodium) 1 Each Tablet 1 Each PO BID94 Refresh Optive Eye Drops (Carboxymethylcellulos/Glycerin) 15 Ml Drops 1 Drop EACHEYE PRN Q4HRS PRN Polyethylene Glycol 3350 255 Gm Powder 17 Gm PO PRN DAILY PRN Meclizine Hcl 25 Mg Tablet 25 Mg PO DAILY Mag-Oxide (Magnesium Oxide) 400 Mg Tablet 400 Mg PO BID94 Losartan Potassium (Losartan Potassium) 25 Mg Tablet 12.5 Mg PO HS Losartan Potassium (Losartan Potassium) 25 Mg Tablet 25 Mg PO DAILY Lidocaine 1 Each Adh..patch 1 Each TP DAILY Lantus Solostar (Insulin Glargine,Hum.rec.anlog) 100 Unit/1 Ml Insuln.pen 30 Unit SQ QHS Hydrocodone-Apap 5-325 (Hydrocodone Bit/Acetaminophen) 1 Each Tablet 1 Tab PO PRN Q6HRS PRN Hydrocodone-Apap 5-325 (Hydrocodone Bit/Acetaminophen) 1 Each Tablet 1 Tab PO HS PRN Gabapentin (Gabapentin) 300 Mg Capsule 300 Mg PO HS Ferrous Sulfate 325 Mg Tablet 325 Mg PO DAILY Dorzolamide-Timolol Eye Drops (Dorzolamide Hcl/Timolol Maleat) 10 Ml Drops 1 Drop LEFTEYE HS Cosopt Eye Drops (Dorzolamide Hcl/Timolol Maleat) 10 Ml Drops 1 Drop LEFTEYE HS Clopidogrel (Clopidogrel Bisulfate) 75 Mg Tablet 75 Mg PO DAILY Atorvastatin Calcium 40 Mg Tablet 40 Mg PO QHS Aspirin 81 Mg Tab.chew 81 Mg PO DAILY Artificial Tears Eye Drops (Dextran 70/Hypromellose) 15 Ml Drops 1 Drop EACHEYE PRN Q4HRS PRN Acetaminophen 500 Mg Tablet 1,000 Mg PO PRN Q6HRS PRN I have reviewed the current psychotropics carefully including drug interactions. Risk benefit ratio favors no change other than as noted in my dictated progress note. Diagnosis: Problems: (1) Anxiety disorder (2) Major depressive disorder, recurrent episode (3) Impulse control disorder (4) Mild cognitive disorder JENNIFER CHEUNG MD Aug 09, 2018 23:02
[2018-08-10 05:34] VITALS: BP 100/52
[2018-08-10] MEDS: LEVOTHYROXINE 25 MCG TABLET. PO SCH (06:01)
[2018-08-10] MEDS: INSULIN LISPRO 300 UNITS/3 ML INSULN.PEN. SQ SCH ×3 (08:00→17:00)
[2018-08-10] MEDS: SENNOSIDES/DOCUSATE 8.6/50MG TABLET. PO SCH ×3 (09:00→17:22)
[2018-08-10] MEDS: OLANZapine IM 10 MG VIAL. IM SCH (09:00)
[2018-08-10] MEDS: MAGNESIUM OXIDE 400 MG TABLET PO SCH ×2 (09:27→17:22)
[2018-08-10] MEDS: OLANZapine 5 MG TABLET PO SCH (09:27)
[2018-08-10] MEDS: ASPIRIN 81 MG TAB.CHEW PO SCH (09:27)
[2018-08-10] MEDS: CLOPIDOGREL BISULFATE 75 MG TABLET PO SCH (09:27)
[2018-08-10] MEDS: LOSARTAN 25 MG TABLET. PO SCH ×2 (09:29→20:14)
[2018-08-10] MEDS: FERROUS SULFATE 325 MG TABLET. PO SCH (09:29)
[2018-08-10] MEDS: MECLIZINE 12.5 MG TABLET. PO SCH (09:29)
[2018-08-10] MEDS: LIDOCAINE (700MG/PATCH) PATCH. TD SCH (09:32)
[2018-08-10] MEDS: POLYETHYLENE GLYCOL 3350 17 GM PACKET. PO SCH (09:32)
[2018-08-10] MEDS: NYSTATIN TOPICAL POWDER 15GM BOTTLE. TP SCH ×2 (09:33→23:42)
[2018-08-10] MEDS: GABAPENTIN 300 MG CAPSULE. PO SCH (09:47)
--- NOTE | 2018-08-10 10:10 | NUR ---
Patient was very resistive to taking her medications and refused to take a couple of them. Patient repeatedly asked questions about her medications, and stated that she 'doesn't need that one' and no MD ever discussed these medications with her. When I pointed out that we had the same discussion every morning last week and also during the week before, she states that her memory is bad and she cannot retain the information. She then states that the people at her facility were lying and that she was not hoarding pills there. When aske dhow she could remember that but not retain the information that was repeatedly provided to her, she became defensive and agitated. Patient frequently manipulated pills so that they fell out of her hand or the pill cup. Will report to MD during rounds and continue to monitor.
[2018-08-10 16:23] VITALS: BP 144/89
[2018-08-10] MEDS: ATORVASTATIN CALCIUM 20 MG TABLET PO SCH (20:12)
[2018-08-10] MEDS: PATCH REMOVAL. MC SCH (20:15)
[2018-08-10] MEDS: DORZOLAMIDE/TIMOLOL 2%/0.5% OPHTH SOLUTION 10ML BOTTLE. OS SCH (20:15)
--- NOTE | 2018-08-10 21:14 | PN ---
DATE: 08/09/2018 PSYCHIATRIC PROGRESS NOTE This late entry 08/09/2018 covers elements not covered in my initial note. SUBJECTIVE: I met with the patient in the evening. The patient slept 6-1/4 hours previous night. She is resistive to meds in the morning, did better the rest of the day, gets a little forgetful, gets more frustrated, appears depressed, but denies this when questioned. REVIEW OF SYSTEMS: Ambulation impaired, in wheelchair. No CV, , pulmonary, eye, ENT system symptoms on review. MENTAL STATUS EXAM: Oriented to herself and situation. Speech is coherent, has some latency. Abstraction fair, computation impaired, language function intact, attention span short. Mood and affect remain somewhat withdrawn, depressed. LABORATORY DATA: Reviewed. IMPRESSION: Unchanged from initial note. PLAN: We had a lengthy discussion about psychotropics compliance. She rationalizes her symptoms. We will continue to address this. JENNIFER CHEUNG MD DR: SHERIF/kelly JOB#: [id number] / [id number]
--- NOTE | 2018-08-10 22:28 | PDOC ---
Exam Note: Abhilash Note: Please also refer to the separate dictated note~for this date of service dictated separately.~Patient seen individually. Discussed the patient with Nursing staff reviewed the chart.~Reviewed interim history and current functioning. Reviewed vital signs,~Labs/ Radiology~and current medications noted below. Continue current treatment with the changes noted in the dictated addendum note Assessment: Vital Signs: Vital Signs Date Time Temp Pulse Resp B/P (MAP) Pulse Ox O2 Delivery O2 Flow Rate FiO2 08/10/18 20:14 87 144/89 08/10/18 16:23 98.0 19 97 08/08/18 19:32 Room Air I&O Intake and Output 08/10/18 07:00 Intake Total 1440 ml Balance 1440 ml Intake Oral 1440 ml # Bowel Movements 1 Labs: Laboratory Tests Test 08/10/18 07:03 08/10/18 11:44 08/10/18 16:57 08/10/18 19:04 Glucose (Fingerstick) 68 mg/dL (70-99) L 76 mg/dL (70-99) 143 mg/dL (70-99) H 161 mg/dL (70-99) H Current Medications: Meds: Current Medications Clopidogrel Bisulfate (Plavix) 75 mg DAILY PO Last administered on 08/10/18at 09:27; Start 07/11/18 at 09:00 Ferrous Sulfate (Feosol) 325 mg DAILY PO Last administered on 08/10/18at 09:29; Start 07/11/18 at 09:00 Gabapentin (Neurontin) 300 mg HS PO ; Start 07/11/18 at 21:00; Stop 07/11/18 at 21:00; Status DC Acetaminophen/ Hydrocodone Bitart (Lortab 5/325) 1 tab PRN QHS PRN PO PAIN; Start 07/10/18 at 22:00; Stop 07/10/18 at 22:51; Status DC Acetaminophen/ Hydrocodone Bitart (Lortab 5/325) 1 tab PRN Q6HRS PRN PO PAIN Last administered on 08/09/18at 22:59; Start 07/10/18 at 22:00 Insulin Glargine (Lantus) 30 units QHS SQ ; Start 07/11/18 at 21:00; Stop 07/11/18 at 21:00; Status DC Losartan Potassium (Cozaar) 12.5 mg HS PO ; Start 07/11/18 at 21:00; Stop 07/11/18 at 21:00; Status DC Losartan Potassium (Cozaar) 25 mg DAILY PO Last administered on 07/23/18at 09:47; Start 07/11/18 at 09:00; Stop 07/27/18 at 17:24; Status DC Senna/Docusate Sodium (Senna Plus) 1 tab BID94 PO ; Start 07/11/18 at 09:00; Stop 07/11/18 at 09:00; Status DC Acetaminophen (Tylenol) 1,000 mg PRN Q6HRS PRN PO PAIN / TEMP Last administered on 08/08/18 10:11; Start 07/10/18 at 22:45 Aspirin (Children'S Aspirin) 81 mg DAILYWBKFT PO Last administered on 08/10/18 09:27; Start 07/11/18 at 08:00 Atorvastatin Calcium (Lipitor) 40 mg QHS PO ; Start 07/11/18 at 21:00; Stop 07/11/18 at 21:00; Status DC Artificial Tears (Artificial Tears) 1 drop PRN Q15MIN PRN OU DRY EYE Last administered on 07/22/18at 11:31; Start 07/10/18 at 22:45 Non-Formulary Medication (Dextran 70/ Hypromellose (Artificial Tears Eye Drops)) 1 drop PRN Q4HRS PRN EACHEYE DRY EYE; Start 07/10/18 at 22:00; Status UNV Dorzolamide/ Timolol (Cosopt) 1 drop QHS OS Last administered on 08/10/18at 20:15; Start 07/11/18 at 21:00 Non-Formulary Medication (Dorzolamide Hcl/ Timolol Maleat (Dorzolamide-Timolol Eye Drops)) 1 drop HS LEFTEYE ; Start 07/11/18 at 21:00; Status UNV Vitamin D (Vitamin D3) 50,000 unit WEEKLY PO Last administered on 08/07/18at 08:50; Start 07/17/18 at 09:00 Lidocaine (Lidoderm) 1 patch DAILY TD Last administered on 08/06/18 08:07; Start 07/11/18 at 09:00; Stop 08/06/18 at 15:21; Status DC Magnesium Oxide (Magnesium Oxide) 400 mg BID94 PO Last administered on 08/10/18 17:22; Start 07/11/18 at 09:00 Meclizine HCl (Antivert) 25 mg DAILY PO Last administered on 08/10/18 09:29; Start 07/11/18 at 09:00 Polyethylene Glycol (miraLAX) 17 gm PRN DAILY PRN PO CONSTIPATION Last administered on 07/12/18 07:37; Start 07/11/18 at 09:00; Stop 07/15/18 at 18:54; Status DC Sertraline HCl (Zoloft) 25 mg DAILY PO Last administered on 07/13/18 07:57; Start 07/11/18 at 09:00; Stop 07/13/18 at 17:38; Status DC Insulin Human Lispro (HumaLOG) 0-16 UNITS TIDWMEALS SQ Last administered on 08/09/18 17:15; Start 07/11/18 at 08:00 Dextrose 12.5 gm PRN Q15MIN PRN IV SEE COMMENTS; Start 07/10/18 at 22:45 Miscellaneous (Lidoderm Patch Removal) 1 ea QHS MC Last administered on 08/05/18 20:27; Start 07/11/18 at 21:00; Stop 08/06/18 at 15:22; Status DC Atorvastatin Calcium (Lipitor) 40 mg QHS PO Last administered on 08/10/18 20:12; Start 07/10/18 at 23:00 Gabapentin (Neurontin) 300 mg HS PO Last administered on 08/08/18 19:26; Start 07/10/18 at 23:00; Stop 08/09/18 at 17:56; Status DC Acetaminophen/ Hydrocodone Bitart (Lortab 5/325) 1 tab HS PO Last administered on 08/09/18 19:11; Start 07/10/18 at 23:00 Insulin Glargine (Lantus) 30 units QHS SQ Last administered on 08/09/18 19:13; Start 07/10/18 at 23:00 Losartan Potassium (Cozaar) 12.5 mg HS PO Last administered on 08/10/18 20:14; Start 07/10/18 at 23:00 Senna/Docusate Sodium (Senna Plus) 1 tab BID94 PO Last administered on 08/10/18at 17:22; Start 07/10/18 at 23:00 Multi-Ingredient Ointment (Analgesic [place]) 1 ivan PRN QID PRN TP MUSCLE PAIN; Start 07/10/18 at 23:15 Al Hydroxide/Mg Hydroxide (Mylanta Plus Xs) 15 ml PRN AFTMEALHC PRN PO DYSPEPSIA; Start 07/10/18 at 23:15 Magnesium Hydroxide (Milk Of Magnesia) 2,400 mg PRN QHS PRN PO CONSTIPATION; Start 07/10/18 at 23:15 Sertraline HCl (Zoloft) 50 mg DAILY PO Last administered on 07/15/18at 08:10; Start 07/14/18 at 09:00; Stop 07/15/18 at 18:43; Status DC Buspirone HCl (Buspar) 5 mg 0900,1700 PO Last administered on 07/17/18at 17:51; Start 07/15/18 at 09:00; Stop 07/18/18 at 01:49; Status DC Fluoxetine HCl (PROzac ORAL SOLN) 5 mg DAILY PO Last administered on 07/16/18at 10:05; Start 07/16/18 at 09:00; Stop 07/16/18 at 17:42; Status DC Polyethylene Glycol (miraLAX) 17 gm DAILY PO Last administered on 08/10/18at 09:32; Start 07/16/18 at 09:00 Hydrocortisone (Proctosol-Hc) 1 ivan TID RC Last administered on 07/30/18at 19:20; Start 07/15/18 at 21:00; Stop 08/02/18 at 07:41; Status DC Levothyroxine Sodium (Synthroid) 25 mcg DAILY06 PO Last administered on 08/10/18at 06:01; Start 07/17/18 at 06:00 Nystatin (Nystop) 1 ivan BID TP Last administered on 08/10/18at 09:33; Start 07/22/18 at 21:00 Olanzapine (ZyPREXA IM) 5 mg DAILY IM ; Start 07/28/18 at 09:00; Stop 07/28/18 at 09:00; Status DC Olanzapine (ZyPREXA IM) 5 mg DAILY IM ; Start 07/27/18 at 15:30; Stop 08/10/18 at 19:32; Status DC Olanzapine (ZyPREXA) 5 mg 1X ONCE PO Last administered on 07/27/18 15:57; Start 07/27/18 at 16:00; Stop 07/27/18 at 16:01; Status DC Losartan Potassium (Cozaar) 12.5 mg DAILY PO Last administered on 08/10/18 09:29; Start 07/28/18 at 09:00 Olanzapine (ZyPREXA) 5 mg DAILY PO Last administered on 08/10/18 09:27; Start 07/28/18 at 09:00; Stop 08/10/18 at 19:32; Status DC Hydrocortisone (Proctosol-Hc) 1 ivan PRN TID PRN RC RECTAL PAIN; Start 08/02/18 at 07:45 Lidocaine (Lidoderm) 1 patch DAILY TD Last administered on 08/06/18 08:07; Start 08/03/18 at 16:15; Stop 08/06/18 at 15:21; Status DC Miscellaneous (Lidoderm Patch Removal) 1 ea QHS MC Last administered on 08/05/18 20:27; Start 08/03/18 at 21:00; Stop 08/06/18 at 15:22; Status DC Lidocaine (Lidoderm) 2 patch DAILY TD Last administered on 08/10/18 09:32; Start 08/07/18 at 09:00 Miscellaneous (Lidoderm Patch Removal) 2 ea QHS MC Last administered on 08/10/18 20:15; Start 08/06/18 at 15:22 Gabapentin (Neurontin) 300 mg DAILY PO Last administered on 08/10/18 09:47; Start 08/10/18 at 09:00 Active Scripts Active Reported Vitamin D2 (Ergocalciferol (Vitamin D2)) 50,000 Unit Capsule 50,000 Unit PO WEEKLY Zoloft (Sertraline Hcl) 25 Mg Tablet 25 Mg PO DAILY Senna-S Laxative Tablet (Sennosides/Docusate Sodium) 1 Each Tablet 1 Each PO BID94 Refresh Optive Eye Drops (Carboxymethylcellulos/Glycerin) 15 Ml Drops 1 Drop EACHEYE PRN Q4HRS PRN Polyethylene Glycol 3350 255 Gm Powder 17 Gm PO PRN DAILY PRN Meclizine Hcl 25 Mg Tablet 25 Mg PO DAILY Mag-Oxide (Magnesium Oxide) 400 Mg Tablet 400 Mg PO BID94 Losartan Potassium (Losartan Potassium) 25 Mg Tablet 12.5 Mg PO HS Losartan Potassium (Losartan Potassium) 25 Mg Tablet 25 Mg PO DAILY Lidocaine 1 Each Adh..patch 1 Each TP DAILY Lantus Solostar (Insulin Glargine,Hum.rec.anlog) 100 Unit/1 Ml Insuln.pen 30 Unit SQ QHS Hydrocodone-Apap 5-325 (Hydrocodone Bit/Acetaminophen) 1 Each Tablet 1 Tab PO PRN Q6HRS PRN Hydrocodone-Apap 5-325 (Hydrocodone Bit/Acetaminophen) 1 Each Tablet 1 Tab PO HS PRN Gabapentin (Gabapentin) 300 Mg Capsule 300 Mg PO HS Ferrous Sulfate 325 Mg Tablet 325 Mg PO DAILY Dorzolamide-Timolol Eye Drops (Dorzolamide Hcl/Timolol Maleat) 10 Ml Drops 1 Drop LEFTEYE HS Cosopt Eye Drops (Dorzolamide Hcl/Timolol Maleat) 10 Ml Drops 1 Drop LEFTEYE HS Clopidogrel (Clopidogrel Bisulfate) 75 Mg Tablet 75 Mg PO DAILY Atorvastatin Calcium 40 Mg Tablet 40 Mg PO QHS Aspirin 81 Mg Tab.chew 81 Mg PO DAILY Artificial Tears Eye Drops (Dextran 70/Hypromellose) 15 Ml Drops 1 Drop EACHEYE PRN Q4HRS PRN Acetaminophen 500 Mg Tablet 1,000 Mg PO PRN Q6HRS PRN I have reviewed the current psychotropics carefully including drug interactions. Risk benefit ratio favors no change other than as noted in my dictated progress note. Diagnosis: Problems: (1) Anxiety disorder (2) Major depressive disorder, recurrent episode (3) Impulse control disorder (4) Mild cognitive disorder JENNIFER CHEUNG MD Aug 10, 2018 22:28
[2018-08-10] MEDS: HYDROcodone/APAP 5/325MG 1 TAB TABLET PO SCH (23:42)
[2018-08-10] MEDS: INSULIN GLARGINE 300 UNITS/3 ML INSULN.PEN. SQ SCH (23:44)
[2018-08-11 05:57] VITALS: BP 94/55
[2018-08-11] MEDS: LEVOTHYROXINE 25 MCG TABLET. PO SCH ×2 (06:00→06:01)
[2018-08-11 07:05] LABS: BASO # 0.1 x10^3/uL (0.0-0.2); BASO % 2 % (0-3); EOS # 0.3 x10^3/uL (0.0-0.7); EOS % 4 % (0-3); HEMATOCRIT 32.2 % (36.0-47.0); HEMOGLOBIN 10.7 g/dL (12.0-15.5); LYMPH # 1.6 x10^3/uL (1.0-4.8); LYMPH % 25 % (24-48); MEAN CORPUSCULAR HEMOGLOBIN 28 pg (25-35); MEAN CORPUSCULAR HGB CONC 33 g/dL (31-37); MEAN CORPUSCULAR VOLUME 84 fL (79-100); MONO # 0.6 x10^3/uL (0.0-1.1); MONO % 10 % (0-9); NEUT # 3.8 x10^3uL (1.8-7.7); NEUT % 59 % (31-73); PLATELET COUNT 282 x10^3/uL (140-400); RED BLOOD COUNT 3.86 x10^6/uL (3.50-5.40); RED CELL DISTRIBUTION WIDTH 15.7 % (11.5-14.5); WHITE BLOOD COUNT 6.4 x10^3/uL (4.0-11.0)
[2018-08-11 07:22] LABS: ALBUMIN 2.5 g/dL (3.4-5.0); ALBUMIN/GLOBULIN RATIO 0.7 (1.0-1.7); CALCIUM 8.8 mg/dL (8.5-10.1); CREATININE 1.1 mg/dL (0.6-1.0); POTASSIUM 4.5 mmol/L (3.5-5.1); TOTAL BILIRUBIN 0.2 mg/dL (0.2-1.0); TOTAL PROTEIN 6.2 g/dL (6.4-8.2)
[2018-08-11] MEDS: INSULIN LISPRO 300 UNITS/3 ML INSULN.PEN. SQ SCH ×3 (08:00→17:00)
[2018-08-11] MEDS: LOSARTAN 25 MG TABLET. PO SCH ×2 (09:00→20:35)
[2018-08-11] MEDS: MECLIZINE 12.5 MG TABLET. PO SCH (09:45)
[2018-08-11] MEDS: SENNOSIDES/DOCUSATE 8.6/50MG TABLET. PO SCH ×3 (09:45→20:34)
[2018-08-11] MEDS: MAGNESIUM OXIDE 400 MG TABLET PO SCH ×2 (09:45→17:38)
[2018-08-11] MEDS: GABAPENTIN 300 MG CAPSULE. PO SCH (09:45)
[2018-08-11] MEDS: ASPIRIN 81 MG TAB.CHEW PO SCH (09:46)
[2018-08-11] MEDS: FERROUS SULFATE 325 MG TABLET. PO SCH (09:46)
[2018-08-11] MEDS: CLOPIDOGREL BISULFATE 75 MG TABLET PO SCH (09:46)
[2018-08-11] MEDS: POLYETHYLENE GLYCOL 3350 17 GM PACKET. PO SCH (09:47)
[2018-08-11] MEDS: LIDOCAINE (700MG/PATCH) PATCH. TD SCH (09:47)
[2018-08-11] MEDS: NYSTATIN TOPICAL POWDER 15GM BOTTLE. TP SCH ×2 (09:49→20:49)
--- NOTE | 2018-08-11 09:50 | NUR ---
Behavior Intervention Response and Plan: BIRP Note: Behavior: Assumed Care of patient, patient located in Patient Room at shift change. Patient exhibited the following behavior Withdrawn, Disorganized, Resistive with Meds. Brief assessment on rounds of vital signs, medication needs, lab studies, and pain. Treatment plan problems 1 & 2. Intervention: Patient assessed and the following interventions initiated safety checks 15 Minute Checks Cognitive Assessment , Head to toe Assessment , Medications. Response: After interactions and interventions patient responded in the following manner, Disorganized , Withdrawn, Defensive. Continue to assess behaviors and condition will continue to monitor throughout the shift as needed. Patient educated on ADL's, and hand hygiene. 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 Continue to assess patient for changes in above assessment. Monitor for medication needs, pain, and safety concerns. Hourly rounding performed to ensure safe environment.
[2018-08-11 15:48] VITALS: BP 146/81
--- NOTE | 2018-08-11 20:14 | PN ---
DATE: 08/10/2018 PSYCHIATRIC PROGRESS NOTE This late entry 08/10/2018 covers elements not covered in my initial note. SUBJECTIVE: I met with the patient in the evening. I met with her at length in her room. She has been resistive to medications, arguing with staff previous evening, slept 5 hours. As I sat with her, she was insistent she did not want Zyprexa, would refuse to take it. She is depressed. Discussed with her at some length about starting antidepressants, but there is nothing I could say that would convince her. She is not psychotic and therefore, I am willing to stop the Zyprexa, but she really does need to be on antidepressant to help her mood, agitation, repetitive thinking, somewhat obsessive, but she totally refused this. 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 No CV, , pulmonary, eye, ENT system symptoms on review. MENTAL STATUS EXAM: Oriented to herself, situations. She has some word finding problems. Short term memory is impaired, abstraction fair, computation impaired, language function intact, attention span short. Mood and affect depressed, anxious. No suicidal ideation. LABORATORY DATA: Reviewed. IMPRESSION: Unchanged from initial note. PLAN: No change from initial note. JENNIFER CHEUNG MD DR: SHERIF/kelly JOB#: [id number] / [id number]
[2018-08-11] MEDS: PATCH REMOVAL. MC SCH (20:34)
[2018-08-11] MEDS: ATORVASTATIN CALCIUM 20 MG TABLET PO SCH (20:36)
[2018-08-11] MEDS: HYDROcodone/APAP 5/325MG 1 TAB TABLET PO SCH (20:38)
[2018-08-11] MEDS: DORZOLAMIDE/TIMOLOL 2%/0.5% OPHTH SOLUTION 10ML BOTTLE. OS SCH (20:38)
[2018-08-11] MEDS: MIRTAZAPINE ODT 15 MG TAB.RAPDIS. PO SCH (20:38)
[2018-08-11] MEDS: INSULIN GLARGINE 300 UNITS/3 ML INSULN.PEN. SQ SCH (20:48)
--- NOTE | 2018-08-11 21:32 | PDOC ---
Exam Note: Abhilash Note: Please also refer to the separate dictated note~for this date of service dictated separately.~Patient seen individually. Discussed the patient with Nursing staff reviewed the chart.~Reviewed interim history and current functioning. Reviewed vital signs,~Labs/ Radiology~and current medications noted below. Continue current treatment with the changes noted in the dictated addendum note Assessment: Vital Signs: Vital Signs Date Time Temp Pulse Resp B/P (MAP) Pulse Ox O2 Delivery O2 Flow Rate FiO2 08/11/18 20:38 20 98 08/11/18 20:35 63 146/81 08/11/18 15:48 97.3 08/11/18 05:57 Room Air I&O Intake and Output 08/11/18 06:59 Intake Total 840 ml Balance 840 ml Intake Oral 840 ml # Voids 1 Labs: Laboratory Tests Test 08/11/18 06:29 08/11/18 07:23 08/11/18 12:09 08/11/18 17:24 White Blood Count 6.4 x10^3/uL (4.0-11.0) Red Blood Count 3.86 x10^6/uL (3.50-5.40) Hemoglobin 10.7 g/dL (12.0-15.5) L Hematocrit 32.2 % (36.0-47.0) L Mean Corpuscular Volume 84 fL (79-100) Mean Corpuscular Hemoglobin 28 pg (25-35) Mean Corpuscular Hemoglobin Concent 33 g/dL (31-37) Red Cell Distribution Width 15.7 % (11.5-14.5) H Platelet Count 282 x10^3/uL (140-400) Neutrophils (%) (Auto) 59 % (31-73) Lymphocytes (%) (Auto) 25 % (24-48) Monocytes (%) (Auto) 10 % (0-9) H Eosinophils (%) (Auto) 4 % (0-3) H Basophils (%) (Auto) 2 % (0-3) Neutrophils # (Auto) 3.8 x10^3uL (1.8-7.7) Lymphocytes # (Auto) 1.6 x10^3/uL (1.0-4.8) Monocytes # (Auto) 0.6 x10^3/uL (0.0-1.1) Eosinophils # (Auto) 0.3 x10^3/uL (0.0-0.7) Basophils # (Auto) 0.1 x10^3/uL (0.0-0.2) Sodium Level 137 mmol/L (136-145) Potassium Level 4.5 mmol/L (3.5-5.1) Chloride Level 104 mmol/L (98-107) Carbon Dioxide Level 26 mmol/L (21-32) Anion Gap 7 (6-14) Blood Urea Nitrogen 32 mg/dL (7-20) H Creatinine 1.1 mg/dL (0.6-1.0) H Estimated GFR (Cockcroft-Gault) 49.0 BUN/Creatinine Ratio 29 (6-20) H Glucose Level 69 mg/dL (70-99) L Calcium Level 8.8 mg/dL (8.5-10.1) Total Bilirubin 0.2 mg/dL (0.2-1.0) Aspartate Amino Transferase (AST) 16 U/L (15-37) Alanine Aminotransferase (ALT) 13 U/L (14-59) L Alkaline Phosphatase 74 U/L (46-116) Total Protein 6.2 g/dL (6.4-8.2) L Albumin 2.5 g/dL (3.4-5.0) L Albumin/Globulin Ratio 0.7 (1.0-1.7) L Glucose (Fingerstick) 62 mg/dL (70-99) L 159 mg/dL (70-99) H 136 mg/dL (70-99) H Test 08/11/18 19:38 Glucose (Fingerstick) 141 mg/dL (70-99) H Current Medications: Meds: Current Medications Clopidogrel Bisulfate (Plavix) 75 mg DAILY PO Last administered on 08/11/18at 09:46; Start 07/11/18 at 09:00 Ferrous Sulfate (Feosol) 325 mg DAILY PO Last administered on 08/11/18at 09:46; Start 07/11/18 at 09:00 Gabapentin (Neurontin) 300 mg HS PO ; Start 07/11/18 at 21:00; Stop 07/11/18 at 21:00; Status DC Acetaminophen/ Hydrocodone Bitart (Lortab 5/325) 1 tab PRN QHS PRN PO PAIN; Start 07/10/18 at 22:00; Stop 07/10/18 at 22:51; Status DC Acetaminophen/ Hydrocodone Bitart (Lortab 5/325) 1 tab PRN Q6HRS PRN PO PAIN Last administered on 08/09/18at 22:59; Start 07/10/18 at 22:00 Insulin Glargine (Lantus) 30 units QHS SQ ; Start 07/11/18 at 21:00; Stop 07/11/18 at 21:00; Status DC Losartan Potassium (Cozaar) 12.5 mg HS PO ; Start 07/11/18 at 21:00; Stop 07/11/18 at 21:00; Status DC Losartan Potassium (Cozaar) 25 mg DAILY PO Last administered on 07/23/18at 09:47; Start 07/11/18 at 09:00; Stop 07/27/18 at 17:24; Status DC Senna/Docusate Sodium (Senna Plus) 1 tab BID94 PO ; Start 07/11/18 at 09:00; Stop 07/11/18 at 09:00; Status DC Acetaminophen (Tylenol) 1,000 mg PRN Q6HRS PRN PO PAIN / TEMP Last administered on 08/08/18at 10:11; Start 07/10/18 at 22:45 Aspirin (Children'S Aspirin) 81 mg DAILYWBKFT PO Last administered on 08/11/18at 09:46; Start 07/11/18 at 08:00 Atorvastatin Calcium (Lipitor) 40 mg QHS PO ; Start 07/11/18 at 21:00; Stop 07/11/18 at 21:00; Status DC Artificial Tears (Artificial Tears) 1 drop PRN Q15MIN PRN OU DRY EYE Last a dministered on 07/22/18at 11:31; Start 07/10/18 at 22:45 Non-Formulary Medication (Dextran 70/ Hypromellose (Artificial Tears Eye Drops)) 1 drop PRN Q4HRS PRN EACHEYE DRY EYE; Start 07/10/18 at 22:00; Status UNV Dorzolamide/ Timolol (Cosopt) 1 drop QHS OS Last administered on 08/11/18at 20:38; Start 07/11/18 at 21:00 Non-Formulary Medication (Dorzolamide Hcl/ Timolol Maleat (Dorzolamide-Timolol Eye Drops)) 1 drop HS LEFTEYE ; Start 07/11/18 at 21:00; Status UNV Vitamin D (Vitamin D3) 50,000 unit WEEKLY PO Last administered on 08/07/18 08:50; Start 07/17/18 at 09:00 Lidocaine (Lidoderm) 1 patch DAILY TD Last administered on 08/06/18 08:07; Start 07/11/18 at 09:00; Stop 08/06/18 at 15:21; Status DC Magnesium Oxide (Magnesium Oxide) 400 mg BID94 PO Last administered on 08/11/18 17:38; Start 07/11/18 at 09:00 Meclizine HCl (Antivert) 25 mg DAILY PO Last administered on 08/11/18 09:45; Start 07/11/18 at 09:00 Polyethylene Glycol (miraLAX) 17 gm PRN DAILY PRN PO CONSTIPATION Last administered on 07/12/18 07:37; Start 07/11/18 at 09:00; Stop 07/15/18 at 18:54; Status DC Sertraline HCl (Zoloft) 25 mg DAILY PO Last administered on 07/13/18 07:57; Start 07/11/18 at 09:00; Stop 07/13/18 at 17:38; Status DC Insulin Human Lispro (HumaLOG) 0-16 UNITS TIDWMEALS SQ Last administered on 08/11/18at 12:14; Start 07/11/18 at 08:00 Dextrose 12.5 gm PRN Q15MIN PRN IV SEE COMMENTS; Start 07/10/18 at 22:45 Miscellaneous (Lidoderm Patch Removal) 1 ea QHS MC Last administered on 08/05/18 20:27; Start 07/11/18 at 21:00; Stop 08/06/18 at 15:22; Status DC Atorvastatin Calcium (Lipitor) 40 mg QHS PO Last administered on 08/11/18 20:36; Start 07/10/18 at 23:00 Gabapentin (Neurontin) 300 mg HS PO Last administered on 08/08/18 19:26; Start 07/10/18 at 23:00; Stop 08/09/18 at 17:56; Status DC Acetaminophen/ Hydrocodone Bitart (Lortab 5/325) 1 tab HS PO Last administered on 08/11/18 20:38; Start 07/10/18 at 23:00 Insulin Glargine (Lantus) 30 units QHS SQ Last administered on 08/11/18 20:48; Start 07/10/18 at 23:00 Losartan Potassium (Cozaar) 12.5 mg HS PO Last administered on 08/11/18 20:35; Start 07/10/18 at 23:00 Senna/Docusate Sodium (Senna Plus) 1 tab BID94 PO Last administered on 08/11/18 20:34; Start 07/10/18 at 23:00 Multi-Ingredient Ointment (Analgesic [place]) 1 ivan PRN QID PRN TP MUSCLE PAIN; Start 07/10/18 at 23:15 Al Hydroxide/Mg Hydroxide (Mylanta Plus Xs) 15 ml PRN AFTMEALHC PRN PO DYSPEPSIA; Start 07/10/18 at 23:15 Magnesium Hydroxide (Milk Of Magnesia) 2,400 mg PRN QHS PRN PO CONSTIPATION; Start 07/10/18 at 23:15 Sertraline HCl (Zoloft) 50 mg DAILY PO Last administered on 07/15/18 08:10; Start 07/14/18 at 09:00; Stop 07/15/18 at 18:43; Status DC Buspirone HCl (Buspar) 5 mg 0900,1700 PO Last administered on 07/17/18 17:51; Start 07/15/18 at 09:00; Stop 07/18/18 at 01:49; Status DC Fluoxetine HCl (PROzac ORAL SOLN) 5 mg DAILY PO Last administered on 07/16/18 10:05; Start 07/16/18 at 09:00; Stop 07/16/18 at 17:42; Status DC Polyethylene Glycol (miraLAX) 17 gm DAILY PO Last administered on 08/11/18 09:47; Start 07/16/18 at 09:00 Hydrocortisone (Proctosol-Hc) 1 ivan TID RC Last administered on 07/30/18 19:20; Start 07/15/18 at 21:00; Stop 08/02/18 at 07:41; Status DC Levothyroxine Sodium (Synthroid) 25 mcg DAILY06 PO Last administered on 08/10/18 06:01; Start 07/17/18 at 06:00 Nystatin (Nystop) 1 ivan BID TP Last administered on 08/11/18 20:49; Start 07/22/18 at 21:00 Olanzapine (ZyPREXA IM) 5 mg DAILY IM ; Start 07/28/18 at 09:00; Stop 07/28/18 at 09:00; Status DC Olanzapine (ZyPREXA IM) 5 mg DAILY IM ; Start 07/27/18 at 15:30; Stop 08/10/18 at 19:32; Status DC Olanzapine (ZyPREXA) 5 mg 1X ONCE PO Last administered on 07/27/18 15:57; Start 07/27/18 at 16:00; Stop 07/27/18 at 16:01; Status DC Losartan Potassium (Cozaar) 12.5 mg DAILY PO Last administered on 08/10/18 09:29; Start 07/28/18 at 09:00 Olanzapine (ZyPREXA) 5 mg DAILY PO Last administered on 08/10/18 09:27; Start 07/28/18 at 09:00; Stop 08/10/18 at 19:32; Status DC Hydrocortisone (Proctosol-Hc) 1 ivan PRN TID PRN RC RECTAL PAIN; Start 08/02/18 at 07:45 Lidocaine (Lidoderm) 1 patch DAILY TD Last administered on 08/06/18 08:07; Start 08/03/18 at 16:15; Stop 08/06/18 at 15:21; Status DC Miscellaneous (Lidoderm Patch Removal) 1 ea QHS MC Last administered on 08/05/18 20:27; Start 08/03/18 at 21:00; Stop 08/06/18 at 15:22; Status DC Lidocaine (Lidoderm) 2 patch DAILY TD Last administered on 08/11/18 09:47; Start 08/07/18 at 09:00 Miscellaneous (Lidoderm Patch Removal) 2 ea QHS MC Last administered on 08/11/18 20:34; Start 08/06/18 at 15:22 Gabapentin (Neurontin) 300 mg DAILY PO Last administered on 08/11/18 09:45; Start 08/10/18 at 09:00 Mirtazapine (Remeron Anya-Tab) 7.5 mg QHS PO Last administered on 08/11/18at 20:38; Start 08/11/18 at 21:00 Active Scripts Active Reported Vitamin D2 (Ergocalciferol (Vitamin D2)) 50,000 Unit Capsule 50,000 Unit PO WEEKLY Zoloft (Sertraline Hcl) 25 Mg Tablet 25 Mg PO DAILY Senna-S Laxative Tablet (Sennosides/Docusate Sodium) 1 Each Tablet 1 Each PO BID94 Refresh Optive Eye Drops (Carboxymethylcellulos/Glycerin) 15 Ml Drops 1 Drop EACHEYE PRN Q4HRS PRN Polyethylene Glycol 3350 255 Gm Powder 17 Gm PO PRN DAILY PRN Meclizine Hcl 25 Mg Tablet 25 Mg PO DAILY Mag-Oxide (Magnesium Oxide) 400 Mg Tablet 400 Mg PO BID94 Losartan Potassium (Losartan Potassium) 25 Mg Tablet 12.5 Mg PO HS Losartan Potassium (Losartan Potassium) 25 Mg Tablet 25 Mg PO DAILY Lidocaine 1 Each Adh..patch 1 Each TP DAILY Lantus Solostar (Insulin Glargine,Hum.rec.anlog) 100 Unit/1 Ml Insuln.pen 30 Unit SQ QHS Hydrocodone-Apap 5-325 (Hydrocodone Bit/Acetaminophen) 1 Each Tablet 1 Tab PO PRN Q6HRS PRN Hydrocodone-Apap 5-325 (Hydrocodone Bit/Acetaminophen) 1 Each Tablet 1 Tab PO HS PRN Gabapentin (Gabapentin) 300 Mg Capsule 300 Mg PO HS Ferrous Sulfate 325 Mg Tablet 325 Mg PO DAILY Dorzolamide-Timolol Eye Drops (Dorzolamide Hcl/Timolol Maleat) 10 Ml Drops 1 Drop LEFTEYE HS Cosopt Eye Drops (Dorzolamide Hcl/Timolol Maleat) 10 Ml Drops 1 Drop LEFTEYE HS Clopidogrel (Clopidogrel Bisulfate) 75 Mg Tablet 75 Mg PO DAILY Atorvastatin Calcium 40 Mg Tablet 40 Mg PO QHS Aspirin 81 Mg Tab.chew 81 Mg PO DAILY Artificial Tears Eye Drops (Dextran 70/Hypromellose) 15 Ml Drops 1 Drop EACHEYE PRN Q4HRS PRN Acetaminophen 500 Mg Tablet 1,000 Mg PO PRN Q6HRS PRN I have reviewed the current psychotropics carefully including drug interactions. Risk benefit ratio favors no change other than as noted in my dictated progress note. Diagnosis: Problems: (1) Anxiety disorder (2) Major depressive disorder, recurrent episode (3) Impulse control disorder (4) Mild cognitive disorder JENNIFER CHEUNG MD Aug 11, 2018 21:32
--- NOTE | 2018-08-12 00:16 | NUR ---
Behavior Intervention Response and Plan: BIRP Note: Behavior: Assumed Care of patient, patient located in Patient Room at shift change. Patient exhibited the following behavior Disorganized, Defensive, Compliant. Brief assessment on rounds of vital signs, medication needs, lab studies, and pain. Treatment plan problems . Intervention: Patient assessed and the following interventions initiated safety checks 15 Minute Checks Head to toe Assessment , Cognitive Assessment , Medications. Response: After interactions and interventions patient responded in the following manner, Sarcastic , Withdrawn ,Irritable. Continue to assess behaviors and condition will continue to monitor throughout the shift as needed. Patient educated on ADL's, and hand hygiene. Plan: Continue to monitor Master Treatment Plan for patient's progress toward short term goals of Improved Mood, Decreased Agitation, correction goals to return to previous living setting vs placement. Continue to assess patient for changes in above assessment. Monitor for medication needs, pain, and safety concerns. Hourly rounding performed to ensure safe environment.
[2018-08-12] MEDS: LEVOTHYROXINE 25 MCG TABLET. PO SCH ×2 (06:00→06:20)
[2018-08-12 06:23] VITALS: BP 159/89
[2018-08-12] MEDS: ASPIRIN 81 MG TAB.CHEW PO SCH (08:00)
[2018-08-12] MEDS: INSULIN LISPRO 300 UNITS/3 ML INSULN.PEN. SQ SCH ×3 (08:00→17:00)
[2018-08-12] MEDS: MAGNESIUM OXIDE 400 MG TABLET PO SCH ×2 (09:00→15:08)
[2018-08-12] MEDS: LIDOCAINE (700MG/PATCH) PATCH. TD SCH (09:00)
[2018-08-12] MEDS: NYSTATIN TOPICAL POWDER 15GM BOTTLE. TP SCH ×2 (09:00→20:13)
[2018-08-12] MEDS: LOSARTAN 25 MG TABLET. PO SCH ×2 (09:00→20:13)
[2018-08-12] MEDS: FERROUS SULFATE 325 MG TABLET. PO SCH (09:00)
[2018-08-12] MEDS: CLOPIDOGREL BISULFATE 75 MG TABLET PO SCH (09:00)
[2018-08-12] MEDS: GABAPENTIN 300 MG CAPSULE. PO SCH (09:00)
[2018-08-12] MEDS: MECLIZINE 12.5 MG TABLET. PO SCH (09:00)
[2018-08-12] MEDS: POLYETHYLENE GLYCOL 3350 17 GM PACKET. PO SCH (09:00)
[2018-08-12] MEDS: SENNOSIDES/DOCUSATE 8.6/50MG TABLET. PO SCH (15:10)
[2018-08-12 15:51] VITALS: BP 147/81
[2018-08-12] MEDS: PATCH REMOVAL. MC SCH (20:12)
[2018-08-12] MEDS: ATORVASTATIN CALCIUM 20 MG TABLET PO SCH (20:13)
[2018-08-12] MEDS: MIRTAZAPINE ODT 15 MG TAB.RAPDIS. PO SCH (20:13)
[2018-08-12] MEDS: DORZOLAMIDE/TIMOLOL 2%/0.5% OPHTH SOLUTION 10ML BOTTLE. OS SCH (20:16)
[2018-08-12] MEDS: HYDROcodone/APAP 5/325MG 1 TAB TABLET PO SCH (20:16)
[2018-08-12] MEDS: INSULIN GLARGINE 300 UNITS/3 ML INSULN.PEN. SQ SCH (20:18)
--- NOTE | 2018-08-12 20:53 | PN ---
DATE: 08/11/2018 PSYCHIATRIC PROGRESS NOTE This late entry 08/11/2018 covers elements not covered in my initial note. SUBJECTIVE: I met with the patient at some length in her room. The patient slept 4-1/4 hours previous night. At night, she refused her Lortab; in the morning, refused Synthroid; took the rest of her meds. Zyprexa has been discontinued as she refused to take it, was extremely agitated, obsessive, angry about this. She remains depressed and the appropriate intervention will be to start her on an antidepressant, which she totally refuses. I discussed this at length with her again evening of 08/11/2018. She is wanting something to help her sleep at night and as noted below, we will start her on Remeron 7.5 mg p.o. at bedtime and gradually adjust this as an antidepressant in addition to an intervention for her insomnia. REVIEW OF SYSTEMS: Ambulation impaired, in wheelchair. No CV, , pulmonary, eye system symptoms on review. Reliability poor. She is anxious, has some word finding problems. MENTAL STATUS EXAM: Oriented to herself and situation. Speech coherent, rapid at times with the word finding problems. Short term memory is impaired, abstraction fair, computation impaired, language function intact, attention span short. Insight is very poor. Mood, denies being depressed and anxious. Her affect is depressed, quite anxious, somewhat paranoid, but the majority of the symptoms are mood symptoms with depression. LABORATORY DATA: Reviewed. IMPRESSION: Major depressive disorder, rule out psychotic features; anxiety disorder, unspecified; mild cognitive impairment. PLAN: Start Remeron 7.5 mg p.o. at bedtime, increase gradually. Rest unchanged from initial note. MAN Jimmy CHEUNG MD DR: SHERIF/kelly JOB#: [id number] / [id number]
--- NOTE | 2018-08-12 23:06 | NUR ---
Nursing note: Assumed care of pt in the day room. She was calm and cooperative. She was compliant w/meds and assessment. She asked if she had to take a shower because she didn't want to do so with the [employer] working tonight. Pt was resistant about shower but had one anyway.
--- NOTE | 2018-08-12 23:16 | PDOC ---
Exam Note: Abhilash Note: Please also refer to the separate dictated note~for this date of service dictated separately.~Patient seen individually. Discussed the patient with Nursing staff reviewed the chart.~Reviewed interim history and current functioning. Reviewed vital signs,~Labs/ Radiology~and current medications noted below. Continue current treatment with the changes noted in the dictated addendum note Assessment: Vital Signs: Vital Signs Date Time Temp Pulse Resp B/P (MAP) Pulse Ox O2 Delivery O2 Flow Rate FiO2 08/12/18 21:16 96 Room Air 08/12/18 20:13 95 147/81 08/12/18 15:51 98.5 20 I&O Intake and Output 08/12/18 06:59 Intake Total 320 ml Balance 320 ml Intake Oral 320 ml Labs: Laboratory Tests Test 08/12/18 07:29 08/12/18 11:39 08/12/18 16:49 08/12/18 19:10 Glucose (Fingerstick) 89 mg/dL (70-99) 134 mg/dL (70-99) H 194 mg/dL (70-99) H 262 mg/dL (70-99) H Current Medications: Meds: Current Medications Clopidogrel Bisulfate (Plavix) 75 mg DAILY PO Last administered on 08/12/18at 09:00; Start 07/11/18 at 09:00 Ferrous Sulfate (Feosol) 325 mg DAILY PO Last administered on 08/12/18at 09:00; Start 07/11/18 at 09:00 Gabapentin (Neurontin) 300 mg HS PO ; Start 07/11/18 at 21:00; Stop 07/11/18 at 21:00; Status DC Acetaminophen/ Hydrocodone Bitart (Lortab 5/325) 1 tab PRN QHS PRN PO PAIN; Start 07/10/18 at 22:00; Stop 07/10/18 at 22:51; Status DC Acetaminophen/ Hydrocodone Bitart (Lortab 5/325) 1 tab PRN Q6HRS PRN PO PAIN Last administered on 08/09/18at 22:59; Start 07/10/18 at 22:00 Insulin Glargine (Lantus) 30 units QHS SQ ; Start 07/11/18 at 21:00; Stop 07/11/18 at 21:00; Status DC Losartan Potassium (Cozaar) 12.5 mg HS PO ; Start 07/11/18 at 21:00; Stop 07/11/18 at 21:00; Status DC Losartan Potassium (Cozaar) 25 mg DAILY PO Last administered on 07/23/18at 09:4 7; Start 07/11/18 at 09:00; Stop 07/27/18 at 17:24; Status DC Senna/Docusate Sodium (Senna Plus) 1 tab BID94 PO ; Start 07/11/18 at 09:00; Stop 07/11/18 at 09:00; Status DC Acetaminophen (Tylenol) 1,000 mg PRN Q6HRS PRN PO PAIN / TEMP Last administered on 08/08/18at 10:11; Start 07/10/18 at 22:45 Aspirin (Children'S Aspirin) 81 mg DAILYWBKFT PO Last administered on 08/12/18at 08:00; Start 07/11/18 at 08:00 Atorvastatin Calcium (Lipitor) 40 mg QHS PO ; Start 07/11/18 at 21:00; Stop 07/11/18 at 21:00; Status DC Artificial Tears (Artificial Tears) 1 drop PRN Q15MIN PRN OU DRY EYE Last administered on 07/22/18at 11:31; Start 07/10/18 at 22:45 Non-Formulary Medication (Dextran 70/ Hypromellose (Artificial Tears Eye Drops)) 1 drop PRN Q4HRS PRN EACHEYE DRY EYE; Start 07/10/18 at 22:00; Status UNV Dorzolamide/ Timolol (Cosopt) 1 drop QHS OS Last administered on 08/12/18at 20:16; Start 07/11/18 at 21:00 Non-Formulary Medication (Dorzolamide Hcl/ Timolol Maleat (Dorzolamide-Timolol Eye Drops)) 1 drop HS LEFTEYE ; Start 07/11/18 at 21:00; Status UNV Vitamin D (Vitamin D3) 50,000 unit WEEKLY PO Last administered on 08/07/18at 08:50; Start 07/17/18 at 09:00 Lidocaine (Lidoderm) 1 patch DAILY TD Last administered on 08/06/18at 08:07; Start 07/11/18 at 09:00; Stop 08/06/18 at 15:21; Status DC Magnesium Oxide (Magnesium Oxide) 400 mg BID94 PO Last administered on 08/12/18 15:08; Start 07/11/18 at 09:00 Meclizine HCl (Antivert) 25 mg DAILY PO Last administered on 08/11/18 09:45; Start 07/11/18 at 09:00 Polyethylene Glycol (miraLAX) 17 gm PRN DAILY PRN PO CONSTIPATION Last administered on 07/12/18 07:37; Start 07/11/18 at 09:00; Stop 07/15/18 at 18:54; Status DC Sertraline HCl (Zoloft) 25 mg DAILY PO Last administered on 07/13/18 07:57; Start 07/11/18 at 09:00; Stop 07/13/18 at 17:38; Status DC Insulin Human Lispro (HumaLOG) 0-16 UNITS TIDWMEALS SQ Last administered on 08/11/18 12:14; Start 07/11/18 at 08:00 Dextrose 12.5 gm PRN Q15MIN PRN IV SEE COMMENTS; Start 07/10/18 at 22:45 Miscellaneous (Lidoderm Patch Removal) 1 ea QHS MC Last administered on 08/05/18 20:27; Start 07/11/18 at 21:00; Stop 08/06/18 at 15:22; Status DC Atorvastatin Calcium (Lipitor) 40 mg QHS PO Last administered on 08/12/18 20:13; Start 07/10/18 at 23:00 Gabapentin (Neurontin) 300 mg HS PO Last administered on 08/08/18 19:26; Start 07/10/18 at 23:00; Stop 08/09/18 at 17:56; Status DC Acetaminophen/ Hydrocodone Bitart (Lortab 5/325) 1 tab HS PO Last administered on 08/12/18 20:16; Start 07/10/18 at 23:00 Insulin Glargine (Lantus) 30 units QHS SQ Last administered on 08/12/18 20:18; Start 07/10/18 at 23:00 Losartan Potassium (Cozaar) 12.5 mg HS PO Last administered on 08/12/18 20:13; Start 07/10/18 at 23:00 Senna/Docusate Sodium (Senna Plus) 1 tab BID94 PO Last administered on 08/12/18at 15:10; Start 07/10/18 at 23:00 Multi-Ingredient Ointment (Analgesic [place]) 1 ivan PRN QID PRN TP MUSCLE PAIN; Start 07/10/18 at 23:15 Al Hydroxide/Mg Hydroxide (Mylanta Plus Xs) 15 ml PRN AFTMEALHC PRN PO DYSPEPSIA; Start 07/10/18 at 23:15 Magnesium Hydroxide (Milk Of Magnesia) 2,400 mg PRN QHS PRN PO CONSTIPATION; Start 07/10/18 at 23:15 Sertraline HCl (Zoloft) 50 mg DAILY PO Last administered on 07/15/18 08:10; Start 07/14/18 at 09:00; Stop 07/15/18 at 18:43; Status DC Buspirone HCl (Buspar) 5 mg 0900,1700 PO Last administered on 07/17/18at 17:51; Start 07/15/18 at 09:00; Stop 07/18/18 at 01:49; Status DC Fluoxetine HCl (PROzac ORAL SOLN) 5 mg DAILY PO Last administered on 07/16/18at 10:05; Start 07/16/18 at 09:00; Stop 07/16/18 at 17:42; Status DC Polyethylene Glycol (miraLAX) 17 gm DAILY PO Last administered on 08/12/18at 09:00; Start 07/16/18 at 09:00 Hydrocortisone (Proctosol-Hc) 1 ivan TID RC Last administered on 07/30/18at 19:20; Start 07/15/18 at 21:00; Stop 08/02/18 at 07:41; Status DC Levothyroxine Sodium (Synthroid) 25 mcg DAILY06 PO Last administered on 08/10/18at 06:01; Start 07/17/18 at 06:00 Nystatin (Nystop) 1 ivan BID TP Last administered on 08/12/18at 20:13; Start 07/22/18 at 21:00 Olanzapine (ZyPREXA IM) 5 mg DAILY IM ; Start 07/28/18 at 09:00; Stop 07/28/18 at 09:00; Status DC Olanzapine (ZyPREXA IM) 5 mg DAILY IM ; Start 07/27/18 at 15:30; Stop 08/10/18 at 19:32; Status DC Olanzapine (ZyPREXA) 5 mg 1X ONCE PO Last administered on 07/27/18 15:57; Start 07/27/18 at 16:00; Stop 07/27/18 at 16:01; Status DC Losartan Potassium (Cozaar) 12.5 mg DAILY PO Last administered on 08/12/18 09:00; Start 07/28/18 at 09:00 Olanzapine (ZyPREXA) 5 mg DAILY PO Last administered on 08/10/18 09:27; Start 07/28/18 at 09:00; Stop 08/10/18 at 19:32; Status DC Hydrocortisone (Proctosol-Hc) 1 ivan PRN TID PRN RC RECTAL PAIN; Start 08/02/18 at 07:45 Lidocaine (Lidoderm) 1 patch DAILY TD Last administered on 08/06/18 08:07; Start 08/03/18 at 16:15; Stop 08/06/18 at 15:21; Status DC Miscellaneous (Lidoderm Patch Removal) 1 ea QHS MC Last administered on 08/05/18 20:27; Start 08/03/18 at 21:00; Stop 08/06/18 at 15:22; Status DC Lidocaine (Lidoderm) 2 patch DAILY TD Last administered on 08/12/18 09:00; Start 08/07/18 at 09:00 Miscellaneous (Lidoderm Patch Removal) 2 ea QHS MC Last administered on 08/12/18 20:12; Start 08/06/18 at 15:22 Gabapentin (Neurontin) 300 mg DAILY PO Last administered on 08/12/18 09:00; Start 08/10/18 at 09:00 Mirtazapine (Remeron Anya-Tab) 7.5 mg QHS PO Last administered on 08/12/18 20:13; Start 08/11/18 at 21:00 Active Scripts Active Reported Vitamin D2 (Ergocalciferol (Vitamin D2)) 50,000 Unit Capsule 50,000 Unit PO WEEKLY Zoloft (Sertraline Hcl) 25 Mg Tablet 25 Mg PO DAILY Senna-S Laxative Tablet (Sennosides/Docusate Sodium) 1 Each Tablet 1 Each PO BID94 Refresh Optive Eye Drops (Carboxymethylcellulos/Glycerin) 15 Ml Drops 1 Drop E ACHEYE PRN Q4HRS PRN Polyethylene Glycol 3350 255 Gm Powder 17 Gm PO PRN DAILY PRN Meclizine Hcl 25 Mg Tablet 25 Mg PO DAILY Mag-Oxide (Magnesium Oxide) 400 Mg Tablet 400 Mg PO BID94 Losartan Potassium (Losartan Potassium) 25 Mg Tablet 12.5 Mg PO HS Losartan Potassium (Losartan Potassium) 25 Mg Tablet 25 Mg PO DAILY Lidocaine 1 Each Adh..patch 1 Each TP DAILY Lantus Solostar (Insulin Glargine,Hum.rec.anlog) 100 Unit/1 Ml Insuln.pen 30 Unit SQ QHS Hydrocodone-Apap 5-325 (Hydrocodone Bit/Acetaminophen) 1 Each Tablet 1 Tab PO PRN Q6HRS PRN Hydrocodone-Apap 5-325 (Hydrocodone Bit/Acetaminophen) 1 Each Tablet 1 Tab PO HS PRN Gabapentin (Gabapentin) 300 Mg Capsule 300 Mg PO HS Ferrous Sulfate 325 Mg Tablet 325 Mg PO DAILY Dorzolamide-Timolol Eye Drops (Dorzolamide Hcl/Timolol Maleat) 10 Ml Drops 1 Drop LEFTEYE HS Cosopt Eye Drops (Dorzolamide Hcl/Timolol Maleat) 10 Ml Drops 1 Drop LEFTEYE HS Clopidogrel (Clopidogrel Bisulfate) 75 Mg Tablet 75 Mg PO DAILY Atorvastatin Calcium 40 Mg Tablet 40 Mg PO QHS Aspirin 81 Mg Tab.chew 81 Mg PO DAILY Artificial Tears Eye Drops (Dextran 70/Hypromellose) 15 Ml Drops 1 Drop EACHEYE PRN Q4HRS PRN Acetaminophen 500 Mg Tablet 1,000 Mg PO PRN Q6HRS PRN I have reviewed the current psychotropics carefully including drug interactions. Risk benefit ratio favors no change other than as noted in my dictated progress note. Diagnosis: Problems: (1) Anxiety disorder (2) Major depressive disorder, recurrent episode (3) Impulse control disorder (4) Mild cognitive disorder JENNIFER CHEUNG MD August 12, 2018 23:16
[2018-08-13 05:41] VITALS: BP 104/54
[2018-08-13] MEDS: LEVOTHYROXINE 25 MCG TABLET. PO SCH (05:52)
[2018-08-13] MEDS: INSULIN LISPRO 300 UNITS/3 ML INSULN.PEN. SQ SCH ×3 (08:00→17:20)
[2018-08-13] MEDS: LIDOCAINE (700MG/PATCH) PATCH. TD SCH ×2 (09:00→10:47)
--- NOTE | 2018-08-13 10:05 | NUR ---
WEEKLY ACTIVITY THERAPY NOTE Date of Admission: 07/11/2018 Date of AT Assessment: 07/14/2018 Goal aimed: to increase engagement Initial goal: Pt. will participate in at least five Activity Therapy groups before discharge. Changed goal 07/30/2018:Pt. will participate in at least three Activity Therapy groups per week Weekly progress towards goal: did not achieve Group participation level: zero Weekly highlights: Behaviors observed: withdrawn, sleeping often Plan: no change to goal, meet 1:1 to remind goal Beneficial adaptations: establish trust by finding commonalities (Thai heritage, creative arts background), responds well to being heard, female care
--- NOTE | 2018-08-13 10:30 | NUR ---
WEEKLY NOTE: Pt continues to be resistive to medications and needs redirection for being rude to nursing staff. Pt is withdrawn to her room and can appear to be needy. Pt will have her medications hidden and see if that will be of affect to her more compliant with cares and staff direction. Addendum: 08/14/18 at 1404 by LAVERNE WIGGINS Pt medication will be hidden until pt is calm. Luvox 25mg po daily and then will be increased next week. Pt will have Abilify 5mg liquid form.
[2018-08-13] MEDS: FERROUS SULFATE 325 MG TABLET. PO SCH (10:45)
[2018-08-13] MEDS: CLOPIDOGREL BISULFATE 75 MG TABLET PO SCH (10:45)
[2018-08-13] MEDS: ASPIRIN 81 MG TAB.CHEW PO SCH (10:45)
[2018-08-13] MEDS: MECLIZINE 12.5 MG TABLET. PO SCH (10:45)
[2018-08-13] MEDS: SENNOSIDES/DOCUSATE 8.6/50MG TABLET. PO SCH ×2 (10:45→17:17)
[2018-08-13] MEDS: LOSARTAN 25 MG TABLET. PO SCH ×2 (10:46→20:19)
[2018-08-13] MEDS: MAGNESIUM OXIDE 400 MG TABLET PO SCH ×2 (10:46→17:17)
[2018-08-13] MEDS: POLYETHYLENE GLYCOL 3350 17 GM PACKET. PO SCH (10:46)
[2018-08-13] MEDS: NYSTATIN TOPICAL POWDER 15GM BOTTLE. TP SCH ×2 (10:55→22:05)
[2018-08-13] MEDS: GABAPENTIN 300 MG CAPSULE. PO SCH (10:59)
[2018-08-13 16:25] VITALS: BP 145/80
--- NOTE | 2018-08-13 16:45 | NUR ---
ROSALIE returned call to pt sister in law Vijaya to give her an update on pt. Vijaya reports that she and pt brother, Joseph, will be coming up on Friday. In the event that pt does not agree to their wishes as DPOA, they will concede with having a guardian appointed for pt. Pt sister in law and SW discussed pt medication regime. Vijaya discussed the fact that pt was not able to come to their house as they have stairs and are not home enough to care for her. Pt sister asked SW to send referrals to [facility]; in which SW already sent a referral to [facility] and they have denied pt. ROSALIE will follow up with pt family on Friday after that speak with pt about the DPOA.
--- NOTE | 2018-08-13 17:40 | NUR ---
ROSALIE contacted Andrea, pt DPOA, and will gave her an update on pt behaviors. ROSALIE explained that pt has 24 Medicare days and whatever happens next needs to happen fast. ROSALIE went over pt tx team and the medication that was ordered started out as liquid or dissolvable so that she cannot spit it out. Andrea is hopeful that pt allows her family to be their DPOA because pt having a guardian "may destroy her". ROSALIE will continue to keep Andrea up to date.
[2018-08-13] MEDS: ATORVASTATIN CALCIUM 20 MG TABLET PO SCH (20:20)
[2018-08-13] MEDS: PATCH REMOVAL. MC SCH (20:20)
[2018-08-13] MEDS: MIRTAZAPINE ODT 15 MG TAB.RAPDIS. PO SCH (20:24)
[2018-08-13] MEDS: HYDROcodone/APAP 5/325MG 1 TAB TABLET PO SCH (20:24)
[2018-08-13] MEDS: INSULIN GLARGINE 300 UNITS/3 ML INSULN.PEN. SQ SCH (20:31)
[2018-08-13] MEDS: DORZOLAMIDE/TIMOLOL 2%/0.5% OPHTH SOLUTION 10ML BOTTLE. OS SCH (20:34)
--- NOTE | 2018-08-13 22:02 | NUR ---
Pt. was compliant with taking her medications this evening. When this director underwriter sales went in to give her eyedrops, she was tearful about her hat. Her hat was taken to be wash, this director underwriter sales reassure her that they Addendum: 08/13/18 at 2204 by CORNELIUS VALENCIA RN the aids would bring it back to her when it was done in the wash.
--- NOTE | 2018-08-13 22:44 | PDOC ---
Exam Note: Abhilash Note: Please also refer to the separate dictated note~for this date of service dictated separately.~Patient seen individually. Discussed the patient with Nursing staff reviewed the chart.~Reviewed interim history and current functioning. Reviewed vital signs,~Labs/ Radiology~and current medications noted below. Continue current treatment with the changes noted in the dictated addendum note Assessment: Vital Signs: Vital Signs Date Time Temp Pulse Resp B/P (MAP) Pulse Ox O2 Delivery O2 Flow Rate FiO2 08/13/18 21:25 18 94 08/13/18 20:24 Room Air 08/13/18 20:19 82 138/75 08/13/18 16:25 98.1 I&O Intake and Output 08/13/18 07:00 Intake Total 1560 ml Balance 1560 ml Intake Oral 1560 ml # Voids 1 Labs: Laboratory Tests Test 08/13/18 07:13 08/13/18 11:31 08/13/18 16:59 08/13/18 19:04 Glucose (Fingerstick) 93 mg/dL (70-99) 157 mg/dL (70-99) H 178 mg/dL (70-99) H 204 mg/dL (70-99) H Current Medications: Meds: Current Medications Clopidogrel Bisulfate (Plavix) 75 mg DAILY PO Last administered on 08/13/18at 10:45; Start 07/11/18 at 09:00 Ferrous Sulfate (Feosol) 325 mg DAILY PO Last administered on 08/13/18at 10:45; Start 07/11/18 at 09:00 Gabapentin (Neurontin) 300 mg HS PO ; Start 07/11/18 at 21:00; Stop 07/11/18 at 21:00; Status DC Acetaminophen/ Hydrocodone Bitart (Lortab 5/325) 1 tab PRN QHS PRN PO PAIN; Start 07/10/18 at 22:00; Stop 07/10/18 at 22:51; Status DC Acetaminophen/ Hydrocodone Bitart (Lortab 5/325) 1 tab PRN Q6HRS PRN PO PAIN Last administered on 08/09/18at 22:59; Start 07/10/18 at 22:00 Insulin Glargine (Lantus) 30 units QHS SQ ; Start 07/11/18 at 21:00; Stop 07/11/18 at 21:00; Status DC Losartan Potassium (Cozaar) 12.5 mg HS PO ; Start 07/11/18 at 21:00; Stop 07/11/18 at 21:00; Status DC Losartan Potassium (Cozaar) 25 mg DAILY PO Last administered on 07/23/18at 09:47; Start 07/11/18 at 09:00; Stop 07/27/18 at 17:24; Status DC Senna/Docusate Sodium (Senna Plus) 1 tab BID94 PO ; Start 07/11/18 at 09:00; Stop 07/11/18 at 09:00; Status DC Acetaminophen (Tylenol) 1,000 mg PRN Q6HRS PRN PO PAIN / TEMP Last administered on 08/08/18 10:11; Start 07/10/18 at 22:45 Aspirin (Children'S Aspirin) 81 mg DAILYWBKFT PO Last administered on 08/13/18 10:45; Start 07/11/18 at 08:00 Atorvastatin Calcium (Lipitor) 40 mg QHS PO ; Start 07/11/18 at 21:00; Stop 07/11/18 at 21:00; Status DC Artificial Tears (Artificial Tears) 1 drop PRN Q15MIN PRN OU DRY EYE Last administered on 07/22/18 11:31; Start 07/10/18 at 22:45 Non-Formulary Medication (Dextran 70/ Hypromellose (Artificial Tears Eye Drops)) 1 drop PRN Q4HRS PRN EACHEYE DRY EYE; Start 07/10/18 at 22:00; Status UNV Dorzolamide/ Timolol (Cosopt) 1 drop QHS OS Last administered on 08/13/18 20:34; Start 07/11/18 at 21:00 Non-Formulary Medication (Dorzolamide Hcl/ Timolol Maleat (Dorzolamide-Timolol Eye Drops)) 1 drop HS LEFTEYE ; Start 07/11/18 at 21:00; Status UNV Vitamin D (Vitamin D3) 50,000 unit WEEKLY PO Last administered on 08/07/18 08:50; Start 07/17/18 at 09:00 Lidocaine (Lidoderm) 1 patch DAILY TD Last administered on 08/06/18 08:07; Start 07/11/18 at 09:00; Stop 08/06/18 at 15:21; Status DC Magnesium Oxide (Magnesium Oxide) 400 mg BID94 PO Last administered on 08/13/18 17:17; Start 07/11/18 at 09:00 Meclizine HCl (Antivert) 25 mg DAILY PO Last administered on 08/13/18 10:45; Start 07/11/18 at 09:00 Polyethylene Glycol (miraLAX) 17 gm PRN DAILY PRN PO CONSTIPATION Last administered on 07/12/18 07:37; Start 07/11/18 at 09:00; Stop 07/15/18 at 18:54; Status DC Sertraline HCl (Zoloft) 25 mg DAILY PO Last administered on 07/13/18 07:57; Start 07/11/18 at 09:00; Stop 07/13/18 at 17:38; Status DC Insulin Human Lispro (HumaLOG) 0-16 UNITS TIDWMEALS SQ Last administered on 08/13/18 17:20; Start 07/11/18 at 08:00 Dextrose 12.5 gm PRN Q15MIN PRN IV SEE COMMENTS; Start 07/10/18 at 22:45 Miscellaneous (Lidoderm Patch Removal) 1 ea QHS MC Last administered on 08/05/18 20:27; Start 07/11/18 at 21:00; Stop 08/06/18 at 15:22; Status DC Atorvastatin Calcium (Lipitor) 40 mg QHS PO Last administered on 08/13/18 20:20; Start 07/10/18 at 23:00 Gabapentin (Neurontin) 300 mg HS PO Last administered on 08/08/18 19:26; Start 07/10/18 at 23:00; Stop 08/09/18 at 17:56; Status DC Acetaminophen/ Hydrocodone Bitart (Lortab 5/325) 1 tab HS PO Last administered on 08/13/18 20:24; Start 07/10/18 at 23:00 Insulin Glargine (Lantus) 30 units QHS SQ Last administered on 08/13/18 20:31; Start 07/10/18 at 23:00 Losartan Potassium (Cozaar) 12.5 mg HS PO Last administered on 08/13/18 20:19; Start 07/10/18 at 23:00 Senna/Docusate Sodium (Senna Plus) 1 tab BID94 PO Last administered on 08/13/18 17:17; Start 07/10/18 at 23:00 Multi-Ingredient Ointment (Analgesic [place]) 1 ivan PRN QID PRN TP MUSCLE PAIN; Start 07/10/18 at 23:15 Al Hydroxide/Mg Hydroxide (Mylanta Plus Xs) 15 ml PRN AFTMEALHC PRN PO DYSPEPSIA; Start 07/10/18 at 23:15 Magnesium Hydroxide (Milk Of Magnesia) 2,400 mg PRN QHS PRN PO CONSTIPATION; Start 07/10/18 at 23:15 Sertraline HCl (Zoloft) 50 mg DAILY PO Last administered on 07/15/18 08:10; Start 07/14/18 at 09:00; Stop 07/15/18 at 18:43; Status DC Buspirone HCl (Buspar) 5 mg 0900,1700 PO Last administered on 07/17/18at 17:51; Start 07/15/18 at 09:00; Stop 07/18/18 at 01:49; Status DC Fluoxetine HCl (PROzac ORAL SOLN) 5 mg DAILY PO Last administered on 07/16/18 10:05; Start 07/16/18 at 09:00; Stop 07/16/18 at 17:42; Status DC Polyethylene Glycol (miraLAX) 17 gm DAILY PO Last administered on 08/13/18at 10:46; Start 07/16/18 at 09:00 Hydrocortisone (Proctosol-Hc) 1 ivan TID RC Last administered on 07/30/18at 19:20; Start 07/15/18 at 21:00; Stop 08/02/18 at 07:41; Status DC Levothyroxine Sodium (Synthroid) 25 mcg DAILY06 PO Last administered on 08/13/18 05:52; Start 07/17/18 at 06:00 Nystatin (Nystop) 1 ivan BID TP Last administered on 08/13/18 22:05; Start 07/22/18 at 21:00 Olanzapine (ZyPREXA IM) 5 mg DAILY IM ; Start 07/28/18 at 09:00; Stop 07/28/18 at 09:00; Status DC Olanzapine (ZyPREXA IM) 5 mg DAILY IM ; Start 07/27/18 at 15:30; Stop 08/10/18 at 19:32; Status DC Olanzapine (ZyPREXA) 5 mg 1X ONCE PO Last administered on 07/27/18 15:57; Start 07/27/18 at 16:00; Stop 07/27/18 at 16:01; Status DC Losartan Potassium (Cozaar) 12.5 mg DAILY PO Last administered on 08/13/18 10:46; Start 07/28/18 at 09:00 Olanzapine (ZyPREXA) 5 mg DAILY PO Last administered on 08/10/18 09:27; Start 07/28/18 at 09:00; Stop 08/10/18 at 19:32; Status DC Hydrocortisone (Proctosol-Hc) 1 ivan PRN TID PRN RC RECTAL PAIN; Start 08/02/18 at 07:45 Lidocaine (Lidoderm) 1 patch DAILY TD Last administered on 08/06/18 08:07; Start 08/03/18 at 16:15; Stop 08/06/18 at 15:21; Status DC Miscellaneous (Lidoderm Patch Removal) 1 ea QHS MC Last administered on 08/05/18 20:27; Start 08/03/18 at 21:00; Stop 08/06/18 at 15:22; Status DC Lidocaine (Lidoderm) 2 patch DAILY TD Last administered on 08/12/18 09:00; Start 08/07/18 at 09:00 Miscellaneous (Lidoderm Patch Removal) 2 ea QHS MC Last administered on 08/13/18 20:20; Start 08/06/18 at 15:22 Gabapentin (Neurontin) 300 mg DAILY PO Last administered on 08/13/18 10:59; Start 08/10/18 at 09:00 Mirtazapine (Remeron Anya-Tab) 7.5 mg QHS PO Last administered on 08/13/18 20:24; Start 08/11/18 at 21:00 Fluvoxamine Maleate (Luvox) 25 mg DAILY PO ; Start 08/14/18 at 09:00; Stop 08/16/18 at 09:01 Fluvoxamine Maleate (Luvox) 50 mg DAILY PO ; Start 08/17/18 at 09:00 Aripiprazole (Abilify) 5 mg DAILY PO ; Start 08/14/18 at 09:00 Active Scripts Active Reported Vitamin D2 (Ergocalciferol (Vitamin D2)) 50,000 Unit Capsule 50,000 Unit PO WEEKLY Zoloft (Sertraline Hcl) 25 Mg Tablet 25 Mg PO DAILY Senna-S Laxative Tablet (Sennosides/Docusate Sodium) 1 Each Tablet 1 Each PO BID94 Refresh Optive Eye Drops (Carboxymethylcellulos/Glycerin) 15 Ml Drops 1 Drop E ACHEYE PRN Q4HRS PRN Polyethylene Glycol 3350 255 Gm Powder 17 Gm PO PRN DAILY PRN Meclizine Hcl 25 Mg Tablet 25 Mg PO DAILY Mag-Oxide (Magnesium Oxide) 400 Mg Tablet 400 Mg PO BID94 Losartan Potassium (Losartan Potassium) 25 Mg Tablet 12.5 Mg PO HS Losartan Potassium (Losartan Potassium) 25 Mg Tablet 25 Mg PO DAILY Lidocaine 1 Each Adh..patch 1 Each TP DAILY Lantus Solostar (Insulin Glargine,Hum.rec.anlog) 100 Unit/1 Ml Insuln.pen 30 Unit SQ QHS Hydrocodone-Apap 5-325 (Hydrocodone Bit/Acetaminophen) 1 Each Tablet 1 Tab PO PRN Q6HRS PRN Hydrocodone-Apap 5-325 (Hydrocodone Bit/Acetaminophen) 1 Each Tablet 1 Tab PO HS PRN Gabapentin (Gabapentin) 300 Mg Capsule 300 Mg PO HS Ferrous Sulfate 325 Mg Tablet 325 Mg PO DAILY Dorzolamide-Timolol Eye Drops (Dorzolamide Hcl/Timolol Maleat) 10 Ml Drops 1 Drop LEFTEYE HS Cosopt Eye Drops (Dorzolamide Hcl/Timolol Maleat) 10 Ml Drops 1 Drop LEFTEYE HS Clopidogrel (Clopidogrel Bisulfate) 75 Mg Tablet 75 Mg PO DAILY Atorvastatin Calcium 40 Mg Tablet 40 Mg PO QHS Aspirin 81 Mg Tab.chew 81 Mg PO DAILY Artificial Tears Eye Drops (Dextran 70/Hypromellose) 15 Ml Drops 1 Drop EACHEYE PRN Q4HRS PRN Acetaminophen 500 Mg Tablet 1,000 Mg PO PRN Q6HRS PRN I have reviewed the current psychotropics carefully including drug interactions. Risk benefit ratio favors no change other than as noted in my dictated progress note. Diagnosis: Problems: (1) Anxiety disorder (2) Major depressive disorder, recurrent episode (3) Impulse control disorder (4) Mild cognitive disorder SKYE,MAN M MD August 13, 2018 22:43
[2018-08-14] MEDS: LEVOTHYROXINE 25 MCG TABLET. PO SCH (05:34)
[2018-08-14 05:37] VITALS: BP 108/62
[2018-08-14] MEDS: INSULIN LISPRO 300 UNITS/3 ML INSULN.PEN. SQ SCH ×3 (08:00→17:39)
[2018-08-14] MEDS: POLYETHYLENE GLYCOL 3350 17 GM PACKET. PO SCH (09:21)
[2018-08-14] MEDS: LOSARTAN 25 MG TABLET. PO SCH ×2 (09:22→19:58)
[2018-08-14] MEDS: MECLIZINE 12.5 MG TABLET. PO SCH (09:22)
[2018-08-14] MEDS: MAGNESIUM OXIDE 400 MG TABLET PO SCH ×2 (09:22→17:38)
[2018-08-14] MEDS: CLOPIDOGREL BISULFATE 75 MG TABLET PO SCH (09:22)
[2018-08-14] MEDS: GABAPENTIN 300 MG CAPSULE. PO SCH (09:22)
[2018-08-14] MEDS: SENNOSIDES/DOCUSATE 8.6/50MG TABLET. PO SCH ×2 (09:23→17:38)
[2018-08-14] MEDS: FERROUS SULFATE 325 MG TABLET. PO SCH (09:23)
[2018-08-14] MEDS: ASPIRIN 81 MG TAB.CHEW PO SCH (09:23)
[2018-08-14] MEDS: CHOLECALCIFEROL (VITAMIN D3) 50,000 UNIT CAPSULE PO SCH (09:23)
[2018-08-14] MEDS: NYSTATIN TOPICAL POWDER 15GM BOTTLE. TP SCH ×2 (09:24→20:46)
[2018-08-14] MEDS: LIDOCAINE (700MG/PATCH) PATCH. TD SCH (09:24)
[2018-08-14] MEDS: ARIPiprazole 5 MG TABLET PO SCH (09:26)
[2018-08-14 15:51] VITALS: BP 140/82
--- NOTE | 2018-08-14 19:49 | PN ---
DATE: 08/12/2018 PSYCHIATRIC PROGRESS NOTE This late entry 08/12/2018 covers elements not covered in my initial note. SUBJECTIVE: I met with the patient in the evening of 08/12/2018 at length. The patient slept 6-1/2 hours previous night. She has been somewhat withdrawn, resistive to medications, frequently questioning and I discussed this with her at great length. REVIEW OF SYSTEMS: Ambulation impaired, in wheelchair. No CV, , pulmonary, eye, ENT system symptoms on review. MENTAL STATUS EXAM: Oriented to herself and situation. Speech has some latency, coherent, can be rapid at times. Abstraction fair, computation impaired, language function intact, attention span short. Mood and affect, withdrawn, somewhat depressed, but she is resistive to all psychotropics. LABORATORY DATA: Reviewed. IMPRESSION: Unchanged from initial note. PLAN: Continue to encourage compliance with medication and educated her at length with limited insight on her part. We will continue to coordinate with the power of corporate trainer to see if he can administer her meds to help her mood, anxiety, and paranoia. MAN Jimmy CHEUNG MD DR: SHERIF/kelly JOB#: [id number] / [id number]
[2018-08-14] MEDS: MIRTAZAPINE ODT 15 MG TAB.RAPDIS. PO SCH (19:58)
[2018-08-14] MEDS: ATORVASTATIN CALCIUM 20 MG TABLET PO SCH (19:58)
[2018-08-14] MEDS: HYDROcodone/APAP 5/325MG 1 TAB TABLET PO SCH (20:01)
[2018-08-14] MEDS: INSULIN GLARGINE 300 UNITS/3 ML INSULN.PEN. SQ SCH (20:45)
[2018-08-14] MEDS: PATCH REMOVAL. MC SCH (21:00)
[2018-08-14] MEDS: DORZOLAMIDE/TIMOLOL 2%/0.5% OPHTH SOLUTION 10ML BOTTLE. OS SCH (21:46)
--- NOTE | 2018-08-14 22:20 | PN ---
DATE: 08/13/2018 PSYCHIATRIC PROGRESS NOTE This late entry 08/13/2018 covers elements not covered in my initial note. SUBJECTIVE: I met with the patient in the evening and staffed at a treatment team meeting with the entire team in the morning. Reviewed the patient's history at length. The patient remains extremely anxious, sarcastic, irritable, labile. Denies having any problem whatsoever. She in fact is very depressed, somewhat paranoid as a consequence of this. She had been holding forks in her room and breaking off the ends, and nursing staff are going to pay extra care to make sure she is not able to take these to her room. We will be administering her meds hidden in food and fluids with the consent of the DPOA since she is otherwise noncompliant. REVIEW OF SYSTEMS: Ambulation impaired, in wheelchair. No CV, , pulmonary, eye system symptoms on review. Reliability poor. MENTAL STATUS EXAM: Oriented to herself and situation. Speech has some latency, coherent, often responses monosyllabic. Abstraction fair, computation impaired, language function intact, attention span short. Mood and affect somewhat anxious, labile. LABORATORY DATA: Reviewed. IMPRESSION: Major depressive disorder, recurrent with psychotic features; anxiety disorder, unspecified; impulse control disorder, unspecified; obsessive-compulsive disorder. PLAN: Start Abilify 5 mg a day, Luvox 25 mg a day for 3 days, then 50 mg a day thereafter. Continue rest unchanged. Encouraged compliance with her psychotropics. JENNIFER CHEUNG MD DR: SHERIF/kelly JOB#: [id number] / [id number]
--- NOTE | 2018-08-14 22:53 | PDOC ---
Exam Note: Abhilash Note: Please also refer to the separate dictated note~for this date of service dictated separately.~Patient seen individually. Discussed the patient with Nursing staff reviewed the chart.~Reviewed interim history and current functioning. Reviewed vital signs,~Labs/ Radiology~and current medications noted below. Continue current treatment with the changes noted in the dictated addendum note Assessment: Vital Signs: Vital Signs Date Time Temp Pulse Resp B/P (MAP) Pulse Ox O2 Delivery O2 Flow Rate FiO2 08/14/18 20:01 16 98 Room Air 08/14/18 19:58 93 148/65 08/14/18 15:51 97.2 I&O Intake and Output 08/14/18 07:00 Intake Total 1440 ml Balance 1440 ml Intake Oral 1440 ml Labs: Laboratory Tests Test 08/14/18 07:08 08/14/18 11:33 08/14/18 16:14 08/14/18 19:11 Glucose (Fingerstick) 125 mg/dL (70-99) H 203 mg/dL (70-99) H 206 mg/dL (70-99) H 246 mg/dL (70-99) H Current Medications: Meds: Current Medications Clopidogrel Bisulfate (Plavix) 75 mg DAILY PO Last administered on 08/14/18at 09:22; Start 07/11/18 at 09:00 Ferrous Sulfate (Feosol) 325 mg DAILY PO Last administered on 08/14/18at 09:23; Start 07/11/18 at 09:00 Gabapentin (Neurontin) 300 mg HS PO ; Start 07/11/18 at 21:00; Stop 07/11/18 at 21:00; Status DC Acetaminophen/ Hydrocodone Bitart (Lortab 5/325) 1 tab PRN QHS PRN PO PAIN; Start 07/10/18 at 22:00; Stop 07/10/18 at 22:51; Status DC Acetaminophen/ Hydrocodone Bitart (Lortab 5/325) 1 tab PRN Q6HRS PRN PO PAIN Last administered on 08/09/18at 22:59; Start 07/10/18 at 22:00 Insulin Glargine (Lantus) 30 units QHS SQ ; Start 07/11/18 at 21:00; Stop 07/11/18 at 21:00; Status DC Losartan Potassium (Cozaar) 12.5 mg HS PO ; Start 07/11/18 at 21:00; Stop 07/11/18 at 21:00; Status DC Losartan Potassium (Cozaar) 25 mg DAILY PO Last administered on 07/23/18at 09:47; Start 07/11/18 at 09:00; Stop 07/27/18 at 17:24; Status DC Senna/Docusate Sodium (Senna Plus) 1 tab BID94 PO ; Start 07/11/18 at 09:00; Stop 07/11/18 at 09:00; Status DC Acetaminophen (Tylenol) 1,000 mg PRN Q6HRS PRN PO PAIN / TEMP Last administered on 08/08/18at 10:11; Start 07/10/18 at 22:45 Aspirin (Children'S Aspirin) 81 mg DAILYWBKFT PO Last administered on 08/14/18 09:23; Start 07/11/18 at 08:00 Atorvastatin Calcium (Lipitor) 40 mg QHS PO ; Start 07/11/18 at 21:00; Stop 07/11/18 at 21:00; Status DC Artificial Tears (Artificial Tears) 1 drop PRN Q15MIN PRN OU DRY EYE Last administered on 07/22/18 11:31; Start 07/10/18 at 22:45 Non-Formulary Medication (Dextran 70/ Hypromellose (Artificial Tears Eye Drops)) 1 drop PRN Q4HRS PRN EACHEYE DRY EYE; Start 07/10/18 at 22:00; Status UNV Dorzolamide/ Timolol (Cosopt) 1 drop QHS OS Last administered on 08/14/18at 21:46; Start 07/11/18 at 21:00 Non-Formulary Medication (Dorzolamide Hcl/ Timolol Maleat (Dorzolamide-Timolol Eye Drops)) 1 drop HS LEFTEYE ; Start 07/11/18 at 21:00; Status UNV Vitamin D (Vitamin D3) 50,000 unit WEEKLY PO Last administered on 08/14/18 09:23; Start 07/17/18 at 09:00 Lidocaine (Lidoderm) 1 patch DAILY TD Last administered on 08/06/18 08:07; Start 07/11/18 at 09:00; Stop 08/06/18 at 15:21; Status DC Magnesium Oxide (Magnesium Oxide) 400 mg BID94 PO Last administered on 08/14/18 17:38; Start 07/11/18 at 09:00 Meclizine HCl (Antivert) 25 mg DAILY PO Last administered on 08/14/18 09:22; Start 07/11/18 at 09:00 Polyethylene Glycol (miraLAX) 17 gm PRN DAILY PRN PO CONSTIPATION Last administered on 07/12/18 07:37; Start 07/11/18 at 09:00; Stop 07/15/18 at 18:54; Status DC Sertraline HCl (Zoloft) 25 mg DAILY PO Last administered on 07/13/18 07:57; Start 07/11/18 at 09:00; Stop 07/13/18 at 17:38; Status DC Insulin Human Lispro (HumaLOG) 0-16 UNITS TIDWMEALS SQ Last administered on 08/14/18 17:39; Start 07/11/18 at 08:00 Dextrose 12.5 gm PRN Q15MIN PRN IV SEE COMMENTS; Start 07/10/18 at 22:45 Miscellaneous (Lidoderm Patch Removal) 1 ea QHS MC Last administered on 08/05/18 20:27; Start 07/11/18 at 21:00; Stop 08/06/18 at 15:22; Status DC Atorvastatin Calcium (Lipitor) 40 mg QHS PO Last administered on 08/14/18 19:58; Start 07/10/18 at 23:00 Gabapentin (Neurontin) 300 mg HS PO Last administered on 08/08/18 19:26; Start 07/10/18 at 23:00; Stop 08/09/18 at 17:56; Status DC Acetaminophen/ Hydrocodone Bitart (Lortab 5/325) 1 tab HS PO Last administered on 08/14/18 20:01; Start 07/10/18 at 23:00 Insulin Glargine (Lantus) 30 units QHS SQ Last administered on 08/14/18 20:45; Start 07/10/18 at 23:00 Losartan Potassium (Cozaar) 12.5 mg HS PO Last administered on 08/14/18 19:58; Start 07/10/18 at 23:00 Senna/Docusate Sodium (Senna Plus) 1 tab BID94 PO Last administered on 08/14/18at 17:38; Start 07/10/18 at 23:00 Multi-Ingredient Ointment (Analgesic [place]) 1 ivan PRN QID PRN TP MUSCLE PAIN; Start 07/10/18 at 23:15 Al Hydroxide/Mg Hydroxide (Mylanta Plus Xs) 15 ml PRN AFTMEALHC PRN PO DYSPEPSIA; Start 07/10/18 at 23:15 Magnesium Hydroxide (Milk Of Magnesia) 2,400 mg PRN QHS PRN PO CONSTIPATION; Start 07/10/18 at 23:15 Sertraline HCl (Zoloft) 50 mg DAILY PO Last administered on 07/15/18 08:10; Start 07/14/18 at 09:00; Stop 07/15/18 at 18:43; Status DC Buspirone HCl (Buspar) 5 mg 0900,1700 PO Last administered on 07/17/18at 17:51; Start 07/15/18 at 09:00; Stop 07/18/18 at 01:49; Status DC Fluoxetine HCl (PROzac ORAL SOLN) 5 mg DAILY PO Last administered on 07/16/18 10:05; Start 07/16/18 at 09:00; Stop 07/16/18 at 17:42; Status DC Polyethylene Glycol (miraLAX) 17 gm DAILY PO Last administered on 08/14/18 09:21; Start 07/16/18 at 09:00 Hydrocortisone (Proctosol-Hc) 1 ivan TID RC Last administered on 07/30/18 19:20; Start 07/15/18 at 21:00; Stop 08/02/18 at 07:41; Status DC Levothyroxine Sodium (Synthroid) 25 mcg DAILY06 PO Last administered on 08/14/18 05:34; Start 07/17/18 at 06:00 Nystatin (Nystop) 1 ivan BID TP Last administered on 08/14/18at 20:46; Start 07/22/18 at 21:00 Olanzapine (ZyPREXA IM) 5 mg DAILY IM ; Start 07/28/18 at 09:00; Stop 07/28/18 at 09:00; Status DC Olanzapine (ZyPREXA IM) 5 mg DAILY IM ; Start 07/27/18 at 15:30; Stop 08/10/18 at 19:32; Status DC Olanzapine (ZyPREXA) 5 mg 1X ONCE PO Last administered on 07/27/18 15:57; Start 07/27/18 at 16:00; Stop 07/27/18 at 16:01; Status DC Losartan Potassium (Cozaar) 12.5 mg DAILY PO Last administered on 08/14/18 09:22; Start 07/28/18 at 09:00 Olanzapine (ZyPREXA) 5 mg DAILY PO Last administered on 08/10/18 09:27; Start 07/28/18 at 09:00; Stop 08/10/18 at 19:32; Status DC Hydrocortisone (Proctosol-Hc) 1 ivan PRN TID PRN RC RECTAL PAIN; Start 08/02/18 at 07:45 Lidocaine (Lidoderm) 1 patch DAILY TD Last administered on 08/06/18 08:07; Start 08/03/18 at 16:15; Stop 08/06/18 at 15:21; Status DC Miscellaneous (Lidoderm Patch Removal) 1 ea QHS MC Last administered on 08/05/18 20:27; Start 08/03/18 at 21:00; Stop 08/06/18 at 15:22; Status DC Lidocaine (Lidoderm) 2 patch DAILY TD Last administered on 08/14/18 09:24; Start 08/07/18 at 09:00 Miscellaneous (Lidoderm Patch Removal) 2 ea QHS MC Last administered on 08/14/18 21:00; Start 08/06/18 at 15:22 Gabapentin (Neurontin) 300 mg DAILY PO Last administered on 08/14/18 09:22; Start 08/10/18 at 09:00 Mirtazapine (Remeron Anya-Tab) 7.5 mg QHS PO Last administered on 08/14/18 19:58 ; Start 08/11/18 at 21:00 Fluvoxamine Maleate (Luvox) 25 mg DAILY PO Last administered on 08/14/18 09:26; Start 08/14/18 at 09:00; Stop 08/16/18 at 09:01 Fluvoxamine Maleate (Luvox) 50 mg DAILY PO ; Start 08/17/18 at 09:00 Aripiprazole (Abilify) 5 mg DAILY PO Last administered on 08/14/18at 09:26; Start 08/14/18 at 09:00 Active Scripts Active Reported Vitamin D2 (Ergocalciferol (Vitamin D2)) 50,000 Unit Capsule 50,000 Unit PO WEEKLY Zoloft (Sertraline Hcl) 25 Mg Tablet 25 Mg PO DAILY Senna-S Laxative Tablet (Sennosides/Docusate Sodium) 1 Each Tablet 1 Each PO BID94 Refresh Optive Eye Drops (Carboxymethylcellulos/Glycerin) 15 Ml Drops 1 Drop EACHEYE PRN Q4HRS PRN Polyethylene Glycol 3350 255 Gm Powder 17 Gm PO PRN DAILY PRN Meclizine Hcl 25 Mg Tablet 25 Mg PO DAILY Mag-Oxide (Magnesium Oxide) 400 Mg Tablet 400 Mg PO BID94 Losartan Potassium (Losartan Potassium) 25 Mg Tablet 12.5 Mg PO HS Losartan Potassium (Losartan Potassium) 25 Mg Tablet 25 Mg PO DAILY Lidocaine 1 Each Adh..patch 1 Each TP DAILY Lantus Solostar (Insulin Glargine,Hum.rec.anlog) 100 Unit/1 Ml Insuln.pen 30 Unit SQ QHS Hydrocodone-Apap 5-325 (Hydrocodone Bit/Acetaminophen) 1 Each Tablet 1 Tab PO PRN Q6HRS PRN Hydrocodone-Apap 5-325 (Hydrocodone Bit/Acetaminophen) 1 Each Tablet 1 Tab PO HS PRN Gabapentin (Gabapentin) 300 Mg Capsule 300 Mg PO HS Ferrous Sulfate 325 Mg Tablet 325 Mg PO DAILY Dorzolamide-Timolol Eye Drops (Dorzolamide Hcl/Timolol Maleat) 10 Ml Drops 1 Drop LEFTEYE HS Cosopt Eye Drops (Dorzolamide Hcl/Timolol Maleat) 10 Ml Drops 1 Drop LEFTEYE HS Clopidogrel (Clopidogrel Bisulfate) 75 Mg Tablet 75 Mg PO DAILY Atorvastatin Calcium 40 Mg Tablet 40 Mg PO QHS Aspirin 81 Mg Tab.chew 81 Mg PO DAILY Artificial Tears Eye Drops (Dextran 70/Hypromellose) 15 Ml Drops 1 Drop EACHEYE PRN Q4HRS PRN Acetaminophen 500 Mg Tablet 1,000 Mg PO PRN Q6HRS PRN I have reviewed the current psychotropics carefully including drug interactions. Risk benefit ratio favors no change other than as noted in my dictated progress note. Diagnosis: Problems: (1) Anxiety disorder (2) Major depressive disorder, recurrent episode (3) Impulse control disorder (4) Mild cognitive disorder JENNIFER CHEUNG MD August 14, 2018 22:53
--- NOTE | 2018-08-15 00:01 | NUR ---
Pt. is sitting in her W/C in the day room, no signs of distress noted. Pt. told the aids that she had a shower yesterday evening and she did not need one. This continuity writer talked with the patient in regards to the shower and informed her that she did not have one yesterday and that she was going to have to have one. Pt. agreed and she received her shower. Pt. compliant with all her HS medications.
[2018-08-15] MEDS: LEVOTHYROXINE 25 MCG TABLET. PO SCH (05:06)
[2018-08-15 06:31] VITALS: BP 101/60
[2018-08-15] MEDS: ARIPiprazole 5 MG TABLET PO SCH (08:24)
[2018-08-15] MEDS: MAGNESIUM OXIDE 400 MG TABLET PO SCH ×2 (08:25→17:12)
[2018-08-15] MEDS: LOSARTAN 25 MG TABLET. PO SCH ×2 (08:25→20:20)
[2018-08-15] MEDS: CLOPIDOGREL BISULFATE 75 MG TABLET PO SCH (08:25)
[2018-08-15] MEDS: FERROUS SULFATE 325 MG TABLET. PO SCH (08:25)
[2018-08-15] MEDS: ASPIRIN 81 MG TAB.CHEW PO SCH (08:25)
[2018-08-15] MEDS: LIDOCAINE (700MG/PATCH) PATCH. TD SCH (08:26)
[2018-08-15] MEDS: SENNOSIDES/DOCUSATE 8.6/50MG TABLET. PO SCH ×2 (08:26→17:12)
[2018-08-15] MEDS: POLYETHYLENE GLYCOL 3350 17 GM PACKET. PO SCH (08:26)
[2018-08-15] MEDS: MECLIZINE 12.5 MG TABLET. PO SCH (08:29)
[2018-08-15] MEDS: GABAPENTIN 300 MG CAPSULE. PO SCH (08:32)
[2018-08-15] MEDS: NYSTATIN TOPICAL POWDER 15GM BOTTLE. TP SCH ×2 (08:33→20:27)
[2018-08-15] MEDS: INSULIN LISPRO 300 UNITS/3 ML INSULN.PEN. SQ SCH ×3 (08:34→17:00)
[2018-08-15 16:20] VITALS: BP 139/81
--- NOTE | 2018-08-15 17:46 | NUR ---
Pt compliant with meds with no questioning and no resistance. Pt withdrawn to her room most of the day.
[2018-08-15] MEDS: MIRTAZAPINE ODT 15 MG TAB.RAPDIS. PO SCH (20:20)
[2018-08-15] MEDS: ATORVASTATIN CALCIUM 20 MG TABLET PO SCH (20:20)
[2018-08-15] MEDS: HYDROcodone/APAP 5/325MG 1 TAB TABLET PO SCH (20:22)
[2018-08-15] MEDS: INSULIN GLARGINE 300 UNITS/3 ML INSULN.PEN. SQ SCH (20:26)
[2018-08-15] MEDS: DORZOLAMIDE/TIMOLOL 2%/0.5% OPHTH SOLUTION 10ML BOTTLE. OS SCH (20:27)
[2018-08-15] MEDS: PATCH REMOVAL. MC SCH (21:00)
--- NOTE | 2018-08-15 23:18 | PDOC ---
Exam Note: Abhilash Note: Please also refer to the separate dictated note~for this date of service dictated separately.~Patient seen individually. Discussed the patient with Nursing staff reviewed the chart.~Reviewed interim history and current functioning. Reviewed vital signs,~Labs/ Radiology~and current medications noted below. Continue current treatment with the changes noted in the dictated addendum note Assessment: Vital Signs: Vital Signs Date Time Temp Pulse Resp B/P (MAP) Pulse Ox O2 Delivery O2 Flow Rate FiO2 08/15/18 22:57 14 08/15/18 20:20 71 139/81 08/15/18 16:20 97.5 95 08/15/18 06:31 Room Air I&O Intake and Output 08/15/18 06:59 Intake Total 961 ml Balance 961 ml Intake Oral 961 ml Labs: Laboratory Tests Test 08/15/18 07:05 08/15/18 11:56 08/15/18 17:16 08/15/18 19:22 Glucose (Fingerstick) 176 mg/dL (70-99) H 228 mg/dL (70-99) H 127 mg/dL (70-99) H 176 mg/dL (70-99) H Current Medications: Meds: Current Medications Clopidogrel Bisulfate (Plavix) 75 mg DAILY PO Last administered on 08/15/18at 0 8:25; Start 07/11/18 at 09:00 Ferrous Sulfate (Feosol) 325 mg DAILY PO Last administered on 08/15/18at 08:25; Start 07/11/18 at 09:00 Gabapentin (Neurontin) 300 mg HS PO ; Start 07/11/18 at 21:00; Stop 07/11/18 at 21:00; Status DC Acetaminophen/ Hydrocodone Bitart (Lortab 5/325) 1 tab PRN QHS PRN PO PAIN; Start 07/10/18 at 22:00; Stop 07/10/18 at 22:51; Status DC Acetaminophen/ Hydrocodone Bitart (Lortab 5/325) 1 tab PRN Q6HRS PRN PO PAIN Last administered on 08/09/18at 22:59; Start 07/10/18 at 22:00 Insulin Glargine (Lantus) 30 units QHS SQ ; Start 07/11/18 at 21:00; Stop 07/11/18 at 21:00; Status DC Losartan Potassium (Cozaar) 12.5 mg HS PO ; Start 07/11/18 at 21:00; Stop 07/11/18 at 21:00; Status DC Losartan Potassium (Cozaar) 25 mg DAILY PO Last administered on 07/23/18at 09:47; Start 07/11/18 at 09:00; Stop 07/27/18 at 17:24; Status DC Senna/Docusate Sodium (Senna Plus) 1 tab BID94 PO ; Start 07/11/18 at 09:00; Stop 07/11/18 at 09:00; Status DC Acetaminophen (Tylenol) 1,000 mg PRN Q6HRS PRN PO PAIN / TEMP Last administered on 08/08/18 10:11; Start 07/10/18 at 22:45 Aspirin (Children'S Aspirin) 81 mg DAILYWBKFT PO Last administered on 08/15/18 08:25; Start 07/11/18 at 08:00 Atorvastatin Calcium (Lipitor) 40 mg QHS PO ; Start 07/11/18 at 21:00; Stop 07/11/18 at 21:00; Status DC Artificial Tears (Artificial Tears) 1 drop PRN Q15MIN PRN OU DRY EYE Last administered on 07/22/18 11:31; Start 07/10/18 at 22:45 Non-Formulary Medication (Dextran 70/ Hypromellose (Artificial Tears Eye Drops)) 1 drop PRN Q4HRS PRN EACHEYE DRY EYE; Start 07/10/18 at 22:00; Status UNV Dorzolamide/ Timolol (Cosopt) 1 drop QHS OS Last administered on 08/15/18 20:27; Start 07/11/18 at 21:00 Non-Formulary Medication (Dorzolamide Hcl/ Timolol Maleat (Dorzolamide-Timolol Eye Drops)) 1 drop HS LEFTEYE ; Start 07/11/18 at 21:00; Status UNV Vitamin D (Vitamin D3) 50,000 unit WEEKLY PO Last administered on 08/14/18 09:23; Start 07/17/18 at 09:00 Lidocaine (Lidoderm) 1 patch DAILY TD Last administered on 08/06/18 08:07; Start 07/11/18 at 09:00; Stop 08/06/18 at 15:21; Status DC Magnesium Oxide (Magnesium Oxide) 400 mg BID94 PO Last administered on 08/15/18 17:12; Start 07/11/18 at 09:00 Meclizine HCl (Antivert) 25 mg DAILY PO Last administered on 08/14/18 09:22; Start 07/11/18 at 09:00 Polyethylene Glycol (miraLAX) 17 gm PRN DAILY PRN PO CONSTIPATION Last administered on 07/12/18 07:37; Start 07/11/18 at 09:00; Stop 07/15/18 at 18:54; Status DC Sertraline HCl (Zoloft) 25 mg DAILY PO Last administered on 07/13/18 07:57; Start 07/11/18 at 09:00; Stop 07/13/18 at 17:38; Status DC Insulin Human Lispro (HumaLOG) 0-16 UNITS TIDWMEALS SQ Last administered on 08/15/18 12:20; Start 07/11/18 at 08:00 Dextrose 12.5 gm PRN Q15MIN PRN IV SEE COMMENTS; Start 07/10/18 at 22:45 Miscellaneous (Lidoderm Patch Removal) 1 ea QHS MC Last administered on 08/05/18 20:27; Start 07/11/18 at 21:00; Stop 08/06/18 at 15:22; Status DC Atorvastatin Calcium (Lipitor) 40 mg QHS PO Last administered on 08/15/18 20:20; Start 07/10/18 at 23:00 Gabapentin (Neurontin) 300 mg HS PO Last administered on 08/08/18 19:26; Start 07/10/18 at 23:00; Stop 08/09/18 at 17:56; Status DC Acetaminophen/ Hydrocodone Bitart (Lortab 5/325) 1 tab HS PO Last administered on 08/15/18 20:22; Start 07/10/18 at 23:00 Insulin Glargine (Lantus) 30 units QHS SQ Last administered on 08/15/18 20:26; Start 07/10/18 at 23:00 Losartan Potassium (Cozaar) 12.5 mg HS PO Last administered on 08/15/18 20:20; Start 07/10/18 at 23:00 Senna/Docusate Sodium (Senna Plus) 1 tab BID94 PO Last administered on 08/15/18 17:12; Start 07/10/18 at 23:00 Multi-Ingredient Ointment (Analgesic [place]) 1 ivan PRN QID PRN TP MUSCLE PAIN; Start 07/10/18 at 23:15 Al Hydroxide/Mg Hydroxide (Mylanta Plus Xs) 15 ml PRN AFTMEALHC PRN PO DYSPEPSIA; Start 07/10/18 at 23:15 Magnesium Hydroxide (Milk Of Magnesia) 2,400 mg PRN QHS PRN PO CONSTIPATION; Start 07/10/18 at 23:15 Sertraline HCl (Zoloft) 50 mg DAILY PO Last administered on 07/15/18 08:10; Start 07/14/18 at 09:00; Stop 07/15/18 at 18:43; Status DC Buspirone HCl (Buspar) 5 mg 0900,1700 PO Last administered on 07/17/18at 17:51; Start 07/15/18 at 09:00; Stop 07/18/18 at 01:49; Status DC Fluoxetine HCl (PROzac ORAL SOLN) 5 mg DAILY PO Last administered on 07/16/18 10:05; Start 07/16/18 at 09:00; Stop 07/16/18 at 17:42; Status DC Polyethylene Glycol (miraLAX) 17 gm DAILY PO Last administered on 08/15/18 08:26; Start 07/16/18 at 09:00 Hydrocortisone (Proctosol-Hc) 1 ivan TID RC Last administered on 07/30/18at 19:20; Start 07/15/18 at 21:00; Stop 08/02/18 at 07:41; Status DC Levothyroxine Sodium (Synthroid) 25 mcg DAILY06 PO Last administered on 08/15/18 05:06; Start 07/17/18 at 06:00 Nystatin (Nystop) 1 ivan BID TP Last administered on 08/15/18 20:27; Start 07/22/18 at 21:00 Olanzapine (ZyPREXA IM) 5 mg DAILY IM ; Start 07/28/18 at 09:00; Stop 07/28/18 at 09:00; Status DC Olanzapine (ZyPREXA IM) 5 mg DAILY IM ; Start 07/27/18 at 15:30; Stop 08/10/18 at 19:32; Status DC Olanzapine (ZyPREXA) 5 mg 1X ONCE PO Last administered on 07/27/18 15:57; Start 07/27/18 at 16:00; Stop 07/27/18 at 16:01; Status DC Losartan Potassium (Cozaar) 12.5 mg DAILY PO Last administered on 08/15/18 08:25; Start 07/28/18 at 09:00 Olanzapine (ZyPREXA) 5 mg DAILY PO Last administered on 08/10/18 09:27; Start 07/28/18 at 09:00; Stop 08/10/18 at 19:32; Status DC Hydrocortisone (Proctosol-Hc) 1 ivan PRN TID PRN RC RECTAL PAIN; Start 08/02/18 at 07:45 Lidocaine (Lidoderm) 1 patch DAILY TD Last administered on 08/06/18 08:07; Start 08/03/18 at 16:15; Stop 08/06/18 at 15:21; Status DC Miscellaneous (Lidoderm Patch Removal) 1 ea QHS MC Last administered on 08/05/18 20:27; Start 08/03/18 at 21:00; Stop 08/06/18 at 15:22; Status DC Lidocaine (Lidoderm) 2 patch DAILY TD Last administered on 08/15/18 08:26; Start 08/07/18 at 09:00 Miscellaneous (Lidoderm Patch Removal) 2 ea QHS MC Last administered on 08/15/18 21:00; Start 08/06/18 at 15:22 Gabapentin (Neurontin) 300 mg DAILY PO Last administered on 08/15/18 08:32; Start 08/10/18 at 09:00 Mirtazapine (Remeron Anya-Tab) 7.5 mg QHS PO Last administered on 08/15/18 20:20; Start 08/11/18 at 21:00 Fluvoxamine Maleate (Luvox) 25 mg DAILY PO Last administered on 08/15/18 08:26; Start 08/14/18 at 09:00; Stop 08/16/18 at 09:01 Fluvoxamine Maleate (Luvox) 50 mg DAILY PO ; Start 08/17/18 at 09:00 Aripiprazole (Abilify) 5 mg DAILY PO Last administered on 08/15/18at 08:24; Start 08/14/18 at 09:00 Active Scripts Active Reported Vitamin D2 (Ergocalciferol (Vitamin D2)) 50,000 Unit Capsule 50,000 Unit PO WEEKLY Zoloft (Sertraline Hcl) 25 Mg Tablet 25 Mg PO DAILY Senna-S Laxative Tablet (Sennosides/Docusate Sodium) 1 Each Tablet 1 Each PO BID94 Refresh Optive Eye Drops (Carboxymethylcellulos/Glycerin) 15 Ml Drops 1 Drop EACHEYE PRN Q4HRS PRN Polyethylene Glycol 3350 255 Gm Powder 17 Gm PO PRN DAILY PRN Meclizine Hcl 25 Mg Tablet 25 Mg PO DAILY Mag-Oxide (Magnesium Oxide) 400 Mg Tablet 400 Mg PO BID94 Losartan Potassium (Losartan Potassium) 25 Mg Tablet 12.5 Mg PO HS Losartan Potassium (Losartan Potassium) 25 Mg Tablet 25 Mg PO DAILY Lidocaine 1 Each Adh..patch 1 Each TP DAILY Lantus Solostar (Insulin Glargine,Hum.rec.anlog) 100 Unit/1 Ml Insuln.pen 30 Unit SQ QHS Hydrocodone-Apap 5-325 (Hydrocodone Bit/Acetaminophen) 1 Each Tablet 1 Tab PO PRN Q6HRS PRN Hydrocodone-Apap 5-325 (Hydrocodone Bit/Acetaminophen) 1 Each Tablet 1 Tab PO HS PRN Gabapentin (Gabapentin) 300 Mg Capsule 300 Mg PO HS Ferrous Sulfate 325 Mg Tablet 325 Mg PO DAILY Dorzolamide-Timolol Eye Drops (Dorzolamide Hcl/Timolol Maleat) 10 Ml Drops 1 Drop LEFTEYE HS Cosopt Eye Drops (Dorzolamide Hcl/Timolol Maleat) 10 Ml Drops 1 Drop LEFTEYE HS Clopidogrel (Clopidogrel Bisulfate) 75 Mg Tablet 75 Mg PO DAILY Atorvastatin Calcium 40 Mg Tablet 40 Mg PO QHS Aspirin 81 Mg Tab.chew 81 Mg PO DAILY Artificial Tears Eye Drops (Dextran 70/Hypromellose) 15 Ml Drops 1 Drop EACHEYE PRN Q4HRS PRN Acetaminophen 500 Mg Tablet 1,000 Mg PO PRN Q6HRS PRN I have reviewed the current psychotropics carefully including drug interactions. Risk benefit ratio favors no change other than as noted in my dictated progress note. Diagnosis: Problems: (1) Anxiety disorder (2) Major depressive disorder, recurrent episode (3) Impulse control disorder (4) Mild cognitive disorder JENNIFER CHEUNG MD August 15, 2018 23:18
--- NOTE | 2018-08-15 23:33 | NUR ---
Patient in room during initial assessment. Teary and agitated when telling this nurse about her day and her visit with her brother. She expressed sadness and frustration that she would not be able to live with him. Patient compliant with medications and assessment. Medication education done prior to administration. Will continue to monitor.
[2018-08-16] MEDS: LEVOTHYROXINE 25 MCG TABLET. PO SCH (05:27)
[2018-08-16 06:12] VITALS: BP 150/78
[2018-08-16] MEDS: INSULIN LISPRO 300 UNITS/3 ML INSULN.PEN. SQ SCH ×3 (08:00→17:32)
[2018-08-16] MEDS: LIDOCAINE (700MG/PATCH) PATCH. TD SCH (09:00)
[2018-08-16] MEDS: NYSTATIN TOPICAL POWDER 15GM BOTTLE. TP SCH ×2 (09:00→20:28)
[2018-08-16] MEDS: POLYETHYLENE GLYCOL 3350 17 GM PACKET. PO SCH ×2 (09:00→09:47)
[2018-08-16 09:23] LABS: BASO # 0.1 x10^3/uL (0.0-0.2); BASO % 2 % (0-3); EOS # 0.3 x10^3/uL (0.0-0.7); EOS % 5 % (0-3); HEMATOCRIT 36.3 % (36.0-47.0); HEMOGLOBIN 12.2 g/dL (12.0-15.5); LYMPH # 1.3 x10^3/uL (1.0-4.8); LYMPH % 20 % (24-48); MEAN CORPUSCULAR HEMOGLOBIN 28 pg (25-35); MEAN CORPUSCULAR HGB CONC 34 g/dL (31-37); MEAN CORPUSCULAR VOLUME 84 fL (79-100); MONO # 0.5 x10^3/uL (0.0-1.1); MONO % 8 % (0-9); NEUT # 4.3 x10^3uL (1.8-7.7); NEUT % 66 % (31-73); PLATELET COUNT 295 x10^3/uL (140-400); RED BLOOD COUNT 4.35 x10^6/uL (3.50-5.40); RED CELL DISTRIBUTION WIDTH 15.7 % (11.5-14.5); WHITE BLOOD COUNT 6.5 x10^3/uL (4.0-11.0)
[2018-08-16 09:34] LABS: ALBUMIN 2.9 g/dL (3.4-5.0); ALBUMIN/GLOBULIN RATIO 0.7 (1.0-1.7); CALCIUM 9.3 mg/dL (8.5-10.1); GFR 54.7; POTASSIUM 4.3 mmol/L (3.5-5.1); TOTAL BILIRUBIN 0.4 mg/dL (0.2-1.0); TOTAL PROTEIN 7.1 g/dL (6.4-8.2)
[2018-08-16] MEDS: ARIPiprazole 5 MG TABLET PO SCH (09:45)
[2018-08-16] MEDS: MECLIZINE 12.5 MG TABLET. PO SCH (09:45)
[2018-08-16] MEDS: LOSARTAN 25 MG TABLET. PO SCH ×2 (09:46→20:28)
[2018-08-16] MEDS: MAGNESIUM OXIDE 400 MG TABLET PO SCH ×2 (09:47→17:23)
[2018-08-16] MEDS: FERROUS SULFATE 325 MG TABLET. PO SCH (09:47)
[2018-08-16] MEDS: SENNOSIDES/DOCUSATE 8.6/50MG TABLET. PO SCH ×2 (09:48→17:22)
[2018-08-16] MEDS: GABAPENTIN 300 MG CAPSULE. PO SCH (09:48)
[2018-08-16] MEDS: CLOPIDOGREL BISULFATE 75 MG TABLET PO SCH (09:48)
[2018-08-16] MEDS: ASPIRIN 81 MG TAB.CHEW PO SCH (09:54)
--- NOTE | 2018-08-16 12:03 | NUR ---
Patient has had a withdrawn morning. Upon assessment she was tearful and was talking about her family and how she felt "they didn't care." The nurse explained that her family wants her to feel better and receive help. She verbalized understanding of this. She asked a few times which medications were what and why she was taking them. Refused miralax. Took other medications as prescribed and allowed for morning assessment. Patient then returned to rest in her room. No signs of agitation noted at this time.
[2018-08-16 15:52] VITALS: BP 156/84
[2018-08-16] MEDS: MIRTAZAPINE ODT 15 MG TAB.RAPDIS. PO SCH (20:27)
[2018-08-16] MEDS: ATORVASTATIN CALCIUM 20 MG TABLET PO SCH (20:28)
[2018-08-16] MEDS: PATCH REMOVAL. MC SCH (20:28)
[2018-08-16] MEDS: HYDROcodone/APAP 5/325MG 1 TAB TABLET PO SCH (20:30)
[2018-08-16] MEDS: DORZOLAMIDE/TIMOLOL 2%/0.5% OPHTH SOLUTION 10ML BOTTLE. OS SCH (20:30)
[2018-08-16] MEDS: INSULIN GLARGINE 300 UNITS/3 ML INSULN.PEN. SQ SCH (20:33)
--- NOTE | 2018-08-16 22:47 | PDOC ---
Exam Note: Abhilash Note: Please also refer to the separate dictated note~for this date of service dictated separately.~Patient seen individually. Discussed the patient with Nursing staff reviewed the chart.~Reviewed interim history and current functioning. Reviewed vital signs,~Labs/ Radiology~and current medications noted below. Continue current treatment with the changes noted in the dictated addendum note Assessment: Vital Signs: Vital Signs Date Time Temp Pulse Resp B/P (MAP) Pulse Ox O2 Delivery O2 Flow Rate FiO2 08/16/18 21:37 97 08/16/18 20:28 80 156/84 08/16/18 15:52 98.4 18 Room Air I&O Intake and Output 08/16/18 07:00 Intake Total 1200 ml Balance 1200 ml Intake Oral 1200 ml # Bowel Movements 1 Labs: Laboratory Tests Test 08/16/18 07:21 08/16/18 09:08 08/16/18 12:12 08/16/18 16:38 Glucose (Fingerstick) 102 mg/dL (70-99) H 186 mg/dL (70-99) H 193 mg/dL (70-99) H White Blood Count 6.5 x10^3/uL (4.0-11.0) Red Blood Count 4.35 x10^6/uL (3.50-5.40) Hemoglobin 12.2 g/dL (12.0-15.5) Hematocrit 36.3 % (36.0-47.0) Mean Corpuscular Volume 84 fL (79-100) Mean Corpuscular Hemoglobin 28 pg (25-35) Mean Corpuscular Hemoglobin Concent 34 g/dL (31-37) Red Cell Distribution Width 15.7 % (11.5-14.5) H Platelet Count 295 x10^3/uL (140-400) Neutrophils (%) (Auto) 66 % (31-73) Lymphocytes (%) (Auto) 20 % (24-48) L Monocytes (%) (Auto) 8 % (0-9) Eosinophils (%) (Auto) 5 % (0-3) H Basophils (%) (Auto) 2 % (0-3) Neutrophils # (Auto) 4.3 x10^3uL (1.8-7.7) Lymphocytes # (Auto) 1.3 x10^3/uL (1.0-4.8) Monocytes # (Auto) 0.5 x10^3/uL (0.0-1.1) Eosinophils # (Auto) 0.3 x10^3/uL (0.0-0.7) Basophils # (Auto) 0.1 x10^3/uL (0.0-0.2) Sodium Level 135 mmol/L (136-145) L Potassium Level 4.3 mmol/L (3.5-5.1) Chloride Level 99 mmol/L (98-107) Carbon Dioxide Level 27 mmol/L (21-32) Anion Gap 9 (6-14) Blood Urea Nitrogen 26 mg/dL (7-20) H Creatinine 1.0 mg/dL (0.6-1.0) Estimated GFR (Cockcroft-Gault) 54.7 BUN/Creatinine Ratio 26 (6-20) H Glucose Level 124 mg/dL (70-99) H Calcium Level 9.3 mg/dL (8.5-10.1) Total Bilirubin 0.4 mg/dL (0.2-1.0) Aspartate Amino Transferase (AST) 14 U/L (15-37) L Alanine Aminotransferase (ALT) 11 U/L (14-59) L Alkaline Phosphatase 85 U/L (46-116) Total Protein 7.1 g/dL (6.4-8.2) Albumin 2.9 g/dL (3.4-5.0) L Albumin/Globulin Ratio 0.7 (1.0-1.7) L Test 08/16/18 19:17 Glucose (Fingerstick) 256 mg/dL (70-99) H Current Medications: Meds: Current Medications Clopidogrel Bisulfate (Plavix) 75 mg DAILY PO Last administered on 08/16/18at 09:48; Start 07/11/18 at 09:00 Ferrous Sulfate (Feosol) 325 mg DAILY PO Last administered on 08/16/18at 09:47; Start 07/11/18 at 09:00 Gabapentin (Neurontin) 300 mg HS PO ; Start 07/11/18 at 21:00; Stop 07/11/18 at 21:00; Status DC Acetaminophen/ Hydrocodone Bitart (Lortab 5/325) 1 tab PRN QHS PRN PO PAIN; Start 07/10/18 at 22:00; Stop 07/10/18 at 22:51; Status DC Acetaminophen/ Hydrocodone Bitart (Lortab 5/325) 1 tab PRN Q6HRS PRN PO PAIN Last administered on 08/09/18at 22:59; Start 07/10/18 at 22:00 Insulin Glargine (Lantus) 30 units QHS SQ ; Start 07/11/18 at 21:00; Stop 07/11/18 at 21:00; Status DC Losartan Potassium (Cozaar) 12.5 mg HS PO ; Start 07/11/18 at 21:00; Stop 07/11/18 at 21:00; Status DC Losartan Potassium (Cozaar) 25 mg DAILY PO Last administered on 07/23/18at 09:47; Start 07/11/18 at 09:00; Stop 07/27/18 at 17:24; Status DC Senna/Docusate Sodium (Senna Plus) 1 tab BID94 PO ; Start 07/11/18 at 09:00; Stop 07/11/18 at 09:00; Status DC Acetaminophen (Tylenol) 1,000 mg PRN Q6HRS PRN PO PAIN / TEMP Last administered on 08/08/18at 10:11; Start 07/10/18 at 22:45 Aspirin (Children'S Aspirin) 81 mg DAILYWBKFT PO Last administered on 08/16/18 09:54; Start 07/11/18 at 08:00 Atorvastatin Calcium (Lipitor) 40 mg QHS PO ; Start 07/11/18 at 21:00; Stop 07/11/18 at 21:00; Status DC Artificial Tears (Artificial Tears) 1 drop PRN Q15MIN PRN OU DRY EYE Last administered on 07/22/18at 11:31; Start 07/10/18 at 22:45 Non-Formulary Medication (Dextran 70/ Hypromellose (Artificial Tears Eye Drops)) 1 drop PRN Q4HRS PRN EACHEYE DRY EYE; Start 07/10/18 at 22:00; Status UNV Dorzolamide/ Timolol (Cosopt) 1 drop QHS OS Last administered on 08/16/18 20:30; Start 07/11/18 at 21:00 Non-Formulary Medication (Dorzolamide Hcl/ Timolol Maleat (Dorzolamide-Timolol Eye Drops)) 1 drop HS LEFTEYE ; Start 07/11/18 at 21:00; Status UNV Vitamin D (Vitamin D3) 50,000 unit WEEKLY PO Last administered on 08/14/18 09:23; Start 07/17/18 at 09:00 Lidocaine (Lidoderm) 1 patch DAILY TD Last administered on 08/06/18 08:07; Start 07/11/18 at 09:00; Stop 08/06/18 at 15:21; Status DC Magnesium Oxide (Magnesium Oxide) 400 mg BID94 PO Last administered on 08/16/18 17:23; Start 07/11/18 at 09:00 Meclizine HCl (Antivert) 25 mg DAILY PO Last administered on 08/16/18 09:45; Start 07/11/18 at 09:00 Polyethylene Glycol (miraLAX) 17 gm PRN DAILY PRN PO CONSTIPATION Last administered on 07/12/18 07:37; Start 07/11/18 at 09:00; Stop 07/15/18 at 18:54; Status DC Sertraline HCl (Zoloft) 25 mg DAILY PO Last administered on 07/13/18 07:57; Start 07/11/18 at 09:00; Stop 07/13/18 at 17:38; Status DC Insulin Human Lispro (HumaLOG) 0-16 UNITS TIDWMEALS SQ Last administered on 08/16/18 17:32; Start 07/11/18 at 08:00 Dextrose 12.5 gm PRN Q15MIN PRN IV SEE COMMENTS; Start 07/10/18 at 22:45 Miscellaneous (Lidoderm Patch Removal) 1 ea QHS MC Last administered on 08/05/18 20:27; Start 07/11/18 at 21:00; Stop 08/06/18 at 15:22; Status DC Atorvastatin Calcium (Lipitor) 40 mg QHS PO Last administered on 08/16/18 20:28; Start 07/10/18 at 23:00 Gabapentin (Neurontin) 300 mg HS PO Last administered on 08/08/18 19:26; Start 07/10/18 at 23:00; Stop 08/09/18 at 17:56; Status DC Acetaminophen/ Hydrocodone Bitart (Lortab 5/325) 1 tab HS PO Last administered on 08/16/18 20:30; Start 07/10/18 at 23:00 Insulin Glargine (Lantus) 30 units QHS SQ Last administered on 08/16/18 20:33; Start 07/10/18 at 23:00 Losartan Potassium (Cozaar) 12.5 mg HS PO Last administered on 08/16/18 20:28; Start 07/10/18 at 23:00 Senna/Docusate Sodium (Senna Plus) 1 tab BID94 PO Last administered on 08/16/18 17:22; Start 07/10/18 at 23:00 Multi-Ingredient Ointment (Analgesic Caldwell) 1 ivan PRN QID PRN TP MUSCLE PAIN; Start 07/10/18 at 23:15 Al Hydroxide/Mg Hydroxide (Mylanta Plus Xs) 15 ml PRN AFTMEALHC PRN PO DYSPEPSIA; Start 07/10/18 at 23:15 Magnesium Hydroxide (Milk Of Magnesia) 2,400 mg PRN QHS PRN PO CONSTIPATION; Start 07/10/18 at 23:15 Sertraline HCl (Zoloft) 50 mg DAILY PO Last administered on 07/15/18 08:10; Start 07/14/18 at 09:00; Stop 07/15/18 at 18:43; Status DC Buspirone HCl (Buspar) 5 mg 0900,1700 PO Last administered on 07/17/18 17:51; Start 07/15/18 at 09:00; Stop 07/18/18 at 01:49; Status DC Fluoxetine HCl (PROzac ORAL SOLN) 5 mg DAILY PO Last administered on 07/16/18 10:05; Start 07/16/18 at 09:00; Stop 07/16/18 at 17:42; Status DC Polyethylene Glycol (miraLAX) 17 gm DAILY PO Last administered on 08/15/18 08:26; Start 07/16/18 at 09:00 Hydrocortisone (Proctosol-Hc) 1 ivan TID RC Last administered on 07/30/18 19:20; Start 07/15/18 at 21:00; Stop 08/02/18 at 07:41; Status DC Levothyroxine Sodium (Synthroid) 25 mcg DAILY06 PO Last administered on 08/16/18 05:27; Start 07/17/18 at 06:00 Nystatin (Nystop) 1 ivan BID TP Last administered on 08/16/18 20:28; Start 07/22/18 at 21:00 Olanzapine (ZyPREXA IM) 5 mg DAILY IM ; Start 07/28/18 at 09:00; Stop 07/28/18 at 09:00; Status DC Olanzapine (ZyPREXA IM) 5 mg DAILY IM ; Start 07/27/18 at 15:30; Stop 08/10/18 at 19:32; Status DC Olanzapine (ZyPREXA) 5 mg 1X ONCE PO Last administered on 07/27/18 15:57; Start 07/27/18 at 16:00; Stop 07/27/18 at 16:01; Status DC Losartan Potassium (Cozaar) 12.5 mg DAILY PO Last administered on 08/16/18 09:46; Start 07/28/18 at 09:00 Olanzapine (ZyPREXA) 5 mg DAILY PO Last administered on 08/10/18 09:27; Start 07/28/18 at 09:00; Stop 08/10/18 at 19:32; Status DC Hydrocortisone (Proctosol-Hc) 1 ivan PRN TID PRN RC RECTAL PAIN; Start 08/02/18 at 07:45 Lidocaine (Lidoderm) 1 patch DAILY TD Last administered on 08/06/18 08:07; Start 08/03/18 at 16:15; Stop 08/06/18 at 15:21; Status DC Miscellaneous (Lidoderm Patch Removal) 1 ea QHS MC Last administered on 08/05/18 20:27; Start 08/03/18 at 21:00; Stop 08/06/18 at 15:22; Status DC Lidocaine (Lidoderm) 2 patch DAILY TD Last administered on 08/16/18 09:00; Start 08/07/18 at 09:00 Miscellaneous (Lidoderm Patch Removal) 2 ea QHS MC Last administered on 08/16/18 20:28; Start 08/06/18 at 15:22 Gabapentin (Neurontin) 300 mg DAILY PO Last administered on 08/16/18 09:48; Start 08/10/18 at 09:00 Mirtazapine (Remeron Anya-Tab) 7.5 mg QHS PO Last administered on 5/5/19at 20:27; Start 08/11/18 at 21:00 Fluvoxamine Maleate (Luvox) 25 mg DAILY PO Last administered on 08/16/18at 09:47; Start 08/14/18 at 09:00; Stop 08/16/18 at 09:01; Status DC Fluvoxamine Maleate (Luvox) 50 mg DAILY PO ; Start 08/17/18 at 09:00 Aripiprazole (Abilify) 5 mg DAILY PO Last administered on 08/16/18at 09:45; Start 08/14/18 at 09:00 Active Scripts Active Reported Vitamin D2 (Ergocalciferol (Vitamin D2)) 50,000 Unit Capsule 50,000 Unit PO WEEKLY Zoloft (Sertraline Hcl) 25 Mg Tablet 25 Mg PO DAILY Senna-S Laxative Tablet (Sennosides/Docusate Sodium) 1 Each Tablet 1 Each PO BID94 Refresh Optive Eye Drops (Carboxymethylcellulos/Glycerin) 15 Ml Drops 1 Drop EACHEYE PRN Q4HRS PRN Polyethylene Glycol 3350 255 Gm Powder 17 Gm PO PRN DAILY PRN Meclizine Hcl 25 Mg Tablet 25 Mg PO DAILY Mag-Oxide (Magnesium Oxide) 400 Mg Tablet 400 Mg PO BID94 Losartan Potassium (Losartan Potassium) 25 Mg Tablet 12.5 Mg PO HS Losartan Potassium (Losartan Potassium) 25 Mg Tablet 25 Mg PO DAILY Lidocaine 1 Each Adh..patch 1 Each TP DAILY Lantus Solostar (Insulin Glargine,Hum.rec.anlog) 100 Unit/1 Ml Insuln.pen 30 Unit SQ QHS Hydrocodone-Apap 5-325 (Hydrocodone Bit/Acetaminophen) 1 Each Tablet 1 Tab PO PRN Q6HRS PRN Hydrocodone-Apap 5-325 (Hydrocodone Bit/Acetaminophen) 1 Each Tablet 1 Tab PO HS PRN Gabapentin (Gabapentin) 300 Mg Capsule 300 Mg PO HS Ferrous Sulfate 325 Mg Tablet 325 Mg PO DAILY Dorzolamide-Timolol Eye Drops (Dorzolamide Hcl/Timolol Maleat) 10 Ml Drops 1 Drop LEFTEYE HS Cosopt Eye Drops (Dorzolamide Hcl/Timolol Maleat) 10 Ml Drops 1 Drop LEFTEYE HS Clopidogrel (Clopidogrel Bisulfate) 75 Mg Tablet 75 Mg PO DAILY Atorvastatin Calcium 40 Mg Tablet 40 Mg PO QHS Aspirin 81 Mg Tab.chew 81 Mg PO DAILY Artificial Tears Eye Drops (Dextran 70/Hypromellose) 15 Ml Drops 1 Drop EACHEYE PRN Q4HRS PRN Acetaminophen 500 Mg Tablet 1,000 Mg PO PRN Q6HRS PRN I have reviewed the current psychotropics carefully including drug interactions. Risk benefit ratio favors no change other than as noted in my dictated progress note. Diagnosis: Problems: (1) Anxiety disorder (2) Major depressive disorder, recurrent episode (3) Impulse control disorder (4) Mild cognitive disorder JENNIFER CHEUNG MD August 16, 2018 22:47
--- NOTE | 2018-08-17 01:23 | NUR ---
Pt sitting calmly in the dayroom this evening. Pt compliant with HS medications, once explained which each medication was. Pt tearful when informed that she would be taking a shower tonight. Pt argumentative and defensive, stating she does not need a shower and definitely doesn't need her hair washed. Pt eventually compliant with shower; however with much resistance.
[2018-08-17 06:15] VITALS: BP 145/83
[2018-08-17] MEDS: LEVOTHYROXINE 25 MCG TABLET. PO SCH (06:21)
[2018-08-17] MEDS: INSULIN LISPRO 300 UNITS/3 ML INSULN.PEN. SQ SCH ×3 (08:00→17:00)
[2018-08-17] MEDS: MECLIZINE 12.5 MG TABLET. PO SCH ×2 (09:00→09:21)
[2018-08-17] MEDS: LIDOCAINE (700MG/PATCH) PATCH. TD SCH (09:00)
[2018-08-17] MEDS: NYSTATIN TOPICAL POWDER 15GM BOTTLE. TP SCH ×2 (09:00→21:56)
[2018-08-17] MEDS: ASPIRIN 81 MG TAB.CHEW PO SCH (09:21)
[2018-08-17] MEDS: ARIPiprazole 5 MG TABLET PO SCH (09:21)
[2018-08-17] MEDS: FERROUS SULFATE 325 MG TABLET. PO SCH (09:22)
[2018-08-17] MEDS: LOSARTAN 25 MG TABLET. PO SCH ×2 (09:22→20:11)
[2018-08-17] MEDS: MAGNESIUM OXIDE 400 MG TABLET PO SCH ×2 (09:23→16:00)
[2018-08-17] MEDS: POLYETHYLENE GLYCOL 3350 17 GM PACKET. PO SCH (09:23)
[2018-08-17] MEDS: SENNOSIDES/DOCUSATE 8.6/50MG TABLET. PO SCH ×2 (09:23→16:00)
[2018-08-17] MEDS: CLOPIDOGREL BISULFATE 75 MG TABLET PO SCH (09:24)
[2018-08-17] MEDS: GABAPENTIN 300 MG CAPSULE. PO SCH (09:28)
--- NOTE | 2018-08-17 09:35 | NUR ---
Pt followed SW to her office as SW came in this morning. Pt was tearful and reports that her visit with her brother this weekend went well. Pt saw the discussion this weekend as "they want nothing to do with me and want to sell my stuff". SW corrected pt and said "no, the purpose of meeting this weekend was for you to understand that if he is your DPOA, he was going to do specific things and needed you to be on board". Pt does not want anyone to sell "my stuff". Pt is stuck on trying to find other individuals to be her DPOA, as she believes that they will help her because her family "has abandoned her". She reports that Tatyana Heredia did call her and is not sure she can help. Pt has asked to speak to her Aunt Debbi and to also see about a Martha Johnson, to be her DPOA. SW informed pt that she would be better suited for pt family to be her DPOA and allow them to make decisions; whereas, if pt were to receive a guardian, they will make decisions for her and she will not have a say. Pt doesn't want a guardian but also wants to make sure that no one "touches my stuff. That's my couch and my paintings and no one can touch it". SW will contact Joseph to follow up on this and pt has asked that SW contact Andrea, her current DPOA to see if she can "go live with her".
[2018-08-17 11:05] VITALS: BP 130/83
--- NOTE | 2018-08-17 11:40 | NUR ---
Patient has had a sleepy morning. Ate breakfast and wanted to lay back down. Took medications, allowed for morning assessment. She did refuse meclizine. She mentioned before going to bed being congested and having problems breathing. Patient was tearful during this time. Took vitals on patient, SPO2-98%, BP-130/83, HR-98, Resp-20, temp-98.5. The nurse elevated the bed to 30 degrees. Put side rails up for safety. Patient is now resting quietly in her room, no signs of agitation noted. Will continue to monitor.
[2018-08-17 15:24] VITALS: BP 158/83
[2018-08-17] MEDS: ONDANSETRON ODT 4 MG TAB.RAPDIS PO PRN (17:25)
[2018-08-17 17:28] LABS: BASO # 0.1 x10^3/uL (0.0-0.2); BASO % 1 % (0-3); EOS # 0.2 x10^3/uL (0.0-0.7); EOS % 3 % (0-3); HEMATOCRIT 36.5 % (36.0-47.0); HEMOGLOBIN 12.3 g/dL (12.0-15.5); LYMPH # 1.2 x10^3/uL (1.0-4.8); LYMPH % 15 % (24-48); MEAN CORPUSCULAR HEMOGLOBIN 28 pg (25-35); MEAN CORPUSCULAR HGB CONC 34 g/dL (31-37); MEAN CORPUSCULAR VOLUME 83 fL (79-100); MONO # 0.6 x10^3/uL (0.0-1.1); MONO % 8 % (0-9); NEUT # 5.7 x10^3uL (1.8-7.7); NEUT % 73 % (31-73); PLATELET COUNT 292 x10^3/uL (140-400); RED BLOOD COUNT 4.39 x10^6/uL (3.50-5.40); RED CELL DISTRIBUTION WIDTH 15.6 % (11.5-14.5); WHITE BLOOD COUNT 7.8 x10^3/uL (4.0-11.0)
[2018-08-17 17:42] LABS: ALBUMIN/GLOBULIN RATIO 0.7 (1.0-1.7); CALCIUM 9.5 mg/dL (8.5-10.1); GFR 54.7; POTASSIUM 4.4 mmol/L (3.5-5.1); TOTAL BILIRUBIN 0.4 mg/dL (0.2-1.0); TOTAL PROTEIN 7.2 g/dL (6.4-8.2)
--- NOTE | 2018-08-17 17:45 | NUR ---
Staff reported patient vomiting while getting up out of bed for dinner. The vomit was clear, patient stated "I think I got up to fast." Stat labs ordered as well as PRN william. Wliliam given @1735. Held 1600 senna and magnesium oxide. Will continue to monitor.
--- NOTE | 2018-08-17 19:18 | PN ---
DATE: 08/14/2018 PSYCHIATRIC PROGRESS NOTE This late entry 08/14/2018 covers elements not covered in my initial note. SUBJECTIVE: I met with the patient in the evening at length in her room. Previous night, she was upset that the hat had to be washed, unable to understand the reason for the hygiene and cleanliness. She slept 6-3/4 hours previous night. Her room has been changed. She is quite obsessive about her medications and these are discussed with her at length each time when they are administered per nursing reported. REVIEW OF SYSTEMS: Ambulation impaired, in wheelchair. No CV, , pulmonary, eye, ENT system symptoms on review. MENTAL STATUS EXAM: Oriented to herself and situation. Speech has some latency. Abstraction fair, computation impaired, language function intact, attention span short. Mood and affect depressed, anxious, labile, complaining about the staff. Her brother did come to visit her and has spent an extended period of time with her on this since she is very upset. He is her youngest brother, states she raised him as a mother figure because their parents ran a business and she was the oldest of 5 and now, he is wanting to sell the belongings in her home and have her live-in a different facility that she is unwilling to accept. Addressed at length with her. Speech otherwise coherent, rapid, tearful at times. Abstraction fair, computation impaired, language function intact, attention span short. Mood and affect remains withdrawn, labile, anxious. LABORATORY DATA: Reviewed. IMPRESSION: Major depressive disorder, recurrent; mild cognitive impairment; anxiety disorder, unspecified. PLAN: Continue current psychotropics, Luvox 25 mg a day, increasing to 50 gradually and Abilify 5 mg a day. Rest unchanged. MAN Jimmy CHEUNG MD DR: SHERIF/kelly JOB#: [id number] / [id number]
[2018-08-17] MEDS: ATORVASTATIN CALCIUM 20 MG TABLET PO SCH (20:10)
[2018-08-17] MEDS: MIRTAZAPINE ODT 15 MG TAB.RAPDIS. PO SCH (20:12)
[2018-08-17] MEDS: HYDROcodone/APAP 5/325MG 1 TAB TABLET PO SCH (20:14)
[2018-08-17] MEDS: INSULIN GLARGINE 300 UNITS/3 ML INSULN.PEN. SQ SCH (20:16)
[2018-08-17] MEDS: PATCH REMOVAL. MC SCH (21:00)
--- NOTE | 2018-08-17 21:09 | PN ---
DATE: 08/15/2018 PSYCHIATRIC PROGRESS NOTE This late entry 08/15/2018 covers elements not covered in my initial note. SUBJECTIVE: I met with the patient in the evening of 08/15/2018. The patient slept reasonably previous night. I met with her at length in her room. She remains somewhat anxious, labile, tearful at times, feeling her brother wants to sell her belongings. One of the nurses on the unit worked for home health services and had actually visited the patient in her home, and there was hardly any space in the home for the nurse to walk through to find the patient. The home was extremely hygiene, unkempt, unlivable. The patient is unable to accept all of this and her changed abilities to care for herself. REVIEW OF SYSTEMS: Ambulation impaired, in wheelchair. No CV, , pulmonary, eye system symptoms on review. MENTAL STATUS EXAM: Oriented to herself and situation. Speech has some latency, coherent, rapid at times. Abstraction fair, computation impaired, language function intact, attention span short. Mood and affect remain somewhat depressed. LABORATORY DATA: Reviewed. IMPRESSION: Major depressive disorder, recurrent with psychotic features; major neurocognitive disorder, vascular with delusion, depression. Rest unchanged. PLAN: No change from initial note. Maintain Abilify 5 mg a day, Luvox is being gradually increased. Maintain Remeron 7.5 mg at bedtime. MAN Jimmy CHEUNG MD DR: SHERIF/kelly JOB#: [id number] / [id number]
--- NOTE | 2018-08-17 21:53 | PDOC ---
Exam Note: Abhilash Note: Please also refer to the separate dictated note~for this date of service dictated separately.~Patient seen individually. Discussed the patient with Nursing staff reviewed the chart.~Reviewed interim history and current functioning. Reviewed vital signs,~Labs/ Radiology~and current medications noted below. Continue current treatment with the changes noted in the dictated addendum note Assessment: Vital Signs: Vital Signs Date Time Temp Pulse Resp B/P (MAP) Pulse Ox O2 Delivery O2 Flow Rate FiO2 08/17/18 20:14 18 95 08/17/18 20:11 102 174/94 08/17/18 15:24 98.6 08/16/18 15:52 Room Air I&O Intake and Output 08/17/18 06:59 Intake Total 1080 ml Balance 1080 ml Intake Oral 1080 ml # Bowel Movements 1 Labs: Laboratory Tests Test 08/17/18 07:53 08/17/18 11:46 08/17/18 16:54 08/17/18 17:20 Glucose (Fingerstick) 94 mg/dL (70-99) 158 mg/dL (70-99) H 140 mg/dL (70-99) H White Blood Count 7.8 x10^3/uL (4.0-11.0) Red Blood Count 4.39 x10^6/uL (3.50-5.40) Hemoglobin 12.3 g/dL (12.0-15.5) Hematocrit 36.5 % (36.0-47.0) Mean Corpuscular Volume 83 fL (79-100) Mean Corpuscular Hemoglobin 28 pg (25-35) Mean Corpuscular Hemoglobin Concent 34 g/dL (31-37) Red Cell Distribution Width 15.6 % (11.5-14.5) H Platelet Count 292 x10^3/uL (140-400) Neutrophils (%) (Auto) 73 % (31-73) Lymphocytes (%) (Auto) 15 % (24-48) L Monocytes (%) (Auto) 8 % (0-9) Eosinophils (%) (Auto) 3 % (0-3) Basophils (%) (Auto) 1 % (0-3) Neutrophils # (Auto) 5.7 x10^3uL (1.8-7.7) Lymphocytes # (Auto) 1.2 x10^3/uL (1.0-4.8) Monocytes # (Auto) 0.6 x10^3/uL (0.0-1.1) Eosinophils # (Auto) 0.2 x10^3/uL (0.0-0.7) Basophils # (Auto) 0.1 x10^3/uL (0.0-0.2) Sodium Level 134 mmol/L (136-145) L Potassium Level 4.4 mmol/L (3.5-5.1) Chloride Level 99 mmol/L (98-107) Carbon Dioxide Level 25 mmol/L (21-32) Anion Gap 10 (6-14) Blood Urea Nitrogen 26 mg/dL (7-20) H Creatinine 1.0 mg/dL (0.6-1.0) Estimated GFR (Cockcroft-Gault) 54.7 BUN/Creatinine Ratio 26 (6-20) H Glucose Level 135 mg/dL (70-99) H Calcium Level 9.5 mg/dL (8.5-10.1) Total Bilirubin 0.4 mg/dL (0.2-1.0) Aspartate Amino Transferase (AST) 13 U/L (15-37) L Alanine Aminotransferase (ALT) 13 U/L (14-59) L Alkaline Phosphatase 87 U/L (46-116) Total Protein 7.2 g/dL (6.4-8.2) Albumin 3.0 g/dL (3.4-5.0) L Albumin/Globulin Ratio 0.7 (1.0-1.7) L Test 08/17/18 19:04 Glucose (Fingerstick) 179 mg/dL (70-99) H Current Medications: Meds: Current Medications Clopidogrel Bisulfate (Plavix) 75 mg DAILY PO Last administered on 08/17/18at 09:24; Start 07/11/18 at 09:00 Ferrous Sulfate (Feosol) 325 mg DAILY PO Last administered on 08/17/18at 09:22; Start 07/11/18 at 09:00 Gabapentin (Neurontin) 300 mg HS PO ; Start 07/11/18 at 21:00; Stop 07/11/18 at 21:00; Status DC Acetaminophen/ Hydrocodone Bitart (Lortab 5/325) 1 tab PRN QHS PRN PO PAIN; Start 07/10/18 at 22:00; Stop 07/10/18 at 22:51; Status DC Acetaminophen/ Hydrocodone Bitart (Lortab 5/325) 1 tab PRN Q6HRS PRN PO PAIN Last administered on 08/09/18at 22:59; Start 07/10/18 at 22:00 Insulin Glargine (Lantus) 30 units QHS SQ ; Start 07/11/18 at 21:00; Stop 07/11/18 at 21:00; Status DC Losartan Potassium (Cozaar) 12.5 mg HS PO ; Start 07/11/18 at 21:00; Stop 07/11/18 at 21:00; Status DC Losartan Potassium (Cozaar) 25 mg DAILY PO Last administered on 07/23/18at 09:47; Start 07/11/18 at 09:00; Stop 07/27/18 at 17:24; Status DC Senna/Docusate Sodium (Senna Plus) 1 tab BID94 PO ; Start 07/11/18 at 09:00; Stop 07/11/18 at 09:00; Status DC Acetaminophen (Tylenol) 1,000 mg PRN Q6HRS PRN PO PAIN / TEMP Last administered on 08/08/18at 10:11; Start 07/10/18 at 22:45 Aspirin (Children'S Aspirin) 81 mg DAILYWBKFT PO Last administered on 08/17/18 09:21; Start 07/11/18 at 08:00 Atorvastatin Calcium (Lipitor) 40 mg QHS PO ; Start 07/11/18 at 21:00; Stop 07/11/18 at 21:00; Status DC Artificial Tears (Artificial Tears) 1 drop PRN Q15MIN PRN OU DRY EYE Last administered on 07/22/18at 11:31; Start 07/10/18 at 22:45 Non-Formulary Medication (Dextran 70/ Hypromellose (Artificial Tears Eye Drops)) 1 drop PRN Q4HRS PRN EACHEYE DRY EYE; Start 07/10/18 at 22:00; Status UNV Dorzolamide/ Timolol (Cosopt) 1 drop QHS OS Last administered on 08/16/18 20:30; Start 07/11/18 at 21:00 Non-Formulary Medication (Dorzolamide Hcl/ Timolol Maleat (Dorzolamide-Timolol Eye Drops)) 1 drop HS LEFTEYE ; Start 07/11/18 at 21:00; Status UNV Vitamin D (Vitamin D3) 50,000 unit WEEKLY PO Last administered on 08/14/18 09:23; Start 07/17/18 at 09:00 Lidocaine (Lidoderm) 1 patch DAILY TD Last administered on 08/06/18 08:07; Start 07/11/18 at 09:00; Stop 08/06/18 at 15:21; Status DC Magnesium Oxide (Magnesium Oxide) 400 mg BID94 PO Last administered on 08/17/18 09:23; Start 07/11/18 at 09:00 Meclizine HCl (Antivert) 25 mg DAILY PO Last administered on 08/16/18 09:45; Start 07/11/18 at 09:00 Polyethylene Glycol (miraLAX) 17 gm PRN DAILY PRN PO CONSTIPATION Last administered on 07/12/18 07:37; Start 07/11/18 at 09:00; Stop 07/15/18 at 18:54; Status DC Sertraline HCl (Zoloft) 25 mg DAILY PO Last administered on 07/13/18 07:57; Start 07/11/18 at 09:00; Stop 07/13/18 at 17:38; Status DC Insulin Human Lispro (HumaLOG) 0-16 UNITS TIDWMEALS SQ Last administered on 08/17/18 12:30; Start 07/11/18 at 08:00 Dextrose 12.5 gm PRN Q15MIN PRN IV SEE COMMENTS; Start 07/10/18 at 22:45 Miscellaneous (Lidoderm Patch Removal) 1 ea QHS MC Last administered on 08/05/18 20:27; Start 07/11/18 at 21:00; Stop 08/06/18 at 15:22; Status DC Atorvastatin Calcium (Lipitor) 40 mg QHS PO Last administered on 08/17/18 20:10; Start 07/10/18 at 23:00 Gabapentin (Neurontin) 300 mg HS PO Last administered on 08/08/18 19:26; Start 07/10/18 at 23:00; Stop 08/09/18 at 17:56; Status DC Acetaminophen/ Hydrocodone Bitart (Lortab 5/325) 1 tab HS PO Last administered on 08/17/18 20:14; Start 07/10/18 at 23:00 Insulin Glargine (Lantus) 30 units QHS SQ Last administered on 08/17/18 20:16; Start 07/10/18 at 23:00 Losartan Potassium (Cozaar) 12.5 mg HS PO Last administered on 08/17/18 20:11; Start 07/10/18 at 23:00 Senna/Docusate Sodium (Senna Plus) 1 tab BID94 PO Last administered on 08/17/18 09:23; Start 07/10/18 at 23:00 Multi-Ingredient Ointment (Analgesic [place]) 1 ivan PRN QID PRN TP MUSCLE PAIN; Start 07/10/18 at 23:15 Al Hydroxide/Mg Hydroxide (Mylanta Plus Xs) 15 ml PRN AFTMEALHC PRN PO DYSPEPSIA; Start 07/10/18 at 23:15 Magnesium Hydroxide (Milk Of Magnesia) 2,400 mg PRN QHS PRN PO CONSTIPATION; Start 07/10/18 at 23:15 Sertraline HCl (Zoloft) 50 mg DAILY PO Last administered on 07/15/18 08:10; Start 07/14/18 at 09:00; Stop 07/15/18 at 18:43; Status DC Buspirone HCl (Buspar) 5 mg 0900,1700 PO Last administered on 07/17/18 17:51; Start 07/15/18 at 09:00; Stop 07/18/18 at 01:49; Status DC Fluoxetine HCl (PROzac ORAL SOLN) 5 mg DAILY PO Last administered on 07/16/18 10:05; Start 07/16/18 at 09:00; Stop 07/16/18 at 17:42; Status DC Polyethylene Glycol (miraLAX) 17 gm DAILY PO Last administered on 08/17/18 09:23; Start 07/16/18 at 09:00 Hydrocortisone (Proctosol-Hc) 1 ivan TID RC Last administered on 07/30/18 19:20; Start 07/15/18 at 21:00; Stop 08/02/18 at 07:41; Status DC Levothyroxine Sodium (Synthroid) 25 mcg DAILY06 PO Last administered on 08/17/18 06:21; Start 07/17/18 at 06:00 Nystatin (Nystop) 1 ivan BID TP Last administered on 08/17/18 09:00; Start 07/22/18 at 21:00 Olanzapine (ZyPREXA IM) 5 mg DAILY IM ; Start 07/28/18 at 09:00; Stop 07/28/18 at 09:00; Status DC Olanzapine (ZyPREXA IM) 5 mg DAILY IM ; Start 07/27/18 at 15:30; Stop 08/10/18 at 19:32; Status DC Olanzapine (ZyPREXA) 5 mg 1X ONCE PO Last administered on 07/27/18 15:57; Start 07/27/18 at 16:00; Stop 07/27/18 at 16:01; Status DC Losartan Potassium (Cozaar) 12.5 mg DAILY PO Last administered on 08/17/18 09:22; Start 07/28/18 at 09:00 Olanzapine (ZyPREXA) 5 mg DAILY PO Last administered on 08/10/18 09:27; Start 07/28/18 at 09:00; Stop 08/10/18 at 19:32; Status DC Hydrocortisone (Proctosol-Hc) 1 ivan PRN TID PRN RC RECTAL PAIN; Start 08/02/18 at 07:45 Lidocaine (Lidoderm) 1 patch DAILY TD Last administered on 08/06/18 08:07; Start 08/03/18 at 16:15; Stop 08/06/18 at 15:21; Status DC Miscellaneous (Lidoderm Patch Removal) 1 ea QHS MC Last administered on 08/05/18 20:27; Start 08/03/18 at 21:00; Stop 08/06/18 at 15:22; Status DC Lidocaine (Lidoderm) 2 patch DAILY TD Last administered on 08/17/18 09:00; Start 08/07/18 at 09:00 Miscellaneous (Lidoderm Patch Removal) 2 ea QHS MC Last administered on 08/16/18 20:28; Start 08/06/18 at 15:22 Gabapentin (Neurontin) 300 mg DAILY PO Last administered on 08/17/18 09:28; Start 08/10/18 at 09:00 Mirtazapine (Remeron Anya-Tab) 7.5 mg QHS PO Last administered on 08/17/18 20:12; Start 08/11/18 at 21:00 Fluvoxamine Maleate (Luvox) 25 mg DAILY PO Last administered on 08/16/18 09:47; Start 08/14/18 at 09:00; Stop 08/16/18 at 09:01; Status DC Fluvoxamine Maleate (Luvox) 50 mg DAILY PO Last administered on 08/17/18 09:27; Start 08/17/18 at 09:00 Aripiprazole (Abilify) 5 mg DAILY PO Last administered on 08/17/18 09:21; Start 08/14/18 at 09:00 Ondansetron HCl (Zofran Odt) 4 mg PRN Q8HRS PRN PO NAUSEA/VOMITING Last administered on 08/17/18 17:25; Start 08/17/18 at 17:15 Active Scripts Active Reported Vitamin D2 (Ergocalciferol (Vitamin D2)) 50,000 Unit Capsule 50,000 Unit PO WEEKLY Zoloft (Sertraline Hcl) 25 Mg Tablet 25 Mg PO DAILY Senna-S Laxative Tablet (Sennosides/Docusate Sodium) 1 Each Tablet 1 Each PO BID94 Refresh Optive Eye Drops (Carboxymethylcellulos/Glycerin) 15 Ml Drops 1 Drop EACHEYE PRN Q4HRS PRN Polyethylene Glycol 3350 255 Gm Powder 17 Gm PO PRN DAILY PRN Meclizine Hcl 25 Mg Tablet 25 Mg PO DAILY Mag-Oxide (Magnesium Oxide) 400 Mg Tablet 400 Mg PO BID94 Losartan Potassium (Losartan Potassium) 25 Mg Tablet 12.5 Mg PO HS Losartan Potassium (Losartan Potassium) 25 Mg Tablet 25 Mg PO DAILY Lidocaine 1 Each Adh..patch 1 Each TP DAILY Lantus Solostar (Insulin Glargine,Hum.rec.anlog) 100 Unit/1 Ml Insuln.pen 30 Unit SQ QHS Hydrocodone-Apap 5-325 (Hydrocodone Bit/Acetaminophen) 1 Each Tablet 1 Tab PO PRN Q6HRS PRN Hydrocodone-Apap 5-325 (Hydrocodone Bit/Acetaminophen) 1 Each Tablet 1 Tab PO HS PRN Gabapentin (Gabapentin) 300 Mg Capsule 300 Mg PO HS Ferrous Sulfate 325 Mg Tablet 325 Mg PO DAILY Dorzolamide-Timolol Eye Drops (Dorzolamide Hcl/Timolol Maleat) 10 Ml Drops 1 Drop LEFTEYE HS Cosopt Eye Drops (Dorzolamide Hcl/Timolol Maleat) 10 Ml Drops 1 Drop LEFTEYE HS Clopidogrel (Clopidogrel Bisulfate) 75 Mg Tablet 75 Mg PO DAILY Atorvastatin Calcium 40 Mg Tablet 40 Mg PO QHS Aspirin 81 Mg Tab.chew 81 Mg PO DAILY Artificial Tears Eye Drops (Dextran 70/Hypromellose) 15 Ml Drops 1 Drop EACHEYE PRN Q4HRS PRN Acetaminophen 500 Mg Tablet 1,000 Mg PO PRN Q6HRS PRN I have reviewed the current psychotropics carefully including drug interactions. Risk benefit ratio favors no change other than as noted in my dictated progress note. Diagnosis: Problems: (1) Anxiety disorder (2) Major depressive disorder, recurrent episode (3) Impulse control disorder (4) Mild cognitive disorder JENNIFER CHEUNG MD August 17, 2018 21:53
[2018-08-17] MEDS: DORZOLAMIDE/TIMOLOL 2%/0.5% OPHTH SOLUTION 10ML BOTTLE. OS SCH (21:56)
--- NOTE | 2018-08-17 23:12 | NUR ---
Pt. was in the day room this evening watching TV when this marketing copywriter took her medications to her. I had to repeat a couple of times what the medications were, but she was compliant on taking them. Pt. was tearful at HS, because her hat was put in the laundry and she wants to do things her way. This marketing copywriter explained that when her hat get dried she would get it back.
--- NOTE | 2018-08-18 04:54 | PN ---
DATE: 08/16/2018 This is a late entry for 08/16/2018 covers elements not covered in my initial note. SUBJECTIVE: I met with the patient in the evening. The patient slept 6-3/4 hours previous night. She takes her medications whole, little more compliant with medications since her brother has talked to her about this. REVIEW OF SYSTEMS: Ambulation impaired, in wheelchair. No CV, , pulmonary, eye system symptoms on review. Reliability varies. MENTAL STATUS EXAM: Oriented to herself and situation. Speech coherent, rapid at times, tearful at times. Abstraction fair, computation impaired, language function intact. Minimizes any problem she has had including her depressive symptoms. No suicidal or homicidal ideation. LABORATORY DATA: Reviewed. IMPRESSION: Unchanged from initial note. PLAN: No change from initial note. MAN Jimmy CHEUNG MD DR: SHERIF/kelly JOB#: [id number] / [id number]
[2018-08-18] MEDS: ONDANSETRON ODT 4 MG TAB.RAPDIS PO PRN (05:40)
[2018-08-18] MEDS: LEVOTHYROXINE 25 MCG TABLET. PO SCH (05:40)
[2018-08-18 06:14] VITALS: BP 132/69
--- NOTE | 2018-08-18 06:42 | NUR ---
When staff went into get her up for bed, their was vomit on the floor by her bed. Pt. was not running a temp. Gave RAND Thomas.
[2018-08-18] MEDS: ASPIRIN 81 MG TAB.CHEW PO SCH (08:00)
[2018-08-18] MEDS: INSULIN LISPRO 300 UNITS/3 ML INSULN.PEN. SQ SCH ×2 (08:00→12:00)
[2018-08-18 09:00] VITALS: BP 132/69
[2018-08-18] MEDS: NYSTATIN TOPICAL POWDER 15GM BOTTLE. TP SCH (09:00)
[2018-08-18] MEDS: MECLIZINE 12.5 MG TABLET. PO SCH (09:00)
[2018-08-18] MEDS: FERROUS SULFATE 325 MG TABLET. PO SCH (09:00)
[2018-08-18] MEDS: LOSARTAN 25 MG TABLET. PO SCH (09:00)
[2018-08-18] MEDS: SENNOSIDES/DOCUSATE 8.6/50MG TABLET. PO SCH (09:00)
[2018-08-18] MEDS: POLYETHYLENE GLYCOL 3350 17 GM PACKET. PO SCH (09:00)
[2018-08-18] MEDS: MAGNESIUM OXIDE 400 MG TABLET PO SCH (09:00)
[2018-08-18] MEDS ORDERED: ONDANSETRON ODT 4 MG TAB.RAPDIS PO PRN (09:30)
--- NOTE | 2018-08-18 10:28 | RAD ---
Chest radiograph 08/18/2018 9:41 AM INDICATION: Cough, wheezing COMPARISON: None available TECHNIQUE: Portable upright frontal view of the chest is provided. FINDINGS: The cardiomediastinal silhouette is within normal limits. There are no pleural effusions. There is no pulmonary vascular congestion. There is no pneumothorax. Patchy density at the right lung base may represent subsegmental atelectasis versus infiltrate. No significant osseous abnormality is identified. IMPRESSION: Patchy density at the right lung base may represent subsegmental atelectasis versus infiltrate. Electronically signed by: Neema Romero MD (08/18/2018 10:25 AM) [id number]
[2018-08-18] MEDS: CLOPIDOGREL BISULFATE 75 MG TABLET PO SCH (11:13)
[2018-08-18] MEDS: LIDOCAINE (700MG/PATCH) PATCH. TD SCH (11:13)
[2018-08-18] MEDS: ARIPiprazole 5 MG TABLET PO SCH (11:13)
[2018-08-18] MEDS: GABAPENTIN 300 MG CAPSULE. PO SCH (11:17)
--- NOTE | 2018-08-18 11:42 | NUR ---
Pt slept in this morning. Pt complaining of nausea, cough and chest congestion. CXR ordered. PRN Zofran administered.
--- NOTE | 2018-08-18 12:58 | NUR ---
Pt's AM meds held until lunch d/t complaints of nausea. Pt very resistive and argumentative, stating she does not want to take the psych meds and does not need them. Pt states that she wants to talk to Dr. Miles today because she has never talked with him before. Pt eventually compliant with the medications after much coaxing.
[2018-08-18] MEDS ORDERED: ARIP5TAB13 PO (15:07)
[2018-08-18] MEDS ORDERED: CHOL500016 PO (15:08)
[2018-08-18] MEDS ORDERED: HYDR28.311 RC (15:09)
[2018-08-18] MEDS ORDERED: LEVO25TA55 PO (15:10)
[2018-08-18] MEDS ORDERED: MAGN2400 PO (15:11)
[2018-08-18] MEDS ORDERED: MAG355OR17 PO (15:11)
[2018-08-18] MEDS ORDERED: METH29OI TP (15:12)
[2018-08-18] MEDS ORDERED: NYST15PO9 TP (15:13)
[2018-08-18] MEDS ORDERED: MIRT15TA PO (15:13)
[2018-08-18] MEDS ORDERED: ONDA4TAB7 PO (15:14)
[2018-08-18] MEDS ORDERED: POLY15DR20 OU (15:16)
[2018-08-18] MEDS ORDERED: FLUV50TA2 PO (15:18)
[2018-08-18] MEDS ORDERED: INSU100I17 SQ (15:23)
--- NOTE | 2018-08-18 16:05 | NUR ---
Dr. Herrmann here to see pt. Received orders to send pt to [facility] Room 123. Dx: Pneumonia. Andrea JACKSON, notified of transfer.
--- NOTE | 2018-08-18 16:12 | NUR ---
Transition Record was faxed to follow-up provider with the following elements: Reason for admission, procedures, tests, principal diagnosis, pending studies, patient instructions, 04/11 contact information for unit, phone number to obtain pending test results, plan for follow-up care, physician follow-up, advanced directive information, and medication list with dose, duration and instructions. This information was included in the following documents: History and physical, lab results, study results, progress notes, social work planning form, DC instruction form, patient visit summary, and medication reconciliation form. Date & time record faxed: 08/18/18 [phone] [email or web address] Record discussed with/ report given to: UDAY Zamora
--- NOTE | 2018-08-18 18:13 | DS ---
DATE OF DISCHARGE: 08/18/2018 This note covers elements not covered in my initial note 08/18/2018. REASON FOR ADMISSION: Please refer to the admission history for details. Briefly, the patient is a 73-year-old female referred to us from [facility] in [place], on account of worsening symptoms of depression, confusion, suicidal ideation after the patient had been pocketing Lortab and saving for later to kill herself. She was yelling at staff, agitated, paranoid, totally out of control, unmanageable. She had failed outpatient psychiatric interventions resulting in this referral. SIGNIFICANT FINDINGS AND CLINICAL COURSE: Following admission, the patient was seen daily individually by myself from a psychiatric standpoint, medical followup with Dr. Herrmann. The patient's hospitalization was markedly lengthened by the fact that she was noncompliant with treatment. We went through several changes in her psychotropics, each of which she would agree to initially including antidepressants and mood stabilizers and thereafter she would refuse it altogether. I had lengthy discussions with her as did the nursing staff. Finally, her brother did visit with her and that his behest with his knowledge and we started mixing her psychotropics in her food and drinks. At this stage, she was even more compliant with it. She seemed to be responding positively to a combination of Remeron 7.5 mg at bedtime, Luvox 50 mg a day for anxiety, obsessive symptoms depressive symptoms along with Abilify 5 mg a day. However, she seemed to develop pneumonia and was transferred to [address] [place] [address] Herrmann on 08/18/2018. Prior to discharge on 08/18/2018. REVIEW OF SYSTEMS: Ambulation impaired, in wheelchair, some shortness of breath. No CV, , eye, ENT system symptoms on review. She has vague somatic symptoms. MENTAL STATUS EXAM: Oriented to herself, at times situation. Speech has some latency, low in volume. Abstraction fair, computation impaired, language function intact, attention span short. Mood and affect still depressed, anxious, obsessive, paranoid, but much improved. No suicidal ideation at discharge. LABORATORY DATA: Reviewed. FINAL DIAGNOSES: Major depressive disorder with psychotic features in partial remission, major neurocognitive disorder, early vascular with depression, delusion versus mild cognitive impairment. She was also having word finding problems; anxiety disorder, unspecified; impulse control disorder, unspecified; pneumonia. Rest unchanged from admission. DISCHARGE MEDICATIONS: Please refer to the MAR. DISCHARGE INSTRUCTIONS: Psychiatric Medical followup on followup per Dr. Herrmann. Time for discharge day management greater than 30 minutes. JENNIFER CHEUNG MD DR: SHERIF/kelly JOB#: [id number] / [id number]
--- NOTE | 2018-08-18 18:20 | PDOC ---
Exam Note: Abhilash Note: Please also refer to the separate dictated note~for this date of service dictated separately.~Patient seen individually. Discussed the patient with Nursing staff reviewed the chart.~Reviewed interim history and current functioning. Reviewed vital signs,~Labs/ Radiology~and current medications noted below. Continue current treatment with the changes noted in the dictated addendum note Assessment: Vital Signs: Vital Signs Date Time Temp Pulse Resp B/P (MAP) Pulse Ox O2 Delivery O2 Flow Rate FiO2 08/18/18 09:00 89 132/69 08/18/18 06:14 98.3 20 95 08/16/18 15:52 Room Air I&O Intake and Output 08/18/18 07:00 Intake Total 840 ml Balance 840 ml Intake Oral 840 ml # Bowel Movements 1 Labs: Laboratory Tests Test 08/17/18 19:04 08/18/18 07:23 08/18/18 11:42 Glucose (Fingerstick) 179 mg/dL (70-99) H 101 mg/dL (70-99) H 162 mg/dL (70-99) H Current Medications: Meds: Current Medications Clopidogrel Bisulfate (Plavix) 75 mg DAILY PO Last administered on 08/18/18at 11:13; Start 07/11/18 at 09:00; Stop 08/18/18 at 16:12; Status DC Ferrous Sulfate (Feosol) 325 mg DAILY PO Last administered on 08/17/18at 09:22; Start 07/11/18 at 09:00; Stop 08/18/18 at 16:12; Status DC Gabapentin (Neurontin) 300 mg HS PO ; Start 07/11/18 at 21:00; Stop 07/11/18 at 21:00; Status DC Acetaminophen/ Hydrocodone Bitart (Lortab 5/325) 1 tab PRN QHS PRN PO PAIN; Start 07/10/18 at 22:00; Stop 07/10/18 at 22:51; Status DC Acetaminophen/ Hydrocodone Bitart (Lortab 5/325) 1 tab PRN Q6HRS PRN PO PAIN Last administered on 08/09/18at 22:59; Start 07/10/18 at 22:00; Stop 08/18/18 at 16:12; Status DC Insulin Glargine (Lantus) 30 units QHS SQ ; Start 07/11/18 at 21:00; Stop 07/11/18 at 21:00; Status DC Losartan Potassium (Cozaar) 12.5 mg HS PO ; Start 07/11/18 at 21:00; Stop 07/11/18 at 21:00; Status DC Losartan Potassium (Cozaar) 25 mg DAILY PO Last administered on 07/23/18at 09:47; Start 07/11/18 at 09:00; Stop 07/27/18 at 17:24; Status DC Senna/Docusate Sodium (Senna Plus) 1 tab BID94 PO ; Start 07/11/18 at 09:00; Stop 07/11/18 at 09:00; Status DC Acetaminophen (Tylenol) 1,000 mg PRN Q6HRS PRN PO PAIN / TEMP Last administered on 08/08/18at 10:11; Start 07/10/18 at 22:45; Stop 08/18/18 at 16:12; Status DC Aspirin (Children'S Aspirin) 81 mg DAILYWBKFT PO Last administered on 08/17/18at 09:21; Start 07/11/18 at 08:00; Stop 08/18/18 at 16:12; Status DC Atorvastatin Calcium (Lipitor) 40 mg QHS PO ; Start 07/11/18 at 21:00; Stop 07/11/18 at 21:00; Status DC Artificial Tears (Artificial Tears) 1 drop PRN Q15MIN PRN OU DRY EYE Last administered on 07/22/18at 11:31; Start 07/10/18 at 22:45; Stop 08/18/18 at 16:12; Status DC Non-Formulary Medication (Dextran 70/ Hypromellose (Artificial Tears Eye Drops)) 1 drop PRN Q4HRS PRN EACHEYE DRY EYE; Start 07/10/18 at 22:00; Status UNV Dorzolamide/ Timolol (Cosopt) 1 drop QHS OS Last administered on 08/17/18at 21:56; Start 07/11/18 at 21:00; Stop 08/18/18 at 16:12; Status DC Non-Formulary Medication (Dorzolamide Hcl/ Timolol Maleat (Dorzolamide-Timolol Eye Drops)) 1 drop HS LEFTEYE ; Start 07/11/18 at 21:00; Status UNV Vitamin D (Vitamin D3) 50,000 unit WEEKLY PO Last administered on 08/14/18 09:23; Start 07/17/18 at 09:00; Stop 08/18/18 at 16:12; Status DC Lidocaine (Lidoderm) 1 patch DAILY TD Last administered on 08/06/18 08:07; Start 07/11/18 at 09:00; Stop 08/06/18 at 15:21; Status DC Magnesium Oxide (Magnesium Oxide) 400 mg BID94 PO Last administered on 08/17/18 09:23; Start 07/11/18 at 09:00; Stop 08/18/18 at 16:12; Status DC Meclizine HCl (Antivert) 25 mg DAILY PO Last administered on 08/16/18 09:45; Start 07/11/18 at 09:00; Stop 08/18/18 at 16:12; Status DC Polyethylene Glycol (miraLAX) 17 gm PRN DAILY PRN PO CONSTIPATION Last administered on 07/12/18at 07:37; Start 07/11/18 at 09:00; Stop 07/15/18 at 18:54; Status DC Sertraline HCl (Zoloft) 25 mg DAILY PO Last administered on 07/13/18 07:57; Start 07/11/18 at 09:00; Stop 07/13/18 at 17:38; Status DC Insulin Human Lispro (HumaLOG) 0-16 UNITS TIDWMEALS SQ Last administered on 08/17/18 12:30; Start 07/11/18 at 08:00; Stop 08/18/18 at 16:12; Status DC Dextrose 12.5 gm PRN Q15MIN PRN IV SEE COMMENTS; Start 07/10/18 at 22:45; Stop 08/18/18 at 16:12; Status DC Miscellaneous (Lidoderm Patch Removal) 1 ea QHS MC Last administered on 08/05/18 20:27; Start 07/11/18 at 21:00; Stop 08/06/18 at 15:22; Status DC Atorvastatin Calcium (Lipitor) 40 mg QHS PO Last administered on 08/17/18 20:10; Start 07/10/18 at 23:00; Stop 08/18/18 at 16:12; Status DC Gabapentin (Neurontin) 300 mg HS PO Last administered on 08/08/18 19:26; Start 07/10/18 at 23:00; Stop 08/09/18 at 17:56; Status DC Acetaminophen/ Hydrocodone Bitart (Lortab 5/325) 1 tab HS PO Last administered on 08/17/18 20:14; Start 07/10/18 at 23:00; Stop 08/18/18 at 16:12; Status DC Insulin Glargine (Lantus) 30 units QHS SQ Last administered on 08/17/18 20:16; Start 07/10/18 at 23:00; Stop 08/18/18 at 16:12; Status DC Losartan Potassium (Cozaar) 12.5 mg HS PO Last administered on 08/17/18 20:11; Start 07/10/18 at 23:00; Stop 08/18/18 at 16:12; Status DC Senna/Docusate Sodium (Senna Plus) 1 tab BID94 PO Last administered on 08/17/18 09:23; Start 07/10/18 at 23:00; Stop 08/18/18 at 16:12; Status DC Multi-Ingredient Ointment (Analgesic [place]) 1 filomena PRN QID PRN TP MUSCLE PAIN; Start 07/10/18 at 23:15; Stop 08/18/18 at 16:12; Status DC Al Hydroxide/Mg Hydroxide (Mylanta Plus Xs) 15 ml PRN AFTMEALHC PRN PO DYSPEPSIA; Start 07/10/18 at 23:15; Stop 08/18/18 at 16:12; Status DC Magnesium Hydroxide (Milk Of Magnesia) 2,400 mg PRN QHS PRN PO CONSTIPATION; Start 07/10/18 at 23:15; Stop 08/18/18 at 16:12; Status DC Sertraline HCl (Zoloft) 50 mg DAILY PO Last administered on 07/15/18 08:10; Start 07/14/18 at 09:00; Stop 07/15/18 at 18:43; Status DC Buspirone HCl (Buspar) 5 mg 0900,1700 PO Last administered on 07/17/18 17:51; Start 07/15/18 at 09:00; Stop 07/18/18 at 01:49; Status DC Fluoxetine HCl (PROzac ORAL SOLN) 5 mg DAILY PO Last administered on 07/16/18 10:05; Start 07/16/18 at 09:00; Stop 07/16/18 at 17:42; Status DC Polyethylene Glycol (miraLAX) 17 gm DAILY PO Last administered on 08/17/18 09:23; Start 07/16/18 at 09:00; Stop 08/18/18 at 16:12; Status DC Hydrocortisone (Proctosol-Hc) 1 filomena TID RC Last administered on 07/30/18at 19: 20; Start 07/15/18 at 21:00; Stop 08/02/18 at 07:41; Status DC Levothyroxine Sodium (Synthroid) 25 mcg DAILY06 PO Last administered on 08/18/18 05:40; Start 07/17/18 at 06:00; Stop 08/18/18 at 16:12; Status DC Nystatin (Nystop) 1 filomena BID TP Last administered on 08/17/18 21:56; Start 07/22/18 at 21:00; Stop 08/18/18 at 16:12; Status DC Olanzapine (ZyPREXA IM) 5 mg DAILY IM ; Start 07/28/18 at 09:00; Stop 07/28/18 at 09:00; Status DC Olanzapine (ZyPREXA IM) 5 mg DAILY IM ; Start 07/27/18 at 15:30; Stop 08/10/18 at 19:32; Status DC Olanzapine (ZyPREXA) 5 mg 1X ONCE PO Last administered on 07/27/18at 15:57; Start 07/27/18 at 16:00; Stop 07/27/18 at 16:01; Status DC Losartan Potassium (Cozaar) 12.5 mg DAILY PO Last administered on 08/17/18 09:22; Start 07/28/18 at 09:00; Stop 08/18/18 at 16:12; Status DC Olanzapine (ZyPREXA) 5 mg DAILY PO Last administered on 08/10/18at 09:27; Start 07/28/18 at 09:00; Stop 08/10/18 at 19:32; Status DC Hydrocortisone (Proctosol-Hc) 1 filomena PRN TID PRN RC RECTAL PAIN; Start 08/02/18 at 07:45; Stop 08/18/18 at 16:12; Status DC Lidocaine (Lidoderm) 1 patch DAILY TD Last administered on 08/06/18 08:07; Start 08/03/18 at 16:15; Stop 08/06/18 at 15:21; Status DC Miscellaneous (Lidoderm Patch Removal) 1 ea QHS MC Last administered on 08/05/18 20:27; Start 08/03/18 at 21:00; Stop 08/06/18 at 15:22; Status DC Lidocaine (Lidoderm) 2 patch DAILY TD Last administered on 08/18/18 11:13; Start 08/07/18 at 09:00; Stop 08/18/18 at 16:12; Status DC Miscellaneous (Lidoderm Patch Removal) 2 ea QHS MC Last administered on 08/17/18 21:00; Start 08/06/18 at 15:22; Stop 08/18/18 at 16:12; Status DC Gabapentin (Neurontin) 300 mg DAILY PO Last administered on 08/18/18 11:17; Start 08/10/18 at 09:00; Stop 08/18/18 at 16:12; Status DC Mirtazapine (Remeron Anya-Tab) 7.5 mg QHS PO Last administered on 08/17/18 20:12; Start 08/11/18 at 21:00; Stop 08/18/18 at 16:12; Status DC Fluvoxamine Maleate (Luvox) 25 mg DAILY PO Last administered on 08/16/18 09:47; Start 08/14/18 at 09:00; Stop 08/16/18 at 09:01; Status DC Fluvoxamine Maleate (Luvox) 50 mg DAILY PO Last administered on 08/18/18 11:13; Start 08/17/18 at 09:00; Stop 08/18/18 at 16:12; Status DC Aripiprazole (Abilify) 5 mg DAILY PO Last administered on 08/18/18 11:13; Start 08/14/18 at 09:00; Stop 08/18/18 at 16:12; Status DC Ondansetron HCl (Zofran Odt) 4 mg PRN Q8HRS PRN PO NAUSEA/VOMITING Last administered on 08/18/18at 05:40; Start 08/17/18 at 17:15; Stop 08/18/18 at 09:27; Status DC Ondansetron HCl (Zofran Odt) 4 mg PRN Q4HRS PRN PO NAUSEA/VOMITING Last administered on 08/18/18at 09:57; Start 08/18/18 at 09:30; Stop 08/18/18 at 16:12; Status DC Active Scripts Active Reported Novolog Flexpen (Insulin Aspart) 100 Unit/1 Ml Insuln.pen 0-16 Unit SQ TIDWMEALS 70-150 0 units if eating 0 units if not eating/HS 151-200 4 0 201-250 8 0 251-300 10 0 301-350 12 0 351-400 16 0 >401 call Fluvoxamine Maleate 50 Mg Tablet 50 Mg PO DAILY Polyvinyl Alcohol 15 Ml Drops 1 Drop OU PRN Q15MIN PRN Zofran (Ondansetron Hcl) 4 Mg Tablet 4 Mg PO PRN Q4HRS PRN Nystatin 15 Gm Powder 1 Filomena TP BID Remeron (Mirtazapine) 15 Mg Tablet 7.5 Mg PO QHS Analgesic [place] (Methyl Salicylate/Menthol) 28 Gm Oint...g. 1 Filomena TP PRN QID PRN Milk Of Magnesia (Magnesium Hydroxide) 2,400 Mg/10 Ml Oral.susp 2,400 Mg PO PRN QHS PRN Advanced Antacid Liquid (Mag Hydrox/Al Hydrox/Simeth) 355 Ml Oral.susp 15 Ml PO PRN AFTMEALHC PRN Synthroid (Levothyroxine Sodium) 25 Mcg Tablet 25 Mcg PO DAILYAC Proctosol-Hc (Hydrocortisone) 28.35 Gm Cream..g. 1 Filomena RC PRN TID PRN Vitamin D3 (Cholecalciferol (Vitamin D3)) 5,000 Unit Tablet 50,000 Unit PO WEEKLY start date: 07/17/18 Abilify (Aripiprazole) 5 Mg Tablet 5 Mg PO DAILY Senna-S Laxative Tablet (Sennosides/Docusate Sodium) 1 Each Tablet 1 Each PO BID94 Polyethylene Glycol 3350 255 Gm Powder 17 Gm PO DAILY Meclizine Hcl 25 Mg Tablet 25 Mg PO DAILY Mag-Oxide (Magnesium Oxide) 400 Mg Tablet 400 Mg PO BID94 Losartan Potassium (Losartan Potassium) 25 Mg Tablet 12.5 Mg PO BID Lidocaine 1 Each Adh..patch 2 Each TP DAILY Lantus Solostar (Insulin Glargine,Hum.rec.anlog) 100 Unit/1 Ml Insuln.pen 30 Unit SQ QHS Hydrocodone-Apap 5-325 (Hydrocodone Bit/Acetaminophen) 1 Each Tablet 1 Tab PO PRN Q6HRS PRN Hydrocodone-Apap 5-325 (Hydrocodone Bit/Acetaminophen) 1 Each Tablet 1 Tab PO HS Gabapentin (Gabapentin) 300 Mg Capsule 300 Mg PO DAILY Ferrous Sulfate 325 Mg Tablet 325 Mg PO DAILY Cosopt Eye Drops (Dorzolamide Hcl/Timolol Maleat) 10 Ml Drops 1 Drop LEFTEYE HS Clopidogrel (Clopidogrel Bisulfate) 75 Mg Tablet 75 Mg PO DAILY Atorvastatin Calcium 40 Mg Tablet 40 Mg PO QHS Aspirin 81 Mg Tab.chew 81 Mg PO DAILY Acetaminophen 500 Mg Tablet 1,000 Mg PO PRN Q6HRS PRN I have reviewed the current psychotropics carefully including drug interactions. Risk benefit ratio favors no change other than as noted in my dictated progress note. Diagnosis: Problems: (1) Mild cognitive disorder (2) Impulse control disorder (3) Major depressive disorder, recurrent episode (4) Anxiety disorder JENNIFER CHEUNG MD August 18, 2018 18:20
--- NOTE | 2018-08-18 19:39 | PN ---
DATE: 08/17/2018 PSYCHIATRIC PROGRESS NOTE This late entry 08/17/2018 covers elements not covered in my initial note. SUBJECTIVE: I met with the patient in the evening at length in her room. The patient slept 6-1/4 hours previous night. At night, she vomited on the floor. Labs are due on the 08/21/2018, more compliant to her medications, sedated, somewhat withdrawn, sleeping all day. REVIEW OF SYSTEMS: She is in a wheelchair. No CV, , pulmonary, eye, ENT system symptoms on review. MENTAL STATUS EXAM: Oriented to herself and situation. Speech moderate latency, often responses monosyllabic. Abstraction fair, computation impaired, language function intact. Mood and affect, withdrawn. LABORATORY DATA: Reviewed. IMPRESSION: Major depressive disorder with psychotic features; major neurocognitive disorder, early vascular with delusion, depression. Rest unchanged. PLAN: No change from initial note. Defer medical management to Dr. Herrmann. JENNIFER CHEUNG MD DR: SHERIF/kelly JOB#: [id number] / [id number]
[2018-08-19] MEDS ORDERED: ENOXAPARIN 40 MG/0.4 ML SYRINGE. SQ SCH (13:00)
== END 2018-08-18 16:11 | disposition short-term general hospital (02) | DRG 885 ==
LOC: GEROPSY 20:40
PROVIDERS: ADMIT Psychiatry & Neurology Psychiatry; ATTEND Psychiatry & Neurology Psychiatry
DX: F33.3 Major depressive disorder, recurrent, severe with psychotic symptoms (principal); J18.9 Pneumonia, unspecified organism; I69.351 Hemiplegia and hemiparesis following cerebral infarction affecting right dominant side; R45.851 Suicidal ideations; E11.9 Type 2 diabetes mellitus without complications; F01.50 Vascular dementia, unspecified severity, without behavioral disturbance, psychotic disturbance, mood disturbance, and anxiety; E78.5 Hyperlipidemia, unspecified; F41.9 Anxiety disorder, unspecified; F42.9 Obsessive-compulsive disorder, unspecified; F63.9 Impulse disorder, unspecified; G47.00 Insomnia, unspecified; H40.9 Unspecified glaucoma; I10 Essential (primary) hypertension; I25.10 Atherosclerotic heart disease of native coronary artery without angina pectoris; M19.90 Unspecified osteoarthritis, unspecified site; K64.9 Unspecified hemorrhoids; M48.00 Spinal stenosis, site unspecified; Z63.8 Other specified problems related to primary support group; Z66 Do not resuscitate; Z79.899 Other long term (current) drug therapy; Z91.19 Patient's noncompliance with other medical treatment and regimen
CPT/HCPCS: 36415; 71045; 80053; 80061; 81001; 82306; 82947; 83036; 83540; 83550; 83735; 84436; 84443; 84480; 85025; 86592; 87086; 87186; 93005; J1815; J8597; Q0162

== ENCOUNTER 2018-08-18 14:51 | Inpatient (IN) | payer MEDICARE, BC ==
[~2018-08-18] VITALS: Ht 167.6 cm; Wt 86.6 kg
[~2018-08-18 14:51] MED LIST: ACET500T68 PO; ASPI-630 PO; ATOR40TA59 PO; CARB15DR3 EACHEYE; CLOP75TA PO; DEXT15DR5 EACHEYE; DORZ10DR21 LEFTEYE; DORZ10DR27 LEFTEYE; ERGO500027 PO; FERR325T14 PO; GABA-586 PO; HYDR-2155 PO; INSU100I13 SQ; LIDO700A39 TP; LOSA25TA11 PO; MAGN400T22 PO; MECL25TA3 PO; POLY255P11 PO; SENN-142 PO; SERT25TA PO
[2018-08-18] MEDS ORDERED: ARIP5TAB13 PO (15:07)
[2018-08-18] MEDS ORDERED: CHOL500016 PO (15:08)
[2018-08-18] MEDS ORDERED: HYDR28.311 RC (15:09)
[2018-08-18] MEDS ORDERED: LEVO25TA55 PO (15:10)
[2018-08-18] MEDS ORDERED: MAG355OR17 PO (15:11)
[2018-08-18] MEDS ORDERED: MAGN2400 PO (15:11)
[2018-08-18] MEDS ORDERED: METH29OI TP (15:12)
[2018-08-18] MEDS ORDERED: NYST15PO9 TP (15:13)
[2018-08-18] MEDS ORDERED: MIRT15TA PO (15:13)
[2018-08-18] MEDS ORDERED: ONDA4TAB7 PO (15:14)
[2018-08-18] MEDS ORDERED: POLY15DR20 OU (15:16)
[2018-08-18] MEDS ORDERED: FLUV50TA2 PO (15:18)
[2018-08-18] MEDS ORDERED: INSU100I17 SQ (15:23)
[2018-08-18 16:18] VITALS: BP 146/78
[2018-08-18] MEDS ORDERED: MAG HYDROX/AL HYDROX/SIMETH 30 ML ORAL.SUSP PO PRN (16:45)
[2018-08-18] MEDS ORDERED: ONDANSETRON ODT 4 MG TAB.RAPDIS PO PRN (16:45)
[2018-08-18] MEDS ORDERED: ACETAMINOPHEN 500 MG TABLET PO PRN (16:45)
[2018-08-18] MEDS ORDERED: METHYL SALICYLATE/MENTHOL TOPICAL OINTMENT 29GM TUBE. TP PRN (16:45)
[2018-08-18] MEDS ORDERED: DEXTROSE 50% 25 GM / 50ML DISP.SYRIN. IV PRN (16:45)
[2018-08-18] MEDS ORDERED: POLYVINYL ALCOHOL 1.4% OPHTH SOLUTION 15ML BOTTLE. OU PRN (16:45)
[2018-08-18] MEDS ORDERED: MAGNESIUM HYDROXIDE 2,400 MG/30 ML ORAL.SUSP. PO PRN (16:45)
[2018-08-18] MEDS ORDERED: HYDROcodone/APAP 5/325MG 1 TAB TABLET PO PRN (16:45)
[2018-08-18] MEDS ORDERED: HYDROCORTISONE 2.5% RECTAL CREAM 30GM TUBE. RC PRN (16:45)
[2018-08-18] MEDS: INSULIN LISPRO 300 UNITS/3 ML INSULN.PEN. SQ SCH (17:00)
[2018-08-18 17:58] LABS: INFLUENZA A PATIENT NEGATIVE (NEGATIVE); INFLUENZA B PATIENT NEGATIVE (NEGATIVE)
--- NOTE | 2018-08-18 18:05 | NUR ---
NSG NOTE; ADMISSION ADMIT TO ROOM 123 AT 1558 FROM [facility] VIA W/C ACCOMP BY STAFF C/O INCREASING LETHARGY AND COUGH. CXR SHOWED RLL PNEUMONIA. ALL ITEMS ACCOMP PT EXCEPT ITEMS LEFT IN THE SAFE
--- NOTE | 2018-08-18 18:14 | RAD ---
EXAM: Maxillofacial bone CT without contrast. HISTORY: Pain and swelling. TECHNIQUE: Computed tomographic images the maxillofacial bones were obtained without contrast. *One or more of the following individualized dose reduction techniques were utilized for this examination: 1. Automated exposure control. 2. Adjustment of the mA and/or kV according to patient size. 3. Use of iterative reconstruction technique. COMPARISON: None. FINDINGS: There is moderate bilateral ethmoid and mild bilateral maxillary sinus mucosal thickening. There is obstruction of the bilateral ostiomeatal units. There is no significant nasal septal deviation. There is no sinus air-fluid level. The temporomandibular joints are intact. There is evidence of lens surgery. The orbits are otherwise unremarkable. The visualized mastoid air cells are unremarkable. The visualized portions the brain and calvarium are unremarkable. There is calcified atherosclerotic plaque within the carotid bifurcations. IMPRESSION: Moderate ethmoid and mild maxillary sinus mucosal thickening with obstruction of the ostiomeatal units. No sinus opacification or air-fluid level seen. Electronically signed by: Rayne Rose MD (08/18/2018 6:11 PM) [facility]
[2018-08-18] MEDS ORDERED: VANCOMYCIN 2 GM in IV NORMAL SALINE 500ML 500 ML IV ONE (18:30)
[2018-08-18 19:50] VITALS: BP 132/79
[2018-08-18] MEDS: VANCOMYCIN PER PHARMACY MC PRN (20:32)
--- NOTE | 2018-08-18 20:33 | NUR ---
Pharmacy Vancomycin Dosing Note S:Consulted to monitor and dose vancomycin started . O:KELBY MCNULTY is a 73 year old F with Pneumonia, . Height: 5 feet, 6 inches Weight: 90.788202 kg [place] Body Weight: Adjusted Body Weight: Dosing Weight: Actual Other Antibiotics: ZOSYN 3.375GM Q8HRS LABS: Last BUN: 26 Last Creatinine: 1 Creatinine Clearance: Last WBC: 7.8 Last Procalcitonin: Tmax (past 24 hours): Microbiology: I/O: Drug Levels: Last level: on at Last dose given 08/18/18 at 1900 Vancomycin Dosing: Loading Dose: 2000 mg x1 Dosing Weight: Actual Target Trough: 15-20 A: Based on: P: 1. Begin Vancomycin 1500 mg IV q24h 2. Follow up Trough level on 08/20/18 at 1830 3. Pharmacy will continue to monitor, follow and adjust therapy as needed. BRYON YANEZ RPH, 08/18/18 [id number]
[2018-08-18] MEDS: MIRTAZAPINE 7.5 MG TABLET. PO SCH (21:00)
[2018-08-18] MEDS: DORZOLAMIDE/TIMOLOL 2%/0.5% OPHTH SOLUTION 10ML BOTTLE. OS SCH (21:31)
[2018-08-18] MEDS: LOSARTAN 25 MG TABLET. PO SCH (21:33)
[2018-08-18] MEDS: ATORVASTATIN CALCIUM 20 MG TABLET PO SCH (21:33)
[2018-08-18] MEDS: HYDROcodone/APAP 5/325MG 1 TAB TABLET PO SCH (21:34)
[2018-08-18] MEDS: NYSTATIN TOPICAL POWDER 15GM BOTTLE. TP SCH (21:35)
[2018-08-18] MEDS: INSULIN GLARGINE 300 UNITS/3 ML INSULN.PEN. SQ SCH (21:41)
--- NOTE | 2018-08-18 22:25 | NUR ---
PT demanding and is not cooperative at times. PT compliant with medications after explaining each medication multiple times with resistance still.
[2018-08-18] MEDS: PIPERACILLIN/TAZOBACTAM 3.375 GM in IV NORMAL SALINE 50ML 50 ML IV SCH (22:26)
--- NOTE | 2018-08-18 22:40 | PDOC ---
Exam Note: Abhilash Note: Please also refer to the separate dictated note~for this date of service dictated separately.~Patient seen individually. Discussed the patient with Nursing staff reviewed the chart.~Reviewed interim history and current functioning. Reviewed vital signs,~Labs/ Radiology~and current medications noted below. Continue current treatment with the changes noted in the dictated addendum note Assessment: Vital Signs: Vital Signs Date Time Temp Pulse Resp B/P (MAP) Pulse Ox O2 Delivery O2 Flow Rate FiO2 08/18/18 22:27 18 Room Air 08/18/18 21:33 99 132/79 08/18/18 19:50 98.6 96 Labs: Laboratory Tests Test 08/18/18 16:58 08/18/18 17:15 08/18/18 20:26 Glucose (Fingerstick) 153 mg/dL (70-99) H 191 mg/dL (70-99) H Influenza Type A (Rapid) Negative (NEGATIVE) Influenza Type B (Rapid) Negative (NEGATIVE) Current Medications: Meds: Current Medications Piperacillin Sod/ Tazobactam Sod 3.375 gm/Sodium Chloride 50 ml @ 100 mls/hr Q8HRS IV Last administered on 08/18/18at 22:26; Start 08/18/18 at 22:00 Vancomycin HCl (Vanco Per Pharmacy) 1 each PRN DAILY PRN MC SEE COMMENTS Last administered on 08/18/18at 20:32; Start 08/18/18 at 16:45 Dextrose (Dextrose 50%-Water Syringe) 12.5 gm PRN Q15MIN PRN IV SEE COMMENTS; Start 08/18/18 at 16:45 Clopidogrel Bisulfate (Plavix) 75 mg DAILY PO ; Start 08/19/18 at 09:00 Ferrous Sulfate (Feosol) 325 mg DAILY PO ; Start 08/19/18 at 09:00 Gabapentin (Neurontin) 300 mg DAILY PO ; Start 08/19/18 at 09:00 Acetaminophen/ Hydrocodone Bitart (Lortab 5/325) 1 tab HS PO Last administered on 08/18/18at 21:34; Start 08/18/18 at 21:00 Acetaminophen/ Hydrocodone Bitart (Lortab 5/325) 1 tab PRN Q6HRS PRN PO PAIN; Start 08/18/18 at 16:45 Hydrocortisone (Proctosol-Hc) 1 filomena PRN TID PRN RC RECTAL PAIN; Start 08/18/18 at 16:45 Insulin Glargine (Lantus) 30 units QHS SQ Last administered on 08/18/18at 21:41; Start 08/18/18 at 21:00 Losartan Potassium (Cozaar) 12.5 mg HS PO Last administered on 08/18/18at 21:33; Start 08/18/18 at 21:00 Losartan Potassium (Cozaar) 12.5 mg DAILY PO ; Start 08/19/18 at 09:00 Multi-Ingredient Ointment (Analgesic [place]) 1 filomena PRN QID PRN TP MUSCLE PAIN; Start 08/18/18 at 16:45 Nystatin (Nystop) 1 filomena BID TP Last administered on 08/18/18at 21:35; Start 08/18/18 at 21:00 Artificial Tears (Artificial Tears) 1 drop PRN Q15MIN PRN OU DRY EYE; Start 08/18/18 at 16:45 Senna/Docusate Sodium (Senna Plus) 1 tab BID94 PO ; Start 08/19/18 at 09:00 Acetaminophen (Tylenol) 1,000 mg PRN Q6HRS PRN PO PAIN; Start 08/18/18 at 16:45 Aripiprazole (Abilify) 5 mg DAILY PO ; Start 08/19/18 at 09:00 Aspirin (Children'S Aspirin) 81 mg DAILYWBKFT PO ; Start 08/19/18 at 08:00 Atorvastatin Calcium (Lipitor) 40 mg QHS PO Last administered on 08/18/18at 21:33; Start 08/18/18 at 21:00 Vitamin D (Vitamin D3) 50,000 unit WEEKLY PO ; Start 08/21/18 at 09:00 Dorzolamide/ Timolol (Cosopt) 1 drop HS OS Last administered on 08/18/18at 21:31; Start 08/18/18 at 21:00 Fluvoxamine Maleate (Luvox) 50 mg DAILY PO ; Start 08/19/18 at 09:00 Insulin Human Lispro (HumaLOG) FSBS 151-2,00: 4 UN... TIDWMEALS SQ ; Start 08/18/18 at 17:00 Levothyroxine Sodium (Synthroid) 25 mcg DAILY06 PO ; Start 08/19/18 at 06:00 Lidocaine (Lidoderm) 2 patch DAILY TD ; Start 08/19/18 at 09:00 Al Hydroxide/Mg Hydroxide (Mylanta Plus Xs) 15 ml PRN AFTMEALHC PRN PO DYSPEPSIA; Start 08/18/18 at 16:45 Magnesium Hydroxide (Milk Of Magnesia) 2,400 mg PRN QHS PRN PO CONSTIPATION; Start 08/18/18 at 16:45 Magnesium Oxide (Magnesium Oxide) 400 mg BID94 PO ; Start 08/19/18 at 09:00 Meclizine HCl (Antivert) 25 mg DAILY PO ; Start 08/19/18 at 09:00 Mirtazapine (Remeron) 7.5 mg QHS PO Last administered on 08/18/18at 21:00; Start 08/18/18 at 21:00 Ondansetron HCl (Zofran Odt) 4 mg PRN Q4HRS PRN PO NAUSEA/VOMITING; Start 08/18/18 at 16:45 Polyethylene Glycol (miraLAX) 17 gm DAILY PO ; Start 08/19/18 at 09:00 Vancomycin HCl 2 gm/Sodium Chloride 500 ml @ 250 mls/hr 1X ONCE IV Last administered on 08/18/18at 18:43; Start 08/18/18 at 18:30; Stop 08/18/18 at 20:29; Status DC Vancomycin HCl 1.5 gm/Sodium Chloride 500 ml @ 250 mls/hr Q24H IV ; Start 08/19/18 at 19:00 Vancomycin HCl (Vancomycin Trough Level) 1 each 1X ONCE MC ; Start 08/20/18 at 18:30; Stop 08/20/18 at 18:31 Active Scripts Active Reported Novolog Flexpen (Insulin Aspart) 100 Unit/1 Ml Insuln.pen 0-16 Unit SQ TIDWMEALS 70-150 0 units if eating 0 units if not eating/HS 151-200 4 0 201-250 8 0 251-300 10 0 301-350 12 0 351-400 16 0 >401 call Fluvoxamine Maleate 50 Mg Tablet 50 Mg PO DAILY Polyvinyl Alcohol 15 Ml Drops 1 Drop OU PRN Q15MIN PRN Zofran (Ondansetron Hcl) 4 Mg Tablet 4 Mg PO PRN Q4HRS PRN Nystatin 15 Gm Powder 1 Filomena TP BID Remeron (Mirtazapine) 15 Mg Tablet 7.5 Mg PO QHS Analgesic [place] (Methyl Salicylate/Menthol) 28 Gm Oint...g. 1 Filomena TP PRN QID PRN Milk Of Magnesia (Magnesium Hydroxide) 2,400 Mg/10 Ml Oral.susp 2,400 Mg PO PRN QHS PRN Advanced Antacid Liquid (Mag Hydrox/Al Hydrox/Simeth) 355 Ml Oral.susp 15 Ml PO PRN AFTMEALHC PRN Synthroid (Levothyroxine Sodium) 25 Mcg Tablet 25 Mcg PO DAILYAC Proctosol-Hc (Hydrocortisone) 28.35 Gm Cream..g. 1 Filomen[place] RC PRN TID PRN Vitamin D3 (Cholecalciferol (Vitamin D3)) 5,000 Unit Tablet 50,000 Unit PO WEEKLY start date: 07/17/18 Abilify (Aripiprazole) 5 Mg Tablet 5 Mg PO DAILY Senna-S Laxative Tablet (Sennosides/Docusate Sodium) 1 Each Tablet 1 Each PO BID94 Polyethylene Glycol 3350 255 Gm Powder 17 Gm PO DAILY Meclizine Hcl 25 Mg Tablet 25 Mg PO DAILY Mag-Oxide (Magnesium Oxide) 400 Mg Tablet 400 Mg PO BID94 Losartan Potassium (Losartan Potassium) 25 Mg Tablet 12.5 Mg PO BID Lidocaine 1 Each Adh..patch 2 Each TP DAILY Lantus Solostar (Insulin Glargine,Hum.rec.anlog) 100 Unit/1 Ml Insuln.pen 30 Unit SQ QHS Hydrocodone-Apap 5-325 (Hydrocodone Bit/Acetaminophen) 1 Each Tablet 1 Tab PO PRN Q6HRS PRN Hydrocodone-Apap 5-325 (Hydrocodone Bit/Acetaminophen) 1 Each Tablet 1 Tab PO HS Gabapentin (Gabapentin) 300 Mg Capsule 300 Mg PO DAILY Ferrous Sulfate 325 Mg Tablet 325 Mg PO DAILY Cosopt Eye Drops (Dorzolamide Hcl/Timolol Maleat) 10 Ml Drops 1 Drop LEFTEYE HS Clopidogrel (Clopidogrel Bisulfate) 75 Mg Tablet 75 Mg PO DAILY Atorvastatin Calcium 40 Mg Tablet 40 Mg PO QHS Aspirin 81 Mg Tab.chew 81 Mg PO DAILY Acetaminophen 500 Mg Tablet 1,000 Mg PO PRN Q6HRS PRN I have reviewed the current psychotropics carefully including drug interactions. Risk benefit ratio favors no change other than as noted in my dictated progress note. Diagnosis: Problems: (1) Anxiety disorder (2) Major depressive disorder, recurrent episode (3) Impulse control disorder (4) Mild cognitive disorder JENNIFER CHEUNG MD August 18, 2018 22:40
[2018-08-18 23:17] VITALS: BP 118/66
--- NOTE | 2018-08-19 03:15 | PDOC ---
Exam Note: Abhilash Note: Late entry for 08/18/18. Consult signed for 08/18/18 is an error. Please also refer to the separate dictated note~for this date of service dictated separately.~Patient seen individually. Discussed the patient with Nursing staff reviewed the chart.~Reviewed interim history and current functioning. Reviewed vital signs,~Labs/ Radiology~and current medications noted below. Continue current treatment with the changes noted in the dictated addendum note Assessment: Vital Signs: Vital Signs Date Time Temp Pulse Resp B/P (MAP) Pulse Ox O2 Delivery O2 Flow Rate FiO2 08/18/18 23:17 97 118/66 (83) 90 08/18/18 22:27 18 Room Air 08/18/18 19:50 98.6 Labs: Laboratory Tests Test 08/18/18 16:58 08/18/18 17:15 08/18/18 20:26 Glucose (Fingerstick) 153 mg/dL (70-99) H 191 mg/dL (70-99) H Influenza Type A (Rapid) Negative (NEGATIVE) Influenza Type B (Rapid) Negative (NEGATIVE) Current Medications: Meds: Current Medications Piperacillin Sod/ Tazobactam Sod 3.375 gm/Sodium Chloride 50 ml @ 100 mls/hr Q8HRS IV Last administered on 08/18/18at 22:26; Start 08/18/18 at 22:00 Vancomycin HCl (Vanco Per Pharmacy) 1 each PRN DAILY PRN MC SEE COMMENTS Last administered on 08/18/18at 20:32; Start 08/18/18 at 16:45 Dextrose (Dextrose 50%-Water Syringe) 12.5 gm PRN Q15MIN PRN IV SEE COMMENTS; Start 08/18/18 at 16:45 Clopidogrel Bisulfate (Plavix) 75 mg DAILY PO ; Start 08/19/18 at 09:00 Ferrous Sulfate (Feosol) 325 mg DAILY PO ; Start 08/19/18 at 09:00 Gabapentin (Neurontin) 300 mg DAILY PO ; Start 08/19/18 at 09:00 Acetaminophen/ Hydrocodone Bitart (Lortab 5/325) 1 tab HS PO Last administered on 08/18/18at 21:34; Start 08/18/18 at 21:00 Acetaminophen/ Hydrocodone Bitart (Lortab 5/325) 1 tab PRN Q6HRS PRN PO PAIN; Start 08/18/18 at 16:45 Hydrocortisone (Proctosol-Hc) 1 filomena PRN TID PRN RC RECTAL PAIN; Start 08/18/18 at 16:45 Insulin Glargine (Lantus) 30 units QHS SQ Last administered on 08/18/18at 21:41; Start 08/18/18 at 21:00 Losartan Potassium (Cozaar) 12.5 mg HS PO Last administered on 08/18/18at 21:33; Start 08/18/18 at 21:00 Losartan Potassium (Cozaar) 12.5 mg DAILY PO ; Start 08/19/18 at 09:00 Multi-Ingredient Ointment (Analgesic Maxwell) 1 iflomena PRN QID PRN TP MUSCLE PAIN; Start 08/18/18 at 16:45 Nystatin (Nystop) 1 filomena BID TP Last administered on 08/18/18at 21:35; Start 08/18/18 at 21:00 Artificial Tears (Artificial Tears) 1 drop PRN Q15MIN PRN OU DRY EYE; Start 08/18/18 at 16:45 Senna/Docusate Sodium (Senna Plus) 1 tab BID94 PO ; Start 08/19/18 at 09:00 Acetaminophen (Tylenol) 1,000 mg PRN Q6HRS PRN PO PAIN; Start 08/18/18 at 16:45 Aripiprazole (Abilify) 5 mg DAILY PO ; Start 08/19/18 at 09:00 Aspirin (Children'S Aspirin) 81 mg DAILYWBKFT PO ; Start 08/19/18 at 08:00 Atorvastatin Calcium (Lipitor) 40 mg QHS PO Last administered on 08/18/18at 21:33; Start 08/18/18 at 21:00 Vitamin D (Vitamin D3) 50,000 unit WEEKLY PO ; Start 08/21/18 at 09:00 Dorzolamide/ Timolol (Cosopt) 1 drop HS OS Last administered on 08/18/18at 21:31; Start 08/18/18 at 21:00 Fluvoxamine Maleate (Luvox) 50 mg DAILY PO ; Start 08/19/18 at 09:00 Insulin Human Lispro (HumaLOG) FSBS 151-2,00: 4 UN... TIDWMEALS SQ ; Start 08/18/18 at 17:00 Levothyroxine Sodium (Synthroid) 25 mcg DAILY06 PO ; Start 08/19/18 at 06:00 Lidocaine (Lidoderm) 2 patch DAILY TD ; Start 08/19/18 at 09:00 Al Hydroxide/Mg Hydroxide (Mylanta Plus Xs) 15 ml PRN AFTMEALHC PRN PO DYSPEPSIA; Start 08/18/18 at 16:45 Magnesium Hydroxide (Milk Of Magnesia) 2,400 mg PRN QHS PRN PO CONSTIPATION; Start 08/18/18 at 16:45 Magnesium Oxide (Magnesium Oxide) 400 mg BID94 PO ; Start 08/19/18 at 09:00 Meclizine HCl (Antivert) 25 mg DAILY PO ; Start 08/19/18 at 09:00 Mirtazapine (Remeron) 7.5 mg QHS PO Last administered on 08/18/18at 21:00; Start 08/18/18 at 21:00 Ondansetron HCl (Zofran Odt) 4 mg PRN Q4HRS PRN PO NAUSEA/VOMITING; Start 08/18/18 at 16:45 Polyethylene Glycol (miraLAX) 17 gm DAILY PO ; Start 08/19/18 at 09:00 Vancomycin HCl 2 gm/Sodium Chloride 500 ml @ 250 mls/hr 1X ONCE IV Last administered on 08/18/18at 18:43; Start 08/18/18 at 18:30; Stop 08/18/18 at 20:29; Status DC Vancomycin HCl 1.5 gm/Sodium Chloride 500 ml @ 250 mls/hr Q24H IV ; Start 08/19/18 at 19:00 Vancomycin HCl (Vancomycin Trough Level) 1 each 1X ONCE MC ; Start 08/20/18 at 18:30; Stop 08/20/18 at 18:31 Active Scripts Active Reported Novolog Flexpen (Insulin Aspart) 100 Unit/1 Ml Insuln.pen 0-16 Unit SQ TIDWMEALS 70-150 0 units if eating 0 units if not eating/HS 151-200 4 0 201-250 8 0 251-300 10 0 301-350 12 0 351-400 16 0 >401 call Fluvoxamine Maleate 50 Mg Tablet 50 Mg PO DAILY Polyvinyl Alcohol 15 Ml Drops 1 Drop OU PRN Q15MIN PRN Zofran (Ondansetron Hcl) 4 Mg Tablet 4 Mg PO PRN Q4HRS PRN Nystatin 15 Gm Powder 1 Filomena TP BID Remeron (Mirtazapine) 15 Mg Tablet 7.5 Mg PO QHS Analgesic Maxwell (Methyl Salicylate/Menthol) 28 Gm Oint...g. 1 Filomena TP PRN QID PRN Milk Of Magnesia (Magnesium Hydroxide) 2,400 Mg/10 Ml Oral.susp 2,400 Mg PO PRN QHS PRN Advanced Antacid Liquid (Mag Hydrox/Al Hydrox/Simeth) 355 Ml Oral.susp 15 Ml PO PRN AFTMEALHC PRN Synthroid (Levothyroxine Sodium) 25 Mcg Tablet 25 Mcg PO DAILYAC Proctosol-Hc (Hydrocortisone) 28.35 Gm Cream..g. 1 Filomena RC PRN TID PRN Vitamin D3 (Cholecalciferol (Vitamin D3)) 5,000 Unit Tablet 50,000 Unit PO WEEKLY start date: 07/17/18 Abilify (Aripiprazole) 5 Mg Tablet 5 Mg PO DAILY Senna-S Laxative Tablet (Sennosides/Docusate Sodium) 1 Each Tablet 1 Each PO BI D94 Polyethylene Glycol 3350 255 Gm Powder 17 Gm PO DAILY Meclizine Hcl 25 Mg Tablet 25 Mg PO DAILY Mag-Oxide (Magnesium Oxide) 400 Mg Tablet 400 Mg PO BID94 Losartan Potassium (Losartan Potassium) 25 Mg Tablet 12.5 Mg PO BID Lidocaine 1 Each Adh..patch 2 Each TP DAILY Lantus Solostar (Insulin Glargine,Hum.rec.anlog) 100 Unit/1 Ml Insuln.pen 30 Unit SQ QHS Hydrocodone-Apap 5-325 (Hydrocodone Bit/Acetaminophen) 1 Each Tablet 1 Tab PO PRN Q6HRS PRN Hydrocodone-Apap 5-325 (Hydrocodone Bit/Acetaminophen) 1 Each Tablet 1 Tab PO HS Gabapentin (Gabapentin) 300 Mg Capsule 300 Mg PO DAILY Ferrous Sulfate 325 Mg Tablet 325 Mg PO DAILY Cosopt Eye Drops (Dorzolamide Hcl/Timolol Maleat) 10 Ml Drops 1 Drop LEFTEYE HS Clopidogrel (Clopidogrel Bisulfate) 75 Mg Tablet 75 Mg PO DAILY Atorvastatin Calcium 40 Mg Tablet 40 Mg PO QHS Aspirin 81 Mg Tab.chew 81 Mg PO DAILY Acetaminophen 500 Mg Tablet 1,000 Mg PO PRN Q6HRS PRN I have reviewed the current psychotropics carefully including drug interactions. Risk benefit ratio favors no change other than as noted in my dictated progress note. Diagnosis: Problems: (1) Anxiety disorder (2) Major depressive disorder, recurrent episode (3) Impulse control disorder (4) Mild cognitive disorder JENNIFER CHEUNG MD August 19, 2018 03:15
[2018-08-19 05:52] VITALS: BP 111/64
[2018-08-19] MEDS: LEVOTHYROXINE 25 MCG TABLET. PO SCH (06:05)
[2018-08-19] MEDS: PIPERACILLIN/TAZOBACTAM 3.375 GM in IV NORMAL SALINE 50ML 50 ML IV SCH ×3 (06:05→22:08)
[2018-08-19 06:13] LABS: BASO # 0.1 x10^3/uL (0.0-0.2); BASO % 1 % (0-3); EOS # 0.1 x10^3/uL (0.0-0.7); EOS % 2 % (0-3); HEMATOCRIT 30.4 % (36.0-47.0); HEMOGLOBIN 10.1 g/dL (12.0-15.5); LYMPH # 1.5 x10^3/uL (1.0-4.8); LYMPH % 25 % (24-48); MEAN CORPUSCULAR HEMOGLOBIN 28 pg (25-35); MEAN CORPUSCULAR HGB CONC 33 g/dL (31-37); MEAN CORPUSCULAR VOLUME 84 fL (79-100); MONO # 0.8 x10^3/uL (0.0-1.1); MONO % 14 % (0-9); NEUT # 3.5 x10^3uL (1.8-7.7); NEUT % 58 % (31-73); PLATELET COUNT 243 x10^3/uL (140-400); RED BLOOD COUNT 3.62 x10^6/uL (3.50-5.40); RED CELL DISTRIBUTION WIDTH 15.6 % (11.5-14.5)
[2018-08-19 06:29] LABS: ALBUMIN 2.3 g/dL (3.4-5.0); ALBUMIN/GLOBULIN RATIO 0.6 (1.0-1.7); CALCIUM 8.6 mg/dL (8.5-10.1); CREATININE 1.1 mg/dL (0.6-1.0); POTASSIUM 4.1 mmol/L (3.5-5.1); TOTAL BILIRUBIN 0.3 mg/dL (0.2-1.0); TOTAL PROTEIN 5.9 g/dL (6.4-8.2)
[2018-08-19] MEDS: INSULIN LISPRO 300 UNITS/3 ML INSULN.PEN. SQ SCH ×3 (08:00→17:00)
[2018-08-19] MEDS: POLYETHYLENE GLYCOL 3350 17 GM PACKET. PO SCH ×2 (09:00→11:56)
[2018-08-19] MEDS: NYSTATIN TOPICAL POWDER 15GM BOTTLE. TP SCH ×2 (09:00→21:00)
[2018-08-19] MEDS: MECLIZINE 12.5 MG TABLET. PO SCH (09:00)
[2018-08-19] MEDS: LACTOBACILLUS RHAMNOSUS GG 1 CAPSULE. PO SCH ×2 (09:00→21:20)
[2018-08-19] MEDS: GABAPENTIN 300 MG CAPSULE. PO SCH (11:55)
[2018-08-19] MEDS: LIDOCAINE (700MG/PATCH) PATCH. TD SCH (11:55)
[2018-08-19] MEDS: SENNOSIDES/DOCUSATE 8.6/50MG TABLET. PO SCH ×2 (11:56→18:07)
[2018-08-19] MEDS: CLOPIDOGREL BISULFATE 75 MG TABLET PO SCH (11:57)
[2018-08-19] MEDS: FERROUS SULFATE 325 MG TABLET. PO SCH (11:57)
[2018-08-19] MEDS: ARIPiprazole 5 MG TABLET PO SCH (11:57)
[2018-08-19] MEDS: MAGNESIUM OXIDE 400 MG TABLET PO SCH ×2 (11:57→18:07)
[2018-08-19] MEDS: LOSARTAN 25 MG TABLET. PO SCH ×2 (11:57→21:20)
[2018-08-19] MEDS: ASPIRIN 81 MG TAB.CHEW PO SCH (11:58)
--- NOTE | 2018-08-19 12:25 | RAD ---
Bilateral lower extremity venous ultrasound, 08/19/2018: History: Bilateral leg edema Duplex evaluation of the deep veins in the lower extremities was performed including grayscale, color-flow and spectral Doppler analysis. The femoral and popliteal veins demonstrate normal compressibility and normal responses to distal augmentation maneuvers. Color imaging of those vessels shows no evidence of intraluminal clot. The visualized deep veins in both calves are patent. IMPRESSION: There is no sonographic evidence of deep vein thrombosis in either lower extremity. Electronically signed by: Miguelangel Lombardi MD (08/19/2018 12:22 PM) [facility]
--- NOTE | 2018-08-19 13:50 | HP ---
ADMIT DATE: 08/18/2018 HISTORY OF PRESENT ILLNESS: The patient is a 73-year-old female patient, who was transferred yesterday from [facility] on account of recurrent bouts of nausea, vomiting, cough. She also has severe headache and marked tenderness in both frontal and maxillary sinuses and had a chest x-ray, which showed that she has right lower lobe infiltrate. She has also marked swelling of her lower extremities and therefore, the patient was transferred to [address] [place] [address] for treatment of her healthcare-associated pneumonia. She has patchy density at the right lung base. She also had complained of severe headache and tenderness in her frontal maxillary sinuses and we did x-ray, CT scan of her paranasal sinuses. Because she is mostly bed bound and wheelchair bound, she has marked swelling of both lower extremities. We also ordered a Doppler ultrasound to make sure ____ deep vein thrombosis. 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 She is mostly bed bound, wheelchair bound. PAST SURGICAL HISTORY: Unremarkable. ALLERGIES: She has no known drug allergies. FAMILY HISTORY: Noncontributory. SOCIAL HISTORY: She is a resident at [facility] [place]. 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 She does not smoke, drink alcohol or use any recreational drugs. REVIEW OF SYSTEMS: As per history of present illness. MEDICATIONS: She is on following medications: She was on ferrous sulfate 325 mg once a day, Plavix 75 mg once a day, atorvastatin calcium 40 mg at bedtime, losartan potassium 12.5 mg twice a day, aspirin 81 mg once a day, analgesic balm applied topically 4 times a day, hydrocodone/APAP 5/325 one tablet at bedtime. She is on hydrocodone/APAP 5/325 one tablet every 6 hours as needed, Tylenol 1000 mg every 6 hours, gabapentin 300 mg daily. She is on fluvoxamine 50 mg once a day, Remeron 7.5 mg at bedtime, aripiprazole for Abilify 5 mg daily. She is on dorzolamide 1 drop to the left eye once at bedtime. She is on polyvinyl alcohol 1 drop to both eyes as needed. She is on Mylanta 15 mL after meals and magnesium oxide 400 mg p.o. b.i.d. She is on milk of magnesia 30 mL p.o. daily p.r.n. for constipation, polyethylene glycol 17 grams daily. She is on Senna-S 1 tablet twice a day, meclizine 25 mg daily. She is on ondansetron 4 mg every 4 hours and she is on NovoLog insulin as for insulin sliding scale 3 times a day before meals and Lantus insulin SoloSTAR 30 units at bedtime. She is on levothyroxine 25 mcg once a day, nystatin powder applied topically twice a day for rash under the breast. She has hydrocortisone Proctosol 1 rectally 3 times a day as needed for rectal pain, lidocaine patches 2 patches topically daily, cholecalciferol vitamin D 50,000 international unit once a week. PHYSICAL EXAMINATION: GENERAL: On examining her, she was resting slightly propped up in bed and in no apparent respiratory distress. She was pale, but no jaundice, cyanosis or thyromegaly. No jugular venous distention. No limb edema. VITAL SIGNS: Her heart rate was 89, blood pressure 132/69, temperature was 98.3, respiratory rate was 20, and oxygen saturation was 95%. HEAD, EYES, EARS, NOSE AND THROAT: Showed normocephalic, atraumatic. She has marked tenderness in both maxillary and frontal sinuses. NECK: Supple. HEART: Showed normal first and second heart sounds. No gallop, rub or murmur. CHEST: Clear to auscultation. No crepitation or rhonchi. She actually has crepitation mostly on the right side posteriorly. I could not appreciate any rhonchi. ABDOMEN: Distended, soft, nontender. NEUROLOGIC: She is awake, alert, responding appropriately. All cranial nerves intact. She has right-sided hemiparesis. LABORATORY DATA: Showed that her white cell count was 7800, hemoglobin 12, hematocrit 36, MCV 83, and platelet count 292,000 with normal manual differential. Her chemistry showed a serum sodium 134, potassium 4.4, chloride 99, bicarbonate 25, anion gap of 10, BUN was 26, creatinine 1, estimated GFR was 54 mL per minute. Her glucose 135, calcium was 9.5. Total bilirubin, AST, ALT, alkaline phosphatase were normal. Total protein was 7.2, albumin 3. Her urinalysis showed the urine was yellow, clear with a pH of 7, specific gravity of 1.015. There are trace of leukocyte esterase, 1-2 rbc's, 1-4 wbc's, and very few bacteria. Her chest x-ray showed the cardiomediastinal silhouette is within normal limits. There are no pleural effusions. There is no pulmonary vascular congestion, no pneumothorax. She has patchy density at the right lung base, may represent subsegmental atelectasis versus infiltrate. No significant osseous abnormalities identified. The patient therefore was transferred to [address] [place] [address] with diagnosis of healthcare-associated pneumonia with right lower lobe infiltrate. She also had marked bilateral lower extremity swelling and marked tenderness in maxillary and frontal sinuses, for which we did order a CT scan of the paranasal sinuses as well as we did 2 sets of blood culture and start her on antibiotic for healthcare-associated pneumonia in the form of vancomycin and Zosyn with the pharmacy to adjust the dose. KHAI SPENCE MD DR: LITTLE/kelly JOB#: [id number] / [id number]
[2018-08-19] MEDS: ENOXAPARIN 40 MG/0.4 ML SYRINGE. SQ SCH (14:14)
[2018-08-19 15:47] VITALS: BP 100/55
[2018-08-19 19:40] VITALS: BP 119/72
[2018-08-19] MEDS: VANCOMYCIN 1.5 GM in IV NORMAL SALINE 500ML 500 ML IV SCH (19:55)
--- NOTE | 2018-08-19 21:00 | NUR ---
Reviewed medication one at a time with patient. Patient still resistive with most medications, requiring encouragement to take them.
[2018-08-19] MEDS: INSULIN GLARGINE 300 UNITS/3 ML INSULN.PEN. SQ SCH (21:18)
[2018-08-19] MEDS: ATORVASTATIN CALCIUM 20 MG TABLET PO SCH (21:20)
[2018-08-19] MEDS: MIRTAZAPINE 7.5 MG TABLET. PO SCH (21:21)
[2018-08-19] MEDS: HYDROcodone/APAP 5/325MG 1 TAB TABLET PO SCH (21:21)
[2018-08-19] MEDS: DORZOLAMIDE/TIMOLOL 2%/0.5% OPHTH SOLUTION 10ML BOTTLE. OS SCH (21:27)
--- NOTE | 2018-08-19 22:28 | PDOC ---
Exam Note: Abhilash Note: Please also refer to the separate dictated note~for this date of service dictated separately.~Patient seen individually. Discussed the patient with Nursing staff reviewed the chart.~Reviewed interim history and current functioning. Reviewed vital signs,~Labs/ Radiology~and current medications noted below. Continue current treatment with the changes noted in the dictated addendum note Assessment: Vital Signs: Vital Signs Date Time Temp Pulse Resp B/P (MAP) Pulse Ox O2 Delivery O2 Flow Rate FiO2 08/19/18 21:21 20 Room Air 08/19/18 21:20 84 119/72 08/19/18 19:40 98.6 95 08/19/18 15:47 2.0 I&O Intake and Output 08/19/18 06:59 Intake Total 550 ml Balance 550 ml IV Total 550 ml Labs: Laboratory Tests Test 08/19/18 05:55 08/19/18 08:04 08/19/18 11:56 08/19/18 16:57 White Blood Count 6.0 x10^3/uL (4.0-11.0) Red Blood Count 3.62 x10^6/uL (3.50-5.40) Hemoglobin 10.1 g/dL (12.0-15.5) L Hematocrit 30.4 % (36.0-47.0) L Mean Corpuscular Volume 84 fL (79-100) Mean Corpuscular Hemoglobin 28 pg (25-35) Mean Corpuscular Hemoglobin Concent 33 g/dL (31-37) Red Cell Distribution Width 15.6 % (11.5-14.5) H Platelet Count 243 x10^3/uL (140-400) Neutrophils (%) (Auto) 58 % (31-73) Lymphocytes (%) (Auto) 25 % (24-48) Monocytes (%) (Auto) 14 % (0-9) H Eosinophils (%) (Auto) 2 % (0-3) Basophils (%) (Auto) 1 % (0-3) Neutrophils # (Auto) 3.5 x10^3uL (1.8-7.7) Lymphocytes # (Auto) 1.5 x10^3/uL (1.0-4.8) Monocytes # (Auto) 0.8 x10^3/uL (0.0-1.1) Eosinophils # (Auto) 0.1 x10^3/uL (0.0-0.7) Basophils # (Auto) 0.1 x10^3/uL (0.0-0.2) Sodium Level 134 mmol/L (136-145) L Potassium Level 4.1 mmol/L (3.5-5.1) Chloride Level 101 mmol/L (98-107) Carbon Dioxide Level 25 mmol/L (21-32) Anion Gap 8 (6-14) Blood Urea Nitrogen 26 mg/dL (7-20) H Creatinine 1.1 mg/dL (0.6-1.0) H Estimated GFR (Cockcroft-Gault) 49.0 BUN/Creatinine Ratio 24 (6-20) H Glucose Level 131 mg/dL (70-99) H Calcium Level 8.6 mg/dL (8.5-10.1) Total Bilirubin 0.3 mg/dL (0.2-1.0) Aspartate Amino Transferase (AST) 16 U/L (15-37) Alanine Aminotransferase (ALT) 9 U/L (14-59) L Alkaline Phosphatase 71 U/L (46-116) Total Protein 5.9 g/dL (6.4-8.2) L Albumin 2.3 g/dL (3.4-5.0) L Albumin/Globulin Ratio 0.6 (1.0-1.7) L Glucose (Fingerstick) 104 mg/dL (70-99) H 101 mg/dL (70-99) H 170 mg/dL (70-99) H Test 08/19/18 20:40 Glucose (Fingerstick) 159 mg/dL (70-99) H Current Medications: Meds: Current Medications Piperacillin Sod/ Tazobactam Sod 3.375 gm/Sodium Chloride 50 ml @ 100 mls/hr Q8 HRS IV Last administered on 08/19/18at 22:08; Start 08/18/18 at 22:00 Vancomycin HCl (Vanco Per Pharmacy) 1 each PRN DAILY PRN MC SEE COMMENTS Last administered on 08/18/18at 20:32; Start 08/18/18 at 16:45 Dextrose (Dextrose 50%-Water Syringe) 12.5 gm PRN Q15MIN PRN IV SEE COMMENTS; Start 08/18/18 at 16:45 Clopidogrel Bisulfate (Plavix) 75 mg DAILY PO Last administered on 08/19/18 11: 57; Start 08/19/18 at 09:00 Ferrous Sulfate (Feosol) 325 mg DAILY PO Last administered on 08/19/18 11:57; Start 08/19/18 at 09:00 Gabapentin (Neurontin) 300 mg DAILY PO Last administered on 08/19/18 11:55; Start 08/19/18 at 09:00 Acetaminophen/ Hydrocodone Bitart (Lortab 5/325) 1 tab HS PO Last administered on 08/19/18 21:21; Start 08/18/18 at 21:00 Acetaminophen/ Hydrocodone Bitart (Lortab 5/325) 1 tab PRN Q6HRS PRN PO PAIN; Start 08/18/18 at 16:45 Hydrocortisone (Proctosol-Hc) 1 filomena PRN TID PRN RC RECTAL PAIN; Start 08/18/18 at 16:45 Insulin Glargine (Lantus) 30 units QHS SQ Last administered on 08/19/18 21:18; Start 08/18/18 at 21:00 Losartan Potassium (Cozaar) 12.5 mg HS PO Last administered on 08/19/18 21:20; Start 08/18/18 at 21:00 Losartan Potassium (Cozaar) 12.5 mg DAILY PO Last administered on 08/19/18 11:57; Start 08/19/18 at 09:00 Multi-Ingredient Ointment (Analgesic [place]) 1 filomena PRN QID PRN TP MUSCLE PAIN; Start 08/18/18 at 16:45 Nystatin (Nystop) 1 filomena BID TP Last administered on 08/19/18 09:00; Start 08/18/18 at 21:00 Artificial Tears (Artificial Tears) 1 drop PRN Q15MIN PRN OU DRY EYE; Start 08/18/18 at 16:45 Senna/Docusate Sodium (Senna Plus) 1 tab BID94 PO Last administered on 08/19/18 18:07; Start 08/19/18 at 09:00 Acetaminophen (Tylenol) 1,000 mg PRN Q6HRS PRN PO PAIN; Start 08/18/18 at 16:45 Aripiprazole (Abilify) 5 mg DAILY PO Last administered on 08/19/18 11:57; S tart 08/19/18 at 09:00 Aspirin (Children'S Aspirin) 81 mg DAILYWBKFT PO Last administered on 08/19/18 11:58; Start 08/19/18 at 08:00 Atorvastatin Calcium (Lipitor) 40 mg QHS PO Last administered on 08/19/18 21:20; Start 08/18/18 at 21:00 Vitamin D (Vitamin D3) 50,000 unit WEEKLY PO ; Start 08/21/18 at 09:00 Dorzolamide/ Timolol (Cosopt) 1 drop HS OS Last administered on 08/19/18 21:27; Start 08/18/18 at 21:00 Fluvoxamine Maleate (Luvox) 50 mg DAILY PO Last administered on 08/19/18 11:56; Start 08/19/18 at 09:00 Insulin Human Lispro (HumaLOG) FSBS 151-2,00: 4 UN... TIDWMEALS SQ ; Start 08/18/18 at 17:00 Levothyroxine Sodium (Synthroid) 25 mcg DAILY06 PO Last administered on 08/19/18 06:05; Start 08/19/18 at 06:00 Lidocaine (Lidoderm) 2 patch DAILY TD Last administered on 08/19/18 11:55; Start 08/19/18 at 09:00 Al Hydroxide/Mg Hydroxide (Mylanta Plus Xs) 15 ml PRN AFTMEALHC PRN PO DYSPEP ANA; Start 08/18/18 at 16:45 Magnesium Hydroxide (Milk Of Magnesia) 2,400 mg PRN QHS PRN PO CONSTIPATION; Start 08/18/18 at 16:45 Magnesium Oxide (Magnesium Oxide) 400 mg BID94 PO Last administered on 08/19/18 18:07; Start 08/19/18 at 09:00 Meclizine HCl (Antivert) 25 mg DAILY PO ; Start 08/19/18 at 09:00 Mirtazapine (Remeron) 7.5 mg QHS PO Last administered on 08/19/18 21:21; Start 08/18/18 at 21:00 Ondansetron HCl (Zofran Odt) 4 mg PRN Q4HRS PRN PO NAUSEA/VOMITING; Start 08/18/18 at 16:45 Polyethylene Glycol (miraLAX) 17 gm DAILY PO ; Start 08/19/18 at 09:00 Vancomycin HCl 2 gm/Sodium Chloride 500 ml @ 250 mls/hr 1X ONCE IV Last a dministered on 08/18/18at 18:43; Start 08/18/18 at 18:30; Stop 08/18/18 at 20:29; Status DC Vancomycin HCl 1.5 gm/Sodium Chloride 500 ml @ 250 mls/hr Q24H IV Last administered on 08/19/18at 19:55; Start 08/19/18 at 19:00 Vancomycin HCl (Vancomycin Trough Level) 1 each 1X ONCE MC ; Start 08/20/18 at 18:30; Stop 08/20/18 at 18:31 Lactobacillus Rhamnosus (Culturelle) 1 cap BID PO Last administered on 08/19/18at 21:20; Start 08/19/18 at 09:00 Enoxaparin Sodium (Lovenox 40mg Syringe) 40 mg Q24H SQ Last administered on 08/19/18at 14:14; Start 08/19/18 at 13:15 Active Scripts Active Reported Novolog Flexpen (Insulin Aspart) 100 Unit/1 Ml Insuln.pen 0-16 Unit SQ TIDWMEALS 70-150 0 units if eating 0 units if not eating/HS 151-200 4 0 201-250 8 0 251-300 10 0 301-350 12 0 351-400 16 0 >401 call Fluvoxamine Maleate 50 Mg Tablet 50 Mg PO DAILY Polyvinyl Alcohol 15 Ml Drops 1 Drop OU PRN Q15MIN PRN Zofran (Ondansetron Hcl) 4 Mg Tablet 4 Mg PO PRN Q4HRS PRN Nystatin 15 Gm Powder 1 Filomena TP BID Remeron (Mirtazapine) 15 Mg Tablet 7.5 Mg PO QHS Analgesic [place] (Methyl Salicylate/Menthol) 28 Gm Oint...g. 1 Filomena TP PRN QID PRN Milk Of Magnesia (Magnesium Hydroxide) 2,400 Mg/10 Ml Oral.susp 2,400 Mg PO PRN QHS PRN Advanced Antacid Liquid (Mag Hydrox/Al Hydrox/Simeth) 355 Ml Oral.susp 15 Ml PO PRN AFTMEALHC PRN Synthroid (Levothyroxine Sodium) 25 Mcg Tablet 25 Mcg PO DAILYAC Proctosol-Hc (Hydrocortisone) 28.35 Gm Cream..g. 1 Filomena RC PRN TID PRN Vitamin D3 (Cholecalciferol (Vitamin D3)) 5,000 Unit Tablet 50,000 Unit PO WEEKLY start date: 07/17/18 Abilify (Aripiprazole) 5 Mg Tablet 5 Mg PO DAILY Senna-S Laxative Tablet (Sennosides/Docusate Sodium) 1 Each Tablet 1 Each PO BID94 Polyethylene Glycol 3350 255 Gm Powder 17 Gm PO DAILY Meclizine Hcl 25 Mg Tablet 25 Mg PO DAILY Mag-Oxide (Magnesium Oxide) 400 Mg Tablet 400 Mg PO BID94 Losartan Potassium (Losartan Potassium) 25 Mg Tablet 12.5 Mg PO BID Lidocaine 1 Each Adh..patch 2 Each TP DAILY Lantus Solostar (Insulin Glargine,Hum.rec.anlog) 100 Unit/1 Ml Insuln.pen 30 Unit SQ QHS Hydrocodone-Apap 5-325 (Hydrocodone Bit/Acetaminophen) 1 Each Tablet 1 Tab PO PRN Q6HRS PRN Hydrocodone-Apap 5-325 (Hydrocodone Bit/Acetaminophen) 1 Each Tablet 1 Tab PO HS Gabapentin (Gabapentin) 300 Mg Capsule 300 Mg PO DAILY Ferrous Sulfate 325 Mg Tablet 325 Mg PO DAILY Cosopt Eye Drops (Dorzolamide Hcl/Timolol Maleat) 10 Ml Drops 1 Drop LEFTEYE HS Clopidogrel (Clopidogrel Bisulfate) 75 Mg Tablet 75 Mg PO DAILY Atorvastatin Calcium 40 Mg Tablet 40 Mg PO QHS Aspirin 81 Mg Tab.chew 81 Mg PO DAILY Acetaminophen 500 Mg Tablet 1,000 Mg PO PRN Q6HRS PRN I have reviewed the current psychotropics carefully including drug interactions. Risk benefit ratio favors no change other than as noted in my dictated progress note. Diagnosis: Problems: (1) Anxiety disorder (2) Major depressive disorder, recurrent episode (3) Impulse control disorder (4) Mild cognitive disorder JENNIFER CHEUNG MD August 19, 2018 22:28
[2018-08-19 23:25] VITALS: BP 127/80
--- NOTE | 2018-08-20 04:14 | PN ---
DATE: 08/19/2018 SUBJECTIVE: The patient was transferred yesterday from [facility] on account of not feeling well. She has stuffy nose and headache. She also had recurrent bouts of nausea, vomiting and cough and marked swelling of both lower extremities. Her chest x-ray showed that she has right lower lobe infiltrate. She was transferred to [address] [place] [address]. We did order a CT scan of the paranasal sinuses, which basically showed that she has moderate ethmoid and mild maxillary sinus mucosal thickening with obstruction of the ostiomeatal units. No sinus opacification or air fluid level. She has had bilateral lower extremity venous ultrasound, which showed no sonographic evidence of deep vein thrombosis in either lower extremity. On questioning her today, she is feeling generally better, has had no more further episodes of nausea and vomiting. PHYSICAL EXAMINATION: GENERAL: When I examined her, she looked pale, no jaundice, cyanosis, or thyromegaly. No jugular venous distension. No limb edema. VITAL SIGNS: Her heart rate was 80, blood pressure was 111/64, temperature was 97.7, respiratory rate was 18 and oxygen saturation was 90% on room air. HEAD, EYES, EARS, NOSE AND THROAT: Showed normocephalic, atraumatic. NECK: Supple. HEART: Showed normal first and second heart sounds. No gallop or murmur. CHEST: Shows central trachea, equal bilateral expansion, air entry, vesicular sounds with crepitation, mostly in the right side posteriorly. I could not appreciate any rhonchi. ABDOMEN: Distended, soft, nontender. NEUROLOGIC: She is awake, alert, responding appropriately. Cranial nerves intact. She has right-sided hemiparesis. She is mostly bedbound, chair bound. Her intake over the last 24 hours was 840 and no output was reported. LABORATORY DATA: Her lab work as of this morning showed a white cell count 6000, hemoglobin 10, hematocrit 30, MCV 84 and platelet count 243,000. Her chemistry showed a serum sodium of 134, potassium 4.1, chloride 101, bicarbonate 25, anion gap of 8, BUN 26, creatinine 1.1, estimated GFR was 49 mL per minute. Her glucose 131, calcium was 8.6. Total bilirubin, AST, ALT, alkaline phosphatase were normal. Total protein was 5.9, albumin 2.3. ASSESSMENT: 1. Ethmoid and maxillary sinusitis. 2. Right lower lobe pneumonia. 3. Marked bilateral lower limb edema, likely due to third spacing that her serum albumin is only 2.3. 4. Severe protein calorie malnutrition. 5. Type 2 diabetes mellitus. 6. Right-sided hemiplegia. PLAN: To continue with IV vancomycin as well as piperacillin and tazobactam. Continue with all her other medications. I will add Lovenox 40 mg subcutaneous once a day for DVT prophylaxis. KHAI SPENCE MD DR: LITTLE/kelly JOB#: [id number] / [id number]
[2018-08-20 05:37] VITALS: BP 124/79
[2018-08-20] MEDS: PIPERACILLIN/TAZOBACTAM 3.375 GM in IV NORMAL SALINE 50ML 50 ML IV SCH ×3 (05:43→22:07)
[2018-08-20] MEDS: LEVOTHYROXINE 25 MCG TABLET. PO SCH (05:58)
[2018-08-20 06:46] LABS: HEMATOCRIT 32.5 % (36.0-47.0); HEMOGLOBIN 10.8 g/dL (12.0-15.5); RED BLOOD COUNT 3.87 x10^6/uL (3.50-5.40); RED CELL DISTRIBUTION WIDTH 15.5 % (11.5-14.5); WHITE BLOOD COUNT 6.4 x10^3/uL (4.0-11.0)
[2018-08-20 06:52] LABS: CALCIUM 8.6 mg/dL (8.5-10.1); CREATININE 1.2 mg/dL (0.6-1.0); GFR 44.3; POTASSIUM 3.9 mmol/L (3.5-5.1)
[2018-08-20] MEDS: LIDOCAINE (700MG/PATCH) PATCH. TD SCH ×2 (08:43→09:00)
[2018-08-20] MEDS: CLOPIDOGREL BISULFATE 75 MG TABLET PO SCH (08:44)
[2018-08-20] MEDS: ASPIRIN 81 MG TAB.CHEW PO SCH (08:44)
[2018-08-20] MEDS: MAGNESIUM OXIDE 400 MG TABLET PO SCH ×2 (08:44→17:07)
[2018-08-20] MEDS: MECLIZINE 12.5 MG TABLET. PO SCH (08:44)
[2018-08-20] MEDS: GABAPENTIN 300 MG CAPSULE. PO SCH (08:44)
[2018-08-20] MEDS: LACTOBACILLUS RHAMNOSUS GG 1 CAPSULE. PO SCH ×2 (08:44→20:40)
[2018-08-20] MEDS: LOSARTAN 25 MG TABLET. PO SCH ×2 (08:46→20:40)
[2018-08-20] MEDS: FERROUS SULFATE 325 MG TABLET. PO SCH (08:46)
[2018-08-20] MEDS: ARIPiprazole 5 MG TABLET PO SCH (08:46)
[2018-08-20] MEDS: SENNOSIDES/DOCUSATE 8.6/50MG TABLET. PO SCH ×2 (08:49→17:07)
[2018-08-20] MEDS: POLYETHYLENE GLYCOL 3350 17 GM PACKET. PO SCH (08:49)
[2018-08-20] MEDS: INSULIN LISPRO 300 UNITS/3 ML INSULN.PEN. SQ SCH ×3 (08:50→17:03)
[2018-08-20] MEDS: NYSTATIN TOPICAL POWDER 15GM BOTTLE. TP SCH ×2 (08:50→20:39)
[2018-08-20] MEDS: ENOXAPARIN 40 MG/0.4 ML SYRINGE. SQ SCH (13:57)
--- NOTE | 2018-08-20 14:08 | NUR ---
NSG NOTE; 24 HR URINE STARTED AT 1315 ON 08/20/18 THE JUG NEEDS TO REMAIN ON ICE
[2018-08-20 15:55] VITALS: BP 148/81
[2018-08-20 18:59] LABS: VANC TR 15.6 mcg/mL (10.0-20.0)
[2018-08-20] MEDS: VANCOMYCIN 1.5 GM in IV NORMAL SALINE 500ML 500 ML IV SCH (19:44)
[2018-08-20 19:47] VITALS: BP 137/84
[2018-08-20] MEDS: INSULIN GLARGINE 300 UNITS/3 ML INSULN.PEN. SQ SCH (20:30)
[2018-08-20] MEDS: VANCOMYCIN PER PHARMACY MC PRN (20:38)
[2018-08-20] MEDS: ATORVASTATIN CALCIUM 20 MG TABLET PO SCH (20:39)
[2018-08-20] MEDS: DORZOLAMIDE/TIMOLOL 2%/0.5% OPHTH SOLUTION 10ML BOTTLE. OS SCH (20:39)
[2018-08-20] MEDS: HYDROcodone/APAP 5/325MG 1 TAB TABLET PO SCH (20:40)
[2018-08-20] MEDS: MIRTAZAPINE 7.5 MG TABLET. PO SCH (20:40)
--- NOTE | 2018-08-20 20:44 | NUR ---
Pharmacy Vancomycin Dosing Note S:Consulted to monitor and dose vancomycin started . O:KELBY MCNULTY is a 73 year old F with Pneumonia, . Height: 5 feet, 6 inches Weight: 90.425340 kg [place] Body Weight: 197.30 Adjusted Body Weight: 154.78 Dosing Weight: Actual Other Antibiotics: ZOSYN 3.375GM Q8HRS LABS: Last BUN: 27 Last Creatinine: 1.2 Creatinine Clearance: 48.78 Last WBC: 6.4 : Drug Levels: Last Trough level: 15.6 on 08/20/18 at 1830 Last dose given 08/20/18 at 1900 Vancomycin Dosing: Loading Dose: 2000 mg x1 Dosing Weight: Actual Target Trough: 15-20 A: Based on: Trough P: 1. Continue Vancomycin 1500 mg IV q24h 2. Follow up Trough level on 08/23/18 at 1830 3. Pharmacy will continue to monitor, follow and adjust therapy as needed. CHADWICK MCLEOD, 08/20/18 2046
--- NOTE | 2018-08-20 21:00 | NUR ---
Pt very demanding, uncooperative and agitated towards staff. Pt tearful and shouting at staff that they do not care about her. Reassured pt that this was not the case, asking pt what we could do to help her feel more comfortable. Pt given a chocolate ice cream, a warm blanket and a PRN Lortab at this time. Pt resistive with medication, compliant with encouragement and reviewing them one at a time. Pt remains agitated toward staff members. Will continue with 15 minute checks.
--- NOTE | 2018-08-20 21:16 | PN ---
DATE: 08/20/2018 SUBJECTIVE: The patient is sitting comfortably in her wheelchair and eating her lunch comfortably, in no apparent distress. She is still concerned about her swelling of her legs. We did actually venous Doppler ultrasound that showed no evidence of deep vein thrombosis; however, her lab work showed that her albumin is only 2.3 grams making the possibility of nephrotic syndrome highly likely. Her headache and stuffy nose is slightly better and this continued to have some shortness of breath. OBJECTIVE: GENERAL: When I examined her, she looked well and was clearly in no apparent respiratory distress. No pallor or jaundice, cyanosis, or thyromegaly. No jugular venous distension. No lower limb edema. VITAL SIGNS: Her heart rate was 76, blood pressure was 124/79, temperature was 98, respiratory rate was 20 and oxygen saturation was 91% on room air. HEENT: Examination of the head, eyes, ears, nose and throat showed normocephalic, atraumatic. NECK: Supple. HEART: Showed normal first and second heart sounds. No gallop, rub or murmur. CHEST: Shows central trachea, equal bilateral expansion, air entry, vesicular sounds with crepitation, mostly in the right side posteriorly. I could not appreciate any rhonchi. ABDOMEN: Distended, soft, nontender. NEUROLOGIC: She was awake, alert, responding appropriately. All her cranial nerves are intact. She has right-sided hemiplegia. She has ____. EXTREMITIES: Showed no clubbing, cyanosis, but marked bilateral lower limb edema. Her intake over the last 24 hours was 515. No output was recorded. LABORATORY DATA: Her lab work as of this morning showed a serum sodium 137, potassium 3.9, chloride 105, bicarbonate 24, anion gap of 8, BUN 27, creatinine 1.2, estimated GFR was 44, blood glucose was 68 and calcium was 8.6. Her white cell count was 6400, hemoglobin 11, hematocrit 33, MCV 84 and platelet count 258,000. ASSESSMENT: 1. Ethmoid and maxillary sinusitis. 2. Right lower lobe pneumonia. 3. Marked bilateral lower extremity edema likely due to third spacing as her serum albumin is only 2.3. 4. Severe protein-calorie malnutrition. 5. Type 2 diabetes. 6. Right-sided hemiplegia. PLAN: The plan is to continue IV vancomycin as well as piperacillin/tazobactam. Continue with other medication. Continue with Lovenox. I will do a 24-hour urine collection. She most likely has nephrotic syndrome due to diabetic and hypertensive nephropathy. KHAI SPENCE MD DR: LITTLE/kelly JOB#: [id number] / [id number]
--- NOTE | 2018-08-20 22:24 | PDOC ---
Exam Note: Abhilash Note: Please also refer to the separate dictated note~for this date of service dictated separately.~Patient seen individually. Discussed the patient with Nursing staff reviewed the chart.~Reviewed interim history and current functioning. Reviewed vital signs,~Labs/ Radiology~and current medications noted below. Continue current treatment with the changes noted in the dictated addendum note Assessment: Vital Signs: Vital Signs Date Time Temp Pulse Resp B/P (MAP) Pulse Ox O2 Delivery O2 Flow Rate FiO2 08/20/18 21:56 18 Room Air 08/20/18 20:40 106 137/84 08/20/18 19:47 98.1 92 08/19/18 15:47 2.0 I&O Intake and Output 08/20/18 07:00 Intake Total 1710 ml Balance 1710 ml Intake Oral 1160 ml IV Total 550 ml # Voids 4 # Bowel Movements 1 Labs: Laboratory Tests Test 08/20/18 06:33 08/20/18 08:07 08/20/18 11:48 08/20/18 16:54 White Blood Count 6.4 x10^3/uL (4.0-11.0) Red Blood Count 3.87 x10^6/uL (3.50-5.40) Hemoglobin 10.8 g/dL (12.0-15.5) L Hematocrit 32.5 % (36.0-47.0) L Mean Corpuscular Volume 84 fL (79-100) Mean Corpuscular Hemoglobin 28 pg (25-35) Mean Corpuscular Hemoglobin Concent 33 g/dL (31-37) Red Cell Distribution Width 15.5 % (11.5-14.5) H Platelet Count 258 x10^3/uL (140-400) Sodium Level 137 mmol/L (136-145) Potassium Level 3.9 mmol/L (3.5-5.1) Chloride Level 105 mmol/L (98-107) Carbon Dioxide Level 24 mmol/L (21-32) Anion Gap 8 (6-14) Blood Urea Nitrogen 27 mg/dL (7-20) H Creatinine 1.2 mg/dL (0.6-1.0) H Estimated GFR (Cockcroft-Gault) 44.3 Glucose Level 68 mg/dL (70-99) L Calcium Level 8.6 mg/dL (8.5-10.1) Glucose (Fingerstick) 62 mg/dL (70-99) L 100 mg/dL (70-99) H 108 mg/dL (70-99) H Test 08/20/18 18:40 08/20/18 20:05 Vancomycin Level Trough 15.6 mcg/mL (10.0-20.0) Vancomycin Last Dose Date 08/19/2018 Vancomycin Last Dose Time 1900 Glucose (Fingerstick) 103 mg/dL (70-99) H Current Medications: Meds: Current Medications Piperacillin Sod/ Tazobactam Sod 3.375 gm/Sodium Chloride 50 ml @ 100 mls/hr Q8HRS IV Last administered on 08/20/18at 22:07; Start 08/18/18 at 22:00 Vancomycin HCl (Vanco Per Pharmacy) 1 each PRN DAILY PRN MC SEE COMMENTS Last administered on 08/20/18at 20:38; Start 08/18/18 at 16:45 Dextrose (Dextrose 50%-Water Syringe) 12.5 gm PRN Q15MIN PRN IV SEE COMMENTS; Start 08/18/18 at 16:45 Clopidogrel Bisulfate (Plavix) 75 mg DAILY PO Last administered on 08/20/18at 08:44; Start 08/19/18 at 09:00 Ferrous Sulfate (Feosol) 325 mg DAILY PO Last administered on 08/20/18at 08:46; Start 08/19/18 at 09:00 Gabapentin (Neurontin) 300 mg DAILY PO Last administered on 08/20/18at 08:44; Start 08/19/18 at 09:00 Acetaminophen/ Hydrocodone Bitart (Lortab 5/325) 1 tab HS PO Last administered on 08/20/18at 20:40; Start 08/18/18 at 21:00 Acetaminophen/ Hydrocodone Bitart (Lortab 5/325) 1 tab PRN Q6HRS PRN PO PAIN; Start 08/18/18 at 16:45 Hydrocortisone (Proctosol-Hc) 1 filomena PRN TID PRN RC RECTAL PAIN; Start 08/18/18 at 16:45 Insulin Glargine (Lantus) 30 units QHS SQ Last administered on 08/19/18at 21:18; Start 08/18/18 at 21:00 Losartan Potassium (Cozaar) 12.5 mg HS PO Last administered on 08/20/18 20:40; Start 08/18/18 at 21:00 Losartan Potassium (Cozaar) 12.5 mg DAILY PO Last administered on 08/20/18 08:46; Start 08/19/18 at 09:00 Multi-Ingredient Ointment (Analgesic [place]) 1 filomena PRN QID PRN TP MUSCLE PAIN; Start 08/18/18 at 16:45 Nystatin (Nystop) 1 filomena BID TP Last administered on 08/20/18 20:39; Start 08/18/18 at 21:00 Artificial Tears (Artificial Tears) 1 drop PRN Q15MIN PRN OU DRY EYE; Start 08/18/18 at 16:45 Senna/Docusate Sodium (Senna Plus) 1 tab BID94 PO Last administered on 08/20/18 17:07; Start 08/19/18 at 09:00 Acetaminophen (Tylenol) 1,000 mg PRN Q6HRS PRN PO PAIN; Start 08/18/18 at 16:45 Aripiprazole (Abilify) 5 mg DAILY PO Last administered on 08/20/18 08:46; Start 08/19/18 at 09:00 Aspirin (Children'S Aspirin) 81 mg DAILYWBKFT PO Last administered on 08/20/18 08:44; Start 08/19/18 at 08:00 Atorvastatin Calcium (Lipitor) 40 mg QHS PO Last administered on 08/20/18 20:39; Start 08/18/18 at 21:00 Vitamin D (Vitamin D3) 50,000 unit WEEKLY PO ; Start 08/21/18 at 09:00 Dorzolamide/ Timolol (Cosopt) 1 drop HS OS Last administered on 08/20/18 20:39; Start 08/18/18 at 21:00 Fluvoxamine Maleate (Luvox) 50 mg DAILY PO Last administered on 08/20/18 08:49; Start 08/19/18 at 09:00 Insulin Human Lispro (HumaLOG) FSBS 151-2,00: 4 UN... TIDWMEALS SQ ; Start 08/18/18 at 17:00 Levothyroxine Sodium (Synthroid) 25 mcg DAILY06 PO Last administered on 08/20/18 05:58; Start 08/19/18 at 06:00 Lidocaine (Lidoderm) 2 patch DAILY TD Last administered on 08/19/18 11:55; Start 08/19/18 at 09:00 Al Hydroxide/Mg Hydroxide (Mylanta Plus Xs) 15 ml PRN AFTMEALHC PRN PO DY SPEPSIA; Start 08/18/18 at 16:45 Magnesium Hydroxide (Milk Of Magnesia) 2,400 mg PRN QHS PRN PO CONSTIPATION; Start 08/18/18 at 16:45 Magnesium Oxide (Magnesium Oxide) 400 mg BID94 PO Last administered on 08/20/18 17:07; Start 08/19/18 at 09:00 Meclizine HCl (Antivert) 25 mg DAILY PO Last administered on 08/20/18 08:44; Start 08/19/18 at 09:00 Mirtazapine (Remeron) 7.5 mg QHS PO Last administered on 08/20/18 20:40; Start 08/18/18 at 21:00 Ondansetron HCl (Zofran Odt) 4 mg PRN Q4HRS PRN PO NAUSEA/VOMITING; Start 08/18/18 at 16:45 Polyethylene Glycol (miraLAX) 17 gm DAILY PO Last administered on 08/20/18 08:49; Start 08/19/18 at 09:00 Vancomycin HCl 2 gm/Sodium Chloride 500 ml @ 250 mls/hr 1X ONCE IV Last administered on 08/18/18 18:43; Start 08/18/18 at 18:30; Stop 08/18/18 at 20:29; Status DC Vancomycin HCl 1.5 gm/Sodium Chloride 500 ml @ 250 mls/hr Q24H IV Last administered on 08/20/18 19:44; Start 08/19/18 at 19:00 Vancomycin HCl (Vancomycin Trough Level) 1 each 1X ONCE MC Last administered on 08/20/18 18:30; Start 08/20/18 at 18:30; Stop 08/20/18 at 18:31; Status DC Lactobacillus Rhamnosus (Culturelle) 1 cap BID PO Last administered on 08/20/18 20:40; Start 08/19/18 at 09:00 Enoxaparin Sodium (Lovenox 40mg Syringe) 40 mg Q24H SQ Last administered on 5/9 /19at 13:57; Start 08/19/18 at 13:15 Vancomycin HCl (Vancomycin Trough Level) 1 each 1X ONCE MC ; Start 08/23/18 at 18:30; Stop 08/23/18 at 18:31 Active Scripts Active Reported Novolog Flexpen (Insulin Aspart) 100 Unit/1 Ml Insuln.pen 0-16 Unit SQ TIDWMEALS 70-150 0 units if eating 0 units if not eating/HS 151-200 4 0 201-250 8 0 251-300 10 0 301-350 12 0 351-400 16 0 >401 call Fluvoxamine Maleate 50 Mg Tablet 50 Mg PO DAILY Polyvinyl Alcohol 15 Ml Drops 1 Drop OU PRN Q15MIN PRN Zofran (Ondansetron Hcl) 4 Mg Tablet 4 Mg PO PRN Q4HRS PRN Nystatin 15 Gm Powder 1 Filomena TP BID Remeron (Mirtazapine) 15 Mg Tablet 7.5 Mg PO QHS Analgesic [place] (Methyl Salicylate/Menthol) 28 Gm Oint...g. 1 Filomena TP PRN QID PRN Milk Of Magnesia (Magnesium Hydroxide) 2,400 Mg/10 Ml Oral.susp 2,400 Mg PO PRN QHS PRN Advanced Antacid Liquid (Mag Hydrox/Al Hydrox/Simeth) 355 Ml Oral.susp 15 Ml PO PRN AFTMEALHC PRN Synthroid (Levothyroxine Sodium) 25 Mcg Tablet 25 Mcg PO DAILYAC Proctosol-Hc (Hydrocortisone) 28.35 Gm Cream..g. 1 Filomena RC PRN TID PRN Vitamin D3 (Cholecalciferol (Vitamin D3)) 5,000 Unit Tablet 50,000 Unit PO WEEKLY start date: 07/17/18 Abilify (Aripiprazole) 5 Mg Tablet 5 Mg PO DAILY Senna-S Laxative Tablet (Sennosides/Docusate Sodium) 1 Each Tablet 1 Each PO BID94 Polyethylene Glycol 3350 255 Gm Powder 17 Gm PO DAILY Meclizine Hcl 25 Mg Tablet 25 Mg PO DAILY Mag-Oxide (Magnesium Oxide) 400 Mg Tablet 400 Mg PO BID94 Losartan Potassium (Losartan Potassium) 25 Mg Tablet 12.5 Mg PO BID Lidocaine 1 Each Adh..patch 2 Each TP DAILY Lantus Solostar (Insulin Glargine,Hum.rec.anlog) 100 Unit/1 Ml Insuln.pen 30 Unit SQ QHS Hydrocodone-Apap 5-325 (Hydrocodone Bit/Acetaminophen) 1 Each Tablet 1 Tab PO PRN Q6HRS PRN Hydrocodone-Apap 5-325 (Hydrocodone Bit/Acetaminophen) 1 Each Tablet 1 Tab PO HS Gabapentin (Gabapentin) 300 Mg Capsule 300 Mg PO DAILY Ferrous Sulfate 325 Mg Tablet 325 Mg PO DAILY Cosopt Eye Drops (Dorzolamide Hcl/Timolol Maleat) 10 Ml Drops 1 Drop LEFTEYE HS Clopidogrel (Clopidogrel Bisulfate) 75 Mg Tablet 75 Mg PO DAILY Atorvastatin Calcium 40 Mg Tablet 40 Mg PO QHS Aspirin 81 Mg Tab.chew 81 Mg PO DAILY Acetaminophen 500 Mg Tablet 1,000 Mg PO PRN Q6HRS PRN I have reviewed the current psychotropics carefully including drug interactions. Risk benefit ratio favors no change other than as noted in my dictated progress note. Diagnosis: Problems: (1) Anxiety disorder (2) Major depressive disorder, recurrent episode (3) Impulse control disorder (4) Mild cognitive disorder JENNIFER CHEUNG MD August 20, 2018 22:24
--- NOTE | 2018-08-21 00:12 | PN ---
DATE: 08/19/2018 This late entry for 08/19/2018 covers elements not covered in my initial note. SUBJECTIVE: I met with the patient in the evening of 08/19/2018. The patient is a 73-year-old female seen in room 123, [address] [place] [address] for a psychiatric consult requested by Dr. Herrmann after the patient was transferred from the [facility] for pneumonia. While on the [facility], she was being treated for diagnosis of major depressive disorder with psychotic features and major neurocognitive disorder, early vascular with delusion, depression. She was initially very noncompliant with medications, but then at the behest of her younger brother, she was more compliant and gradually showing improvement then she developed the pneumonia with transfer to [facility]. I have been asked to consult/follow up on the patient. No behaviors noted on the unit. REVIEW OF SYSTEMS: I met with her in her room. She admits to being tired. No CV, , pulmonary, eye system symptoms on review. She feels that cough is better. MENTAL STATUS EXAM: The patient is oriented to herself and situation. Speech has some latency, coherent. Abstraction fair, computation impaired, language function intact, attention span short. Mood and affect somewhat withdrawn. LABORATORY DATA: Reviewed. IMPRESSION: Major depressive disorder with psychotic features, major neurocognitive disorder, early vascular with delusion, depression; pneumonia. Rest unchanged from admission. PLAN: Continue current psychotropics mentioned in my initial note. MAN Jimmy CHEUNG MD DR: SHERIF/kelly JOB#: [id number] / [id number]
[2018-08-21] MEDS: PIPERACILLIN/TAZOBACTAM 3.375 GM in IV NORMAL SALINE 50ML 50 ML IV SCH ×2 (05:48→14:00)
[2018-08-21] MEDS: LEVOTHYROXINE 25 MCG TABLET. PO SCH (05:48)
[2018-08-21 06:12] VITALS: BP 125/71
[2018-08-21] MEDS: INSULIN LISPRO 300 UNITS/3 ML INSULN.PEN. SQ SCH ×2 (07:26→12:00)
[2018-08-21] MEDS: ASPIRIN 81 MG TAB.CHEW PO SCH (07:41)
[2018-08-21] MEDS: ARIPiprazole 5 MG TABLET PO SCH (07:41)
[2018-08-21] MEDS: MECLIZINE 12.5 MG TABLET. PO SCH (07:42)
[2018-08-21] MEDS: LOSARTAN 25 MG TABLET. PO SCH (07:43)
[2018-08-21] MEDS: LACTOBACILLUS RHAMNOSUS GG 1 CAPSULE. PO SCH (07:43)
[2018-08-21] MEDS: FERROUS SULFATE 325 MG TABLET. PO SCH (07:43)
[2018-08-21] MEDS: SENNOSIDES/DOCUSATE 8.6/50MG TABLET. PO SCH ×2 (07:44→16:00)
[2018-08-21] MEDS: MAGNESIUM OXIDE 400 MG TABLET PO SCH ×2 (07:44→16:00)
[2018-08-21] MEDS: CLOPIDOGREL BISULFATE 75 MG TABLET PO SCH (07:44)
[2018-08-21] MEDS: GABAPENTIN 300 MG CAPSULE. PO SCH (07:44)
[2018-08-21] MEDS: POLYETHYLENE GLYCOL 3350 17 GM PACKET. PO SCH (07:55)
[2018-08-21] MEDS: LIDOCAINE (700MG/PATCH) PATCH. TD SCH (07:55)
[2018-08-21] MEDS: NYSTATIN TOPICAL POWDER 15GM BOTTLE. TP SCH (07:55)
[2018-08-21] MEDS ORDERED: CHOLECALCIFEROL (VITAMIN D3) 50,000 UNIT CAPSULE PO SCH (09:00)
[2018-08-21 10:41] VITALS: BP 115/62
--- NOTE | 2018-08-21 11:04 | NUR ---
NURSING NOTE BEHAVIOR PT WAS NON COMPLIANT WITH ASSESSMENT THIS AM, STATING "DO NOT TOUCH ME", WAS UNABLE TO LISTEN TO RESPIRATORY, CARDIOVASCULAR, AND GI SYSTEM. PT REFUSED MEDICATIONS THIS AM, STATES "I DONT HAVE TO TAKE THEM, GET OUT OF MY ROOM". WAS ABLE TO ENCOURAGE PT TO EVENTUALLY TAKE THEM AFTER MULTIPLE ATTEMPTS. UDAY WATTS.
[2018-08-21] MEDS: ENOXAPARIN 40 MG/0.4 ML SYRINGE. SQ SCH (13:15)
--- NOTE | 2018-08-21 14:22 | DS ---
DATE OF DISCHARGE: 08/21/2018 HOSPITAL COURSE: The patient is a 73-year-old female patient who was transferred from [facility] on account of generally feeling unwell, cough and headache, tenderness. Her investigation showed that she has right lower lobe pneumonia as well as ethmoid and maxillary sinusitis. She was started on IV antibiotic in the form of Zosyn and vancomycin. Her blood cultures are so far negative. She also complained of swelling of both legs and we did a venous Doppler ultrasound, which showed no evidence of deep vein thrombosis; however, her lab work showed that she has marked hypoalbuminemia, most likely due to diabetic nephropathy and we did 24-hour urine collection the result of which is still pending. As the patient remained stable and her symptoms improved, she has been afebrile with normal white cell count, a decision was made to discharge her to [facility] to continue on oral Augmentin and we will forward the results of the 24-hour urine collection once becomes available. PHYSICAL EXAMINATION: GENERAL: When I saw her today, she looked well and was clearly in no apparent respiratory distress, pale, but no jaundice, cyanosis or thyromegaly. No jugular venous distension. No lower limb edema. VITAL SIGNS: Her heart rate was 85, blood pressure was 115/62, temperature was 98.3, respiratory rate 20 and oxygen saturation was 93%. HEENT: Examination of the head, eyes, ears, nose and throat showed normocephalic, atraumatic. NECK: Supple. HEART: Showed normal first and second heart sounds. No gallop, rub or murmur. CHEST: Shows central trachea, equal bilateral expansion, air entry, vesicular sounds with crepitation, mostly in the right side posteriorly. I could not appreciate any rhonchi. ABDOMEN: Distended, soft, nontender. NEUROLOGIC: She is awake, alert, responding appropriately. All her cranial nerves are intact. She has right-sided hemiparesis. She is mostly bedbound, chair bound. LABORATORY DATA: Her lab work showed a serum sodium 137, potassium 3.9, chloride 105, bicarbonate 24, anion gap of 8, BUN 27, creatinine 1.2, estimated GFR was 44 mL per minute. Her glucose was 68, calcium was 8.6. Her white cell count was 6400, hemoglobin 10.8, hematocrit 32.5, MCV 84 and platelet count 258,000. Her influenza A and B were negative. Her nasal screen for MRSA PCR was negative. DISCHARGE MEDICATIONS: She was discharged to the group home facility to continue on Augmentin 875 mg twice a day for 7 more days. She should continue also on aripiprazole 5 mg daily, aspirin 81 mg once a day, atorvastatin calcium 40 mg at bedtime. She is on cholecalciferol 50,000 units weekly, Plavix 75 mg once a day, dorzolamide/timolol for Cosopt 1 drop to the left eye at bedtime, ferrous sulfate 325 mg daily, fluvoxamine 50 mg daily, gabapentin 300 mg daily, hydrocodone/APAP 5/325 one tablet at bedtime and she is also on hydrocodone/APAP 5/325 one tablet every 6 hours as needed, Proctosol cream apply topically 3 times a day for rectal pain. She is on NovoLog insulin 3 times a day before meals and Lantus insulin 30 units at bedtime, levothyroxine 25 mcg once a day, lidocaine patch 2 patches apply topically daily, losartan potassium 12.5 mg twice a day, Mylanta 15 mL every ____ milk of magnesia 30 mL p.o. daily p.r.n. for constipation, magnesium oxide 400 mg twice a day, meclizine 25 mg daily. She is on mirtazapine for Remeron 7.5 mg at bedtime, nystatin cream topically twice a day, ondansetron 4 mg every 4 hours, polyethylene glycol 17 grams daily p.r.n. for constipation, polyvinyl alcohol 1 drop to both eyes as needed, and Senna S 1 tablet twice a day. FINAL DISCHARGE DIAGNOSES: 1. Ethmoid and maxillary sinusitis. 2. Right lower lobe pneumonia. 3. Marked bilateral lower extremity edema likely third spacing as she has serum albumin of only 2.3. 4. Severe protein-calorie malnutrition. 5. Type 2 diabetes. 6. Right-sided hemiplegia. 7. Hypertension. 8. Peripheral neuropathy. 9. Hypothyroidism. KHAI SPENCE MD DR: LITTLE/kelly JOB#: [id number] / [id number]
--- NOTE | 2018-08-21 16:40 | NUR ---
NURSING NOTE DISCHARGE PT DISCHARGED TO [facility] AT 1640 VIA TRANSPORTATION SERVICE. PT HAD RINGS AND MONEY IN THE SAFE. GIVEN TO PT WITH ANAHY AYERS. REPORT CALLED TO [facility] AT [facility]. WRITTEN CHART SENT WITH TRANSPORT. UDAY WATTS.
--- NOTE | 2018-08-21 21:15 | PN ---
DATE: 08/20/2018 PSYCHIATRIC PROGRESS NOTE This late entry 08/20/2018 covers elements not covered in my initial note. SUBJECTIVE: Per nursing report, the patient is doing better from a medical standpoint with her pneumonia. She remains somewhat depressed, anxious, but fairly cooperative. REVIEW OF SYSTEMS: No suicidal ideation, not aggressive. MENTAL STATUS EXAM: The patient continues to have some short-term memory deficits, some depressed mood and affect, but no psychotic symptoms, suicidal or homicidal ideation. IMPRESSION: Unchanged from initial note. PLAN: No change from initial note and the patient may transfer [facility] once she is medically stable. MAN Jimmy CHEUNG MD DR: SHERIF/kelly JOB#: [id number] / [id number]
[2018-08-22 01:06] LABS: UR PROTEIN 42.3 mg/dL (Not Estab.)
[2018-08-22 03:07] LABS: TOTAL SERUM CREATININE 1.02 mg/dL (0.57-1.00); TOTAL URINE CREATININE 66.5 mg/dL (Not Estab.)
== END 2018-08-21 16:40 | DRG 871 ==
LOC: 1 SOUTH 16:15
PROVIDERS: ADMIT Internal Medicine; ATTEND Internal Medicine
DX: A41.9 Sepsis, unspecified organism (principal); J18.1 Lobar pneumonia, unspecified organism; E43 Unspecified severe protein-calorie malnutrition; F33.3 Major depressive disorder, recurrent, severe with psychotic symptoms; G81.91 Hemiplegia, unspecified affecting right dominant side; E03.9 Hypothyroidism, unspecified; E78.5 Hyperlipidemia, unspecified; F01.50 Vascular dementia, unspecified severity, without behavioral disturbance, psychotic disturbance, mood disturbance, and anxiety; F63.9 Impulse disorder, unspecified; F41.9 Anxiety disorder, unspecified; E11.42 Type 2 diabetes mellitus with diabetic polyneuropathy; M19.90 Unspecified osteoarthritis, unspecified site; Z79.4 Long term (current) use of insulin; H40.9 Unspecified glaucoma; I10 Essential (primary) hypertension; I25.10 Atherosclerotic heart disease of native coronary artery without angina pectoris; J32.0 Chronic maxillary sinusitis; J32.2 Chronic ethmoidal sinusitis; Y95 Nosocomial condition; Z91.14 Patient's other noncompliance with medication regimen; Z99.3 Dependence on wheelchair; Z68.30 Body mass index [BMI] 30.0-30.9, adult; Z74.01 Bed confinement status
CPT/HCPCS: 36415; 70486; 80048; 80053; 80202; 82575; 82947; 84156; 85025; 85027; 87040; 87641; 87804; 93970; J1650; J1815; J2543; J3370; J7040; J8597